=== PATIENT | male | born 1970 | race Hispanic/Latino ===

== ENCOUNTER 2019-11-09 06:10 | Inpatient (IN) | payer MEDICARE ==
[2019-11-09] MEDS: NORepinephrine/NS 4 MG-250 ML 4 MG/250 ML BAG IV SCH ×4 (06:15→17:45)
[2019-11-09] MEDS ORDERED: IPRATROPIUM 0.02% NEBU 2.5 ML IH ONE (06:25)
[2019-11-09] MEDS ORDERED: ALBUTEROL 2.5 MG/3 ML NEBU IH ONE (06:25)
[2019-11-09] MEDS ORDERED: methylPREDNISolone Sod Succinate 125 MG/2 ML INJ IV ONE (06:25)
[2019-11-09] MEDS ORDERED: SODIUM CHLORIDE 0.9% 1000 ML 1,000 ML IV ONE (06:25)
--- NOTE | 2019-11-09 06:30 | Emergency Department Report ---
HPI - General Time Seen by Provider: 11/09/19 06:19 - HPI HPI: Room 22 The patient is a 49-year-old male presenting with chief complaint of cardiac arrest. Per EMS the patient was at a psychiatric facility when he was found down in a shower. EMS arrived on scene upon the patient pulseless and apneic. ACLS protocols were initiated and the patient was intubated by EMS prior to arrival. Per EMS epinephrine 5 rounds was administered as the patient was persistently in asystole and only briefly and PEA. Upon arrival to the ED the patient was found to have a pulse and was hypotensive. Location: [See above] Duration: [See above] Quality: [See above] Severity: [See above] Timing: [See above] Context: [See above] Modifying factors: [See above] Associated signs and symptoms: [see above] ED Past Medical Hx - Past Medical History Hx Psychiatric Treatment: Yes (schizophrenia) Hx COPD: Yes Additional medical history: "bad back" - Family History Family history: no significant - Social History Smoking Status: Unknown if ever smoked Substance Use Type: None - Medications Home Medications: Home Medications Medication Instructions Recorded Confirmed Last Taken Type ALBUTEROL NEB's [Proventil 0.083% 1 neb IH Q6H 01/02/14 11/09/19 07/30/14 History NEBS] Albuterol Sulfate [Ventolin HFA] 2 puff IH QID PRN 01/02/14 11/09/19 01/02/14 08:[address] [Depakote] 500 mg PO BID 01/02/14 11/09/19 07/30/14 History Docusate Sodium [Colace] 100 mg PO BID 11/09/19 11/09/19 Unknown History Paliperidone Palmitate [Invega 156 mg IM QMONTH 11/09/19 11/09/19 11/04/19 History Sustenna] risperiDONE [RisperDAL] 3 mg PO BID 11/09/19 11/09/19 Unknown History ED Review of Systems ROS: Stated complaint: CARDIAC ARREST Other details as noted in HPI Comment: Unobtainable due to pts medical conditions Physical Exam - Physical Exam Physical Exam: GENERAL: The patient is well-developed well-nourished male lying on stretcher unresponsive. [] HEENT: Normocephalic. Atraumatic. Pupils 2 mm bilaterally NECK: Trachea midline CHEST/LUNGS: Diminished breath sounds bilaterally. Prolonged expiratory phase with bagging HEART/CARDIOVASCULAR: Regular. There is no tachycardia. There is no gallop rub or murmur. ABDOMEN: Abdomen is soft, nontender. Patient has normal bowel sounds. There is no abdominal distention. SKIN: There is no rash. There is no edema. There is no diaphoresis. NEURO: GCS 3T MUSCULOSKELETAL: There is no evidence of acute injury. ED Medical Decision Making - Lab Data Result diagrams: 11/09/19 06:24 11/09/19 06:24 Laboratory Tests 11/09/19 11/09/19 11/09/19 06:24 06:24 06:24 WBC 9.2 RBC 3.54 L Hgb 11.7 L Hct 36.4 MCV 103 H MCH 33 H MCHC 32 RDW 14.6 Plt Count 185 Add Manual Diff Complete Total Counted 100 Seg Neuts % (Manual) 65.0 Band Neutrophils % 12.0 Lymphocytes % (Manual) 16.0 Reactive Lymphs % (Man) 1.0 Monocytes % (Manual) 3.0 Eosinophils % (Manual) 0 Basophils % (Manual) 0 Metamyelocytes % 1.0 Myelocytes % 2.0 Promyelocytes % 0 Blast Cells % 0 Nucleated RBC % 1.0 H Seg Neutrophils # Man 6.0 Band Neutrophils # 1.1 Lymphocytes # (Manual) 1.5 Abs React Lymphs (Man) 0.1 Monocytes # (Manual) 0.3 Eosinophils # (Manual) 0.0 Basophils # (Manual) 0.0 Metamyelocytes # 0.1 Myelocytes # 0.2 Promyelocytes # 0.0 Blast Cells # 0.0 WBC Morphology Not Reportable Hypersegmented Neuts Not Reportable Hyposegmented Neuts Not Reportable Hypogranular Neuts Not Reportable Smudge Cells Not Reportable Toxic Granulation Not Reportable Toxic Vacuolation Not Reportable Dohle Bodies Not Reportable Pelger-Huet Anomaly Not Reportable Emily Rods Not Reportable Platelet Estimate Consistent w auto Clumped Platelets Not Reportable Plt Clumps, EDTA Not Reportable Large Platelets Not Reportable Giant Platelets Not Reportable Platelet Satelliting Not Reportable Plt Morphology Comment Not Reportable RBC Morphology Normal Dimorphic RBCs Not Reportable Polychromasia Not Reportable Hypochromasia Not Reportable Poikilocytosis Not Reportable Anisocytosis Not Reportable Microcytosis Not Reportable Macrocytosis Not Reportable Spherocytes Not Reportable Pappenheimer Bodies Not Reportable Sickle Cells Not Reportable Target Cells Not Reportable Tear Drop Cells Not Reportable Ovalocytes Not Reportable Helmet Cells Not Reportable [place] Bodies Not Reportable [place] Rings Not Reportable [place] Cells Not Reportable Bite Cells Not Reportable Crenated Cell Not Reportable Elliptocytes Not Reportable Acanthocytes (Spur) Not Reportable Rouleaux Not Reportable Hemoglobin C Crystals Not Reportable Schistocytes Not Reportable Malaria parasites Not Reportable Drake Bodies Not Reportable Hem Pathologist Commnt No PT 16.9 H INR 1.35 H APTT 50.7 H D-Dimer 4435.48 H POC ABG pH POC ABG pO2 POC ABG HCO3 POC ABG Total CO2 POC ABG O2 Sat POC ABG Base Excess FiO2 Sodium 141 Potassium 5.0 Chloride 98.4 Carbon Dioxide 23 Anion Gap 25 BUN 23 H Creatinine 1.3 Estimated GFR 59 BUN/Creatinine Ratio 18 Glucose 122 H Lactic Acid Calcium 8.3 L Magnesium Total Bilirubin 0.30 AST 355 H ALT 340 H Alkaline Phosphatase 91 Ammonia Total Creatine Kinase 75 CK-MB (CK-2) 3.0 CK-MB (CK-2) Rel Index 4.0 Troponin T 0.039 H NT-Pro-B Natriuret Pep 5052 H Total Protein 5.6 L Albumin 2.9 L Albumin/Globulin Ratio 1.1 TSH Free T4 Urine Color Urine Turbidity Urine pH Ur Specific Joaquin Urine Protein Urine Glucose (UA) Urine Ketones Urine Blood Urine Nitrite Urine Bilirubin Urine Urobilinogen Ur Leukocyte Esterase Urine WBC (Auto) Urine RBC (Auto) Urine Bacteria (Auto) Ur Transition Epith Cell Urine Mucus Urine Opiates Screen Urine Methadone Screen Ur Barbiturates Screen Valproic Acid Ur Phencyclidine Scrn Ur Amphetamines Screen U Benzodiazepines Scrn Urine Cocaine Screen U Marijuana (THC) Screen Drugs of Abuse Note Plasma/Serum Alcohol 11/09/1919 11/09/19 06:24 06:24 06:24 WBC RBC Hgb Hct MCV MCH MCHC RDW Plt Count Add Manual Diff Total Counted Seg Neuts % (Manual) Band Neutrophils % Lymphocytes % (Manual) Reactive Lymphs % (Man) Monocytes % (Manual) Eosinophils % (Manual) Basophils % (Manual) Metamyelocytes % Myelocytes % Promyelocytes % Blast Cells % Nucleated RBC % Seg Neutrophils # Man Band Neutrophils # Lymphocytes # (Manual) Abs React Lymphs (Man) Monocytes # (Manual) Eosinophils # (Manual) Basophils # (Manual) Metamyelocytes # Myelocytes # Promyelocytes # Blast Cells # WBC Morphology Hypersegmented Neuts Hyposegmented Neuts Hypogranular Neuts Smudge Cells Toxic Granulation Toxic Vacuolation Dohle Bodies Pelger-Huet Anomaly Emily Rods Platelet Estimate Clumped Platelets Plt Clumps, EDTA Large Platelets Giant Platelets Platelet Satelliting Plt Morphology Comment RBC Morphology Dimorphic RBCs Polychromasia Hypochromasia Poikilocytosis Anisocytosis Microcytosis Macrocytosis Spherocytes Pappenheimer Bodies Sickle Cells Target Cells Tear Drop Cells Ovalocytes Helmet Cells [place] Bodies [place] Rings Alberto Cells Bite Cells Crenated Cell Elliptocytes Acanthocytes (Spur) Rouleaux Hemoglobin C Crystals Schistocytes Malaria parasites Drake Bodies Hem Pathologist Commnt PT INR APTT D-Dimer POC ABG pH POC ABG pO2 POC ABG HCO3 POC ABG Total CO2 POC ABG O2 Sat POC ABG Base Excess FiO2 Sodium Potassium Chloride Carbon Dioxide Anion Gap BUN Creatinine Estimated GFR BUN/Creatinine Ratio Glucose Lactic Acid Calcium Magnesium 2.70 H Total Bilirubin AST ALT Alkaline Phosphatase Ammonia 101.0 H Total Creatine Kinase CK-MB (CK-2) CK-MB (CK-2) Rel Index Troponin T NT-Pro-B Natriuret Pep Total Protein Albumin Albumin/Globulin Ratio TSH 5.500 H Free T4 0.78 Urine Color Urine Turbidity Urine pH Ur Specific Joaquin Urine Protein Urine Glucose (UA) Urine Ketones Urine Blood Urine Nitrite Urine Bilirubin Urine Urobilinogen Ur Leukocyte Esterase Urine WBC (Auto) Urine RBC (Auto) Urine Bacteria (Auto) Ur Transition Epith Cell Urine Mucus Urine Opiates Screen Urine Methadone Screen Ur Barbiturates Screen Valproic Acid Ur Phencyclidine Scrn Ur Amphetamines Screen U Benzodiazepines Scrn Urine Cocaine Screen U Marijuana (THC) Screen Drugs of Abuse Note Plasma/Serum Alcohol 11/09/1919 11/09/19 06:24 06:39 06:39 WBC RBC Hgb Hct MCV MCH MCHC RDW Plt Count Add Manual Diff Total Counted Seg Neuts % (Manual) Band Neutrophils % Lymphocytes % (Manual) Reactive Lymphs % (Man) Monocytes % (Manual) Eosinophils % (Manual) Basophils % (Manual) Metamyelocytes % Myelocytes % Promyelocytes % Blast Cells % Nucleated RBC % Seg Neutrophils # Man Band Neutrophils # Lymphocytes # (Manual) Abs React Lymphs (Man) Monocytes # (Manual) Eosinophils # (Manual) Basophils # (Manual) Metamyelocytes # Myelocytes # Promyelocytes # Blast Cells # WBC Morphology Hypersegmented Neuts Hyposegmented Neuts Hypogranular Neuts Smudge Cells Toxic Granulation Toxic Vacuolation Dohle Bodies Pelger-Huet Anomaly Emily Rods Platelet Estimate Clumped Platelets Plt Clumps, EDTA Large Platelets Giant Platelets Platelet Satelliting Plt Morphology Comment RBC Morphology Dimorphic RBCs Polychromasia Hypochromasia Poikilocytosis Anisocytosis Microcytosis Macrocytosis Spherocytes Pappenheimer Bodies Sickle Cells Target Cells Tear Drop Cells Ovalocytes Helmet Cells [place] Bodies [place] Rings [place] Cells Bite Cells Crenated Cell Elliptocytes Acanthocytes (Spur) Rouleaux Hemoglobin C Crystals Schistocytes Malaria parasites Drake Bodies Hem Pathologist Commnt PT INR APTT D-Dimer POC ABG pH POC ABG pO2 POC ABG HCO3 POC ABG Total CO2 POC ABG O2 Sat POC ABG Base Excess FiO2 Sodium Potassium Chloride Carbon Dioxide Anion Gap BUN Creatinine Estimated GFR BUN/Creatinine Ratio Glucose Lactic Acid 8.80 H* Calcium Magnesium Total Bilirubin AST ALT Alkaline Phosphatase Ammonia Total Creatine Kinase CK-MB (CK-2) CK-MB (CK-2) Rel Index Troponin T NT-Pro-B Natriuret Pep Total Protein Albumin Albumin/Globulin Ratio TSH Free T4 Urine Color Urine Turbidity Urine pH Ur Specific Joaquin Urine Protein Urine Glucose (UA) Urine Ketones Urine Blood Urine Nitrite Urine Bilirubin Urine Urobilinogen Ur Leukocyte Esterase Urine WBC (Auto) Urine RBC (Auto) Urine Bacteria (Auto) Ur Transition Epith Cell Urine Mucus Urine Opiates Screen Urine Methadone Screen Ur Barbiturates Screen Valproic Acid 67.4 Ur Phencyclidine Scrn Ur Amphetamines Screen U Benzodiazepines Scrn Urine Cocaine Screen U Marijuana (THC) Screen Drugs of Abuse Note Plasma/Serum Alcohol < 0.01 11/09/19 11/09/19 11/09/19 06:51 07:24 07:24 WBC RBC Hgb Hct MCV MCH MCHC RDW Plt Count Add Manual Diff Total Counted Seg Neuts % (Manual) Band Neutrophils % Lymphocytes % (Manual) Reactive Lymphs % (Man) Monocytes % (Manual) Eosinophils % (Manual) Basophils % (Manual) Metamyelocytes % Myelocytes % Promyelocytes % Blast Cells % Nucleated RBC % Seg Neutrophils # Man Band Neutrophils # Lymphocytes # (Manual) Abs React Lymphs (Man) Monocytes # (Manual) Eosinophils # (Manual) Basophils # (Manual) Metamyelocytes # Myelocytes # Promyelocytes # Blast Cells # WBC Morphology Hypersegmented Neuts Hyposegmented Neuts Hypogranular Neuts Smudge Cells Toxic Granulation Toxic Vacuolation Dohle Bodies Pelger-Huet Anomaly Emily Rods Platelet Estimate Clumped Platelets Plt Clumps, EDTA Large Platelets Giant Platelets Platelet Satelliting Plt Morphology Comment RBC Morphology Dimorphic RBCs Polychromasia Hypochromasia Poikilocytosis Anisocytosis Microcytosis Macrocytosis Spherocytes Pappenheimer Bodies Sickle Cells Target Cells Tear Drop Cells Ovalocytes Helmet Cells [place] Bodies [place] Rings [place] Cells Bite Cells Crenated Cell Elliptocytes Acanthocytes (Spur) Rouleaux Hemoglobin C Crystals Schistocytes Malaria parasites Drake Bodies Hem Pathologist Commnt PT INR APTT D-Dimer POC ABG pH POC ABG pO2 POC ABG HCO3 POC ABG Total CO2 POC ABG O2 Sat POC ABG Base Excess FiO2 Sodium Potassium Chloride Carbon Dioxide Anion Gap BUN Creatinine Estimated GFR BUN/Creatinine Ratio Glucose Lactic Acid 9.80 H* Calcium Magnesium Total Bilirubin AST ALT Alkaline Phosphatase Ammonia Total Creatine Kinase CK-MB (CK-2) CK-MB (CK-2) Rel Index Troponin T NT-Pro-B Natriuret Pep Total Protein Albumin Albumin/Globulin Ratio TSH Free T4 Urine Color Yellow Urine Turbidity Cloudy Urine pH 6.0 Ur Specific Joaquin 1.014 Urine Protein >500 Urine Glucose (UA) 50 Urine Ketones Tr Urine Blood Sm Urine Nitrite Neg Urine Bilirubin Neg Urine Urobilinogen < 2.0 Ur Leukocyte Esterase Neg Urine WBC (Auto) 83.0 H Urine RBC (Auto) > 182.0 Urine Bacteria (Auto) 4+ Ur Transition Epith Cell 5 Urine Mucus 2+ Urine Opiates Screen Presumptive negative Urine Methadone Screen Presumptive negative Ur Barbiturates Screen Presumptive negative Valproic Acid Ur Phencyclidine Scrn Presumptive negative Ur Amphetamines Screen Presumptive negative U Benzodiazepines Scrn Presumptive negative Urine Cocaine Screen Presumptive negative U Marijuana (THC) Screen Presumptive negative Drugs of Abuse Note Disclamer Plasma/Serum Alcohol 11/09/19 11/09/19 11/09/19 07:27 08:10 08:32 WBC RBC Hgb Hct MCV MCH MCHC RDW Plt Count Add Manual Diff Total Counted Seg Neuts % (Manual) Band Neutrophils % Lymphocytes % (Manual) Reactive Lymphs % (Man) Monocytes % (Manual) Eosinophils % (Manual) Basophils % (Manual) Metamyelocytes % Myelocytes % Promyelocytes % Blast Cells % Nucleated RBC % Seg Neutrophils # Man Band Neutrophils # Lymphocytes # (Manual) Abs React Lymphs (Man) Monocytes # (Manual) Eosinophils # (Manual) Basophils # (Manual) Metamyelocytes # Myelocytes # Promyelocytes # Blast Cells # WBC Morphology Hypersegmented Neuts Hyposegmented Neuts Hypogranular Neuts Smudge Cells Toxic Granulation Toxic Vacuolation Dohle Bodies Pelger-Huet Anomaly Emily Rods Platelet Estimate Clumped Platelets Plt Clumps, EDTA Large Platelets Giant Platelets Platelet Satelliting Plt Morphology Comment RBC Morphology Dimorphic RBCs Polychromasia Hypochromasia Poikilocytosis Anisocytosis Microcytosis Macrocytosis Spherocytes Pappenheimer Bodies Sickle Cells Target Cells Tear Drop Cells Ovalocytes Helmet Cells [place] Bodies [place] Rings [place] Cells Bite Cells Crenated Cell Elliptocytes Acanthocytes (Spur) Rouleaux Hemoglobin C Crystals Schistocytes Malaria parasites Drake Bodies Hem Pathologist Commnt PT INR APTT D-Dimer POC ABG pH 7.145 L POC ABG pO2 380 H POC ABG HCO3 26.1 POC ABG Total CO2 28 POC ABG O2 Sat 100 POC ABG Base Excess -3 FiO2 100 Sodium Potassium Chloride Carbon Dioxide Anion Gap BUN Creatinine Estimated GFR BUN/Creatinine Ratio Glucose Lactic Acid 10.20 H* 6.50 H* Calcium Magnesium Total Bilirubin AST ALT Alkaline Phosphatase Ammonia Total Creatine Kinase CK-MB (CK-2) CK-MB (CK-2) Rel Index Troponin T NT-Pro-B Natriuret Pep Total Protein Albumin Albumin/Globulin Ratio TSH Free T4 Urine Color Urine Turbidity Urine pH Ur Specific Joaquin Urine Protein Urine Glucose (UA) Urine Ketones Urine Blood Urine Nitrite Urine Bilirubin Urine Urobilinogen Ur Leukocyte Esterase Urine WBC (Auto) Urine RBC (Auto) Urine Bacteria (Auto) Ur Transition Epith Cell Urine Mucus Urine Opiates Screen Urine Methadone Screen Ur Barbiturates Screen Valproic Acid Ur Phencyclidine Scrn Ur Amphetamines Screen U Benzodiazepines Scrn Urine Cocaine Screen U Marijuana (THC) Screen Drugs of Abuse Note Plasma/Serum Alcohol 11/09/19 09:27 WBC RBC Hgb Hct MCV MCH MCHC RDW Plt Count Add Manual Diff Total Counted Seg Neuts % (Manual) Band Neutrophils % Lymphocytes % (Manual) Reactive Lymphs % (Man) Monocytes % (Manual) Eosinophils % (Manual) Basophils % (Manual) Metamyelocytes % Myelocytes % Promyelocytes % Blast Cells % Nucleated RBC % Seg Neutrophils # Man Band Neutrophils # Lymphocytes # (Manual) Abs React Lymphs (Man) Monocytes # (Manual) Eosinophils # (Manual) Basophils # (Manual) Metamyelocytes # Myelocytes # Promyelocytes # Blast Cells # WBC Morphology Hypersegmented Neuts Hyposegmented Neuts Hypogranular Neuts Smudge Cells Toxic Granulation Toxic Vacuolation Dohle Bodies Pelger-Huet Anomaly Emily Rods Platelet Estimate Clumped Platelets Plt Clumps, EDTA Large Platelets Giant Platelets Platelet Satelliting Plt Morphology Comment RBC Morphology Dimorphic RBCs Polychromasia Hypochromasia Poikilocytosis Anisocytosis Microcytosis Macrocytosis Spherocytes Pappenheimer Bodies Sickle Cells Target Cells Tear Drop Cells Ovalocytes Helmet Cells [place] Bodies [place] Rings Alberto Cells Bite Cells Crenated Cell Elliptocytes Acanthocytes (Spur) Rouleaux Hemoglobin C Crystals Schistocytes Malaria parasites Drake Bodies Hem Pathologist Commnt PT INR APTT D-Dimer POC ABG pH POC ABG pO2 POC ABG HCO3 POC ABG Total CO2 POC ABG O2 Sat POC ABG Base Excess FiO2 Sodium Potassium Chloride Carbon Dioxide Anion Gap BUN Creatinine Estimated GFR BUN/Creatinine Ratio Glucose Lactic Acid 5.80 H* Calcium Magnesium Total Bilirubin AST ALT Alkaline Phosphatase Ammonia Total Creatine Kinase CK-MB (CK-2) CK-MB (CK-2) Rel Index Troponin T NT-Pro-B Natriuret Pep Total Protein Albumin Albumin/Globulin Ratio TSH Free T4 Urine Color Urine Turbidity Urine pH Ur Specific Joaquin Urine Protein Urine Glucose (UA) Urine Ketones Urine Blood Urine Nitrite Urine Bilirubin Urine Urobilinogen Ur Leukocyte Esterase Urine WBC (Auto) Urine RBC (Auto) Urine Bacteria (Auto) Ur Transition Epith Cell Urine Mucus Urine Opiates Screen Urine Methadone Screen Ur Barbiturates Screen Valproic Acid Ur Phencyclidine Scrn Ur Amphetamines Screen U Benzodiazepines Scrn Urine Cocaine Screen U Marijuana (THC) Screen Drugs of Abuse Note Plasma/Serum Alcohol - EKG Data -: EKG Interpreted by Me EKG shows normal: sinus rhythm Rate: normal - EKG Data When compared to previous EKG there are: previous EKG unavailable Interpretation: nonspecific ST-T wave veronica (flattened T-wave in lead aVL) - Radiology Data Radiology results: report reviewed (CT head, CT chest), image reviewed (chest x- ray, CT head, CT chest) interpreted by me: Chest x-ray-ET tube in place. No focal infiltrate, no pneumothorax [address] [address] Cat Scan Report Signed Patient: KRUPA COE MR# : [id number] : 1970 Acct:[id number] Age/Sex: 49 / M ADM Date: 11/09/19 Loc: ED Attending Dr: Ordering Physician: BRANDI PRICE MD Date of Service: 11/09/19 Procedure(s): CT head/brain wo con Accession Number(s): [id number] cc: BRANDI PRICE MD CT head/brain wo con INDICATION: Cardiac Arrest, Pt found down!. TECHNIQUE: All CT scans at this location are performed using the following dose modulation technique: Automated exposure control. CONTRAST: None. COMPARISON: None available. FINDINGS: The ventricular system is appropriate in size and configuration without midline shift. Negative for mass, stroke or hemorrhage. Evaluation of the paranasal mucosal retention cyst at the base of the left maxillary sinus. Indication of the right maxillary sinus. IMPRESSION: 1. Sinus disease. 2. No bleed or stroke. Signer Name: Tobi Hooper MD Signed: 11/09/2019 9:28 AM Workstation Name: [id number] Transcribed By: ES Dictated By: Tobi Hooper MD Electronically Authenticated By: Tobi Hooper MD Signed Date/Time: 11/09/19927 DD/ 2 TD/TT: [address] [address] Cat Scan Report Signed Patient: KRUPA COE MR# : [id number] : 1970 Acct:[id number] Age/Sex: 49 / M ADM Date: 11/09/19 Loc: ED Aurelio mcdowell Dr: Ordering Physician: BRANDI PRICE MD Date of Service: 11/09/19 Procedure(s): CT angio chest Accession Number(s): [id number] cc: BRANDI PRICE MD CT angio chest INDICATION / CLINICAL INFORMATION: s/p cardiac arrest. TECHNIQUE: Axial CT images were obtained after injection of Omnipaque 300 100 cc IV contrast using CTA protocol. 3 plane MIP / 3D reconstructions were produced. All CT scans at this location are performed using CT dose reduction for ALARA by means of automated exposure control. COMPARISON: None available. FINDINGS: Negative for lung mass, infiltrate or pleural fluid. No mediastinal mass or adenopathy. Negative for aneurysm, dissection or pulmonary embolus. Imaging of the upper abdomen is unremarkable. An NG tube is in satisfactory position. IMPRESSION: No pulmonary embolus or pneumonia. Signer Name: Tobi Hooper MD Signed: 11/09/2019 9:53 AM Workstation Name: [id number] Transcribed By: ES Dictated By: Tobi Hooper MD Electronically Authenticated By: Tobi Hooper MD Signed Date/Time: 11/09/1953 DD/ 7 TD/TT: - Differential Diagnosis respiratory arrest, cardiac arrest Critical care attestation.: If time is entered above; I have spent that time in minutes in the direct care of this critically ill patient, excluding procedure time. ED Disposition Clinical Impression: Respiratory arrest, Hepatic encephalopathy, UTI (urinary tract infection), Elevated troponin Disposition: OP ADMIT IP TO THIS HOSP Is pt being admited?: Yes Does the pt Need Aspirin: Yes Condition: Serious Referrals: PRIMARY CARE, [Primary Care Provider] - 3-5 Days Time of Disposition: 11:14 (hospitalist paged (Dr John))
[2019-11-09 06:36] LABS: Hematocrit 36.4 % (35.5-45.6); Hemoglobin 11.7 gm/dl (11.8-15.2); Mean Corpuscular HGB Conc 32 % (32-34); Mean Corpuscular Volume 103 fl (84-94); Platelet Count 185 K/mm3 (140-440); Red Blood Count 3.54 M/mm3 (3.65-5.03); Red Cell Distribution Width 14.6 % (13.2-15.2)
--- NOTE | 2019-11-09 06:38 | XRay Report ---
CHEST 1 VIEW INDICATION / CLINICAL INFORMATION: s/p cardiac arrest. COMPARISON: None available. FINDINGS: SUPPORT DEVICES: Endotracheal tube is seen in the upper trachea somewhat high in position. It could b e advanced another 5 cm. HEART / MEDIASTINUM: No significant abnormality. LUNGS / PLEURA: No significant pulmonary or pleural abnormality. No pneumothorax. ADDITIONAL FINDINGS: Endotracheal tube somewhat high in position. The lungs and pleural spaces are cl ear. IMPRESSION: 1. No significant change Signer Name: Jamari Ruiz MD Signed: 11/09/2019 6:34 AM Workstation Name: [id number]
[2019-11-09 06:46] LABS: INR 1.35 (0.87-1.13)
[2019-11-09 06:47] LABS: Partial Thromboplastin Time 50.7 Sec. (24.2-36.6)
[2019-11-09 06:56] LABS: Albumin 2.9 g/dL (3.9-5); Calcium 8.3 mg/dL (8.4-10.2)
[2019-11-09 07:01] LABS: Free T4 (Free Thyroxine) 0.78 ng/dL (0.76-1.46)
[2019-11-09] MEDS ORDERED: LACTULOSE 20 GM/30 ML ORAL LIQD FEEDTUBE ONE (07:08)
[2019-11-09] MEDS ORDERED: LIP THERAPY VASELINE TP PRN (07:29)
[2019-11-09] MEDS ORDERED: MINERAL OIL/PETROLATUM, WHITE OPHTH OINT 3.5 GM OU PRN (07:29)
[2019-11-09] MEDS ORDERED: MIDAZOLAM 5 MG/5 ML INJ MDV IV ONE (07:49)
[2019-11-09] MEDS: MIDAZOLAM 2 MG/2 ML INJ IV PRN ×2 (07:50→08:10)
[2019-11-09 07:54] LABS: Bacteria,Urine 4+ /HPF (Negative); Bilirubin,Urine NEG (Negative); Blood,Urine SM (Negative); Color,Urine Yellow (Yellow); Mucus,Urine 2+ /HPF; Urobilinogen,Urine < 2.0 mg/dL (<2.0)
[2019-11-09 07:55] LABS: Amphetamine Screen,Urine PRESUMPTIVE NEGATIVE; Benzodiazepines Screen,Urine PRESUMPTIVE NEGATIVE; Cannabinoid Screen,Urine PRESUMPTIVE NEGATIVE; Cocaine Screen,Urine PRESUMPTIVE NEGATIVE; Methadone Screen,Urine PRESUMPTIVE NEGATIVE; Opiate Screen,Urine PRESUMPTIVE NEGATIVE
[2019-11-09] MEDS ORDERED: MIDAZOLAM 100 MG in SODIUM CHLORIDE 0.9% 80 ML IV SCH (08:00)
[2019-11-09 08:04] LABS: Protein,Urine >500 mg/dL (Negative); RBC,Urine > 182.0 /HPF (0.0-6.0)
[2019-11-09] MEDS ORDERED: SODIUM BICARB 8.4% 50 MEQ/50 ML SYRINGE IV ONE ×2 (08:33→22:52)
[2019-11-09 08:57] LABS: Band Neutrophils # (Manual) 1.1 K/mm3; Basophils % (Manual) 0 % (0.0-1.8); Eosinophils % (Manual) 0 % (0.0-4.3); Myelocytes # (Manual) 0.2 K/mm3; RBC Morphology Normal; Total Cells Counted 100
[2019-11-09 08:58] LABS: Platelet Estimate Consistent w Auto
--- NOTE | 2019-11-09 09:32 | Cat Scan Report ---
CT head/brain wo con INDICATION: Cardiac Arrest, Pt found down!. TECHNIQUE: All CT scans at this location are performed using the following dose modulation technique: Automated exposure control. CONTRAST: None. COMPARISON: None available. FINDINGS: The ventricular system is appropriate in size and configuration without midline shift. Nega tive for mass, stroke or hemorrhage. Evaluation of the paranasal mucosal retention cyst at the base of the left maxillary sinus. Indicatio n of the right maxillary sinus. IMPRESSION: 1. Sinus disease. 2. No bleed or stroke. Signer Name: Tobi Hooper MD Signed: 11/09/2019 9:28 AM Workstation Name: [id number]
--- NOTE | 2019-11-09 09:57 | Cat Scan Report ---
CT angio chest INDICATION / CLINICAL INFORMATION: s/p cardiac arrest. TECHNIQUE: Axial CT images were obtained after injection of Omnipaque 300 100 cc IV contrast using CTA protocol. 3 plane MIP / 3D reconstructions were produced. All CT scans at this location are performed using CT dose reduction for ALARA by means of automated exposure control. COMPARISON: None available. FINDINGS: Negative for lung mass, infiltrate or pleural fluid. No mediastinal mass or adenopathy. Negative for aneurysm, dissection or pulmonary embolus. Imaging of the upper abdomen is unremarkable. An NG tube is in satisfactory position. IMPRESSION: No pulmonary embolus or pneumonia. Signer Name: Tobi Hooper MD Signed: 11/09/2019 9:53 AM Workstation Name: [id number]
[2019-11-09] MEDS ORDERED: ASPIRIN 325 MG TAB FEEDTUBE ONE (11:12)
--- NOTE | 2019-11-09 12:59 | Event Note ---
Date: 11/09/19 - Central Line Placement RIJ Consent Obtained: emergent situation Time Out Performed: Yes Patient Placed on Monitor/Pulse Ox: Yes MD Prep: mask, gown, gloves Central Line Prep: Chlorhexidine scrub Local Anesthesia Used: Lidocaine 1% Amount of Anesthesia Used (mls): 3 Ultrasound Used for Placement: Yes Central Line Lumen Inserted: triple Bloods Obtained for Lab: No Central Line Position: good blood return, all ports aspirated, flus, sutured in place with 2-0 Dressing Applied: Tegaderm Post Procedure X-Ray: tip of catheter in good p Patient Tolerated Procedure: well Complications: none Additional Comments: post procedure xray position noted no pneumo.
--- NOTE | 2019-11-09 13:07 | XRay Report ---
CHEST 1 VIEW INDICATION: post line placement. COMPARISON: Same day at 6:15 AM FINDINGS: Support devices: New device(s): A right IJ catheter has been inserted and the tip is in the distal S VC in good position. A nasogastric tube has also been inserted and the tip is below the diaphragm and not included on the image. The endotracheal tube is satisfactory and well above the alta. Heart: Within normal limits. Pulmonary vasculature: Normal. Lungs/Pleura: No acute air space or interstitial disease. No pneumothorax. Additional findings: None. IMPRESSION: 1. Satisfactory line placement. 2. No pneumothorax. 3. No CHF or pneumonia. Signer Name: Chau Arango MD Signed: 11/09/2019 1:02 PM Workstation Name: [id number]
--- NOTE | 2019-11-09 13:09 | XRay Report ---
ABDOMEN AP ONE VIEW HISTORY: OG TUBE PLACEMENT. COMPARISON: None. FINDINGS: An orogastric tube tip is in the expected location of the stomach. Nonobstructive bowel ga s pattern. IMPRESSION: Satisfactory tube placement. Signer Name: Chau Arango MD Signed: 11/09/2019 1:04 PM Workstation Name: [id number]
--- NOTE | 2019-11-09 19:38 | History and Physical Report ---
History of Present Illness Date of examination: 11/09/19 Date of admission: 11/09/19 11:19 Chief complaint: Status post cardiac arrest in [place] History of present illness: 49-year-old male brought in from [place] for cardiac arrest. Patient is being treated for schizophrenia at [place]. Patient was found face down in a shower room. EMS was called. Patient was found pulseless and apneic. ACLS protocol was initiated and patient was intubated by EMS prior to arrival. ACLS was continued in the emergency room. Patient was given epinephrine 5. Patient was persistently in asystole and briefly and PEA. In the emergency room patient regained pulse but was hypotensive. Patient was started on pressors in the emergency room. No wheezing. Past Medical History Psychiatric Treatment: Yes (schizophrenia) Low back pain COPD Surgical history Not available Family History Family history: no significant Social History Smoking Status: Unknown if ever smoked Substance Use Type: None Medications Home Medications: Home Medications Medication Instructions Recorded Confirmed Last Taken Type ALBUTEROL NEB's [Proventil 0.083% 1 neb IH Q6H 01/02/14 11/09/19 07/30/14 History NEBS] Albuterol Sulfate [Ventolin HFA] 2 puff IH QID PRN 01/02/14 11/09/19 01/02/14 08:[address] [Depakote] 500 mg PO BID 01/02/14 11/09/19 07/30/14 History Docusate Sodium [Colace] 100 mg PO BID 11/09/19 11/09/19 Unknown History Paliperidone Palmitate [Invega 156 mg IM QMONTH 11/09/19 11/09/19 11/04/19 History Sustenna] risperiDONE [RisperDAL] 3 mg PO BID 11/09/19 11/09/19 Unknown History Review of Systems ROS: Stated complaint: CARDIAC ARREST Other details as noted in HPI Comment: Unobtainable due to pts medical conditions Medications and Allergies Allergies Allergy/AdvReac Type Severity Reaction Status Date / Time No Known Allergies Allergy Unverified 11/09/19 07:15 Home Medications Medication Instructions Recorded Confirmed Last Taken Type ALBUTEROL NEB's [Proventil 0.083% 1 neb IH Q6H 01/02/14 11/09/19 07/30/14 History NEBS] Albuterol Sulfate [Ventolin HFA] 2 puff IH QID PRN 01/02/14 11/09/19 01/02/14 08:[address] [Depakote] 500 mg PO BID 01/02/14 11/09/19 07/30/14 History Docusate Sodium [Colace] 100 mg PO BID 11/09/19 11/09/19 Unknown History Paliperidone Palmitate [Invega 156 mg IM QMONTH 11/09/19 11/09/19 11/04/19 History Sustenna] risperiDONE [RisperDAL] 3 mg PO BID 11/09/19 11/09/19 Unknown History Active Meds: Active Medications Famotidine (Pepcid) 20 mg IV BID HAN Hydrophilic Ointment (Vaseline Lip Therapy) 1 applic TP Q2HR PRN PRN Reason: Dry Lips Norepinephrine (Levophed Drip 4 Mg/Ns 250 Ml) 4 mg in 250 mls @ 22.5 mls/hr IV TITR HAN; Protocol Last Titration: 11/09/19 18:19 Dose: 16 mcg/min, 60 mls/hr Documented by: Multi-Ingred Cream/Lotion/Oil/Oint (Artificial Tears Ophth Oint) 1 applic OU Q4HR PRN PRN Reason: Dry Eye(s) Exam - Physical Exam Narrative exam: Patient is intubated and on ventilator - Constitutional Vitals: Temp Pulse Resp BP Pulse Ox 97.8 F 100 H 23 125/85 98 11/09/19 09:58 11/09/19 18:00 11/09/19 15:29 11/09/19 15:01 11/09/19 18:00 General appearance: Present: severe distress, well-nourished - EENT Eyes: Present: PERRL ENT: hearing intact, clear oral mucosa - Neck Neck: Present: supple, normal ROM - Respiratory Respiratory effort: normal Respiratory: bilateral: CTA - Cardiovascular Heart rate: 108 Rhythm: regular Heart Sounds: Present: S1 & S2. Absent: rub, click - Extremities Extremities: no ischemia, pulses symmetrical, No edema Peripheral Pulses: within normal limits - Abdominal General gastrointestinal: Present: soft, non-tender, non-distended, normal bowel sounds Male genitourinary: Present: normal - Rectal Rectal Exam: deferred - Integumentary Integumentary: Present: clear, warm, dry - Musculoskeletal Musculoskeletal: generalized weakness - Psychiatric Psychiatric: other (unresponsive) - Neurologic Neurologic: moves all extremities, other (unresponsive) - Allied Health Allied health notes reviewed: nursing Results - Labs CBC & Chem 7: 11/09/19 06:24 11/09/19 06:24 Labs: Laboratory Last Values WBC 9.2 K/mm3 (4.5-11.0) 11/09/19 06:24 RBC 3.54 M/mm3 (3.65-5.03) L 11/09/19 06:24 Hgb 11.7 gm/dl (11.8-15.2) L 11/09/19 06:24 Hct 36.4 % (35.5-45.6) 11/09/19 06:24 MCV 103 fl (84-94) H 11/09/19 06:24 MCH 33 pg (28-32) H 11/09/19 06:24 MCHC 32 % (32-34) 11/09/19 06:24 RDW 14.6 % (13.2-15.2) 11/09/19 06:24 Plt Count 185 K/mm3 (140-440) 11/09/19 06:24 Add Manual Diff Complete 11/09/19 06:24 Total Counted 100 11/09/19 06:24 Seg Neuts % (Manual) 65.0 % (40.0-70.0) 11/09/19 06:24 Band Neutrophils % 12.0 % 11/09/19 06:24 Lymphocytes % (Manual) 16.0 % (13.4-35.0) 11/09/19 06:24 Reactive Lymphs % (Man) 1.0 % 11/09/19 06:24 Monocytes % (Manual) 3.0 % (0.0-7.3) 11/09/19 06:24 Eosinophils % (Manual) 0 % (0.0-4.3) 11/09/19 06:24 Basophils % (Manual) 0 % (0.0-1.8) 11/09/19 06:24 Metamyelocytes % 1.0 % 11/09/19 06:24 Myelocytes % 2.0 % 11/09/19 06:24 Promyelocytes % 0 % 11/09/19 06:24 Blast Cells % 0 % 11/09/19 06:24 Nucleated RBC % 1.0 % (0.0-0.9) H 11/09/19 06:24 Seg Neutrophils # Man 6.0 K/mm3 (1.8-7.7) 11/09/19 06:24 Band Neutrophils # 1.1 K/mm3 11/09/19 06:24 Lymphocytes # (Manual) 1.5 K/mm3 (1.2-5.4) 11/09/19 06:24 Abs React Lymphs (Man) 0.1 K/mm3 11/09/19 06:24 Monocytes # (Manual) 0.3 K/mm3 (0.0-0.8) 11/09/19 06:24 Eosinophils # (Manual) 0.0 K/mm3 (0.0-0.4) 11/09/19 06:24 Basophils # (Manual) 0.0 K/mm3 (0.0-0.1) 11/09/19 06:24 Metamyelocytes # 0.1 K/mm3 11/09/19 06:24 Myelocytes # 0.2 K/mm3 11/09/19 06:24 Promyelocytes # 0.0 K/mm3 11/09/19 06:24 Blast Cells # 0.0 K/mm3 11/09/19 06:24 WBC Morphology Not Reportable 11/09/19 06:24 Hypersegmented Neuts Not Reportable 11/09/19 06:24 Hyposegmented Neuts Not Reportable 11/09/19 06:24 Hypogranular Neuts Not Reportable 11/09/19 06:24 Smudge Cells Not Reportable 11/09/19 06:24 Toxic Granulation Not Reportable 11/09/19 06:24 Toxic Vacuolation Not Reportable 11/09/19 06:24 Dohle Bodies Not Reportable 11/09/19 06:24 Pelger-Huet Anomaly Not Reportable 11/09/19 06:24 Emily Rods Not Reportable 11/09/19 06:24 Platelet Estimate Consistent w auto 11/09/19 06:24 Clumped Platelets Not Reportable 11/09/19 06:24 Plt Clumps, EDTA Not Reportable 11/09/19 06:24 Large Platelets Not Reportable 11/09/19 06:24 Giant Platelets Not Reportable 11/09/19 06:24 Platelet Satelliting Not Reportable 11/09/19 06:24 Plt Morphology Comment Not Reportable 11/09/19 06:24 RBC Morphology Normal 11/09/19 06:24 Dimorphic RBCs Not Reportable 11/09/19 06:24 Polychromasia Not Reportable 11/09/19 06:24 Hypochromasia Not Reportable 11/09/19 06:24 Poikilocytosis Not Reportable 11/09/19 06:24 Anisocytosis Not Reportable 11/09/19 06:24 Microcytosis Not Reportable 11/09/19 06:24 Macrocytosis Not Reportable 11/09/19 06:24 Spherocytes Not Reportable 11/09/19 06:24 Pappenheimer Bodies Not Reportable 11/09/19 06:24 Sickle Cells Not Reportable 11/09/19 06:24 Target Cells Not Reportable 11/09/19 06:24 Tear Drop Cells Not Reportable 11/09/19 06:24 Ovalocytes Not Reportable 11/09/19 06:24 Helmet Cells Not Reportable 11/09/19 06:24 [place] Bodies Not Reportable 11/09/19 06:24 [place] Not Reportable 11/09/19 06:24 Alberto Cells Not Reportable 11/09/19 06:24 Bite Cells Not Reportable 11/09/19 06:24 Crenated Cell Not Reportable 11/09/19 06:24 Elliptocytes Not Reportable 11/09/19 06:24 Acanthocytes (Spur) Not Reportable 11/09/19 06:24 Rouleaux Not Reportable 11/09/19 06:24 Hemoglobin C Crystals Not Reportable 11/09/19 06:24 Schistocytes Not Reportable 11/09/19 06:24 Malaria parasites Not Reportable 11/09/19 06:24 Drake Bodies Not Reportable 11/09/19 06:24 Hem Pathologist Commnt No 11/09/19 06:24 PT 16.9 Sec. (12.2-14.9) H 11/09/19 06:24 INR 1.35 (0.87-1.13) H 11/09/19 06:24 APTT 50.7 Sec. (24.2-36.6) H 11/09/19 06:24 D-Dimer 4435.48 ng/mlDDU (0-234) H 11/09/19 06:24 POC ABG pH 7.288 (7.35-7.45) L 11/09/19 15:02 POC ABG pCO2 60.2 (35-45) H 11/09/19 15:02 POC ABG pO2 74 (80-105) L 11/09/19 15:02 POC ABG HCO3 28.8 (22-26 mml/L) 11/09/19 15:02 POC ABG Total CO2 31 (23-27mmol/L) 11/09/19 15:02 POC ABG O2 Sat 92 11/09/19 15:02 POC ABG Base Excess 2 ((-2) - (+3)mmol/L) 11/09/19 15:02 FiO2 40 % 11/09/19 15:02 Sodium 141 mmol/L (137-145) 11/09/19 06:24 Potassium 5.0 mmol/L (3.6-5.0) 11/09/19 06:24 Chloride 98.4 mmol/L (98-107) 11/09/19 06:24 Carbon Dioxide 23 mmol/L (22-30) 11/09/19 06:24 Anion Gap 25 mmol/L 11/09/19 06:24 BUN 23 mg/dL (9-20) H 11/09/19 06:24 Creatinine 1.3 mg/dL (0.8-1.5) 11/09/19 06:24 Estimated GFR 59 ml/min 11/09/19 06:24 BUN/Creatinine Ratio 18 % 11/09/19 06:24 Glucose 122 mg/dL (75-100) H 11/09/19 06:24 Lactic Acid 2.60 mmol/L (0.7-2.0) H* 11/09/19 17:34 Calcium 8.3 mg/dL (8.4-10.2) L 11/09/19 06:24 Magnesium 2.70 mg/dL (1.7-2.3) H 11/09/19 06:24 Total Bilirubin 0.30 mg/dL (0.1-1.2) 11/09/19 06:24 AST 355 units/L (5-40) H 11/09/19 06:24 ALT 340 units/L (7-56) H 11/09/19 06:24 Alkaline Phosphatase 91 units/L (35-129) 11/09/19 06:24 Ammonia 101.0 umol/L (25-60) H 11/09/19 06:24 Total Creatine Kinase 75 units/L (55-170) 11/09/19 06:24 CK-MB (CK-2) 3.0 ng/mL (0.0-4.0) 11/09/19 06:24 CK-MB (CK-2) Rel Index 4.0 (0-4) 11/09/19 06:24 Troponin T 0.039 ng/mL (0.00-0.029) H 11/09/19 06:24 NT-Pro-B Natriuret Pep 5052 pg/mL (0-450) H 11/09/19 06:24 Total Protein 5.6 g/dL (6.3-8.2) L 11/09/19 06:24 Albumin 2.9 g/dL (3.9-5) L 11/09/19 06:24 Albumin/Globulin Ratio 1.1 % 11/09/19 06:24 TSH 5.500 mlU/mL (0.270-4.200) H 11/09/19 06:24 Free T4 0.78 ng/dL (0.76-1.46) 11/09/19 06:24 Urine Color Yellow (Yellow) 11/09/19 07:24 Urine Turbidity Cloudy (Clear) 11/09/19 07:24 Urine pH 6.0 (5.0-7.0) 11/09/19 07:24 Ur Specific [place] 1.014 (1.003-1.030) 11/09/19 07:24 Urine Protein >500 mg/dL (Negative) 11/09/19 07:24 Urine Glucose (UA) 50 mg/dL (Negative) 11/09/19 07:24 Urine Ketones Tr mg/dL (Negative) 11/09/19 07:24 Urine Blood Sm (Negative) 11/09/19 07:24 Urine Nitrite Neg (Negative) 11/09/19 07:24 Urine Bilirubin Neg (Negative) 11/09/19 07:24 Urine Urobilinogen < 2.0 mg/dL (<2.0) 11/09/19 07:24 Ur Leukocyte Esterase Neg (Negative) 11/09/19 07:24 Urine WBC (Auto) 83.0 /HPF (0.0-6.0) H 11/09/19 07:24 Urine RBC (Auto) > 182.0 /HPF (0.0-6.0) 11/09/19 07:24 Urine Bacteria (Auto) 4+ /HPF (Negative) 11/09/19 07:24 Ur Transition Epith Cell 5 /HPF 11/09/19 07:24 Urine Mucus 2+ /HPF 11/09/19 07:24 Urine Opiates Screen Presumptive negative 11/09/19 07:24 Urine Methadone Screen Presumptive negative 11/09/19 07:24 Ur Barbiturates Screen Presumptive negative 11/09/19 07:24 Valproic Acid 67.4 ug/mL (50-100) 11/09/19 06:39 Ur Phencyclidine Scrn Presumptive negative 11/09/19 07:24 Ur Amphetamines Screen Presumptive negative 11/09/19 07:24 U Benzodiazepines Scrn Presumptive negative 11/09/19 07:24 Urine Cocaine Screen Presumptive negative 11/09/19 07:24 U Marijuana (THC) Screen Presumptive negative 11/09/19 07:24 Drugs of Abuse Note Disclamer 11/09/19 07:24 Plasma/Serum Alcohol < 0.01 % (0-0.07) 11/09/19 06:39 Short CBC 11/09/19 Range/Units 06:24 WBC 9.2 (4.5-11.0) K/mm3 Hgb 11.7 L (11.8-15.2) gm/dl Hct 36.4 (35.5-45.6) % Plt Count 185 (140-440) K/mm3 BMP 11/09/19 06:24 Sodium 141 Potassium 5.0 Chloride 98.4 Carbon Dioxide 23 BUN 23 H Creatinine 1.3 Glucose 122 H Calcium 8.3 L Cardiac Enzymes 11/09/19 Range/Units 06:24 Total Creatine Kinase 75 (55-170) units/L CK-MB (CK-2) 3.0 (0.0-4.0) ng/mL Troponin T 0.039 H (0.00-0.029) ng/mL Liver Function 11/09/19 Range/Units 06:24 Total Bilirubin 0.30 (0.1-1.2) mg/dL AST 355 H (5-40) units/L ALT 340 H (7-56) units/L Alkaline Phosphatase 91 (35-129) units/L Albumin 2.9 L (3.9-5) g/dL Urine //19 Range/Units 07:24 Urine Color Yellow (Yellow) Urine pH 6.0 (5.0-7.0) Ur Specific [place] 1.014 (1.003-1.030) Urine Protein >500 (Negative) mg/dL Urine Glucose (UA) 50 (Negative) mg/dL - Imaging and Cardiology EKG: report reviewed Chest x-ray: report reviewed (NAF) Abdominal x-ray: report reviewed (NAF) CT scan - chest: report reviewed (CTA -NAF) CT Scan - head: report reviewed (NAF) Assessment and Plan Assessment and plan: CCT 45 minutes Advance Directives: Yes (Full code) VTE prophylaxis?: Chemical Plan of care discussed with patient/family: Yes - Patient Problems (1) Septic shock Current Visit: Yes Status: Acute Plan to address problem: High possibility IV Cefepime and IV Vancomycin IV pressors (2) Cardiac arrest Current Visit: Yes Status: Acute Plan to address problem: Possible Vfib--Revived Pressors ,Vent support Prognosis poor R/o Anoxic encephalopathy (3) Hepatic encephalopathy Current Visit: Yes Status: Acute Plan to address problem: Transaminitis and eleveted Ammonia Shock Liver?? Lactulose for now Hepatitis profile (4) UTI (urinary tract infection) Current Visit: Yes Status: Acute Qualifiers: Urinary tract infection type: acute cystitis Plan to address problem: Patient on IV Cefepime for Sepsis which should cover UTI Check Urine cultures (5) CHF (congestive heart failure) Current Visit: Yes Status: Acute Qualifiers: Heart failure type: combined systolic and diastolic Plan to address problem: High BNP ECHO for EF and Valve function (6) Malnutrition Current Visit: Yes Status: Acute Qualifiers: Protein-calorie malnutrition severity: moderate Plan to address problem: Dietitian consult for recommendations after extubation (7) DVT prophylaxis Current Visit: Yes Status: Acute Plan to address problem: On Heparin and GI prophylaxis
[2019-11-09] MEDS ORDERED: IPRATROPIUM/ALBUTEROL SULFATE 3 ML AMPUL.NEB IH PRN (21:18)
[2019-11-09] MEDS: CEFEPIME/NS 2 GM/100 ML 2 GM/100 ML BAG IV SCH (22:02)
[2019-11-09] MEDS: methylPREDNISolone Sod Succinate 125 MG/2 ML INJ IV SCH (22:03)
[2019-11-09] MEDS: FAMOTIDINE 20 MG/2 ML INJ IV SCH (22:03)
[2019-11-10] MEDS ORDERED: LORazepam 2 MG/ML VIAL IV ONE (02:20)
[2019-11-10 05:27] LABS: ABG Base Excess 3.5 mmol/L (-2.0-3.0); ABG HCO3 28.7 mmol/L (20.0-26.0); ABG Methemoglobin 0.5 % (0.0-1.5); ABG Oxygen Saturation 95.5 % (95.0-99.0); ABG PCO2 46.3 mm Hg; ABG PH 7.41 pH Units (7.350-7.450); ABG PO2 71.6 mm Hg (80.0-90.0)
[2019-11-10] MEDS: CEFEPIME/NS 2 GM/100 ML 2 GM/100 ML BAG IV SCH ×3 (06:05→21:57)
[2019-11-10] MEDS: methylPREDNISolone Sod Succinate 125 MG/2 ML INJ IV SCH (06:06)
[2019-11-10 07:04] LABS: Hematocrit 37.5 % (35.5-45.6); Hemoglobin 12.4 gm/dl (11.8-15.2); Mean Corpuscular HGB Conc 33 % (32-34); Mean Corpuscular Volume 98 fl (84-94); Platelet Count 234 K/mm3 (140-440); Red Blood Count 3.84 M/mm3 (3.65-5.03); Red Cell Distribution Width 14.2 % (13.2-15.2)
[2019-11-10 07:27] LABS: Albumin 3.1 g/dL (3.9-5); BUN/Creatinine Ratio 32; Blood Urea Nitrogen 29 mg/dL (9-20); Calcium 8.5 mg/dL (8.4-10.2); Hemolysis Index 12
[2019-11-10 07:29] LABS: Hepatitis B Surface Antigen Non-Reactive (Negative); Hepatitis C Virus Antibody Non-Reactive (NonReactive)
[2019-11-10 07:43] LABS: Alanine Aminotransferase 1199 units/L (7-56)
[2019-11-10] MEDS: IPRATROPIUM/ALBUTEROL SULFATE 3 ML AMPUL.NEB IH SCH ×4 (08:29→20:48)
[2019-11-10 08:31] LABS: Band Neutrophils # (Manual) 1.2 K/mm3; Basophils % (Manual) 0 % (0.0-1.8); Eosinophils % (Manual) 0 % (0.0-4.3); RBC Morphology Normal; Total Cells Counted 100
[2019-11-10 08:32] LABS: Platelet Estimate Consistent w Auto
--- NOTE | 2019-11-10 09:02 | XRay Report ---
CHEST 1 VIEW INDICATION / CLINICAL INFORMATION: follow up respiratory failure. COMPARISON: 11/09/2019 FINDINGS: SUPPORT DEVICES: No significant change in position. HEART / MEDIASTINUM: The cardiomediastinal silhouette has not significantly changed in the interim. LUNGS / PLEURA: No significant pulmonary or pleural abnormality. No pneumothorax. Signer Name: Lobo Collazo MD Signed: 11/10/2019 8:57 AM Workstation Name: [id number]
--- NOTE | 2019-11-10 10:14 | Consultation ---
History of Present Illness Consult date: 11/10/19 Requesting physician: BRIDGET GORDON Consult reason: cardiac arrest History of present illness: The patient is a 49-year-old male who presented with cardiac arrest. He is intubated and unresponsive on evaluation and thus HPI is obtained per the chart. Per EMS the patient was at a psychiatric facility when he was found down in a shower. When EMS arrived the patient was pulseless and apneic. ACLS protocols were initiated and the patient was intubated by EMS prior to arrival. Per EMS epinephrine 5 rounds was administered as the patient was persistently in asystole and only briefly and PEA. ROSC was eventually obtained. Past History Past Medical History: other (JAVIER) Past Surgical History: Other (JAVIER) Social history: other (JAVIER) Medications and Allergies Allergies Allergy/AdvReac Type Severity Reaction Status Date / Time No Known Allergies Allergy Unverified 11/09/19 07:15 Home Medications Medication Instructions Recorded Confirmed Last Taken Type ALBUTEROL NEB's [Proventil 0.083% 1 neb IH Q6H 01/02/14 11/09/19 07/30/14 Histo ry NEBS] Albuterol Sulfate [Ventolin HFA] 2 puff IH QID PRN 01/02/14 11/09/19 01/02/14 08:[address] [Depakote] 500 mg PO BID 01/02/14 11/09/19 07/30/14 History Docusate Sodium [Colace] 100 mg PO BID 11/09/19 11/09/19 Unknown History Paliperidone Palmitate [Invega 156 mg IM QMONTH 11/09/19 11/09/19 11/04/19 History Sustenna] risperiDONE [RisperDAL] 3 mg PO BID 11/09/19 11/09/19 Unknown History Active Meds: Active Medications Albuterol/Ipratropium (Duoneb *Not For Prn Use*) 1 ampul IH Q3H PRN PRN Reason: Wheezing Albuterol/Ipratropium (Duoneb *Not For Prn Use*) 1 ampul IH QIDRT [facility] Last Admin: 11/10/19 08:29 Dose: 1 ampul Documented by: Famotidine (Pepcid) 20 mg IV BID [facility] Last Admin: 11/09/19 22:03 Dose: 20 mg Documented by: Heparin Sodium (Porcine) (Heparin) 5,000 unit SUB-Q Q12HR HAN Hydrophilic Ointment (Vaseline Lip Therapy) 1 applic TP Q2HR PRN PRN Reason: Dry Lips Norepinephrine (Levophed Drip 4 Mg/Ns 250 Ml) 4 mg in 250 mls @ 22.5 mls/hr IV TITR HAN; Protocol Last Titration: 11/09/19 21:30 Dose: 0 mcg/min, 0 mls/hr Documented by: Cefepime HCl (Cefepime/Ns 2 Gm/100 Ml) 2 gm in 100 mls @ 200 mls/hr IV Q8HR HAN; Protocol Last Admin: 11/10/19 06:05 Dose: 200 mls/hr Documented by: Methylprednisolone Sodium Succinate (Solu-Medrol) 125 mg IV Q8HR [facility] Last Admin: 11/10/19 06:06 Dose: 125 mg Documented by: Multi-Ingred Cream/Lotion/Oil/Oint (Artificial Tears Ophth Oint) 1 applic OU Q4HR PRN PRN Reason: Dry Eye(s) Review of Systems ROS unobtainable: due to endotracheal tube, due to mental status Physical Examination Vital Signs Pulse Resp BP Pulse Ox 94 H 10 L 73/37 96 11/09/19 06:12 11/09/19 06:12 11/09/19 06:12 11/09/19 06:12 General appearance: other (intubated, nonresponsive) Cardiac: Positive: Reg Rate and Rhythm Lungs: Positive: Normal Exam, Decreased Breath Sounds, Oxygen, Ventilated Respi rations Neuro: Positive: Other (intubated, unresponsive) Skin: Negative: Rash Extremities: Absent: edema Results 11/10/19 06:50 11/10/19 06:50 Cardiac Enzymes 11/10/19 Range/Units 06:50 AST 1150 H (5-40) units/L CBC 11/10/19 Range/Units 06:50 WBC 12.1 H (4.5-11.0) K/mm3 RBC 3.84 (3.65-5.03) M/mm3 Hgb 12.4 (11.8-15.2) gm/dl Hct 37.5 (35.5-45.6) % Plt Count 234 (140-440) K/mm3 Comprehensive Metabolic Panel 11/10/19 Range/Units 06:50 Sodium 143 (137-145) mmol/L Potassium 4.5 (3.6-5.0) mmol/L Chloride 103.5 (98-107) mmol/L Carbon Dioxide 23 (22-30) mmol/L BUN 29 H (9-20) mg/dL Creatinine 0.9 (0.8-1.5) mg/dL Glucose 147 H (75-100) mg/dL Calcium 8.5 (8.4-10.2) mg/dL AST 1150 H (5-40) units/L ALT 1199 H (7-56) units/L Alkaline Phosphatase 96 (35-129) units/L Total Protein 6.3 (6.3-8.2) g/dL Albumin 3.1 L (3.9-5) g/dL - Imaging and Cardiology Echo: pending EKG: report reviewed, image reviewed EKG interpretations - Telemetry EKG Rhythm: Sinus Rhythm - EKG Sinus rhythms and dysrhythmias: sinus rhythm Repolarization changes or abnormalities: Q-T interval prolongation Assessment and Plan Agree with present supportive management. Cont to trend Jonathan and f/u ECG in AM - monitor QT interval and avoid QT prolonging medications if possible. Obtain echo. Further recs to follow per hospital course. The patient has been seen in conjunction with Dr. High who agrees with the assessment and plan of care. - Patient Problems (1) Cardiopulmonary arrest Current Visit: Yes Status: Acute (2) Altered mental status Current Visit: Yes Status: Acute (3) Septic shock Current Visit: Yes Status: Suspected (4) Shock liver Current Visit: Yes Status: Acute (5) Elevated troponin Current Visit: Yes Status: Acute (6) Prolonged QT interval Current Visit: Yes Status: Acute (7) Psychiatric disorder Current Visit: Yes Status: Chronic
--- NOTE | 2019-11-10 10:51 | Progress Note ---
Assessment and Plan Assessment and plan: Cardiac arrest Possible Vfib--Revived Pressors ,Vent support Now off Levophed Prognosis poor R/o Anoxic encephalopathy Fever SIRS versus Sepsis Started on empiric Cefepime and IV Vancomycin ID consulted Acute metabolic encephalopathy Transaminitis and eleveted Ammonia Shock Liver?? Lactulose for now Hepatitis profile Elevated Ammonia level Repeat UTI (urinary tract infection) Patient on IV Cefepime empiric which should cover UTI Check Urine cultures Malnutrition Dietitian consult for recommendations after extubation DVT prophylaxis On Heparin and GI prophylaxis History [facility]: [facility] Physical exam Narrative exam: Gen: Not in acute distress, lying in bed, Intubated HEENT: Normocephalic, atraumatic Neck: supple, no JVD Heart: S1 and S2 reg, no murmurs, rubs or gallop Lungs: clear to auscultation bilaterally, no crackles Abd: soft, NT, non distended, normal BS Ext: No edema, no clubbing, no cyanosis Neuro: Intubated, unresponsive, does not follow commands - Constitutional Vitals: Temp Pulse Resp BP Pulse Ox 100.2 F H 72 26 H 153/55 96 11/10/19 04:00 11/10/19 08:34 11/10/19 08:34 11/10/19 08:00 11/10/19 08:00 General appearance: Present: other (intubated, nonresponsive) Results - Labs CBC & Chem 7: 11/10/19 06:50 11/10/19 06:50 Labs: Laboratory Last Values WBC 12.1 K/mm3 (4.5-11.0) H 11/10/19 06:50 RBC 3.84 M/mm3 (3.65-5.03) 11/10/19 06:50 Hgb 12.4 gm/dl (11.8-15.2) 11/10/19 06:50 Hct 37.5 % (35.5-45.6) 11/10/19 06:50 MCV 98 fl (84-94) H 11/10/19 06:50 MCH 32 pg (28-32) 11/10/19 06:50 MCHC 33 % (32-34) 11/10/19 06:50 RDW 14.2 % (13.2-15.2) 11/10/19 06:50 Plt Count 234 K/mm3 (140-440) 11/10/19 06:50 Add Manual Diff Complete 11/10/19 06:50 Total Counted 100 11/10/19 06:50 Seg Neutrophils % Assessment Analyst 11/10/19 06:50 Seg Neuts % (Manual) 88.0 % (40.0-70.0) H 11/10/19 06:50 Band Neutrophils % 10.0 % 11/10/19 06:50 Lymphocytes % (Manual) 1.0 % (13.4-35.0) L 11/10/19 06:50 Reactive Lymphs % (Man) 0 % 11/10/19 06:50 Monocytes % (Manual) 1.0 % (0.0-7.3) 11/10/19 06:50 Eosinophils % (Manual) 0 % (0.0-4.3) 11/10/19 06:50 Basophils % (Manual) 0 % (0.0-1.8) 11/10/19 06:50 Metamyelocytes % 0 % 11/10/19 06:50 Myelocytes % 0 % 11/10/19 06:50 Promyelocytes % 0 % 11/10/19 06:50 Blast Cells % 0 % 11/10/19 06:50 Nucleated RBC % Not Reportable 11/10/19 06:50 Seg Neutrophils # Man 10.6 K/mm3 (1.8-7.7) H 11/10/19 06:50 Band Neutrophils # 1.2 K/mm3 11/10/19 06:50 Lymphocytes # (Manual) 0.1 K/mm3 (1.2-5.4) L 11/10/19 06:50 Abs React Lymphs (Man) 0.0 K/mm3 11/10/19 06:50 Monocytes # (Manual) 0.1 K/mm3 (0.0-0.8) 11/10/19 06:50 Eosinophils # (Manual) 0.0 K/mm3 (0.0-0.4) 11/10/19 06:50 Basophils # (Manual) 0.0 K/mm3 (0.0-0.1) 11/10/19 06:50 Metamyelocytes # 0.0 K/mm3 11/10/19 06:50 Myelocytes # 0.0 K/mm3 11/10/19 06:50 Promyelocytes # 0.0 K/mm3 11/10/19 06:50 Blast Cells # 0.0 K/mm3 11/10/19 06:50 WBC Morphology Not Reportable 11/10/19 06:50 Hypersegmented Neuts Not Reportable 11/10/19 06:50 Hyposegmented Neuts Not Reportable 11/10/19 06:50 Hypogranular Neuts Not Reportable 11/10/19 06:50 Smudge Cells Not Reportable 11/10/19 06:50 Toxic Granulation Not Reportable 11/10/19 06:50 Toxic Vacuolation Not Reportable 11/10/19 06:50 Dohle Bodies Not Reportable 11/10/19 06:50 Pelger-Huet Anomaly Not Reportable 11/10/19 06:50 Emily Rods Not Reportable 11/10/19 06:50 Platelet Estimate Consistent w auto 11/10/19 06:50 Clumped Platelets Not Reportable 11/10/19 06:50 Plt Clumps, EDTA Not Reportable 11/10/19 06:50 Large Platelets Not Reportable 11/10/19 06:50 Giant Platelets Not Reportable 11/10/19 06:50 Platelet Satelliting Not Reportable 11/10/19 06:50 Plt Morphology Comment Not Reportable 11/10/19 06:50 RBC Morphology Normal 11/10/19 06:50 Dimorphic RBCs Not Reportable 11/10/19 06:50 Polychromasia Not Reportable 11/10/19 06:50 Hypochromasia Not Reportable 11/10/19 06:50 Poikilocytosis Not Reportable 11/10/19 06:50 Anisocytosis Not Reportable 11/10/19 06:50 Microcytosis Not Reportable 11/10/19 06:50 Macrocytosis Not Reportable 11/10/19 06:50 Spherocytes Not Reportable 11/10/19 06:50 Pappenheimer Bodies Not Reportable 11/10/19 06:50 Sickle Cells Not Reportable 11/10/19 06:50 Target Cells Not Reportable 11/10/19 06:50 Tear Drop Cells Not Reportable 11/10/19 06:50 Ovalocytes Not Reportable 11/10/19 06:50 Helmet Cells Not Reportable 11/10/19 06:50 [place] Bodies Not Reportable 11/10/19 06:50 [place] Rings Not Reportable 11/10/19 06:50 [place] Cells Not Reportable 11/10/19 06:50 Bite Cells Not Reportable 11/10/19 06:50 Crenated Cell Not Reportable 11/10/19 06:50 Elliptocytes Not Reportable 11/10/19 06:50 Acanthocytes (Spur) Not Reportable 11/10/19 06:50 Rouleaux Not Reportable 11/10/19 06:50 Hemoglobin C Crystals Not Reportable 11/10/19 06:50 Schistocytes Not Reportable 11/10/19 06:50 Malaria parasites Not Reportable 11/10/19 06:50 Drake Bodies Not Reportable 11/10/19 06:50 Hem Pathologist Commnt No 11/10/19 06:50 PT 16.9 Sec. (12.2-14.9) H 11/09/19 06:24 INR 1.35 (0.87-1.13) H 11/09/19 06:24 APTT 50.7 Sec. (24.2-36.6) H 11/09/19 06:24 D-Dimer 4435.48 ng/mlDDU (0-234) H 11/09/19 06:24 POC ABG pH 7.356 (7.35-7.45) 11/09/19 20:14 ABG pH 7.410 pH Units (7.350-7.450) 11/10/19 04:57 POC ABG pCO2 52.4 (35-45) H 11/09/19 20:14 ABG pCO2 46.3 mm Hg 11/10/19 04:57 POC ABG pO2 72 (80-105) L 11/09/19 20:14 ABG pO2 71.6 mm Hg (80.0-90.0) L 11/10/19 04:57 POC ABG HCO3 29.3 (22-26 mml/L) 11/09/19 20:14 ABG HCO3 28.7 mmol/L (20.0-26.0) H 11/10/19 04:57 POC ABG Total CO2 31 (23-27mmol/L) 11/09/19 20:14 POC ABG O2 Sat 93 11/09/19 20:14 ABG O2 Saturation 95.5 % (95.0-99.0) 11/10/19 04:57 ABG O2 Content 13.8 (0.0-44) 11/10/19 04:57 POC ABG Base Excess 4 ((-2) - (+3)mmol/L) 11/09/19 20:14 ABG Base Excess 3.5 mmol/L (-2.0-3.0) H 11/10/19 04:57 ABG Hemoglobin 10.4 gm/dl (14.0-18.0) L 11/10/19 04:57 ABG Carboxyhemoglobin 1.0 % (0.0-5.0) 11/10/19 04:57 ABG Methemoglobin 0.5 % (0.0-1.5) 11/10/19 04:57 Oxyhemoglobin 94.1 % (95.0-99.0) L 11/10/19 04:57 FiO2 40 % 11/10/19 04:57 Sodium 143 mmol/L (137-145) 11/10/19 06:50 Potassium 4.5 mmol/L (3.6-5.0) 11/10/19 06:50 Chloride 103.5 mmol/L (98-107) 11/10/19 06:50 Carbon Dioxide 23 mmol/L (22-30) 11/10/19 06:50 Anion Gap 21 mmol/L 11/10/19 06:50 BUN 29 mg/dL (9-20) H 11/10/19 06:50 Creatinine 0.9 mg/dL (0.8-1.5) 11/10/19 06:50 Estimated GFR > 60 ml/min 11/10/19 06:50 BUN/Creatinine Ratio 32 % 11/10/19 06:50 Glucose 147 mg/dL (75-100) H 11/10/19 06:50 Lactic Acid 1.70 mmol/L (0.7-2.0) 11/09/19 20:02 Calcium 8.5 mg/dL (8.4-10.2) 11/10/19 06:50 Magnesium 2.70 mg/dL (1.7-2.3) H 11/09/19 06:24 Total Bilirubin < 0.20 mg/dL (0.1-1.2) 11/10/19 06:50 AST 1150 units/L (5-40) H 11/10/19 06:50 ALT 1199 units/L (7-56) H 11/10/19 06:50 Alkaline Phosphatase 96 units/L (35-129) 11/10/19 06:50 Ammonia 101.0 umol/L (25-60) H 11/09/19 06:24 Total Creatine Kinase 75 units/L (55-170) 11/09/19 06:24 CK-MB (CK-2) 3.0 ng/mL (0.0-4.0) 11/09/19 06:24 CK-MB (CK-2) Rel Index 4.0 (0-4) 11/09/19 06:24 Troponin T 0.039 ng/mL (0.00-0.029) H 11/09/19 06:24 NT-Pro-B Natriuret Pep 5052 pg/mL (0-450) H 11/09/19 06:24 Total Protein 6.3 g/dL (6.3-8.2) 11/10/19 06:50 Albumin 3.1 g/dL (3.9-5) L 11/10/19 06:50 Albumin/Globulin Ratio 1.0 % 11/10/19 06:50 TSH 5.500 mlU/mL (0.270-4.200) H 11/09/19 06:24 Free T4 0.78 ng/dL (0.76-1.46) 11/09/19 06:24 Urine Color Yellow (Yellow) 11/09/19 07:24 Urine Turbidity Cloudy (Clear) 11/09/19 07:24 Urine pH 6.0 (5.0-7.0) 11/09/19 07:24 Ur Specific Jean 1.014 (1.003-1.030) 11/09/19 07:24 Urine Protein >500 mg/dL (Negative) 11/09/19 07:24 Urine Glucose (UA) 50 mg/dL (Negative) 11/09/19 07:24 Urine Ketones Tr mg/dL (Negative) 11/09/19 07:24 Urine Blood Sm (Negative) 11/09/19 07:24 Urine Nitrite Neg (Negative) 11/09/19 07:24 Urine Bilirubin Neg (Negative) 11/09/19 07:24 Urine Urobilinogen < 2.0 mg/dL (<2.0) 11/09/19 07:24 Ur Leukocyte Esterase Neg (Negative) 11/09/19 07:24 Urine WBC (Auto) 83.0 /HPF (0.0-6.0) H 11/09/19 07:24 Urine RBC (Auto) > 182.0 /HPF (0.0-6.0) 11/09/19 07:24 Urine Bacteria (Auto) 4+ /HPF (Negative) 11/09/19 07:24 Ur Transition Epith Cell 5 /HPF 11/09/19 07:24 Urine Mucus 2+ /HPF 11/09/19 07:24 Urine Opiates Screen Presumptive negative 11/09/19 07:24 Urine Methadone Screen Presumptive negative 11/09/19 07:24 Ur Barbiturates Screen Presumptive negative 11/09/19 07:24 Valproic Acid 67.4 ug/mL (50-100) 11/09/19 06:39 Ur Phencyclidine Scrn Presumptive negative 11/09/19 07:24 Ur Amphetamines Screen Presumptive negative 11/09/19 07:24 U Benzodiazepines Scrn Presumptive negative 11/09/19 07:24 Urine Cocaine Screen Presumptive negative 11/09/19 07:24 U Marijuana (THC) Screen Presumptive negative 11/09/19 07:24 Drugs of Abuse Note Disclamer 11/09/19 07:24 Plasma/Serum Alcohol < 0.01 % (0-0.07) 11/09/19 06:39 Hepatitis A IgM Ab Non-reactive (NonReactive) 11/10/19 06:50 Hep Bs Antigen Non-reactive (Negative) 11/10/19 06:50 Hep B Core IgM Ab Non-reactive (NonReactive) 11/10/19 06:50 Hepatitis C Antibody Non-reactive (NonReactive) 11/10/19 06:50 Active Medications - Current Medications Current Medications: Generic Name Dose Route Start Last Admin Trade Name Freq PRN Reason Stop Dose Admin Albuterol/Ipratropium 1 ampul 11/09/19 21:18 Duoneb *Not For Prn Use* IH Q3H PRN Wheezing Albuterol/Ipratropium 1 ampul 11/10/19 08:00 11/10/19 08:29 Duoneb *Not For Prn Use* IH 1 ampul QIDRT HAN Administration Famotidine 20 mg 12/18/19 22:00 11/09/19 22:03 Pepcid IV 20 mg BID HAN Administration Heparin Sodium (Porcine) 5,000 unit 11/10/19 10:00 Heparin SUB-Q Q12HR HAN Hydrophilic Ointment 1 applic 11/09/19 07:29 Vaseline Lip Therapy TP Q2HR PRN Dry Lips Norepinephrine 4 mg in 250 mls @ 22.5 mls/hr 11/09/19 07:00 11/09/19 21:30 Levophed Drip 4 Mg/Ns 250 Ml IV 0 mcg/min TITR HAN 0 mls/hr Titration Protocol 6 MCG/MIN Cefepime HCl 2 gm in 100 mls @ 200 mls/hr 11/09/19 22:00 11/10/19 06:05 Cefepime/Ns 2 Gm/100 Ml IV 200 mls/hr Q8HR HAN Administration Protocol Multi-Ingred Cream/Lotion/Oil/Oint 1 applic 11/09/19 07:29 Artificial Tears Ophth Oint OU Q4HR PRN Dry Eye(s)
--- NOTE | 2019-11-10 11:39 | Consultation ---
History of Present Illness - Reason for Consult Consult date: 11/10/19 - History of Present Illness 49 yo M PMHx schizophrenia admiotted to the hospital after having a cardiac arrest. He was found down in the shower room, and found to be pulseless and apneic by EMS. ACLS was started and he was given epi x 5. Pulse was regainedthrough the ACLS. He remained hypotensive and was transferred to the ICU. History obtained from the chart. Afebrile with a Tmax of 100.2. Whte count 12. Cultures negative thus far. Currently on cefepime. Imaging personally reviewed: CXR - no abnormality Past History Past Medical History: other (JAVIER) Past Surgical History: Other (JAVIER) Social history: other (JAVIER) Family history: other (Unable to obtain) Medications and Allergies Allergies Allergy/AdvReac Type Severity Reaction Status Date / Time No Known Allergies Allergy Unverified 11/09/19 07:15 Home Medications Medication Instructions Recorded Confirmed Last Taken Type ALBUTEROL NEB's [Proventil 0.083% 1 neb IH Q6H 01/02/14 11/09/19 07/30/14 History NEBS] Albuterol Sulfate [Ventolin HFA] 2 puff IH QID PRN 01/02/14 11/09/19 01/02/14 08:[address] [Depakote] 500 mg PO BID 01/02/14 11/09/19 07/30/14 History Docusate Sodium [Colace] 100 mg PO BID 11/09/19 11/09/19 Unknown History Paliperidone Palmitate [Invega 156 mg IM QMONTH 11/09/19 11/09/19 11/04/19 History Sustenna] risperiDONE [RisperDAL] 3 mg PO BID 11/09/19 11/09/19 Unknown History Active Meds: Active Medications Albuterol/Ipratropium (Duoneb *Not For Prn Use*) 1 ampul IH Q3H PRN PRN Reason: Wheezing Albuterol/Ipratropium (Duoneb *Not For Prn Use*) 1 ampul IH QIDRT [facility] Last Admin: 11/10/19 08:29 Dose: 1 ampul Documented by: Famotidine (Pepcid) 20 mg IV BID [facility] Last Admin: 11/09/19 22:03 Dose: 20 mg Documented by: Heparin Sodium (Porcine) (Heparin) 5,000 unit SUB-Q Q12HR HAN Hydrophilic Ointment (Vaseline Lip Therapy) 1 applic TP Q2HR PRN PRN Reason: Dry Lips Norepinephrine (Levophed Drip 4 Mg/Ns 250 Ml) 4 mg in 250 mls @ 22.5 mls/hr IV TITR HAN; Protocol Last Titration: 11/09/19 21:30 Dose: 0 mcg/min, 0 mls/hr Documented by: Cefepime HCl (Cefepime/Ns 2 Gm/100 Ml) 2 gm in 100 mls @ 200 mls/hr IV Q8HR HAN; Protocol Last Admin: 11/10/19 06:05 Dose: 200 mls/hr Documented by: Multi-Ingred Cream/Lotion/Oil/Oint (Artificial Tears Ophth Oint) 1 applic OU Q4HR PRN PRN Reason: Dry Eye(s) Review of Systems ROS unobtainable: due to endotracheal tube, due to mental status Physical Examination - Physical Exam Narrative exam: General intubated, sedated Eyes - PERRLA, EOM intact ENT - Moist mucous membranes, no lymphadenopathy Neck - No noticeable or palpable swelling, redness or rash around throat or on face Lymph Nodes - No lymphadenopathy Cardiovascular - RRR no m/r/g, no JVD, no carotid bruits Lungs - Clear to auscultation, no use of accessory muscles, no crackles or wheezes. Skin - No rashes, skin warm and dry, no erythematous areas Abdomen - Normal bowel sounds, abdomen soft and nontender Extremities - No edema, cyanosis or clubbing Musculoskeletal - 5/5 strength, normal range of motion, no swollen or erythe matous joints. Neurological Sedated - Constitutional Vitals: Vital Signs Temp Pulse Resp BP Pulse Ox 100.2 F H 72 26 H 153/55 96 11/10/19 04:00 11/10/19 08:34 11/10/19 08:34 11/10/19 08:00 11/10/19 08:00 Temperature -Last 24 Hours Temperature 100.2 F Temperature 100.2 F Temperature 100.2 F Temperature 98.1 F Temperature 98.1 F Results - Labs CBC & Chem 7: 11/10/19 06:50 12/19/19 06:50 Labs: Abnormal lab results 12/18/19 12/18/19 12/18/19 Range/Units 12:11 13:04 14:39 WBC (4.5-11.0) K/mm3 MCV (84-94) fl Seg Neuts % (Manual) (40.0-70.0) % Lymphocytes % (Manual) (13.4-35.0) % Seg Neutrophils # Man (1.8-7.7) K/mm3 Lymphocytes # (Manual) (1.2-5.4) K/mm3 POC ABG pH (7.35-7.45) POC ABG pCO2 (35-45) POC ABG pO2 (80-105) ABG pO2 (80.0-90.0) mm Hg ABG HCO3 (20.0-26.0) mmol/L ABG Base Excess (-2.0-3.0) mmol/L ABG Hemoglobin (14.0-18.0) gm/dl Oxyhemoglobin (95.0-99.0) % BUN (9-20) mg/dL Glucose (75-100) mg/dL Lactic Acid 3.40 H* 2.70 H* 3.20 H* (0.7-2.0) mmol/L AST (5-40) units/L ALT (7-56) units/L Albumin (3.9-5) g/dL 11/09/19 11/09/19 11/09/19 Range/Units 15:02 17:34 20:14 WBC (4.5-11.0) K/mm3 MCV (84-94) fl Seg Neuts % (Manual) (40.0-70.0) % Lymphocytes % (Manual) (13.4-35.0) % Seg Neutrophils # Man (1.8-7.7) K/mm3 Lymphocytes # (Manual) (1.2-5.4) K/mm3 POC ABG pH 7.288 L (7.35-7.45) POC ABG pCO2 60.2 H 52.4 H (35-45) POC ABG pO2 74 L 72 L (80-105) ABG pO2 (80.0-90.0) mm Hg ABG HCO3 (20.0-26.0) mmol/L ABG Base Excess (-2.0-3.0) mmol/L ABG Hemoglobin (14.0-18.0) gm/dl Oxyhemoglobin (95.0-99.0) % BUN (9-20) mg/dL Glucose (75-100) mg/dL Lactic Acid 2.60 H* (0.7-2.0) mmol/L AST (5-40) units/L ALT (7-56) units/L Albumin (3.9-5) g/dL 11/10/19 11/10/19 11/10/19 Range/Units 04:57 06:50 06:50 WBC 12.1 H (4.5-11.0) K/mm3 MCV 98 H (84-94) fl Seg Neuts % (Manual) 88.0 H (40.0-70.0) % Lymphocytes % (Manual) 1.0 L (13.4-35.0) % Seg Neutrophils # Man 10.6 H (1.8-7.7) K/mm3 Lymphocytes # (Manual) 0.1 L (1.2-5.4) K/mm3 POC ABG pH (7.35-7.45) POC ABG pCO2 (35-45) POC ABG pO2 (80-105) ABG pO2 71.6 L (80.0-90.0) mm Hg ABG HCO3 28.7 H (20.0-26.0) mmol/L ABG Base Excess 3.5 H (-2.0-3.0) mmol/L ABG Hemoglobin 10.4 L (14.0-18.0) gm/dl Oxyhemoglobin 94.1 L (95.0-99.0) % BUN 29 H (9-20) mg/dL Glucose 147 H (75-100) mg/dL Lactic Acid (0.7-2.0) mmol/L AST 1150 H (5-40) units/L ALT 1199 H (7-56) units/L Albumin 3.1 L (3.9-5) g/dL Assessment and Plan Cultures Urine culture 11/09/19 no growth to date Sputum culture 11/09/19 no growth to date Assessment: 49 yo M PMHx schizophrenia admitted after cardiac arrest. Now with low grade temperatures 1. Low grade temperatures - not quite febrile. Fevers likely reactive to cardiac arrest and potential central fevers from presumable anoxic brain injury. No evidence of infection on CXR, cultures negative thus far. Would monitor on cefepime for one further day, and stop tomorrow assuming no changes. 2. Cardiac arrest 3. Acute hypoxic respiratory failure - intubated 4. Schizophrenia Recs: - continue cefepime, likely stop tomorrow -follow up cultures - follow up MRI Thank you for the consult, we will continue to follow. [facility] ([facility]) M: [phone] O: [phone] F: [phone]
--- NOTE | 2019-11-10 12:01 | Consultation ---
History of Present Illness Consult date: 11/10/19 Requesting physician: BRIDGET GORDON Reason for consult: other (Post Cardiac Arrest) History of present illness: 49 y/o male, found down and unresponsive at a facility for psych, out of hospital cardiac arrest, intubated on vent. Per nursing was brought up yesterday on Versed 4mg continuous. No exact explanation as to why. Stopped on yesterday and patient still has not woken up. No family at bedside. Getting echo now. Past History Past Medical History: other (unable to obtain) Past Surgical History: Other (Unable to obtain) Social history: other (unable to obtain) Family history: other (Unable to obtain) Medications and Allergies Allergies Allergy/AdvReac Type Severity Reaction Status Date / Time No Known Allergies Allergy Unverified 11/09/19 07:15 Home Medications Medication Instructions Recorded Confirmed Last Taken Type ALBUTEROL NEB's [Proventil 0.083% 1 neb IH Q6H 01/02/14 11/09/19 07/30/14 History NEBS] Albuterol Sulfate [Ventolin HFA] 2 puff IH QID PRN 01/02/14 11/09/19 01/02/14 08:[address] [Depakote] 500 mg PO BID 01/02/14 11/09/19 07/30/14 History Docusate Sodium [Colace] 100 mg PO BID 11/09/19 11/09/19 Unknown History Paliperidone Palmitate [Invega 156 mg IM QMONTH 11/09/19 11/09/19 11/04/19 History Sustenna] risperiDONE [RisperDAL] 3 mg PO BID 11/09/19 11/09/19 Unknown History Active Meds: Active Medications Albuterol/Ipratropium (Duoneb *Not For Prn Use*) 1 ampul IH Q3H PRN PRN Reason: Wheezing Albuterol/Ipratropium (Duoneb *Not For Prn Use*) 1 ampul IH QIDRT [facility] Last Admin: 11/10/19 11:47 Dose: 1 ampul Documented by: Famotidine (Pepcid) 20 mg IV BID [facility] Last Admin: 11/09/19 22:03 Dose: 20 mg Documented by: Heparin Sodium (Porcine) (Heparin) 5,000 unit SUB-Q Q12HR HAN Hydrophilic Ointment (Vaseline Lip Therapy) 1 applic TP Q2HR PRN PRN Reason: Dry Lips Norepinephrine (Levophed Drip 4 Mg/Ns 250 Ml) 4 mg in 250 mls @ 22.5 mls/hr IV TITR HAN; Protocol Last Titration: 11/09/19 21:30 Dose: 0 mcg/min, 0 mls/hr Documented by: Cefepime HCl (Cefepime/Ns 2 Gm/100 Ml) 2 gm in 100 mls @ 200 mls/hr IV Q8HR HAN; Protocol Last Admin: 11/10/19 06:05 Dose: 200 mls/hr Documented by: Multi-Ingred Cream/Lotion/Oil/Oint (Artificial Tears Ophth Oint) 1 applic OU Q4HR PRN PRN Reason: Dry Eye(s) Review of Systems ROS unobtainable: due to endotracheal tube, due to mental status Physical Examination Vital signs: Vital Signs Pulse Resp BP Pulse Ox 94 H 10 L 73/37 96 11/09/19 06:12 11/09/19 06:12 11/09/19 06:12 11/09/19 06:12 General appearance: comatose, appears uncomfortable, other (not on sedation) Eyes: icteric ENT: other (orally intubated and critically ill on vent) Neck: supple Effort: mildly labored Ascultation: Bilateral: clear Percussion: Bilateral: not dull Cardiovascular: regular rate and rhythm Gastrointestinal: normoactive bowel sounds, soft Extremities: no edema unable to assess Results - Laboratory Findings CBC and BMP: 11/10/19 06:50 11/10/19 06:50 ABG POC ABG pH 7.356 (7.35-7.45) 11/09/19 20:14 ABG pH 7.410 pH Units (7.350-7.450) 11/10/19 04:57 POC ABG pCO2 52.4 (35-45) H 11/09/19 20:14 ABG pCO2 46.3 mm Hg 11/10/19 04:57 POC ABG pO2 72 (80-105) L 11/09/19 20:14 ABG pO2 71.6 mm Hg (80.0-90.0) L 11/10/19 04:57 POC ABG HCO3 29.3 (22-26 mml/L) 11/09/19 20:14 POC ABG Total CO2 31 (23-27mmol/L) 11/09/19 20:14 POC ABG O2 Sat 93 11/09/19 20:14 ABG O2 Saturation 95.5 % (95.0-99.0) 11/10/19 04:57 PT/INR, D-dimer PT 16.9 Sec. (12.2-14.9) H 11/09/19 06:24 INR 1.35 (0.87-1.13) H 11/09/19 06:24 D-Dimer 4435.48 ng/mlDDU (0-234) H 11/09/19 06:24 Abnormal lab findings: Abnormal Labs 11/09/19 11/09/19 11/09/19 06:24 06:24 06:24 WBC RBC 3.54 L Hgb 11.7 L MCV 103 H MCH 33 H Seg Neuts % (Manual) Lymphocytes % (Manual) Nucleated RBC % 1.0 H Seg Neutrophils # Man Lymphocytes # (Manual) PT 16.9 H INR 1.35 H APTT 50.7 H D-Dimer 4435.48 H POC ABG pH POC ABG pCO2 POC ABG pO2 ABG pO2 ABG HCO3 ABG Base Excess ABG Hemoglobin Oxyhemoglobin BUN 23 H Glucose 122 H Lactic Acid Calcium 8.3 L Magnesium AST 355 H ALT 340 H Ammonia Troponin T 0.039 H NT-Pro-B Natriuret Pep 5052 H Total Protein 5.6 L Albumin 2.9 L TSH Urine WBC (Auto) 11/09/19 11/09/19 11/09/19 06:24 06:24 06:24 WBC RBC Hgb MCV MCH Seg Neuts % (Manual) Lymphocytes % (Manual) Nucleated RBC % Seg Neutrophils # Man Lymphocytes # (Manual) PT INR APTT D-Dimer POC ABG pH POC ABG pCO2 POC ABG pO2 ABG pO2 ABG HCO3 ABG Base Excess ABG Hemoglobin Oxyhemoglobin BUN Glucose Lactic Acid Calcium Magnesium 2.70 H AST ALT Ammonia 101.0 H Troponin T NT-Pro-B Natriuret Pep Total Protein Albumin TSH 5.500 H Urine WBC (Auto) 11/09/19 11/09/19 11/09/19 06:24 06:51 07:24 WBC RBC Hgb MCV MCH Seg Neuts % (Manual) Lymphocytes % (Manual) Nucleated RBC % Seg Neutrophils # Man Lymphocytes # (Manual) PT INR APTT D-Dimer POC ABG pH POC ABG pCO2 POC ABG pO2 ABG pO2 ABG HCO3 ABG Base Excess ABG Hemoglobin Oxyhemoglobin BUN Glucose Lactic Acid 8.80 H* 9.80 H* Calcium Magnesium AST ALT Ammonia Troponin T NT-Pro-B Natriuret Pep Total Protein Albumin TSH Urine WBC (Auto) 83.0 H 11/09/19 11/09/19 11/09/19 07:27 08:10 08:32 WBC RBC Hgb MCV MCH Seg Neuts % (Manual) Lymphocytes % (Manual) Nucleated RBC % Seg Neutrophils # Man Lymphocytes # (Manual) PT INR APTT D-Dimer POC ABG pH 7.145 L POC ABG pCO2 POC ABG pO2 380 H ABG pO2 ABG HCO3 ABG Base Excess ABG Hemoglobin Oxyhemoglobin BUN Glucose Lactic Acid 10.20 H* 6.50 H* Calcium Magnesium AST ALT Ammonia Troponin T NT-Pro-B Natriuret Pep Total Protein Albumin TSH Urine WBC (Auto) 11/09/19 11/09/19 11/09/19 09:27 10:30 12:11 WBC RBC Hgb MCV MCH Seg Neuts % (Manual) Lymphocytes % (Manual) Nucleated RBC % Seg Neutrophils # Man Lymphocytes # (Manual) PT INR APTT D-Dimer POC ABG pH POC ABG pCO2 POC ABG pO2 ABG pO2 ABG HCO3 ABG Base Excess ABG Hemoglobin Oxyhemoglobin BUN Glucose Lactic Acid 5.80 H* 3.80 H* 3.40 H* Calcium Magnesium AST ALT Ammonia Troponin T NT-Pro-B Natriuret Pep Total Protein Albumin TSH Urine WBC (Auto) 11/09/19 11/09/19 11/09/19 13:04 14:39 15:02 WBC RBC Hgb MCV MCH Seg Neuts % (Manual) Lymphocytes % (Manual) Nucleated RBC % Seg Neutrophils # Man Lymphocytes # (Manual) PT INR APTT D-Dimer POC ABG pH 7.288 L POC ABG pCO2 60.2 H POC ABG pO2 74 L ABG pO2 ABG HCO3 ABG Base Excess ABG Hemoglobin Oxyhemoglobin BUN Glucose Lactic Acid 2.70 H* 3.20 H* Calcium Magnesium AST ALT Ammonia Troponin T NT-Pro-B Natriuret Pep Total Protein Albumin TSH Urine WBC (Auto) 12/18/19 12/18/19 12/19/19 17:34 20:14 04:57 WBC RBC Hgb MCV MCH Seg Neuts % (Manual) Lymphocytes % (Manual) Nucleated RBC % Seg Neutrophils # Man Lymphocytes # (Manual) PT INR APTT D-Dimer POC ABG pH POC ABG pCO2 52.4 H POC ABG pO2 72 L ABG pO2 71.6 L ABG HCO3 28.7 H ABG Base Excess 3.5 H ABG Hemoglobin 10.4 L Oxyhemoglobin 94.1 L BUN Glucose Lactic Acid 2.60 H* Calcium Magnesium AST ALT Ammonia Troponin T NT-Pro-B Natriuret Pep Total Protein Albumin TSH Urine WBC (Auto) 11/10/19 11/10/19 06:50 06:50 WBC 12.1 H RBC Hgb MCV 98 H MCH Seg Neuts % (Manual) 88.0 H Lymphocytes % (Manual) 1.0 L Nucleated RBC % Seg Neutrophils # Man 10.6 H Lymphocytes # (Manual) 0.1 L PT INR APTT D-Dimer POC ABG pH POC ABG pCO2 POC ABG pO2 ABG pO2 ABG HCO3 ABG Base Excess ABG Hemoglobin Oxyhemoglobin BUN 29 H Glucose 147 H Lactic Acid Calcium Magnesium AST 1150 H ALT 1199 H Ammonia Troponin T NT-Pro-B Natriuret Pep Total Protein Albumin 3.1 L TSH Urine WBC (Auto) - Diagnostic Findings Chest x-ray: image reviewed (clear CXR) Assessment and Plan 49 y/o male, post cardiac arrest, now unresponsive on vent. 1. No sedation, absolutely none 2. Obtain EEG 3. Follow up echo results. 4. Continued vent support 5. send UDS to see if benzo's still in system. CCT 31 minutes.
--- NOTE | 2019-11-10 13:43 | Consultation ---
History of Present Illness Consult date: 11/10/19 Reason for Consult: Anoxic brain injury Chief complaint: Cardiac arrest, anoxic brain injury History of present illness: Patient is a 49 y/o man w/ a h/o schizophrenia and COPD. He was at a psychiatric facility, where he was found down in the shower. EMS arrived and found the patient to be pulseless. CPR was started and patient was intubated and brought to [facility]. He ultimately had ROSC, however entire time of cardiac arrest is unknown. Patient was initially given versed in ER, and also was given ativan last night. Past History Past Medical History: other (Schizophrenia, COPD) Past Surgical History: Other (Unable to obtain) Social history: other (unable to obtain) Family history: other (Unable to obtain) Medications and Allergies Allergies Allergy/AdvReac Type Severity Reaction Status Date / Time No Known Allergies Allergy Unverified 11/09/19 07:15 Home Medications Medication Instructions Recorded Confirmed Last Taken Type ALBUTEROL NEB's [Proventil 0.083% 1 neb IH Q6H 01/02/14 11/09/19 07/30/14 Histor y NEBS] Albuterol Sulfate [Ventolin HFA] 2 puff IH QID PRN 01/02/14 11/09/19 01/02/14 08:[address] [Depakote] 500 mg PO BID 01/02/14 11/09/19 07/30/14 History Docusate Sodium [Colace] 100 mg PO BID 11/09/19 11/09/19 Unknown History Paliperidone Palmitate [Invega 156 mg IM QMONTH 11/09/19 11/09/19 11/04/19 History Sustenna] risperiDONE [RisperDAL] 3 mg PO BID 11/09/19 11/09/19 Unknown History Active Meds: Active Medications Albuterol/Ipratropium (Duoneb *Not For Prn Use*) 1 ampul IH Q3H PRN PRN Reason: Wheezing Albuterol/Ipratropium (Duoneb *Not For Prn Use*) 1 ampul IH QIDRT [facility] Last Admin: 11/10/19 11:47 Dose: 1 ampul Documented by: Famotidine (Pepcid) 20 mg IV BID [facility] Last Admin: 11/09/19 22:03 Dose: 20 mg Documented by: Heparin Sodium (Porcine) (Heparin) 5,000 unit SUB-Q Q12HR HAN Hydrophilic Ointment (Vaseline Lip Therapy) 1 applic TP Q2HR PRN PRN Reason: Dry Lips Norepinephrine (Levophed Drip 4 Mg/Ns 250 Ml) 4 mg in 250 mls @ 22.5 mls/hr IV TITR HAN; Protocol Last Titration: 11/09/19 21:30 Dose: 0 mcg/min, 0 mls/hr Documented by: Cefepime HCl (Cefepime/Ns 2 Gm/100 Ml) 2 gm in 100 mls @ 200 mls/hr IV Q8HR HAN; Protocol Last Admin: 11/10/19 06:05 Dose: 200 mls/hr Documented by: Multi-Ingred Cream/Lotion/Oil/Oint (Artificial Tears Ophth Oint) 1 applic OU Q4HR PRN PRN Reason: Dry Eye(s) Review of Systems ROS unobtainable: due to endotracheal tube, due to mental status Physical Examination - Vital Signs Vital Signs: Vital Signs Pulse Resp BP Pulse Ox 94 H 10 L 73/37 96 11/09/19 06:12 11/09/19 06:12 11/09/19 06:12 11/09/19 06:12 - Physical Exam Narrative exam: Patient is comatose, intubated. PERRL, corneal reflexes intact, cough intact, VOR absent. W/d to pain only in LUE. 2+ reflexes throughout. - Constitutional General appearance: acutely ill - EENT EENT: Present: ATNC, mucous membranes moist - Respiratory Respiratory: Present: decreased breath sounds - Cardiovascular Cardiovascular: Present: regular rate, normal S1, normal S2 Extremities: Present: no clubbing, cyanosis, no inflammation - Gastrointestinal Gastrointestinal: Present: normoactive bowel sounds, soft, non-tender - Integumentary Integumentary: Present: normal Results - Laboratory Findings CBC and BMP: 11/10/19 06:50 11/10/19 06:50 Abnormal Lab Findings: Abnormal Labs 11/09/19 11/09/19 11/09/19 06:24 06:24 06:24 WBC RBC 3.54 L Hgb 11.7 L MCV 103 H MCH 33 H Seg Neuts % (Manual) Lymphocytes % (Manual) Nucleated RBC % 1.0 H Seg Neutrophils # Man Lymphocytes # (Manual) PT 16.9 H INR 1.35 H APTT 50.7 H D-Dimer 4435.48 H POC ABG pH POC ABG pCO2 POC ABG pO2 ABG pO2 ABG HCO3 ABG Base Excess ABG Hemoglobin Oxyhemoglobin BUN 23 H Glucose 122 H Lactic Acid Calcium 8.3 L Magnesium AST 355 H ALT 340 H Ammonia Troponin T 0.039 H NT-Pro-B Natriuret Pep 5052 H Total Protein 5.6 L Albumin 2.9 L TSH Urine WBC (Auto) 11/09/19 11/09/19 11/09/19 06:24 06:24 06:24 WBC RBC Hgb MCV MCH Seg Neuts % (Manual) Lymphocytes % (Manual) Nucleated RBC % Seg Neutrophils # Man Lymphocytes # (Manual) PT INR APTT D-Dimer POC ABG pH POC ABG pCO2 POC ABG pO2 ABG pO2 ABG HCO3 ABG Base Excess ABG Hemoglobin Oxyhemoglobin BUN Glucose Lactic Acid Calcium Magnesium 2.70 H AST ALT Ammonia 101.0 H Troponin T NT-Pro-B Natriuret Pep Total Protein Albumin TSH 5.500 H Urine WBC (Auto) 11/09/19 11/09/19 11/09/19 06:24 06:51 07:24 WBC RBC Hgb MCV MCH Seg Neuts % (Manual) Lymphocytes % (Manual) Nucleated RBC % Seg Neutrophils # Man Lymphocytes # (Manual) PT INR APTT D-Dimer POC ABG pH POC ABG pCO2 POC ABG pO2 ABG pO2 ABG HCO3 ABG Base Excess ABG Hemoglobin Oxyhemoglobin BUN Glucose Lactic Acid 8.80 H* 9.80 H* Calcium Magnesium AST ALT Ammonia Troponin T NT-Pro-B Natriuret Pep Total Protein Albumin TSH Urine WBC (Auto) 83.0 H 11/09/19 11/09/19 11/09/19 07:27 08:10 08:32 WBC RBC Hgb MCV MCH Seg Neuts % (Manual) Lymphocytes % (Manual) Nucleated RBC % Seg Neutrophils # Man Lymphocytes # (Manual) PT INR APTT D-Dimer POC ABG pH 7.145 L POC ABG pCO2 POC ABG pO2 380 H ABG pO2 ABG HCO3 ABG Base Excess ABG Hemoglobin Oxyhemoglobin BUN Glucose Lactic Acid 10.20 H* 6.50 H* Calcium Magnesium AST ALT Ammonia Troponin T NT-Pro-B Natriuret Pep Total Protein Albumin TSH Urine WBC (Auto) 11/09/19 11/09/19 11/09/19 09:27 10:30 12:11 WBC RBC Hgb MCV MCH Seg Neuts % (Manual) Lymphocytes % (Manual) Nucleated RBC % Seg Neutrophils # Man Lymphocytes # (Manual) PT INR APTT D-Dimer POC ABG pH POC ABG pCO2 POC ABG pO2 ABG pO2 ABG HCO3 ABG Base Excess ABG Hemoglobin Oxyhemoglobin BUN Glucose Lactic Acid 5.80 H* 3.80 H* 3.40 H* Calcium Magnesium AST ALT Ammonia Troponin T NT-Pro-B Natriuret Pep Total Protein Albumin TSH Urine WBC (Auto) 11/09/19 11/09/19 11/09/19 13:04 14:39 15:02 WBC RBC Hgb MCV MCH Seg Neuts % (Manual) Lymphocytes % (Manual) Nucleated RBC % Seg Neutrophils # Man Lymphocytes # (Manual) PT INR APTT D-Dimer POC ABG pH 7.288 L POC ABG pCO2 60.2 H POC ABG pO2 74 L ABG pO2 ABG HCO3 ABG Base Excess ABG Hemoglobin Oxyhemoglobin BUN Glucose Lactic Acid 2.70 H* 3.20 H* Calcium Magnesium AST ALT Ammonia Troponin T NT-Pro-B Natriuret Pep Total Protein Albumin TSH Urine WBC (Auto) 11/09/19 11/09/19 11/10/19 17:34 20:14 04:57 WBC RBC Hgb MCV MCH Seg Neuts % (Manual) Lymphocytes % (Manual) Nucleated RBC % Seg Neutrophils # Man Lymphocytes # (Manual) PT INR APTT D-Dimer POC ABG pH POC ABG pCO2 52.4 H POC ABG pO2 72 L ABG pO2 71.6 L ABG HCO3 28.7 H ABG Base Excess 3.5 H ABG Hemoglobin 10.4 L Oxyhemoglobin 94.1 L BUN Glucose Lactic Acid 2.60 H* Calcium Magnesium AST ALT Ammonia Troponin T NT-Pro-B Natriuret Pep Total Protein Albumin TSH Urine WBC (Auto) 11/10/19 11/10/19 06:50 06:50 WBC 12.1 H RBC Hgb MCV 98 H MCH Seg Neuts % (Manual) 88.0 H Lymphocytes % (Manual) 1.0 L Nucleated RBC % Seg Neutrophils # Man 10.6 H Lymphocytes # (Manual) 0.1 L PT INR APTT D-Dimer POC ABG pH POC ABG pCO2 POC ABG pO2 ABG pO2 ABG HCO3 ABG Base Excess ABG Hemoglobin Oxyhemoglobin BUN 29 H Glucose 147 H Lactic Acid Calcium Magnesium AST 1150 H ALT 1199 H Ammonia Troponin T NT-Pro-B Natriuret Pep Total Protein Albumin 3.1 L TSH Urine WBC (Auto) Assessment and Plan Patient is a 49 y/o man w/ a h/o schizophrenia and COPD, who was found down at a psychiatric facility. Patient was found to be in cardiac arrest, was given CPR, and ultimately achieved ROSC. According to the patient's clinical findings, he likely has anoxic brain injury due to cardiac arrest. Plan: 1. Anoxic brain injury: - CT head: evidence of anoxic brain injury, decreased anguiano-white differentiation. - EEG: generalized slowing, with burst suppresion. - Given burst suppression, will start patient on keppra 1000mg BID. - Will repeat EEG tomorrow to evaluate for any change in pattern, or development of seizures. - As patient received versed and ativan, will need to wait for 4-5 half lives to allow for these medications to be excreted/metabolized, prior to reliably evaluating for brain and further prognostication. - Will continue to monitor neurologic status - Continue supportive care per primary/ICU teams. Thank you for allowing me to take part in care of this patient. Maximo Thomas MD Neurology
[2019-11-10] MEDS ORDERED: SODIUM BICARBONATE 325 MG TAB FEEDTUBE PRN (13:48)
[2019-11-10] MEDS ORDERED: SIMPLE SYRUP 15 ML FEEDTUBE PRN ×2 (13:48)
[2019-11-10] MEDS ORDERED: LIPASE 10,500/PROTEASE 25,000/AMYLASE 43,750 (UNITS) DR CAP FEEDTUBE PRN (13:48)
[2019-11-10] MEDS: HEPARIN 5,000 UNIT/1 ML VIAL SUB-Q SCH ×2 (15:53→21:55)
[2019-11-10] MEDS: FAMOTIDINE 20 MG/2 ML INJ IV SCH ×2 (15:53→21:56)
--- NOTE | 2019-11-10 16:03 | Electroencephalogram Report ---
Electroencephalogram EEG Date of exam: 11/10/19 History: Patient is a 49 y/o man w/ a h/o schizophrenia and COPD, who was found down at a psychiatric facility. Patient was found to be in cardiac arrest, was given CPR, and ultimately achieved ROSC. Description: Impression: 1. Generalized slowing 2. Burst suppression noted. Description: At the onset of this recording, the patient is lying supine. The background we note a 3 Hz delta activity that has an amplitude ranging 20-30 V. There are no asymmetries in amplitude or frequency between hemispheres. Noted to have burst suppression during recording, with bursts lasting 1-2 seconds, followed by suppression. Intermittent photic stimulation was not performed. Hyperventilation was not performed. Interpretation: This routine EEG performed during sleep is abnormal secondary to above findings and is consistent with bihemispheric dysfunction and encephalopathy. The above described findings of diffuse slowing is etiologically nonspecific, and similar findings have been reported in cases of toxic, metabolic, hypoxic ischemic, infectious, medication, sleep deprivation, dementia, postictal state, and other causes of diffuse and multifocal encephalopathy. Burst suppression pattern is found in patients with inactivated brain states, such as from general anesthesia, coma, or hypothermia.
[2019-11-10] MEDS: levETIRAcetam 1,000 MG in DEXTROSE 5% IN WATER 100 ML IV SCH (21:57)
[2019-11-11 00:23] LABS: Amphetamine Screen,Urine PRESUMPTIVE NEGATIVE; Cannabinoid Screen,Urine PRESUMPTIVE NEGATIVE; Cocaine Screen,Urine PRESUMPTIVE NEGATIVE; Methadone Screen,Urine PRESUMPTIVE NEGATIVE; Opiate Screen,Urine PRESUMPTIVE NEGATIVE
[2019-11-11 01:06] LABS: Benzodiazepines Screen,Urine PRESUMPTIVE POSITIVE
--- NOTE | 2019-11-11 02:21 | XRay Report ---
CHEST 1 VIEW INDICATION / CLINICAL INFORMATION: follow up respiratory failure. COMPARISON: 11/10/2019 FINDINGS: SUPPORT DEVICES: Lines and tubes are unchanged. HEART / MEDIASTINUM: No significant abnormality. LUNGS / PLEURA: Hyperinflated with COPD changes but no infiltrate, edema or effusion.. No pneumothora x. ADDITIONAL FINDINGS: No significant additional findings. IMPRESSION: 1. No significant change Signer Name: Jamari Ruiz MD Signed: 11/11/2019 2:17 AM Workstation Name: [employer]
[2019-11-11 04:12] LABS: Hematocrit 38.8 % (35.5-45.6); Hemoglobin 12.9 gm/dl (11.8-15.2); Mean Corpuscular HGB Conc 33 % (32-34); Mean Corpuscular Volume 99 fl (84-94); Platelet Count 246 K/mm3 (140-440); Red Blood Count 3.93 M/mm3 (3.65-5.03); Red Cell Distribution Width 14.5 % (13.2-15.2)
[2019-11-11 04:40] LABS: Albumin 3.1 g/dL (3.9-5); BUN/Creatinine Ratio 31; Blood Urea Nitrogen 28 mg/dL (9-20); Calcium 8.7 mg/dL (8.4-10.2); Hemolysis Index 2
[2019-11-11 05:00] LABS: Alanine Aminotransferase 998 units/L (7-56)
[2019-11-11] MEDS: CEFEPIME/NS 2 GM/100 ML 2 GM/100 ML BAG IV SCH (06:16)
--- NOTE | 2019-11-11 09:02 | Progress Note ---
Assessment and Plan Assessment and plan: Cardiac arrest Admitted to ICU off Pressors ,Vent support Now off Levophed Prognosis poor Fever SIRS versus Sepsis Started on empiric Cefepime and IV Vancomycin ID consulted Anoxic encephaklopathy I discussed with Dr. Thomas, neurology he says CT Head does have changes of anoxic encephalopathy MRI brain ordered, but not done yet Acute metabolic encephalopathy Transaminitis and elevated Ammonia Shock Liver Elevated Ammonia level Repeat UTI (urinary tract infection) Patient on IV Cefepime empiric which should cover UTI Malnutrition Dietitian consulted DVT prophylaxis On Heparin and GI prophylaxis The high probability of a clinically significant, sudden or life threatening deterioration of the [] system(s) required my full and direct attention, intervention and personal management. The aggregate critical care time was [34] minutes. This time is in addition to time spent performing reported procedures but includes the following: [x] Data Review and interpretation [x] Patient assessment and monitoring of vital signs [x] Documentation [x] Medication orders and management History Interval history: Patient had cardiac arrest at [facility] Hospitalist Physical - Physical exam Narrative exam: Gen: Not in acute distress, lying in bed, Intubated HEENT: Normocephalic, atraumatic Neck: supple, no JVD Heart: S1 and S2 reg, no murmurs, rubs or gallop Lungs: clear to auscultation bilaterally, no crackles Abd: soft, NT, non distended, normal BS Ext: No edema, no clubbing, no cyanosis Neuro: Intubated, unresponsive, does not follow commands - Constitutional Vitals: Temp Pulse Resp BP Pulse Ox 99.6 F 140 H 20 117/67 95 11/11/19 08:00 11/11/19 08:41 11/11/19 08:41 11/11/19 08:41 11/11/19 08:41 General appearance: Present: other (intubated, nonresponsive) Results - Labs CBC & Chem 7: 11/12/19 06:30 11/12/19 09:23 Labs: Laboratory Last Values WBC 10.2 K/mm3 (4.5-11.0) 11/11/19 03:55 RBC 3.93 M/mm3 (3.65-5.03) 11/11/19 03:55 Hgb 12.9 gm/dl (11.8-15.2) 11/11/19 03:55 Hct 38.8 % (35.5-45.6) 11/11/19 03:55 MCV 99 fl (84-94) H 11/11/19 03:55 MCH 33 pg (28-32) H 11/11/19 03:55 MCHC 33 % (32-34) 11/11/19 03:55 RDW 14.5 % (13.2-15.2) 11/11/19 03:55 Plt Count 246 K/mm3 (140-440) 11/11/19 03:55 Add Manual Diff Complete 11/10/19 06:50 Total Counted 100 11/10/19 06:50 Seg Neutrophils % Medical Receptionist Medical Assistant 11/10/19 06:50 Seg Neuts % (Manual) 88.0 % (40.0-70.0) H 11/10/19 06:50 Band Neutrophils % 10.0 % 11/10/19 06:50 Lymphocytes % (Manual) 1.0 % (13.4-35.0) L 11/10/19 06:50 Reactive Lymphs % (Man) 0 % 11/10/19 06:50 Monocytes % (Manual) 1.0 % (0.0-7.3) 11/10/19 06:50 Eosinophils % (Manual) 0 % (0.0-4.3) 11/10/19 06:50 Basophils % (Manual) 0 % (0.0-1.8) 11/10/19 06:50 Metamyelocytes % 0 % 11/10/19 06:50 Myelocytes % 0 % 11/10/19 06:50 Promyelocytes % 0 % 11/10/19 06:50 Blast Cells % 0 % 11/10/19 06:50 Nucleated RBC % Not Reportable 11/10/19 06:50 Seg Neutrophils # Man 10.6 K/mm3 (1.8-7.7) H 11/10/19 06:50 Band Neutrophils # 1.2 K/mm3 11/10/19 06:50 Lymphocytes # (Manual) 0.1 K/mm3 (1.2-5.4) L 11/10/19 06:50 Abs React Lymphs (Man) 0.0 K/mm3 11/10/19 06:50 Monocytes # (Manual) 0.1 K/mm3 (0.0-0.8) 11/10/19 06:50 Eosinophils # (Manual) 0.0 K/mm3 (0.0-0.4) 11/10/19 06:50 Basophils # (Manual) 0.0 K/mm3 (0.0-0.1) 11/10/19 06:50 Metamyelocytes # 0.0 K/mm3 11/10/19 06:50 Myelocytes # 0.0 K/mm3 11/10/19 06:50 Promyelocytes # 0.0 K/mm3 11/10/19 06:50 Blast Cells # 0.0 K/mm3 11/10/19 06:50 WBC Morphology Not Reportable 11/10/19 06:50 Hypersegmented Neuts Not Reportable 11/10/19 06:50 Hyposegmented Neuts Not Reportable 11/10/19 06:50 Hypogranular Neuts Not Reportable 11/10/19 06:50 Smudge Cells Not Reportable 11/10/19 06:50 Toxic Granulation Not Reportable 11/10/19 06:50 Toxic Vacuolation Not Reportable 11/10/19 06:50 Dohle Bodies Not Reportable 11/10/19 06:50 Pelger-Huet Anomaly Not Reportable 11/10/19 06:50 Emily Rods Not Reportable 11/10/19 06:50 Platelet Estimate Consistent w auto 11/10/19 06:50 Clumped Platelets Not Reportable 11/10/19 06:50 Plt Clumps, EDTA Not Reportable 11/10/19 06:50 Large Platelets Not Reportable 11/10/19 06:50 Giant Platelets Not Reportable 11/10/19 06:50 Platelet Satelliting Not Reportable 11/10/19 06:50 Plt Morphology Comment Not Reportable 11/10/19 06:50 RBC Morphology Normal 11/10/19 06:50 Dimorphic RBCs Not Reportable 11/10/19 06:50 Polychromasia Not Reportable 11/10/19 06:50 Hypochromasia Not Reportable 11/10/19 06:50 Poikilocytosis Not Reportable 11/10/19 06:50 Anisocytosis Not Reportable 11/10/19 06:50 Microcytosis Not Reportable 11/10/19 06:50 Macrocytosis Not Reportable 11/10/19 06:50 Spherocytes Not Reportable 11/10/19 06:50 Pappenheimer Bodies Not Reportable 11/10/19 06:50 Sickle Cells Not Reportable 11/10/19 06:50 Target Cells Not Reportable 11/10/19 06:50 Tear Drop Cells Not Reportable 11/10/19 06:50 Ovalocytes Not Reportable 11/10/19 06:50 Helmet Cells Not Reportable 11/10/19 06:50 Pascual-Steen Bodies Not Reportable 11/10/19 06:50 Austell Rings Not Reportable 11/10/19 06:50 Alberto Cells Not Reportable 11/10/19 06:50 Bite Cells Not Reportable 11/10/19 06:50 Crenated Cell Not Reportable 11/10/19 06:50 Elliptocytes Not Reportable 11/10/19 06:50 Acanthocytes (Spur) Not Reportable 11/10/19 06:50 Rouleaux Not Reportable 11/10/19 06:50 Hemoglobin C Crystals Not Reportable 11/10/19 06:50 Schistocytes Not Reportable 11/10/19 06:50 Malaria parasites Not Reportable 11/10/19 06:50 Drake Bodies Not Reportable 11/10/19 06:50 Hem Pathologist Commnt No 11/10/19 06:50 PT 16.9 Sec. (12.2-14.9) H 11/09/19 06:24 INR 1.35 (0.87-1.13) H 11/09/19 06:24 APTT 50.7 Sec. (24.2-36.6) H 11/09/19 06:24 D-Dimer 4435.48 ng/mlDDU (0-234) H 11/09/19 06:24 POC ABG pH 7.432 (7.35-7.45) 11/11/19 03:33 ABG pH 7.410 pH Units (7.350-7.450) 11/10/19 04:57 POC ABG pCO2 44.0 (35-45) 11/11/19 03:33 ABG pCO2 46.3 mm Hg 11/10/19 04:57 POC ABG pO2 94 (80-105) 11/11/19 03:33 ABG pO2 71.6 mm Hg (80.0-90.0) L 11/10/19 04:57 POC ABG HCO3 29.4 (22-26 mml/L) 11/11/19 03:33 ABG HCO3 28.7 mmol/L (20.0-26.0) H 11/10/19 04:57 POC ABG Total CO2 31 (23-27mmol/L) 11/11/19 03:33 POC ABG O2 Sat 97 11/11/19 03:33 ABG O2 Saturation 95.5 % (95.0-99.0) 11/10/19 04:57 ABG O2 Content 13.8 (0.0-44) 11/10/19 04:57 POC ABG Base Excess 5 ((-2) - (+3)mmol/L) 11/11/19 03:33 ABG Base Excess 3.5 mmol/L (-2.0-3.0) H 11/10/19 04:57 ABG Hemoglobin 10.4 gm/dl (14.0-18.0) L 11/10/19 04:57 ABG Carboxyhemoglobin 1.0 % (0.0-5.0) 11/10/19 04:57 ABG Methemoglobin 0.5 % (0.0-1.5) 11/10/19 04:57 Oxyhemoglobin 94.1 % (95.0-99.0) L 11/10/19 04:57 FiO2 40 % 11/11/19 03:33 Sodium 145 mmol/L (137-145) 11/11/19 03:55 Potassium 4.2 mmol/L (3.6-5.0) 11/11/19 03:55 Chloride 105.8 mmol/L (98-107) 11/11/19 03:55 Carbon Dioxide 27 mmol/L (22-30) 11/11/19 03:55 Anion Gap 16 mmol/L 11/11/19 03:55 BUN 28 mg/dL (9-20) H 11/11/19 03:55 Creatinine 0.9 mg/dL (0.8-1.5) 11/11/19 03:55 Estimated GFR > 60 ml/min 11/11/19 03:55 BUN/Creatinine Ratio 31 % 11/11/19 03:55 Glucose 162 mg/dL (75-100) H 11/11/19 03:55 Lactic Acid 1.70 mmol/L (0.7-2.0) 11/09/19 20:02 Calcium 8.7 mg/dL (8.4-10.2) 11/11/19 03:55 Magnesium 2.70 mg/dL (1.7-2.3) H 11/09/19 06:24 Total Bilirubin 0.20 mg/dL (0.1-1.2) 11/11/19 03:55 AST 559 units/L (5-40) H 11/11/19 03:55 ALT 998 units/L (7-56) H 11/11/19 03:55 Alkaline Phosphatase 80 units/L (35-129) 11/11/19 03:55 Ammonia 42.0 umol/L (25-60) 11/10/19 14:56 Total Creatine Kinase 75 units/L (55-170) 11/09/19 06:24 CK-MB (CK-2) 3.0 ng/mL (0.0-4.0) 11/09/19 06:24 CK-MB (CK-2) Rel Index 4.0 (0-4) 11/09/19 06:24 Troponin T < 0.010 ng/mL (0.00-0.029) 11/11/19 03:55 NT-Pro-B Natriuret Pep 5052 pg/mL (0-450) H 11/09/19 06:24 Total Protein 6.4 g/dL (6.3-8.2) 11/11/19 03:55 Albumin 3.1 g/dL (3.9-5) L 11/11/19 03:55 Albumin/Globulin Ratio 0.9 % 11/11/19 03:55 TSH 5.500 mlU/mL (0.270-4.200) H 11/09/19 06:24 Free T4 0.78 ng/dL (0.76-1.46) 11/09/19 06:24 Urine Color Yellow (Yellow) 11/09/19 07:24 Urine Turbidity Cloudy (Clear) 11/09/19 07:24 Urine pH 6.0 (5.0-7.0) 11/09/19 07:24 Ur Specific [place] 1.014 (1.003-1.030) 11/09/19 07:24 Urine Protein >500 mg/dL (Negative) 11/09/19 07:24 Urine Glucose (UA) 50 mg/dL (Negative) 11/09/19 07:24 Urine Ketones Tr mg/dL (Negative) 11/09/19 07:24 Urine Blood Sm (Negative) 11/09/19 07:24 Urine Nitrite Neg (Negative) 11/09/19 07:24 Urine Bilirubin Neg (Negative) 11/09/19 07:24 Urine Urobilinogen < 2.0 mg/dL (<2.0) 11/09/19 07:24 Ur Leukocyte Esterase Neg (Negative) 11/09/19 07:24 Urine WBC (Auto) 83.0 /HPF (0.0-6.0) H 11/09/19 07:24 Urine RBC (Auto) > 182.0 /HPF (0.0-6.0) 11/09/19 07:24 Urine Bacteria (Auto) 4+ /HPF (Negative) 11/09/19 07:24 Ur Transition Epith Cell 5 /HPF 11/09/19 07:24 Urine Mucus 2+ /HPF 11/09/19 07:24 Urine Opiates Screen Presumptive negative 11/11/19 00:00 Urine Methadone Screen Presumptive negative 11/11/19 00:00 Ur Barbiturates Screen Presumptive negative 11/11/19 00:00 Valproic Acid 67.4 ug/mL (50-100) 11/09/19 06:39 Ur Phencyclidine Scrn Presumptive negative 11/11/19 00:00 Ur Amphetamines Screen Presumptive negative 11/11/19 00:00 U Benzodiazepines Scrn Presumptive positive 11/11/19 00:00 Urine Cocaine Screen Presumptive negative 11/11/19 00:00 U Marijuana (THC) Screen Presumptive negative 11/11/19 00:00 Drugs of Abuse Note Disclamer 11/11/19 00:00 Plasma/Serum Alcohol < 0.01 % (0-0.07) 11/09/19 06:39 Hepatitis A IgM Ab Non-reactive (NonReactive) 11/10/19 06:50 Hep Bs Antigen Non-reactive (Negative) 11/10/19 06:50 Hep B Core IgM Ab Non-reactive (NonReactive) 11/10/19 06:50 Hepatitis C Antibody Non-reactive (NonReactive) 11/10/19 06:50 Active Medications - Current Medications Current Medications: Generic Name Dose Route Start Last Admin Trade Name Freq PRN Reason Stop Dose Admin Lipase/Protease/Amylase 1 each 11/10/19 13:48 Pancreaze 10,500 Unit FEEDTUBE PRN PRN For Clogged Feeding Tube Famotidine 20 mg 11/09/19 22:00 11/10/19 21:56 Pepcid IV 20 mg BID HAN Administration Heparin Sodium (Porcine) 5,000 unit 11/10/19 10:00 11/10/19 21:55 Heparin SUB-Q 5,000 unit Q12HR HAN Administration Hydrophilic Ointment 1 applic 11/09/19 07:29 Vaseline Lip Therapy TP Q2HR PRN Dry Lips Norepinephrine 4 mg in 250 mls @ 22.5 mls/hr 11/09/19 07:00 11/09/19 21:30 Levophed Drip 4 Mg/Ns 250 Ml IV 0 mcg/min TITR HAN 0 mls/hr Titration Protocol 6 MCG/MIN Cefepime HCl 2 gm in 100 mls @ 200 mls/hr 11/09/19 22:00 11/11/19 06:16 Cefepime/Ns 2 Gm/100 Ml IV 200 mls/hr Q8HR HAN Administration Protocol Levetiracetam 1,000 mg/ 110 mls @ 400 mls/hr 11/10/19 22:00 11/10/19 21:57 Dextrose IV 400 mls/hr Q12HR HAN Administration Multi-Ingred Cream/Lotion/Oil/Oint 1 applic 11/09/19 07:29 Artificial Tears Ophth Oint OU Q4HR PRN Dry Eye(s) Simple Syrup 15 ml 11/10/19 13:48 Simple Syrup FEEDTUBE PRN PRN Hypoglycemia Simple Syrup 30 ml 11/10/19 13:48 Simple Syrup FEEDTUBE PRN PRN Hypoglycemia Sodium Bicarbonate 325 mg 11/10/19 13:48 Sodium Bicarbonate FEEDTUBE PRN PRN For Clogged Feeding Tube Nutrition/Malnutrition Assess - Dietary Evaluation Nutrition/Malnutrition Findings: Nutrition Notes Start: 11/10/19 11:42 Freq: Status: Active Protocol: Document 11/10/19 11:44 KS (Rec: 11/10/19 12:19 KS [id number]) Co-Sign 11/10/19 11:44 LP Nutrition Notes Need for Assessment generated from: MD Order,financial aid administrator,MST Initial or Follow up Assessment Current Diagnosis Heart Failure,Respiratory Failure Other Pertinent Diagnosis Schizophrenia, UTI, Sepsis, Hepatic Encaphalopathy, Cardiac Arrest Current Diet No Diet Labs/Tests BUN 29 Glu 147 Pertinent Medications Reviewed Height 5 ft 8 in Weight 85 kg [place] Body Weight (kg) 70.00 BMI 28.5 Subjective/Other Information MD consult to initiate TF. Pt on vent with OG tube, unable to obtain PMHx. Burn Absent Trauma Absent Current % PO Negligible Minimum of two criteria No physical signs of malnutrition #1 Nutrition Diagnosis Inadequate oral intake Etiology Pt on vent As Evidenced by Signs and Symptoms NPO Is patient on ventilator? Yes Is Patient Ambulatory and/or Out of Bed No REE-([facility]-confined to bed) Calculation Used for Recommendations [facility] Additional Notes PRO: 102-170g/day (1.2-2g/kg/ day) Fluid: 1mL/kcal or per MD Nutrition Intervention Change Diet Order: Initiate TF Nutrition Support: Vital AF 1.2 at 70mL/hr Flush 100mL q4h Kcal 2,016 Protein (gm) 126 Fluid (mL) 1,362 Goal #1 Tolerate TF Anticipated Discharge Needs: Unable to determine at this time Follow-Up By: 11/11/19 Additional Comments F/U for TF start and tolerance
--- NOTE | 2019-11-11 09:07 | Progress Note ---
Assessment and Plan 49 y/o male, post cardiac arrest, now unresponsive on vent. 1. No sedation, absolutely none 2. Will consider ordering repeat Head CT today. Will discuss with neuro. 3. Echo shows EF of 40%. Tachycardic appears to be afib vs flutter. Will obtain 12 lead EKG. May need rate control meds. BP is stable. 4. Continued vent support 5. UDS was positive. Will repeat again today to ensure not playing a role in altered mental state. Overall prognosis is guarded to poor. Unable to contact any family. If patient has significant brain damage, may not be weanable from ventilator. CCT 31 minutes. Subjective Date of service: 11/11/19 Interval history: EEG done on yesterday showing diffuse slowing with burst suppression. Patient remains unresponsive. UDS was positive for Benzos on yesterday. he was given some 2 nights ago. i have since discontinued all sedative. No family at bedside. Called the [facility] listed in chart but no answer and mailbox was full. Objective Vital Signs - 12hr 11/10/19 11/10/19 11/10/19 21:11 21:21 21:30 Temperature Pulse Rate 148 H 152 H 145 H Respiratory 31 H 32 H 33 H Rate Blood Pressure 168/83 153/79 153/80 O2 Sat by Pulse 98 97 97 Oximetry 11/10/19 11/10/19 11/10/19 21:41 21:51 22:00 Temperature Pulse Rate 141 H 143 H 139 H Respiratory 33 H 34 H 35 H Rate Blood Pressure 153/80 152/84 152/95 O2 Sat by Pulse 97 97 97 Oximetry 11/10/19 11/10/19 11/10/19 22:11 22:21 22:31 Temperature Pulse Rate 141 H 150 H 143 H Respiratory 32 H 32 H 33 H Rate Blood Pressure 152/95 161/77 151/96 O2 Sat by Pulse 98 97 98 Oximetry 11/10/19 11/10/19 11/10/19 22:41 22:51 23:00 Temperature Pulse Rate 135 H 139 H 160 H Respiratory 31 H 24 32 H Rate Blood Pressure 151/96 142/92 135/72 O2 Sat by Pulse 97 97 98 Oximetry 11/10/19 11/10/19 11/10/19 23:11 23:13 23:21 Temperature Pulse Rate 138 H 148 H 137 H Respiratory 27 H 23 27 H Rate Blood Pressure 135/72 135/72 147/63 O2 Sat by Pulse 98 98 98 Oximetry 11/10/19 11/10/19 11/10/19 23:30 23:40 23:46 Temperature Pulse Rate 143 H 134 H 143 H Respiratory 28 H 29 H Rate Blood Pressure 147/63 144/69 147/63 O2 Sat by Pulse 97 98 97 Oximetry 11/10/19 11/11/19 11/11/19 23:51 00:00 00:01 Temperature 97.6 F Pulse Rate 140 H 140 H Respiratory 26 H 27 H 28 H Rate Blood Pressure 136/38 147/63 132/82 O2 Sat by Pulse 97 97 97 Oximetry 11/11/19 11/11/19 11/11/19 00:11 00:21 00:30 Temperature Pulse Rate 134 H 136 H 136 H Respiratory 26 H 30 H 29 H Rate Blood Pressure 132/82 123/76 135/84 O2 Sat by Pulse 97 98 98 Oximetry 11/11/19 11/11/19 11/11/19 00:41 00:51 01:00 Temperature Pulse Rate 138 H 141 H 140 H Respiratory 28 H 30 H 30 H Rate Blood Pressure 135/84 129/73 142/75 O2 Sat by Pulse 98 97 97 Oximetry 11/11/19 11/11/19 11/11/19 01:11 01:21 01:31 Temperature Pulse Rate 133 H 138 H 141 H Respiratory 26 H 24 28 H Rate Blood Pressure 142/75 148/83 148/83 O2 Sat by Pulse 97 97 98 Oximetry 11/11/19 11/11/19 11/11/19 01:41 01:51 02:01 Temperature Pulse Rate 140 H 138 H 138 H Respiratory 28 H 29 H 33 H Rate Blood Pressure 148/83 123/69 118/78 O2 Sat by Pulse 97 97 98 Oximetry 11/11/19 11/11/19 11/11/19 02:11 02:21 02:30 Temperature Pulse Rate 138 H 133 H 133 H Respiratory 32 H 19 36 H Rate Blood Pressure 118/78 106/76 121/79 O2 Sat by Pulse 97 97 98 Oximetry 11/11/19 11/11/19 11/11/19 02:41 02:51 03:00 Temperature Pulse Rate 133 H 132 H 132 H Respiratory 30 H 30 H 28 H Rate Blood Pressure 121/79 128/86 131/87 O2 Sat by Pulse 97 98 97 Oximetry 11/11/19 11/11/19 11/11/19 03:11 03:16 03:21 Temperature Pulse Rate 138 H 133 H 133 H Respiratory 27 H 30 H Rate Blood Pressure 131/87 138/89 138/89 O2 Sat by Pulse 97 97 97 Oximetry 11/11/19 11/11/19 11/11/19 03:30 03:41 03:51 Temperature Pulse Rate 135 H 136 H 141 H Respiratory 30 H 30 H 27 H Rate Blood Pressure 126/83 131/87 114/58 O2 Sat by Pulse 93 93 94 Oximetry 11/11/19 11/11/19 11/11/19 04:00 04:11 04:21 Temperature 100.6 F H Pulse Rate 132 H 134 H 135 H Respiratory 31 H 29 H 28 H Rate Blood Pressure 126/77 126/77 141/85 O2 Sat by Pulse 93 94 94 Oximetry 11/11/19 11/11/19 11/11/19 04:30 04:41 04:51 Temperature Pulse Rate 132 H 128 H 129 H Respiratory 28 H 30 H 25 H Rate Blood Pressure 116/77 116/77 127/74 O2 Sat by Pulse 94 94 95 Oximetry 11/11/19 11/11/19 11/11/19 05:00 05:11 05:21 Temperature Pulse Rate 120 H 119 H 127 H Respiratory 26 H 24 30 H Rate Blood Pressure 122/80 122/80 103/75 O2 Sat by Pulse 95 95 95 Oximetry 11/11/19 11/11/19 11/11/19 05:30 05:41 05:51 Temperature Pulse Rate 119 H 122 H 123 H Respiratory 23 25 H 25 H Rate Blood Pressure 108/81 108/81 115/82 O2 Sat by Pulse 95 96 96 Oximetry 11/11/19 11/11/19 11/11/19 06:00 06:11 06:21 Temperature Pulse Rate 117 H 122 H 120 H Respiratory 25 H 26 H 26 H Rate Blood Pressure 126/87 126/87 116/79 O2 Sat by Pulse 96 96 95 Oximetry 11/11/19 11/11/19 11/11/19 06:30 06:41 06:51 Temperature Pulse Rate 123 H 130 H 125 H Respiratory 26 H 29 H 30 H Rate Blood Pressure 117/87 117/87 128/72 O2 Sat by Pulse 95 96 95 Oximetry 11/11/19 11/11/19 11/11/19 07:00 07:10 07:21 Temperature Pulse Rate 125 H 129 H 130 H Respiratory 24 22 25 H Rate Blood Pressure 122/75 131/87 118/81 O2 Sat by Pulse 95 95 95 Oximetry 11/11/19 11/11/19 11/11/19 07:30 07:41 07:51 Temperature Pulse Rate 128 H 130 H 123 H Respiratory 18 18 13 Rate Blood Pressure 116/85 122/75 119/82 O2 Sat by Pulse 95 96 96 Oximetry 11/11/19 11/11/19 11/11/19 08:00 08:11 08:21 Temperature 99.6 F Pulse Rate 130 H 132 H 134 H Respiratory 19 27 H 17 Rate Blood Pressure 128/77 128/77 122/77 O2 Sat by Pulse 96 96 96 Oximetry 11/11/19 11/11/19 08:31 08:41 Temperature Pulse Rate 132 H 140 H Respiratory 29 H 20 Rate Blood Pressure 117/67 117/67 O2 Sat by Pulse 95 95 Oximetry Constitutional: comatose, appears uncomfortable, other (not on sedation) Eyes: icteric, other (Strabismus) ENT: other (orally intubated and critically ill on vent) Neck: supple Effort: mildly labored Ascultation: Bilateral: clear Percussion: Bilateral: not dull Cardiovascular: regular rate and rhythm Gastrointestinal: normoactive bowel sounds, soft, non-tender Integumentary: normal Extremities: no edema Neurologic: unable to assess CBC and BMP: 11/11/19 03:55 11/11/19 03:55 ABG, PT/INR, D-dimer: ABG POC ABG pH 7.432 (7.35-7.45) 11/11/19 03:33 ABG pH 7.410 pH Units (7.350-7.450) 11/10/19 04:57 POC ABG pCO2 44.0 (35-45) 11/11/19 03:33 ABG pCO2 46.3 mm Hg 11/10/19 04:57 POC ABG pO2 94 (80-105) 11/11/19 03:33 ABG pO2 71.6 mm Hg (80.0-90.0) L 11/10/19 04:57 POC ABG HCO3 29.4 (22-26 mml/L) 11/11/19 03:33 POC ABG Total CO2 31 (23-27mmol/L) 11/11/19 03:33 POC ABG O2 Sat 97 11/11/19 03:33 ABG O2 Saturation 95.5 % (95.0-99.0) 11/10/19 04:57 PT/INR, D-dimer PT 16.9 Sec. (12.2-14.9) H 11/09/19 06:24 INR 1.35 (0.87-1.13) H 11/09/19 06:24 D-Dimer 4435.48 ng/mlDDU (0-234) H 11/09/19 06:24 Abnormal lab findings: Abnormal Labs 11/09/19 11/09/19 11/09/19 06:24 06:24 06:24 WBC RBC 3.54 L Hgb 11.7 L MCV 103 H MCH 33 H Seg Neuts % (Manual) Lymphocytes % (Manual) Nucleated RBC % 1.0 H Seg Neutrophils # Man Lymphocytes # (Manual) PT 16.9 H INR 1.35 H APTT 50.7 H D-Dimer 4435.48 H POC ABG pH POC ABG pCO2 POC ABG pO2 ABG pO2 ABG HCO3 ABG Base Excess ABG Hemoglobin Oxyhemoglobin BUN 23 H Glucose 122 H Lactic Acid Calcium 8.3 L Magnesium AST 355 H ALT 340 H Ammonia Troponin T 0.039 H NT-Pro-B Natriuret Pep 5052 H Total Protein 5.6 L Albumin 2.9 L TSH Urine WBC (Auto) 11/09/19 11/09/19 11/09/19 06:24 06:24 06:24 WBC RBC Hgb MCV MCH Seg Neuts % (Manual) Lymphocytes % (Manual) Nucleated RBC % Seg Neutrophils # Man Lymphocytes # (Manual) PT INR APTT D-Dimer POC ABG pH POC ABG pCO2 POC ABG pO2 ABG pO2 ABG HCO3 ABG Base Excess ABG Hemoglobin Oxyhemoglobin BUN Glucose Lactic Acid Calcium Magnesium 2.70 H AST ALT Ammonia 101.0 H Troponin T NT-Pro-B Natriuret Pep Total Protein Albumin TSH 5.500 H Urine WBC (Auto) 11/09/19 11/09/19 11/09/19 06:24 06:51 07:24 WBC RBC Hgb MCV MCH Seg Neuts % (Manual) Lymphocytes % (Manual) Nucleated RBC % Seg Neutrophils # Man Lymphocytes # (Manual) PT INR APTT D-Dimer POC ABG pH POC ABG pCO2 POC ABG pO2 ABG pO2 ABG HCO3 ABG Base Excess ABG Hemoglobin Oxyhemoglobin BUN Glucose Lactic Acid 8.80 H* 9.80 H* Calcium Magnesium AST ALT Ammonia Troponin T NT-Pro-B Natriuret Pep Total Protein Albumin TSH Urine WBC (Auto) 83.0 H 11/09/19 11/09/19 11/09/19 07:27 08:10 08:32 WBC RBC Hgb MCV MCH Seg Neuts % (Manual) Lymphocytes % (Manual) Nucleated RBC % Seg Neutrophils # Man Lymphocytes # (Manual) PT INR APTT D-Dimer POC ABG pH 7.145 L POC ABG pCO2 POC ABG pO2 380 H ABG pO2 ABG HCO3 ABG Base Excess ABG Hemoglobin Oxyhemoglobin BUN Glucose Lactic Acid 10.20 H* 6.50 H* Calcium Magnesium AST ALT Ammonia Troponin T NT-Pro-B Natriuret Pep Total Protein Albumin TSH Urine WBC (Auto) 11/09/19 11/09/19 11/09/19 09:27 10:30 12:11 WBC RBC Hgb MCV MCH Seg Neuts % (Manual) Lymphocytes % (Manual) Nucleated RBC % Seg Neutrophils # Man Lymphocytes # (Manual) PT INR APTT D-Dimer POC ABG pH POC ABG pCO2 POC ABG pO2 ABG pO2 ABG HCO3 ABG Base Excess ABG Hemoglobin Oxyhemoglobin BUN Glucose Lactic Acid 5.80 H* 3.80 H* 3.40 H* Calcium Magnesium AST ALT Ammonia Troponin T NT-Pro-B Natriuret Pep Total Protein Albumin TSH Urine WBC (Auto) 11/09/19 11/09/19 11/09/19 13:04 14:39 15:02 WBC RBC Hgb MCV MCH Seg Neuts % (Manual) Lymphocytes % (Manual) Nucleated RBC % Seg Neutrophils # Man Lymphocytes # (Manual) PT INR APTT D-Dimer POC ABG pH 7.288 L POC ABG pCO2 60.2 H POC ABG pO2 74 L ABG pO2 ABG HCO3 ABG Base Excess ABG Hemoglobin Oxyhemoglobin BUN Glucose Lactic Acid 2.70 H* 3.20 H* Calcium Magnesium AST ALT Ammonia Troponin T NT-Pro-B Natriuret Pep Total Protein Albumin TSH Urine WBC (Auto) 11/09/19 11/09/19 11/10/19 17:34 20:14 04:57 WBC RBC Hgb MCV MCH Seg Neuts % (Manual) Lymphocytes % (Manual) Nucleated RBC % Seg Neutrophils # Man Lymphocytes # (Manual) PT INR APTT D-Dimer POC ABG pH POC ABG pCO2 52.4 H POC ABG pO2 72 L ABG pO2 71.6 L ABG HCO3 28.7 H ABG Base Excess 3.5 H ABG Hemoglobin 10.4 L Oxyhemoglobin 94.1 L BUN Glucose Lactic Acid 2.60 H* Calcium Magnesium AST ALT Ammonia Troponin T NT-Pro-B Natriuret Pep Total Protein Albumin TSH Urine WBC (Auto) 11/10/19 11/10/19 11/11/19 06:50 06:50 03:55 WBC 12.1 H RBC Hgb MCV 98 H MCH Seg Neuts % (Manual) 88.0 H Lymphocytes % (Manual) 1.0 L Nucleated RBC % Seg Neutrophils # Man 10.6 H Lymphocytes # (Manual) 0.1 L PT INR APTT D-Dimer POC ABG pH POC ABG pCO2 POC ABG pO2 ABG pO2 ABG HCO3 ABG Base Excess ABG Hemoglobin Oxyhemoglobin BUN 29 H 28 H Glucose 147 H 162 H Lactic Acid Calcium Magnesium AST 1150 H 559 H ALT 1199 H 998 H Ammonia Troponin T NT-Pro-B Natriuret Pep Total Protein Albumin 3.1 L 3.1 L TSH Urine WBC (Auto) 11/11/19 03:55 WBC RBC Hgb MCV 99 H MCH 33 H Seg Neuts % (Manual) Lymphocytes % (Manual) Nucleated RBC % Seg Neutrophils # Man Lymphocytes # (Manual) PT INR APTT D-Dimer POC ABG pH POC ABG pCO2 POC ABG pO2 ABG pO2 ABG HCO3 ABG Base Excess ABG Hemoglobin Oxyhemoglobin BUN Glucose Lactic Acid Calcium Magnesium AST ALT Ammonia Troponin T NT-Pro-B Natriuret Pep Total Protein Albumin TSH Urine WBC (Auto)
[2019-11-11] MEDS ORDERED: ACETAMINOPHEN 325 MG TAB PO PRN (09:13)
[2019-11-11] MEDS: IPRATROPIUM/ALBUTEROL SULFATE 3 ML AMPUL.NEB IH SCH (10:03)
[2019-11-11] MEDS ORDERED: METOPROLOL TARTRATE 5 MG/5 ML INJ IV ONE (11:00)
--- NOTE | 2019-11-11 11:46 | Electroencephalogram Report ---
Electroencephalogram EEG Date of exam: 11/11/19 History: Patient is a 49 y/o man w/ a h/o schizophrenia and COPD, who was found down at a psychiatric facility. Patient was found to be in cardiac arrest, was given CPR, and ultimately achieved ROSC. Description: Impression: 1. Generalized slowing 2. No seizures or epileptiform activity. Description: At the onset of this recording, the patient is lying supine. The background we note a 2 Hz delta activity that has an amplitude ranging 20-30 V. There are no asymmetries in amplitude or frequency between hemispheres. No burst suppression noted on EEG today. Intermittent photic stimulation was not performed. Hyperventilation was not performed. Interpretation: This routine EEG performed during sleep is abnormal secondary to above findings and is consistent with bihemispheric dysfunction and encephalopathy. The above described findings of diffuse slowing is etiologically nonspecific, and similar findings have been reported in cases of toxic, metabolic, hypoxic ischemic, infectious, medication, sleep deprivation, dementia, postictal state, and other causes of diffuse and multifocal encephalopathy.
--- NOTE | 2019-11-11 12:05 | Progress Note ---
Assessment and Plan Patient is a 49 y/o man w/ a h/o schizophrenia and COPD, who was found down at a psychiatric facility. Patient was found to be in cardiac arrest, was given CPR, and ultimately achieved ROSC. According to the patient's clinical findings, he likely has anoxic brain injury due to cardiac arrest. Plan: 1. Anoxic brain injury: - CT head: evidence of anoxic brain injury, decreased anguiano-white differentiation. - EEG on 11/10/20: generalized slowing, with burst suppresion. - EEG on 11/11/20: Generalized slowing noted. No seizures noted. - Cont. patient on keppra 1000mg BID. - Given burst suppression noted on EEG from 11/10/20, would recommend for patient to have further EEG monitoring for evolution of any seizures. Discussed with primary team, and recommend for patient to be transferred to facility with EEG monitoring available, as it is not available here over the weekend. - As patient received versed and ativan, will need to wait for 4-5 half lives to allow for these medications to be excreted/metabolized, prior to reliably eval uating for brain and further prognostication. - Continue supportive care per primary/ICU teams. - Discussed patient with male infertility specialist, who stated that he does not have any next of kin. [employer] stated that patient may have had an advance directive in the past, yet is uncertain. [employer] stated that he would come to hospital likely today to meet with team. Discussed prognosis given - Will sign off as I am not covering neurology service over the weekend. Please consult neurologist covering service over the weekend for further neurologic monitoring and management. Thank you for allowing me to take part in care of this patient. Maximo Thomas MD Neurology Subjective Date of service: 11/11/19 Principal diagnosis: Anoxic brain injury Interval history: Patient had a fever overnight. Objective - Exam Narrative Exam: Patient is comatose, intubated. Pupils fixed, 2mm, corneals abset. Cough intact, VOR absent. No withdrawal to pain in any extremity. 2+ reflexes throughout. - Vital Sign Vital Signs - 12hr 11/10/19 11/11/19 11/11/19 23:51 00:00 00:01 Temperature 97.6 F Pulse Rate 140 H 140 H Respiratory 26 H 27 H 28 H Rate Blood Pressure 136/38 147/63 132/82 O2 Sat by Pulse 97 97 97 Oximetry 11/11/19 11/11/19 11/11/19 00:11 00:21 00:30 Temperature Pulse Rate 134 H 136 H 136 H Respiratory 26 H 30 H 29 H Rate Blood Pressure 132/82 123/76 135/84 O2 Sat by Pulse 97 98 98 Oximetry 11/11/19 11/11/19 11/11/19 00:41 00:51 01:00 Temperature Pulse Rate 138 H 141 H 140 H Respiratory 28 H 30 H 30 H Rate Blood Pressure 135/84 129/73 142/75 O2 Sat by Pulse 98 97 97 Oximetry 11/11/19 11/11/19 11/11/19 01:11 01:21 01:31 Temperature Pulse Rate 133 H 138 H 141 H Respiratory 26 H 24 28 H Rate Blood Pressure 142/75 148/83 148/83 O2 Sat by Pulse 97 97 98 Oximetry 11/11/19 11/11/19 11/11/19 01:41 01:51 02:01 Temperature Pulse Rate 140 H 138 H 138 H Respiratory 28 H 29 H 33 H Rate Blood Pressure 148/83 123/69 118/78 O2 Sat by Pulse 97 97 98 Oximetry 11/11/19 11/11/19 11/11/19 02:11 02:21 02:30 Temperature Pulse Rate 138 H 133 H 133 H Respiratory 32 H 19 36 H Rate Blood Pressure 118/78 106/76 121/79 O2 Sat by Pulse 97 97 98 Oximetry 11/11/19 11/11/19 11/11/19 02:41 02:51 03:00 Temperature Pulse Rate 133 H 132 H 132 H Respiratory 30 H 30 H 28 H Rate Blood Pressure 121/79 128/86 131/87 O2 Sat by Pulse 97 98 97 Oximetry 11/11/19 11/11/19 11/11/19 03:11 03:16 03:21 Temperature Pulse Rate 138 H 133 H 133 H Respiratory 27 H 30 H Rate Blood Pressure 131/87 138/89 138/89 O2 Sat by Pulse 97 97 97 Oximetry 11/11/19 11/11/19 11/11/19 03:30 03:41 03:51 Temperature Pulse Rate 135 H 136 H 141 H Respiratory 30 H 30 H 27 H Rate Blood Pressure 126/83 131/87 114/58 O2 Sat by Pulse 93 93 94 Oximetry 11/11/19 11/11/19 11/11/19 04:00 04:11 04:21 Temperature 100.6 F H Pulse Rate 132 H 134 H 135 H Respiratory 31 H 29 H 28 H Rate Blood Pressure 126/77 126/77 141/85 O2 Sat by Pulse 93 94 94 Oximetry 11/11/19 11/11/19 11/11/19 04:30 04:41 04:51 Temperature Pulse Rate 132 H 128 H 129 H Respiratory 28 H 30 H 25 H Rate Blood Pressure 116/77 116/77 127/74 O2 Sat by Pulse 94 94 95 Oximetry 11/11/19 11/11/19 11/11/19 05:00 05:11 05:21 Temperature Pulse Rate 120 H 119 H 127 H Respiratory 26 H 24 30 H Rate Blood Pressure 122/80 122/80 103/75 O2 Sat by Pulse 95 95 95 Oximetry 11/11/19 11/11/19 11/11/19 05:30 05:41 05:51 Temperature Pulse Rate 119 H 122 H 123 H Respiratory 23 25 H 25 H Rate Blood Pressure 108/81 108/81 115/82 O2 Sat by Pulse 95 96 96 Oximetry 11/11/19 11/11/19 11/11/19 06:00 06:11 06:21 Temperature Pulse Rate 117 H 122 H 120 H Respiratory 25 H 26 H 26 H Rate Blood Pressure 126/87 126/87 116/79 O2 Sat by Pulse 96 96 95 Oximetry 11/11/19 11/11/19 11/11/19 06:30 06:41 06:51 Temperature Pulse Rate 123 H 130 H 125 H Respiratory 26 H 29 H 30 H Rate Blood Pressure 117/87 117/87 128/72 O2 Sat by Pulse 95 96 95 Oximetry 11/11/19 11/11/19 11/11/19 07:00 07:10 07:21 Temperature Pulse Rate 125 H 129 H 130 H Respiratory 24 22 25 H Rate Blood Pressure 122/75 131/87 118/81 O2 Sat by Pulse 95 95 95 Oximetry 11/11/19 11/11/19 11/11/19 07:30 07:41 07:51 Temperature Pulse Rate 128 H 130 H 123 H Respiratory 18 18 13 Rate Blood Pressure 116/85 122/75 119/82 O2 Sat by Pulse 95 96 96 Oximetry 11/11/19 11/11/19 11/11/19 08:00 08:11 08:21 Temperature 99.6 F Pulse Rate 148 H 132 H 134 H Respiratory 19 27 H 17 Rate Blood Pressure 138/78 128/77 122/77 O2 Sat by Pulse 95 96 96 Oximetry 11/11/19 11/11/19 08:31 08:41 Temperature Pulse Rate 132 H 140 H Respiratory 29 H 20 Rate Blood Pressure 117/67 117/67 O2 Sat by Pulse 95 95 Oximetry - General Apperance Constitutional: acutely ill - EENT EENT: ATNC, mucous membranes moist - Respiratory Respiratory: decreased breath sounds - Cardiovascular Cardiovascular: regular rate, normal S1, normal S2 Extremities: no clubbing, cyanosis, no inflammation - Gastrointestinal Gastrointestinal: normoactive bowel sounds, soft, non-tender - Laboratory Findings CBC and BMP: 11/11/19 03:55 11/11/19 03:55 Abnormal Lab Findings: Abnormal Labs 11/09/19 11/09/19 11/09/19 06:24 06:24 06:24 WBC RBC 3.54 L Hgb 11.7 L MCV 103 H MCH 33 H Seg Neuts % (Manual) Lymphocytes % (Manual) Nucleated RBC % 1.0 H Seg Neutrophils # Man Lymphocytes # (Manual) PT 16.9 H INR 1.35 H APTT 50.7 H D-Dimer 4435.48 H POC ABG pH POC ABG pCO2 POC ABG pO2 ABG pO2 ABG HCO3 ABG Base Excess ABG Hemoglobin Oxyhemoglobin BUN 23 H Glucose 122 H Lactic Acid Calcium 8.3 L Magnesium AST 355 H ALT 340 H Ammonia Troponin T 0.039 H NT-Pro-B Natriuret Pep 5052 H Total Protein 5.6 L Albumin 2.9 L TSH Urine WBC (Auto) 11/09/19 11/09/19 11/09/19 06:24 06:24 06:24 WBC RBC Hgb MCV MCH Seg Neuts % (Manual) Lymphocytes % (Manual) Nucleated RBC % Seg Neutrophils # Man Lymphocytes # (Manual) PT INR APTT D-Dimer POC ABG pH POC ABG pCO2 POC ABG pO2 ABG pO2 ABG HCO3 ABG Base Excess ABG Hemoglobin Oxyhemoglobin BUN Glucose Lactic Acid Calcium Magnesium 2.70 H AST ALT Ammonia 101.0 H Troponin T NT-Pro-B Natriuret Pep Total Protein Albumin TSH 5.500 H Urine WBC (Auto) 11/09/19 11/09/19 11/09/19 06:24 06:51 07:24 WBC RBC Hgb MCV MCH Seg Neuts % (Manual) Lymphocytes % (Manual) Nucleated RBC % Seg Neutrophils # Man Lymphocytes # (Manual) PT INR APTT D-Dimer POC ABG pH POC ABG pCO2 POC ABG pO2 ABG pO2 ABG HCO3 ABG Base Excess ABG Hemoglobin Oxyhemoglobin BUN Glucose Lactic Acid 8.80 H* 9.80 H* Calcium Magnesium AST ALT Ammonia Troponin T NT-Pro-B Natriuret Pep Total Protein Albumin TSH Urine WBC (Auto) 83.0 H 11/09/19 11/09/19 11/09/19 07:27 08:10 08:32 WBC RBC Hgb MCV MCH Seg Neuts % (Manual) Lymphocytes % (Manual) Nucleated RBC % Seg Neutrophils # Man Lymphocytes # (Manual) PT INR APTT D-Dimer POC ABG pH 7.145 L POC ABG pCO2 POC ABG pO2 380 H ABG pO2 ABG HCO3 ABG Base Excess ABG Hemoglobin Oxyhemoglobin BUN Glucose Lactic Acid 10.20 H* 6.50 H* Calcium Magnesium AST ALT Ammonia Troponin T NT-Pro-B Natriuret Pep Total Protein Albumin TSH Urine WBC (Auto) 11/09/19 11/09/19 11/09/19 09:27 10:30 12:11 WBC RBC Hgb MCV MCH Seg Neuts % (Manual) Lymphocytes % (Manual) Nucleated RBC % Seg Neutrophils # Man Lymphocytes # (Manual) PT INR APTT D-Dimer POC ABG pH POC ABG pCO2 POC ABG pO2 ABG pO2 ABG HCO3 ABG Base Excess ABG Hemoglobin Oxyhemoglobin BUN Glucose Lactic Acid 5.80 H* 3.80 H* 3.40 H* Calcium Magnesium AST ALT Ammonia Troponin T NT-Pro-B Natriuret Pep Total Protein Albumin TSH Urine WBC (Auto) 11/09/19 11/09/19 11/09/19 13:04 14:39 15:02 WBC RBC Hgb MCV MCH Seg Neuts % (Manual) Lymphocytes % (Manual) Nucleated RBC % Seg Neutrophils # Man Lymphocytes # (Manual) PT INR APTT D-Dimer POC ABG pH 7.288 L POC ABG pCO2 60.2 H POC ABG pO2 74 L ABG pO2 ABG HCO3 ABG Base Excess ABG Hemoglobin Oxyhemoglobin BUN Glucose Lactic Acid 2.70 H* 3.20 H* Calcium Magnesium AST ALT Ammonia Troponin T NT-Pro-B Natriuret Pep Total Protein Albumin TSH Urine WBC (Auto) 11/09/19 11/09/19 11/10/19 17:34 20:14 04:57 WBC RBC Hgb MCV MCH Seg Neuts % (Manual) Lymphocytes % (Manual) Nucleated RBC % Seg Neutrophils # Man Lymphocytes # (Manual) PT INR APTT D-Dimer POC ABG pH POC ABG pCO2 52.4 H POC ABG pO2 72 L ABG pO2 71.6 L ABG HCO3 28.7 H ABG Base Excess 3.5 H ABG Hemoglobin 10.4 L Oxyhemoglobin 94.1 L BUN Glucose Lactic Acid 2.60 H* Calcium Magnesium AST ALT Ammonia Troponin T NT-Pro-B Natriuret Pep Total Protein Albumin TSH Urine WBC (Auto) 11/10/19 11/10/19 11/11/19 06:50 06:50 03:55 WBC 12.1 H RBC Hgb MCV 98 H MCH Seg Neuts % (Manual) 88.0 H Lymphocytes % (Manual) 1.0 L Nucleated RBC % Seg Neutrophils # Man 10.6 H Lymphocytes # (Manual) 0.1 L PT INR APTT D-Dimer POC ABG pH POC ABG pCO2 POC ABG pO2 ABG pO2 ABG HCO3 ABG Base Excess ABG Hemoglobin Oxyhemoglobin BUN 29 H 28 H Glucose 147 H 162 H Lactic Acid Calcium Magnesium AST 1150 H 559 H ALT 1199 H 998 H Ammonia Troponin T NT-Pro-B Natriuret Pep Total Protein Albumin 3.1 L 3.1 L TSH Urine WBC (Auto) 11/11/19 03:55 WBC RBC Hgb MCV 99 H MCH 33 H Seg Neuts % (Manual) Lymphocytes % (Manual) Nucleated RBC % Seg Neutrophils # Man Lymphocytes # (Manual) PT INR APTT D-Dimer POC ABG pH POC ABG pCO2 POC ABG pO2 ABG pO2 ABG HCO3 ABG Base Excess ABG Hemoglobin Oxyhemoglobin BUN Glucose Lactic Acid Calcium Magnesium AST ALT Ammonia Troponin T NT-Pro-B Natriuret Pep Total Protein Albumin TSH Urine WBC (Auto)
[2019-11-11] MEDS: levETIRAcetam 1,000 MG in DEXTROSE 5% IN WATER 100 ML IV SCH ×2 (12:17→22:16)
[2019-11-11 13:06] LABS: Amphetamine Screen,Urine PRESUMPTIVE NEGATIVE; Cannabinoid Screen,Urine PRESUMPTIVE NEGATIVE; Cocaine Screen,Urine PRESUMPTIVE NEGATIVE; Methadone Screen,Urine PRESUMPTIVE NEGATIVE; Opiate Screen,Urine PRESUMPTIVE NEGATIVE
--- NOTE | 2019-11-11 13:07 | Progress Note ---
Assessment and Plan Cultures Urine culture 11/09/19 no growth to date Sputum culture 11/09/19 no growth to date Blood culture 11/10/19 NGTD Assessment: 49 yo M PMHx schizophrenia admitted after cardiac arrest. Now with low grade temperatures 1. Low grade temperatures - not quite febrile. Fevers likely reactive to cardiac arrest and potential central fevers from presumable anoxic brain injury. No evidence of infection on CXR, cultures negative thus far. Would monitor on cefepime for one further day, and stop tomorrow assuming no changes. 2. Cardiac arrest 3. Acute hypoxic respiratory failure - intubated 4. Schizophrenia Recs: - stopped cefepime, monitor off antibiotics - follow up cultures - follow up MRI to determine anoxic brain injury. Thank you for the consult, we will continue to follow. [facility] ([facility]) M: [phone] O: [phone] F: [phone] Subjective Date of service: 11/11/19 Principal diagnosis: Anoxic brain injury Interval history: One fever to 100.6, normalized white count. Objective - Exam Narrative Exam: General intubated, sedated Eyes - PERRLA, EOM intact ENT - Moist mucous membranes, no lymphadenopathy Neck - No noticeable or palpable swelling, redness or rash around throat or on face Lymph Nodes - No lymphadenopathy Cardiovascular - RRR no m/r/g, no JVD, no carotid bruits Lungs - Clear to auscultation, no use of accessory muscles, no crackles or wheezes. Skin - No rashes, skin warm and dry, no erythematous areas Abdomen - Normal bowel sounds, abdomen soft and nontender Extremities - No edema, cyanosis or clubbing Musculoskeletal - 5/5 strength, normal range of motion, no swollen or erythema tous joints. Neurological Sedated - Constitutional Vitals: Vital Signs Temp Pulse Resp BP Pulse Ox 99.6 F 144 H 16 116/71 93 11/11/19 08:00 11/11/19 12:11 11/11/19 12:11 11/11/19 12:11 11/11/19 12:11 Temperature -Last 24 Hours Temperature 99.6 F Temperature 100.6 F Temperature 97.6 F Temperature 99.9 F Temperature 99.9 F Temperature 99.3 F - Labs CBC & Chem 7: 11/11/19 03:55 11/11/19 03:55 Labs: Abnormal lab results 11/11/19 11/11/19 11/11/19 Range/Units 03:55 03:55 12:28 MCV 99 H (84-94) fl MCH 33 H (28-32) pg BUN 28 H (9-20) mg/dL Glucose 162 H (75-100) mg/dL POC Glucose 136 H (70-105) AST 559 H (5-40) units/L ALT 998 H (7-56) units/L Albumin 3.1 L (3.9-5) g/dL
[2019-11-11 13:19] LABS: Benzodiazepines Screen,Urine PRESUMPTIVE POSITIVE
--- NOTE | 2019-11-11 13:19 | Progress Note ---
Assessment and Plan Echo reviewed - technically suboptimal study, EF 40%, no significant valvular abnormalities visualized. Optimize HR - give IV lopressor now x 1 dose and initiate PO lopressor, titrate as tolerated. QT interval WNL on ECG this AM. Pt with suspected anoxic brain injury per neurology. Cont supportive management. The patient has been seen in conjunction with Dr. High who agrees with the assessment and plan of care. - Patient Problems (1) Cardiopulmonary arrest Current Visit: Yes Status: Acute (2) Altered mental status Current Visit: Yes Status: Acute (3) Septic shock Current Visit: Yes Status: Suspected (4) Shock liver Current Visit: Yes Status: Acute (5) Elevated troponin Current Visit: Yes Status: Acute (6) Prolonged QT interval Current Visit: Yes Status: Acute (7) Psychiatric disorder Current Visit: Yes Status: Chronic (8) Sinus tachycardia Current Visit: Yes Status: Acute Subjective Date of service: 11/11/19 Principal diagnosis: Anoxic brain injury Interval history: pt remains intubated, nonresponsive. in ST with freq PACs on telemetry. no family at bedside. Objective Last Vital Signs Temp 99.6 F 11/11/19 08:00 Pulse 144 H 11/11/19 12:11 Resp 16 11/11/19 12:11 BP 116/71 11/11/19 12:11 Pulse Ox 93 11/11/19 12:11 - Physical Examination General: Other (intubated, sedated) Cardiac: Positive: Regular Rhythm, S1/S2, Tachycardia Lungs: Positive: Decreased Breath Sounds, Oxygen, Ventilated Respirations Neuro: Positive: Other (intubated, unresponsive) Skin: Negative: Rash Extremities: Absent: edema - Labs and Meds Cardiac Enzymes 11/11/19 Range/Units 03:55 AST 559 H (5-40) units/L CBC 11/11/19 Range/Units 03:55 WBC 10.2 (4.5-11.0) K/mm3 RBC 3.93 (3.65-5.03) M/mm3 Hgb 12.9 (11.8-15.2) gm/dl Hct 38.8 (35.5-45.6) % Plt Count 246 (140-440) K/mm3 Comprehensive Metabolic Panel 11/11/19 Range/Units 03:55 Sodium 145 (137-145) mmol/L Potassium 4.2 (3.6-5.0) mmol/L Chloride 105.8 (98-107) mmol/L Carbon Dioxide 27 (22-30) mmol/L BUN 28 H (9-20) mg/dL Creatinine 0.9 (0.8-1.5) mg/dL Glucose 162 H (75-100) mg/dL Calcium 8.7 (8.4-10.2) mg/dL AST 559 H (5-40) units/L ALT 998 H (7-56) units/L Alkaline Phosphatase 80 (35-129) units/L Total Protein 6.4 (6.3-8.2) g/dL Albumin 3.1 L (3.9-5) g/dL - Imaging and Cardiology EKG: report reviewed, image reviewed Echo: pending - EKG Sinus rhythms and dysrhythmias: sinus rhythm Repolarization changes or abnormalities: Q-T interval prolongation
[2019-11-11] MEDS ORDERED: SODIUM CHLORIDE 0.9% 1000 ML 1,000 ML ONE (13:55)
[2019-11-11] MEDS: HEPARIN 5,000 UNIT/1 ML VIAL SUB-Q SCH ×2 (14:24→22:16)
[2019-11-11] MEDS: FAMOTIDINE 20 MG TAB PO SCH ×2 (14:24→22:03)
[2019-11-11] MEDS ORDERED: SODIUM CHLORIDE 0.9% 1000 ML 1,000 ML IV ONE (14:39)
[2019-11-11] MEDS ORDERED: SODIUM CHLORIDE 0.9% 1000 ML 2,000 ML IV ONE (16:53)
[2019-11-11] MEDS ORDERED: SODIUM CHLORIDE 0.9% 100 ML IVPB IV SCH (17:00)
[2019-11-11] MEDS ORDERED: DOPamine/D5W 800 MG/250 ML 800 MG/250 ML BAG IV ONE (17:49)
[2019-11-11] MEDS: DOPamine/D5W 800 MG/250 ML 800 MG/250 ML BAG IV SCH ×2 (17:55→18:22)
--- NOTE | 2019-11-11 18:40 | Event Note ---
Date: 11/11/19 I had a discussion with Dr. Thomas, Neurology and he recommended transfer to [place] for EEG monitoring. I called and spoke with Transfer Center Staff. She discussed with Neurointensivist and told me they have no beds, to call back in few days over the weekend.
[2019-11-11] MEDS: SODIUM CHLORIDE 0.9% 1000 ML IV SOLN IV PRN ×4 (20:00→23:02)
[2019-11-11] MEDS: NORepinephrine/NS 4 MG-250 ML 4 MG/250 ML BAG IV SCH (20:03)
[2019-11-11] MEDS ORDERED: SODIUM CHLORIDE 0.9% 100 ML IVPB IV PRN (20:19)
[2019-11-11] MEDS: METOPROLOL TARTRATE 25 MG TAB PO SCH (22:02)
[2019-11-12] MEDS: SODIUM CHLORIDE 0.9% 1000 ML IV SOLN IV PRN ×11 (01:00→10:55)
--- NOTE | 2019-11-12 02:38 | XRay Report ---
CHEST 1 VIEW INDICATION: follow up respiratory failure. COMPARISON: 11/11/2019 FINDINGS: SUPPORT DEVICES: Endotracheal tubes in good position. Nasogastric tube has tip below diaphragm. Centr al venous line has tip in superior vena cava HEART / MEDIASTINUM: No significant abnormality. LUNGS / PLEURA: No significant pulmonary or pleural abnormality. No pneumothorax. ADDITIONAL FINDINGS: IMPRESSION: 1. No acute findings. Signer Name: Mike Kelley MD Signed: 11/12/2019 2:33 AM Workstation Name: [employer]
[2019-11-12] MEDS: NORepinephrine/NS 4 MG-250 ML 4 MG/250 ML BAG IV SCH ×4 (03:40→20:17)
[2019-11-12 06:37] LABS: ABG Base Excess -3.5 mmol/L (-2.0-3.0); ABG HCO3 20.9 mmol/L (20.0-26.0); ABG Methemoglobin 0.4 % (0.0-1.5); ABG Oxygen Saturation 96.8 % (95.0-99.0); ABG PCO2 34.3 mm Hg; ABG PH 7.403 pH Units (7.350-7.450)
[2019-11-12 07:29] LABS: Hematocrit 36.9 % (35.5-45.6); Mean Corpuscular HGB Conc 33 % (32-34); Mean Corpuscular Volume 100 fl (84-94); Platelet Count 218 K/mm3 (140-440); Red Blood Count 3.69 M/mm3 (3.65-5.03); Red Cell Distribution Width 15.1 % (13.2-15.2)
[2019-11-12 07:48] LABS: Alanine Aminotransferase 526 units/L (7-56); Albumin 2.4 g/dL (3.9-5); BUN/Creatinine Ratio 29; Blood Urea Nitrogen 26 mg/dL (9-20); Calcium 7.9 mg/dL (8.4-10.2); Hemolysis Index 5
[2019-11-12] MEDS: FAMOTIDINE 20 MG TAB PO SCH ×2 (09:12→21:30)
[2019-11-12] MEDS: HEPARIN 5,000 UNIT/1 ML VIAL SUB-Q SCH ×2 (09:12→21:30)
[2019-11-12 09:49] LABS: Alanine Aminotransferase 523 units/L (7-56); Albumin 2.3 g/dL (3.9-5); BUN/Creatinine Ratio 33; Blood Urea Nitrogen 26 mg/dL (9-20); Calcium 8.1 mg/dL (8.4-10.2); Hemolysis Index 4
--- NOTE | 2019-11-12 10:24 | Progress Note ---
Assessment and Plan Patient to be transferred to [place] for EEG monitoring. Continue supportive care. We will follow on an as-needed basis. - Patient Problems (1) Altered mental status Current Visit: Yes Status: Acute (2) Cardiopulmonary arrest Current Visit: Yes Status: Acute (3) Elevated troponin Current Visit: Yes Status: Acute (4) Prolonged QT interval Current Visit: Yes Status: Acute (5) Shock liver Current Visit: Yes Status: Acute (6) Psychiatric disorder Current Visit: Yes Status: Chronic (7) Septic shock Current Visit: Yes Status: Suspected Subjective Date of service: 11/12/19 Principal diagnosis: Anoxic brain injury Interval history: The patient is lying in bed in [facility]. He remains intubated, unresponsive and on pressor support. Objective Vital Signs Temp Pulse Pulse Resp BP Pulse Ox 11/12/19 08:45 73 24 82/55 96 11/12/19 08:30 70 24 91/61 97 11/12/19 08:15 69 24 99/64 97 11/12/19 08:00 97.4 F L 70 24 99/64 97 11/12/19 07:45 68 24 99/64 96 11/12/19 07:40 97.4 F L 11/12/19 07:30 70 18 104/69 96 11/12/19 07:15 69 17 111/74 97 11/12/19 07:00 68 21 120/76 97 11/12/19 06:45 69 22 102/71 98 11/12/19 06:30 69 22 96/66 98 11/12/19 06:15 70 18 84/57 98 11/12/19 06:00 70 19 97/63 97 11/12/19 05:45 74 19 96/64 97 11/12/19 05:30 67 26 H 88/61 97 11/12/19 05:15 71 26 H 111/80 96 11/12/19 05:00 94 H 26 H 111/80 96 11/12/19 04:58 94 H 123/84 96 11/12/19 04:45 96 H 26 H 123/84 96 11/12/19 04:30 90 26 H 126/84 97 11/12/19 04:15 89 26 H 130/86 97 11/12/19 04:00 85 87 26 H 134/89 96 11/12/19 03:52 97.5 F L 11/12/19 03:45 62 26 H 76/49 98 11/12/19 03:30 71 26 H 91/62 97 11/12/19 03:15 71 26 H 90/60 97 11/12/19 03:14 97.4 F L 11/12/19 03:00 73 26 H 94/64 97 11/12/19 02:45 73 26 H 98/66 97 11/12/19 02:30 76 26 H 102/68 98 11/12/19 02:21 95.8 F L 11/12/19 02:15 64 26 H 84/54 98 11/12/19 02:00 73 26 H 94/68 97 11/12/19 01:45 73 26 H 94/68 97 11/12/19 01:30 71 26 H 96/66 97 11/12/19 01:16 69 102/67 98 11/12/19 01:15 70 26 H 102/67 98 11/12/19 01:00 66 26 H 83/59 97 11/12/19 00:45 70 26 H 86/60 97 11/12/19 00:31 94.2 F L 11/12/19 00:30 72 26 H 87/60 97 11/12/19 00:17 94.2 F L 11/12/19 00:15 73 26 H 88/60 97 11/12/19 00:00 73 73 26 H 91/63 96 11/11/19 23:45 75 26 H 92/65 97 11/11/19 23:30 59 L 9 L 97/70 93 11/11/19 23:15 58 L 26 H 97/66 95 11/11/19 23:00 61 26 H 100/66 95 11/11/19 22:59 58 L 26 H 95/64 95 11/11/19 22:45 59 L 26 H 95/64 95 11/11/19 22:30 62 26 H 95/63 96 11/11/19 22:15 62 26 H 91/61 95 11/11/19 22:02 63 95/65 11/11/19 22:00 64 26 H 95/65 95 11/11/19 21:45 63 26 H 92/64 95 11/11/19 21:30 64 26 H 83/56 95 11/11/19 21:15 73 26 H 90/58 95 11/11/19 21:03 88 126/84 97 11/11/19 21:00 101 H 26 H 126/84 97 11/11/19 20:50 97.8 F 11/11/19 20:45 101 H 26 H 108/72 97 11/11/19 20:30 105 H 26 H 100/63 96 11/11/19 20:15 113 H 26 H 79/51 95 11/11/19 20:00 121 H 119 H 26 H 94/58 96 11/11/19 19:45 111 H 26 H 110/67 95 11/11/19 19:30 112 H 26 H 86/53 94 11/11/19 19:15 113 H 26 H 86/49 93 11/11/19 19:00 113 H 26 H 91/58 93 11/11/19 18:45 112 H 26 H 93/53 94 11/11/19 18:30 115 H 26 H 92/56 95 11/11/19 18:15 99 H 25 H 89/56 95 11/11/19 18:00 77 26 H 67/41 97 11/11/19 17:45 82 26 H 68/45 96 11/11/19 17:30 81 26 H 70/47 96 11/11/19 17:15 89 26 H 74/44 95 11/11/19 17:00 88 26 H 74/49 94 11/11/19 16:45 90 26 H 77/48 94 11/11/19 16:30 107 H 26 H 75/48 89 11/11/19 16:15 101 H 26 H 82/53 90 11/11/19 16:09 107 H 82/53 91 11/11/19 16:00 99 F 92 H 26 H 74/44 95 11/11/19 15:45 102 H 26 H 86/52 91 11/11/19 15:30 108 H 26 H 94/57 91 11/11/19 15:15 111 H 26 H 84/50 92 11/11/19 15:00 104 H 26 H 84/54 92 11/11/19 14:45 117 H 26 H 82/47 92 11/11/19 14:30 125 H 26 H 90/42 92 11/11/19 14:15 131 H 26 H 95/45 11/11/19 14:00 121 H 26 H 76/54 92 11/11/19 13:45 122 H 26 H 78/46 93 11/11/19 13:30 123 H 27 H 86/55 93 11/11/19 13:15 133 H 26 H 98/67 93 11/11/19 13:00 128 H 26 H 76/34 93 11/11/19 12:45 143 H 26 H 100/69 93 11/11/19 12:30 141 H 26 H 101/68 93 11/11/19 12:11 144 H 16 116/71 93 11/11/19 12:00 102.2 F H 122 H 14 86/60 93 11/11/19 11:51 141 H 14 99/69 93 11/11/19 11:41 150 H 20 104/67 94 11/11/19 11:30 162 H 12 104/67 93 11/11/19 11:21 170 H 17 106/62 94 11/11/19 11:11 146 H 15 122/71 93 11/11/19 11:01 147 H 15 122/71 93 11/11/19 10:51 148 H 19 133/68 93 11/11/19 10:41 152 H 20 113/72 93 11/11/19 10:30 144 H 19 127/75 94 - Physical Examination General: Other (intubated, unresponsive ) HEENT: Positive: Other (fixed pupils) Neck: Positive: neck supple Cardiac: Positive: Reg Rate and Rhythm Lungs: Positive: Ventilated Respirations Neuro: Positive: Other (intubated, unresponsive) Abdomen: Positive: Unremarkable /Rectal: Other (deferred) Skin: Positive: Clear. Negative: Rash Musculoskeletal: Decreased Range of Motion Extremities: Present: normal. Absent: edema - Labs and Meds Cardiac Enzymes 11/12/19 11/12/19 Range/Units 06:30 09:23 AST 151 H 143 H (5-40) units/L CBC 11/12/19 Range/Units 06:30 WBC 11.5 H (4.5-11.0) K/mm3 RBC 3.69 (3.65-5.03) M/mm3 Hgb 12.0 (11.8-15.2) gm/dl Hct 36.9 (35.5-45.6) % Plt Count 218 (140-440) K/mm3 Comprehensive Metabolic Panel 11/12/19 11/12/19 Range/Units 06:30 09:23 Sodium TNR TNR Potassium TNR TNR Chloride TNR TNR Carbon Dioxide 20 L D 20 L (22-30) mmol/L BUN 26 H 26 H (9-20) mg/dL Creatinine 0.9 0.8 (0.8-1.5) mg/dL Glucose 125 H 123 H (75-100) mg/dL Calcium 7.9 L 8.1 L (8.4-10.2) mg/dL AST 151 H 143 H (5-40) units/L ALT 526 H 523 H (7-56) units/L Alkaline Phosphatase 56 58 (35-129) units/L Total Protein 5.2 L 5.2 L (6.3-8.2) g/dL Albumin 2.4 L 2.3 L (3.9-5) g/dL - Imaging and Cardiology EKG: report reviewed, image reviewed Echo: pending - Telemetry EKG Rhythm: Sinus Rhythm - EKG Sinus rhythms and dysrhythmias: sinus rhythm Repolarization changes or abnormalities: Q-T interval prolongation
[2019-11-12] MEDS: levETIRAcetam 1,000 MG in DEXTROSE 5% IN WATER 100 ML IV SCH ×2 (11:03→21:30)
[2019-11-12] MEDS: METOPROLOL TARTRATE 25 MG TAB PO SCH ×2 (11:03→21:36)
--- NOTE | 2019-11-12 11:03 | Progress Note ---
Assessment and Plan Assessment and plan: Cardiac arrest Admitted to ICU Put back on levophed for hypotension Fever due to SIRS Started on empiric Cefepime and IV Vancomycin ID consulted, following Anoxic encephaklopathy I discussed with Dr. Thomas, neurology he says CT Head does have changes of anoxic encephalopathy MRI brain ordered, but not done yet Dr. thomas recommends transfer to [facility] for EEG monitoring, I called [facility], they have no bed and they recommended to call back in few days. Acute metabolic encephalopathy Transaminitis and elevated Ammonia Shock Liver Elevated Ammonia level Repeat UTI (urinary tract infection) Patient on IV Cefepime empiric which should cover UTI Malnutrition Dietitian consulted DVT prophylaxis On Heparin and GI prophylaxis Prognosis very poor. No family available. The high probability of a clinically significant, sudden or life threatening deterioration of the [] system(s) required my full and direct attention, intervention and personal management. The aggregate critical care time was [34] minutes. This time is in addition to time spent performing reported procedures but includes the following: [x] Data Review and interpretation [x] Patient assessment and monitoring of vital signs [x] Documentation [x] Medication orders and management History Interval history: Patient had cardiac arrest at [facility] Hypothermia, put on warming blanket Hypotension, put back on levophed drip Hospitalist Physical - Physical exam Narrative exam: Gen: Not in acute distress, lying in bed, Intubated,warming blanket on HEENT: Normocephalic, atraumatic Neck: supple, no JVD Heart: S1 and S2 reg, no murmurs, rubs or gallop Lungs: clear to auscultation bilaterally, no crackles Abd: soft, NT, non distended, normal BS Ext: No edema, no clubbing, no cyanosis Neuro: Intubated, unresponsive, does not follow commands,comatose - Constitutional Vitals: Temp Pulse Resp BP Pulse Ox 97.4 F L 73 24 82/55 96 11/12/19 08:00 11/12/19 08:45 11/12/19 08:45 11/12/19 08:45 11/12/19 08:45 General appearance: Present: other (intubated, nonresponsive) Results - Labs CBC & Chem 7: 11/12/19 06:30 11/12/19 09:23 Labs: Laboratory Last Values WBC 11.5 K/mm3 (4.5-11.0) H 11/12/19 06:30 RBC 3.69 M/mm3 (3.65-5.03) 11/12/19 06:30 Hgb 12.0 gm/dl (11.8-15.2) 11/12/19 06:30 Hct 36.9 % (35.5-45.6) 11/12/19 06:30 MCV 100 fl (84-94) H 11/12/19 06:30 MCH 33 pg (28-32) H 11/12/19 06:30 MCHC 33 % (32-34) 11/12/19 06:30 RDW 15.1 % (13.2-15.2) 11/12/19 06:30 Plt Count 218 K/mm3 (140-440) 11/12/19 06:30 Add Manual Diff Complete 11/10/19 06:50 Total Counted 100 11/10/19 06:50 Seg Neutrophils % Bone Glue Maker 11/10/19 06:50 Seg Neuts % (Manual) 88.0 % (40.0-70.0) H 11/10/19 06:50 Band Neutrophils % 10.0 % 11/10/19 06:50 Lymphocytes % (Manual) 1.0 % (13.4-35.0) L 11/10/19 06:50 Reactive Lymphs % (Man) 0 % 11/10/19 06:50 Monocytes % (Manual) 1.0 % (0.0-7.3) 11/10/19 06:50 Eosinophils % (Manual) 0 % (0.0-4.3) 11/10/19 06:50 Basophils % (Manual) 0 % (0.0-1.8) 11/10/19 06:50 Metamyelocytes % 0 % 11/10/19 06:50 Myelocytes % 0 % 11/10/19 06:50 Promyelocytes % 0 % 11/10/19 06:50 Blast Cells % 0 % 11/10/19 06:50 Nucleated RBC % Not Reportable 11/10/19 06:50 Seg Neutrophils # Man 10.6 K/mm3 (1.8-7.7) H 11/10/19 06:50 Band Neutrophils # 1.2 K/mm3 11/10/19 06:50 Lymphocytes # (Manual) 0.1 K/mm3 (1.2-5.4) L 11/10/19 06:50 Abs React Lymphs (Man) 0.0 K/mm3 11/10/19 06:50 Monocytes # (Manual) 0.1 K/mm3 (0.0-0.8) 11/10/19 06:50 Eosinophils # (Manual) 0.0 K/mm3 (0.0-0.4) 11/10/19 06:50 Basophils # (Manual) 0.0 K/mm3 (0.0-0.1) 11/10/19 06:50 Metamyelocytes # 0.0 K/mm3 11/10/19 06:50 Myelocytes # 0.0 K/mm3 11/10/19 06:50 Promyelocytes # 0.0 K/mm3 11/10/19 06:50 Blast Cells # 0.0 K/mm3 11/10/19 06:50 WBC Morphology Not Reportable 11/10/19 06:50 Hypersegmented Neuts Not Reportable 11/10/19 06:50 Hyposegmented Neuts Not Reportable 11/10/19 06:50 Hypogranular Neuts Not Reportable 11/10/19 06:50 Smudge Cells Not Reportable 11/10/19 06:50 Toxic Granulation Not Reportable 11/10/19 06:50 Toxic Vacuolation Not Reportable 11/10/19 06:50 Dohle Bodies Not Reportable 11/10/19 06:50 Pelger-Huet Anomaly Not Reportable 11/10/19 06:50 Emily Rods Not Reportable 11/10/19 06:50 Platelet Estimate Consistent w auto 11/10/19 06:50 Clumped Platelets Not Reportable 11/10/19 06:50 Plt Clumps, EDTA Not Reportable 11/10/19 06:50 Large Platelets Not Reportable 11/10/19 06:50 Giant Platelets Not Reportable 11/10/19 06:50 Platelet Satelliting Not Reportable 11/10/19 06:50 Plt Morphology Comment Not Reportable 11/10/19 06:50 RBC Morphology Normal 11/10/19 06:50 Dimorphic RBCs Not Reportable 11/10/19 06:50 Polychromasia Not Reportable 11/10/19 06:50 Hypochromasia Not Reportable 11/10/19 06:50 Poikilocytosis Not Reportable 11/10/19 06:50 Anisocytosis Not Reportable 11/10/19 06:50 Microcytosis Not Reportable 11/10/19 06:50 Macrocytosis Not Reportable 11/10/19 06:50 Spherocytes Not Reportable 11/10/19 06:50 Pappenheimer Bodies Not Reportable 11/10/19 06:50 Sickle Cells Not Reportable 11/10/19 06:50 Target Cells Not Reportable 11/10/19 06:50 Tear Drop Cells Not Reportable 11/10/19 06:50 Ovalocytes Not Reportable 11/10/19 06:50 Helmet Cells Not Reportable 11/10/19 06:50 [place] Bodies Not Reportable 11/10/19 06:50 [place] Rings Not Reportable 11/10/19 06:50 [place] Cells Not Reportable 11/10/19 06:50 Bite Cells Not Reportable 11/10/19 06:50 Crenated Cell Not Reportable 11/10/19 06:50 Elliptocytes Not Reportable 11/10/19 06:50 Acanthocytes (Spur) Not Reportable 11/10/19 06:50 Rouleaux Not Reportable 11/10/19 06:50 Hemoglobin C Crystals Not Reportable 11/10/19 06:50 Schistocytes Not Reportable 11/10/19 06:50 Malaria parasites Not Reportable 11/10/19 06:50 Drake Bodies Not Reportable 11/10/19 06:50 Hem Pathologist Commnt No 11/10/19 06:50 PT 16.9 Sec. (12.2-14.9) H 11/09/19 06:24 INR 1.35 (0.87-1.13) H 11/09/19 06:24 APTT 50.7 Sec. (24.2-36.6) H 11/09/19 06:24 D-Dimer 4435.48 ng/mlDDU (0-234) H 11/09/19 06:24 POC ABG pH 7.432 (7.35-7.45) 11/11/19 03:33 ABG pH 7.403 pH Units (7.350-7.450) 11/12/19 05:10 POC ABG pCO2 44.0 (35-45) 11/11/19 03:33 ABG pCO2 34.3 mm Hg 11/12/19 05:10 POC ABG pO2 94 (80-105) 11/11/19 03:33 ABG pO2 81.0 mm Hg (80.0-90.0) 11/12/19 05:10 POC ABG HCO3 29.4 (22-26 mml/L) 11/11/19 03:33 ABG HCO3 20.9 mmol/L (20.0-26.0) 11/12/19 05:10 POC ABG Total CO2 31 (23-27mmol/L) 11/11/19 03:33 POC ABG O2 Sat 97 11/11/19 03:33 ABG O2 Saturation 96.8 % (95.0-99.0) 11/12/19 05:10 ABG O2 Content 9.1 (0.0-44) 11/12/19 05:10 POC ABG Base Excess 5 ((-2) - (+3)mmol/L) 11/11/19 03:33 ABG Base Excess -3.5 mmol/L (-2.0-3.0) L 11/12/19 05:10 ABG Hemoglobin 6.7 gm/dl (14.0-18.0) L 11/12/19 05:10 ABG Carboxyhemoglobin 1.3 % (0.0-5.0) 11/12/19 05:10 ABG Methemoglobin 0.4 % (0.0-1.5) 11/12/19 05:10 Oxyhemoglobin 95.2 % (95.0-99.0) 11/12/19 05:10 FiO2 30 % 11/12/19 05:10 Sodium TNR 11/12/19 09:23 Potassium TNR 11/12/19 09:23 Chloride TNR 11/12/19 09:23 Carbon Dioxide 20 mmol/L (22-30) L 11/12/19 09:23 Anion Gap TNR 11/12/19 09:23 BUN 26 mg/dL (9-20) H 11/12/19 09:23 Creatinine 0.8 mg/dL (0.8-1.5) 11/12/19 09:23 Estimated GFR > 60 ml/min 11/12/19 09:23 BUN/Creatinine Ratio 33 % 11/12/19 09:23 Glucose 123 mg/dL (75-100) H 11/12/19 09:23 POC Glucose 130 (70-105) H 11/12/19 08:03 Lactic Acid 1.70 mmol/L (0.7-2.0) 11/09/19 20:02 Calcium 8.1 mg/dL (8.4-10.2) L 11/12/19 09:23 Magnesium 2.70 mg/dL (1.7-2.3) H 11/09/19 06:24 Total Bilirubin 0.20 mg/dL (0.1-1.2) 11/12/19 09:23 AST 143 units/L (5-40) H 11/12/19 09:23 ALT 523 units/L (7-56) H 11/12/19 09:23 Alkaline Phosphatase 58 units/L (35-129) 11/12/19 09:23 Ammonia 42.0 umol/L (25-60) 11/10/19 14:56 Total Creatine Kinase 75 units/L (55-170) 11/09/19 06:24 CK-MB (CK-2) 3.0 ng/mL (0.0-4.0) 11/09/19 06:24 CK-MB (CK-2) Rel Index 4.0 (0-4) 11/09/19 06:24 Troponin T < 0.010 ng/mL (0.00-0.029) 11/11/19 03:55 NT-Pro-B Natriuret Pep 5052 pg/mL (0-450) H 11/09/19 06:24 Total Protein 5.2 g/dL (6.3-8.2) L 11/12/19 09:23 Albumin 2.3 g/dL (3.9-5) L 11/12/19 09:23 Albumin/Globulin Ratio 0.8 % 11/12/19 09:23 TSH 5.500 mlU/mL (0.270-4.200) H 11/09/19 06:24 Free T4 0.78 ng/dL (0.76-1.46) 11/09/19 06:24 Urine Color Yellow (Yellow) 11/09/19 07:24 Urine Turbidity Cloudy (Clear) 11/09/19 07:24 Urine pH 6.0 (5.0-7.0) 11/09/19 07:24 Ur Specific [place] 1.014 (1.003-1.030) 11/09/19 07:24 Urine Protein >500 mg/dL (Negative) 11/09/19 07:24 Urine Glucose (UA) 50 mg/dL (Negative) 11/09/19 07:24 Urine Ketones Tr mg/dL (Negative) 11/09/19 07:24 Urine Blood Sm (Negative) 11/09/19 07:24 Urine Nitrite Neg (Negative) 11/09/19 07:24 Urine Bilirubin Neg (Negative) 11/09/19 07:24 Urine Urobilinogen < 2.0 mg/dL (<2.0) 11/09/19 07:24 Ur Leukocyte Esterase Neg (Negative) 11/09/19 07:24 Urine WBC (Auto) 83.0 /HPF (0.0-6.0) H 11/09/19 07:24 Urine RBC (Auto) > 182.0 /HPF (0.0-6.0) 11/09/19 07:24 Urine Bacteria (Auto) 4+ /HPF (Negative) 11/09/19 07:24 Ur Transition Epith Cell 5 /HPF 11/09/19 07:24 Urine Mucus 2+ /HPF 11/09/19 07:24 Urine Opiates Screen Presumptive negative 11/11/19 09:02 Urine Methadone Screen Presumptive negative 11/11/19 09:02 Ur Barbiturates Screen Presumptive negative 11/11/19 09:02 Valproic Acid 67.4 ug/mL (50-100) 11/09/19 06:39 Ur Phencyclidine Scrn Presumptive negative 11/11/19 09:02 Ur Amphetamines Screen Presumptive negative 11/11/19 09:02 U Benzodiazepines Scrn Presumptive positive 11/11/19 09:02 Urine Cocaine Screen Presumptive negative 11/11/19 09:02 U Marijuana (THC) Screen Presumptive negative 11/11/19 09:02 Drugs of Abuse Note Disclamer 11/11/19 09:02 Plasma/Serum Alcohol < 0.01 % (0-0.07) 11/09/19 06:39 Hepatitis A IgM Ab Non-reactive (NonReactive) 11/10/19 06:50 Hep Bs Antigen Non-reactive (Negative) 11/10/19 06:50 Hep B Core IgM Ab Non-reactive (NonReactive) 11/10/19 06:50 Hepatitis C Antibody Non-reactive (NonReactive) 11/10/19 06:50 Active Medications - Current Medications Current Medications: Generic Name Dose Route Start Last Admin Trade Name Freq PRN Reason Stop Dose Admin Acetaminophen 650 mg 11/11/19 09:13 11/11/19 16:48 Tylenol PO 650 mg Q6H PRN Administration Pain, Mild (1-3)/TEMP > 100.4 Lipase/Protease/Amylase 1 each 11/10/19 13:[address] 10,500 Unit FEEDTUBE PRN PRN For Clogged Feeding Tube Famotidine 20 mg 11/11/19 10:00 11/12/19 09:12 Pepcid PO 20 mg BID HAN Administration Heparin Sodium (Porcine) 5,000 unit 11/10/19 10:00 11/12/19 09:12 Heparin SUB-Q 5,000 unit Q12HR HAN Administration Hydrophilic Ointment 1 applic 11/09/19 07:29 Vaseline Lip Therapy TP Q2HR PRN Dry Lips Norepinephrine 4 mg in 250 mls @ 22.5 mls/hr 11/09/19 07:00 11/12/19 10:47 Levophed Drip 4 Mg/Ns 250 Ml IV 8 mcg/min TITR HAN 30 mls/hr Administration Protocol 6 MCG/MIN Levetiracetam 1,000 mg/ 110 mls @ 400 mls/hr 11/10/19 22:00 11/11/19 22:16 Dextrose IV 400 mls/hr Q12HR HAN Administration Dopamine HCl/Dextrose 800 mg in 250 mls @ 3.188 mls/hr 11/11/19 18:00 11/11/19 20:56 Intropin Drip 800 Mg/D5w 250 Ml IV 0 mcg/kg/min TITR HAN 0 mls/hr Titration Protocol 2 MCG/KG/MIN Metoprolol Tartrate 25 mg 11/11/19 22:00 11/11/19 22:02 Metoprolol PO Not Given BID HAN Multi-Ingred Cream/Lotion/Oil/Oint 1 applic 11/09/19 07:29 Artificial Tears Ophth Oint OU Q4HR PRN Dry Eye(s) Simple Syrup 15 ml 11/10/19 13:48 Simple Syrup FEEDTUBE PRN PRN Hypoglycemia Simple Syrup 30 ml 11/10/19 13:48 Simple Syrup FEEDTUBE PRN PRN Hypoglycemia Sodium Bicarbonate 325 mg 11/10/19 13:48 Sodium Bicarbonate FEEDTUBE PRN PRN For Clogged Feeding Tube Sodium Chloride 0 ml 11/11/19 21:00 11/12/19 09:00 Nacl 0.9% 1000 Ml IV 350 ml DIRECT PRN Administration diabetes insipidus Nutrition/Malnutrition Assess - Dietary Evaluation Nutrition/Malnutrition Findings: Nutrition Notes Start: 11/10/19 11:42 Freq: Status: Active Protocol: Document 11/11/19 11:00 KS (Rec: 11/11/19 11:06 KS [id number]) Co-Sign 11/11/19 11:00 LP Nutrition Notes Initial or Follow up Reassessment Current Diagnosis Heart Failure,Respiratory Failure Other Pertinent Diagnosis Anoxic brain injury, Schizophrenia, UTI, Sepsis, Hepatic Encaphalopathy Current Diet Vital AF 1.2 at 70mL Labs/Tests BUN 28 Glu 162 Pertinent Medications Reviewed Height 5 ft 8 in Weight 85 kg [place] Body Weight (kg) 70.00 BMI 28.5 Subjective/Other Information Vital AF 1.2 observed running at 30mL/hr. Per RN, pt is tolerating TF. Percent of energy/protein needs met: 42%/53% Burn Absent Trauma Absent Current % PO Negligible Minimum of two criteria No physical signs of malnutrition #1 Nutrition Diagnosis Inadequate oral intake Diagnosis Progress(for reassessment Continues documentation) Is patient on ventilator? Yes Is Patient Ambulatory and/or Out of Bed No REE-([facility]-confined to bed) Calculation Used for Recommendations [facility] Additional Notes PRO: 102-170g/day (1.2-2g/kg/ day) Fluid: 1mL/kcal or per MD Nutrition Intervention Change Diet Order: Continue TF Nutrition Support: Vital AF 1.2 at 70mL/hr Flush 100mL q4h Kcal 2,016 Protein (gm) 126 Fluid (mL) 1,362 Goal #1 Tolerate TF Goal #2 Meet 75% of kcal and PRO needs via TF Anticipated Discharge Needs: Unable to determine at this time Follow-Up By: 11/15/19 Additional Comments F/U for TF tolerance
[2019-11-12 11:22] LABS: Alanine Aminotransferase 518 units/L (7-56); Albumin 2.4 g/dL (3.9-5); BUN/Creatinine Ratio 29; Blood Urea Nitrogen 26 mg/dL (9-20); Hemolysis Index 5
--- NOTE | 2019-11-12 11:37 | Progress Note ---
Subjective Date of service: 11/12/19 Principal diagnosis: Anoxic brain injury Interval history: went over Dr. Hinojosa's notes suspect transfer for EEG monitoring olivia Castillo to the [facility] Cecilio Bond personally check the CT and review MRI once done thanks check for encephalopathy Objective - Vital Sign Vital Signs - 12hr 11/11/19 11/12/19 11/12/19 23:45 00:00 00:15 Temperature Pulse Rate 75 73 73 Pulse Rate [ 73 From Monitor] Respiratory 26 H 26 H 26 H Rate Blood Pressure 92/65 91/63 88/60 O2 Sat by Pulse 97 96 97 Oximetry 11/12/19 11/12/19 11/12/19 00:17 00:30 00:31 Temperature 94.2 F L 94.2 F L Pulse Rate 72 Pulse Rate [ From Monitor] Respiratory 26 H Rate Blood Pressure 87/60 O2 Sat by Pulse 97 Oximetry 11/12/19 11/12/19 11/12/19 00:45 01:00 01:15 Temperature Pulse Rate 70 66 70 Pulse Rate [ From Monitor] Respiratory 26 H 26 H 26 H Rate Blood Pressure 86/60 83/59 102/67 O2 Sat by Pulse 97 97 98 Oximetry 11/12/19 11/12/19 11/12/19 01:16 01:30 01:45 Temperature Pulse Rate 69 71 73 Pulse Rate [ From Monitor] Respiratory 26 H 26 H Rate Blood Pressure 102/67 96/66 94/68 O2 Sat by Pulse 98 97 97 Oximetry 11/12/19 11/12/19 11/12/19 02:00 02:15 02:21 Temperature 95.8 F L Pulse Rate 73 64 Pulse Rate [ From Monitor] Respiratory 26 H 26 H Rate Blood Pressure 94/68 84/54 O2 Sat by Pulse 97 98 Oximetry 11/12/19 11/12/19 11/12/19 02:30 02:45 03:00 Temperature Pulse Rate 76 73 73 Pulse Rate [ From Monitor] Respiratory 26 H 26 H 26 H Rate Blood Pressure 102/68 98/66 94/64 O2 Sat by Pulse 98 97 97 Oximetry 11/12/19 11/12/19 11/12/19 03:14 03:15 03:30 Temperature 97.4 F L Pulse Rate 71 71 Pulse Rate [ From Monitor] Respiratory 26 H 26 H Rate Blood Pressure 90/60 91/62 O2 Sat by Pulse 97 97 Oximetry 11/12/19 11/12/19 11/12/19 03:45 03:52 04:00 Temperature 97.5 F L Pulse Rate 62 85 Pulse Rate [ 87 From Monitor] Respiratory 26 H 26 H Rate Blood Pressure 76/49 134/89 O2 Sat by Pulse 98 96 Oximetry 11/12/19 11/12/19 11/12/19 04:15 04:30 04:45 Temperature Pulse Rate 89 90 96 H Pulse Rate [ From Monitor] Respiratory 26 H 26 H 26 H Rate Blood Pressure 130/86 126/84 123/84 O2 Sat by Pulse 97 97 96 Oximetry 11/12/19 11/12/19 11/12/19 04:58 05:00 05:15 Temperature Pulse Rate 94 H 94 H 71 Pulse Rate [ From Monitor] Respiratory 26 H 26 H Rate Blood Pressure 123/84 111/80 111/80 O2 Sat by Pulse 96 96 96 Oximetry 11/12/19 11/12/19 11/12/19 05:30 05:45 06:00 Temperature Pulse Rate 67 74 70 Pulse Rate [ From Monitor] Respiratory 26 H 19 19 Rate Blood Pressure 88/61 96/64 97/63 O2 Sat by Pulse 97 97 97 Oximetry 11/12/19 11/12/19 11/12/19 06:15 06:30 06:45 Temperature Pulse Rate 70 69 69 Pulse Rate [ From Monitor] Respiratory 18 22 22 Rate Blood Pressure 84/57 96/66 102/71 O2 Sat by Pulse 98 98 98 Oximetry 11/12/19 11/12/19 11/12/19 07:00 07:15 07:30 Temperature Pulse Rate 68 69 70 Pulse Rate [ From Monitor] Respiratory 21 17 18 Rate Blood Pressure 120/76 111/74 104/69 O2 Sat by Pulse 97 97 96 Oximetry 11/12/19 11/12/19 11/12/19 07:40 07:45 08:00 Temperature 97.4 F L 97.4 F L Pulse Rate 68 70 Pulse Rate [ From Monitor] Respiratory 24 24 Rate Blood Pressure 99/64 99/64 O2 Sat by Pulse 96 97 Oximetry 11/12/19 11/12/19 11/12/19 08:15 08:30 08:45 Temperature Pulse Rate 69 70 73 Pulse Rate [ From Monitor] Respiratory 24 24 24 Rate Blood Pressure 99/64 91/61 82/55 O2 Sat by Pulse 97 97 96 Oximetry 11/12/19 11:03 Temperature Pulse Rate 76 Pulse Rate [ From Monitor] Respiratory Rate Blood Pressure 95/60 O2 Sat by Pulse 96 Oximetry - Laboratory Findings CBC and BMP: 11/12/19 06:30 11/12/19 10:33 Abnormal Lab Findings: Abnormal Labs 11/09/19 11/09/19 11/09/19 06:24 06:24 06:24 WBC RBC 3.54 L Hgb 11.7 L MCV 103 H MCH 33 H Seg Neuts % (Manual) Lymphocytes % (Manual) Nucleated RBC % 1.0 H Seg Neutrophils # Man Lymphocytes # (Manual) PT 16.9 H INR 1.35 H APTT 50.7 H D-Dimer 4435.48 H POC ABG pH POC ABG pCO2 POC ABG pO2 ABG pO2 ABG HCO3 ABG Base Excess ABG Hemoglobin Oxyhemoglobin Carbon Dioxide BUN 23 H Glucose 122 H POC Glucose Lactic Acid Calcium 8.3 L Magnesium AST 355 H ALT 340 H Ammonia Troponin T 0.039 H NT-Pro-B Natriuret Pep 5052 H Total Protein 5.6 L Albumin 2.9 L TSH Urine WBC (Auto) 11/09/19 11/09/19 11/09/19 06:24 06:24 06:24 WBC RBC Hgb MCV MCH Seg Neuts % (Manual) Lymphocytes % (Manual) Nucleated RBC % Seg Neutrophils # Man Lymphocytes # (Manual) PT INR APTT D-Dimer POC ABG pH POC ABG pCO2 POC ABG pO2 ABG pO2 ABG HCO3 ABG Base Excess ABG Hemoglobin Oxyhemoglobin Carbon Dioxide BUN Glucose POC Glucose Lactic Acid Calcium Magnesium 2.70 H AST ALT Ammonia 101.0 H Troponin T NT-Pro-B Natriuret Pep Total Protein Albumin TSH 5.500 H Urine WBC (Auto) 11/09/19 11/09/19 11/09/19 06:24 06:51 07:24 WBC RBC Hgb MCV MCH Seg Neuts % (Manual) Lymphocytes % (Manual) Nucleated RBC % Seg Neutrophils # Man Lymphocytes # (Manual) PT INR APTT D-Dimer POC ABG pH POC ABG pCO2 POC ABG pO2 ABG pO2 ABG HCO3 ABG Base Excess ABG Hemoglobin Oxyhemoglobin Carbon Dioxide BUN Glucose POC Glucose Lactic Acid 8.80 H* 9.80 H* Calcium Magnesium AST ALT Ammonia Troponin T NT-Pro-B Natriuret Pep Total Protein Albumin TSH Urine WBC (Auto) 83.0 H 11/09/19 11/09/19 11/09/19 07:27 08:10 08:32 WBC RBC Hgb MCV MCH Seg Neuts % (Manual) Lymphocytes % (Manual) Nucleated RBC % Seg Neutrophils # Man Lymphocytes # (Manual) PT INR APTT D-Dimer POC ABG pH 7.145 L POC ABG pCO2 POC ABG pO2 380 H ABG pO2 ABG HCO3 ABG Base Excess ABG Hemoglobin Oxyhemoglobin Carbon Dioxide BUN Glucose POC Glucose Lactic Acid 10.20 H* 6.50 H* Calcium Magnesium AST ALT Ammonia Troponin T NT-Pro-B Natriuret Pep Total Protein Albumin TSH Urine WBC (Auto) 11/09/19 11/09/19 11/09/19 09:27 10:30 12:11 WBC RBC Hgb MCV MCH Seg Neuts % (Manual) Lymphocytes % (Manual) Nucleated RBC % Seg Neutrophils # Man Lymphocytes # (Manual) PT INR APTT D-Dimer POC ABG pH POC ABG pCO2 POC ABG pO2 ABG pO2 ABG HCO3 ABG Base Excess ABG Hemoglobin Oxyhemoglobin Carbon Dioxide BUN Glucose POC Glucose Lactic Acid 5.80 H* 3.80 H* 3.40 H* Calcium Magnesium AST ALT Ammonia Troponin T NT-Pro-B Natriuret Pep Total Protein Albumin TSH Urine WBC (Auto) 11/09/19 11/09/19 11/09/19 13:04 14:39 15:02 WBC RBC Hgb MCV MCH Seg Neuts % (Manual) Lymphocytes % (Manual) Nucleated RBC % Seg Neutrophils # Man Lymphocytes # (Manual) PT INR APTT D-Dimer POC ABG pH 7.288 L POC ABG pCO2 60.2 H POC ABG pO2 74 L ABG pO2 ABG HCO3 ABG Base Excess ABG Hemoglobin Oxyhemoglobin Carbon Dioxide BUN Glucose POC Glucose Lactic Acid 2.70 H* 3.20 H* Calcium Magnesium AST ALT Ammonia Troponin T NT-Pro-B Natriuret Pep Total Protein Albumin TSH Urine WBC (Auto) 11/09/19 11/09/19 11/10/19 17:34 20:14 04:57 WBC RBC Hgb MCV MCH Seg Neuts % (Manual) Lymphocytes % (Manual) Nucleated RBC % Seg Neutrophils # Man Lymphocytes # (Manual) PT INR APTT D-Dimer POC ABG pH POC ABG pCO2 52.4 H POC ABG pO2 72 L ABG pO2 71.6 L ABG HCO3 28.7 H ABG Base Excess 3.5 H ABG Hemoglobin 10.4 L Oxyhemoglobin 94.1 L Carbon Dioxide BUN Glucose POC Glucose Lactic Acid 2.60 H* Calcium Magnesium AST ALT Ammonia Troponin T NT-Pro-B Natriuret Pep Total Protein Albumin TSH Urine WBC (Auto) 11/10/19 11/10/19 11/11/19 06:50 06:50 03:55 WBC 12.1 H RBC Hgb MCV 98 H MCH Seg Neuts % (Manual) 88.0 H Lymphocytes % (Manual) 1.0 L Nucleated RBC % Seg Neutrophils # Man 10.6 H Lymphocytes # (Manual) 0.1 L PT INR APTT D-Dimer POC ABG pH POC ABG pCO2 POC ABG pO2 ABG pO2 ABG HCO3 ABG Base Excess ABG Hemoglobin Oxyhemoglobin Carbon Dioxide BUN 29 H 28 H Glucose 147 H 162 H POC Glucose Lactic Acid Calcium Magnesium AST 1150 H 559 H ALT 1199 H 998 H Ammonia Troponin T NT-Pro-B Natriuret Pep Total Protein Albumin 3.1 L 3.1 L TSH Urine WBC (Auto) 11/11/19 11/11/19 11/11/19 03:55 12:28 23:37 WBC RBC Hgb MCV 99 H MCH 33 H Seg Neuts % (Manual) Lymphocytes % (Manual) Nucleated RBC % Seg Neutrophils # Man Lymphocytes # (Manual) PT INR APTT D-Dimer POC ABG pH POC ABG pCO2 POC ABG pO2 ABG pO2 ABG HCO3 ABG Base Excess ABG Hemoglobin Oxyhemoglobin Carbon Dioxide BUN Glucose POC Glucose 136 H 140 H Lactic Acid Calcium Magnesium AST ALT Ammonia Troponin T NT-Pro-B Natriuret Pep Total Protein Albumin TSH Urine WBC (Auto) 11/12/19 11/12/19 11/12/19 05:10 06:30 06:30 WBC 11.5 H RBC Hgb MCV 100 H MCH 33 H Seg Neuts % (Manual) Lymphocytes % (Manual) Nucleated RBC % Seg Neutrophils # Man Lymphocytes # (Manual) PT INR APTT D-Dimer POC ABG pH POC ABG pCO2 POC ABG pO2 ABG pO2 ABG HCO3 ABG Base Excess -3.5 L ABG Hemoglobin 6.7 L Oxyhemoglobin Carbon Dioxide 20 L D BUN 26 H Glucose 125 H POC Glucose Lactic Acid Calcium 7.9 L Magnesium AST 151 H ALT 526 H Ammonia Troponin T NT-Pro-B Natriuret Pep Total Protein 5.2 L Albumin 2.4 L TSH Urine WBC (Auto) 11/12/19 11/12/19 11/12/19 08:03 09:23 10:33 WBC RBC Hgb MCV MCH Seg Neuts % (Manual) Lymphocytes % (Manual) Nucleated RBC % Seg Neutrophils # Man Lymphocytes # (Manual) PT INR APTT D-Dimer POC ABG pH POC ABG pCO2 POC ABG pO2 ABG pO2 ABG HCO3 ABG Base Excess ABG Hemoglobin Oxyhemoglobin Carbon Dioxide 20 L 18 L BUN 26 H 26 H Glucose 123 H 116 H POC Glucose 130 H Lactic Acid Calcium 8.1 L 8.0 L Magnesium AST 143 H 137 H ALT 523 H 518 H Ammonia Troponin T NT-Pro-B Natriuret Pep Total Protein 5.2 L 4.7 L Albumin 2.3 L 2.4 L TSH Urine WBC (Auto)
--- NOTE | 2019-11-12 11:49 | Consultation ---
History of Present Illness - Reason for Consult Consult date: 11/12/19 hypernatremia - History of Present Illness The patient is a 49 YO male with history signficant for Schizophrenia and COPD who was brought into [facility] ED from [facility] with Cardiac arrest. Unable to get any history from patient and there was no family members at the bedside. Patient was found face down in the shower room. EMS found patient pulseless and apneic. ACLS protocol was initiated and patient was intubated by EMS prior to arrival. ACLS was continued in the emergency room. Patient was given epinephrine 5. Patient was persistently in asystole and PEA briefly. ROSC was achieved in the emergency room but was hypotensive. Patient was started on pressors and admitted in the ICU. His Sodium level increased to 181 today and he is polyuric. Nephrology was consulted for further evaluation. Past History Past Medical History: COPD, other (Schizophrenia) Past Surgical History: Other (Unable to obtain) Social history: other (unable to obtain) Family history: other (Unable to obtain) Medications and Allergies Allergies Allergy/AdvReac Type Severity Reaction Status Date / Time No Known Allergies Allergy Unverified 11/09/19 07:15 Home Medications Medication Instructions Recorded Confirmed Last Taken Type ALBUTEROL NEB's [Proventil 0.083% 1 neb IH Q6H 01/02/14 11/09/19 07/30/14 History NEBS] Albuterol Sulfate [Ventolin HFA] 2 puff IH QID PRN 01/02/14 11/09/19 01/02/14 08:[address] [Depakote] 500 mg PO BID 01/02/14 11/09/19 07/30/14 History Docusate Sodium [Colace] 100 mg PO BID 11/09/19 11/09/19 Unknown History Paliperidone Palmitate [Invega 156 mg IM QMONTH 11/09/19 11/09/19 11/04/19 History Sustenna] risperiDONE [RisperDAL] 3 mg PO BID 11/09/19 11/09/19 Unknown History Active Meds: Active Medications Acetaminophen (Tylenol) 650 mg PO Q6H PRN PRN Reason: Pain, Mild (1-3)/TEMP > 100.4 Last Admin: 11/11/19 16:48 Dose: 650 mg Documented by: Lipase/Protease/Amylase (Pancreaze Dr 10,500 Unit) 1 each FEEDTUBE PRN PRN PRN Reason: For Clogged Feeding Tube Famotidine (Pepcid) 20 mg PO BID [facility] Last Admin: 11/12/19 09:12 Dose: 20 mg Documented by: Heparin Sodium (Porcine) (Heparin) 5,000 unit SUB-Q Q12HR [facility] Last Admin: 11/12/19 09:12 Dose: 5,000 unit Documented by: Hydrophilic Ointment (Vaseline Lip Therapy) 1 applic TP Q2HR PRN PRN Reason: Dry Lips Norepinephrine (Levophed Drip 4 Mg/Ns 250 Ml) 4 mg in 250 mls @ 22.5 mls/hr IV TITR [facility]; Protocol Last Admin: 11/12/19 10:47 Dose: 8 mcg/min, 30 mls/hr Documented by: Levetiracetam 1,000 mg/ (Dextrose) 110 mls @ 400 mls/hr IV Q12HR [facility] Last Admin: 11/12/19 11:03 Dose: 400 mls/hr Documented by: Dopamine HCl/Dextrose (Intropin Drip 800 Mg/D5w 250 Ml) 800 mg in 250 mls @ 3.188 mls/hr IV TITR [facility]; Protocol Last Titration: 11/11/19 20:56 Dose: 0 mcg/kg/min, 0 mls/hr Documented by: Metoprolol Tartrate (Metoprolol) 25 mg PO BID [facility] Last Admin: 11/12/19 11:03 Dose: Not Given Documented by: Multi-Ingred Cream/Lotion/Oil/Oint (Artificial Tears Ophth Oint) 1 applic OU Q4HR PRN PRN Reason: Dry Eye(s) Simple Syrup (Simple Syrup) 15 ml FEEDTUBE PRN PRN PRN Reason: Hypoglycemia Simple Syrup (Simple Syrup) 30 ml FEEDTUBE PRN PRN PRN Reason: Hypoglycemia Sodium Bicarbonate (Sodium Bicarbonate) 325 mg FEEDTUBE PRN PRN PRN Reason: For Clogged Feeding Tube Sodium Chloride (Nacl 0.9% 1000 Ml) 0 ml IV DIRECT PRN PRN Reason: diabetes insipidus Last Admin: 11/12/19 10:55 Dose: 160 ml Documented by: Review of Systems ROS unobtainable: due to mental status Exam - Vital Signs Vital signs: Vital Signs Pulse Resp BP Pulse Ox 94 H 10 L 73/37 96 11/09/19 06:12 11/09/19 06:12 11/09/19 06:12 11/09/19 06:12 - General Appearance General appearance: well-developed, appears stated age, intubated, other (on vent) EENT: ATNC, other (pupils are not reacting to light) Neck: Present: neck supple, trachea midline Respiratory: Clear to Ascultation Heart: regular, S1S2, no murmurs Gastrointestinal: Present: other (soft, BS heard). Absent: tenderness Integumentary: no rash, warm and dry Neurologic: other (not responding) Musculoskeletal: Present: other (no edema) Results - Lab Results 11/12/19 06:30 11/12/19 10:33 Most recent lab results ABG pH 7.403 pH Units (7.350-7.450) 11/12/19 05:10 ABG pCO2 34.3 mm Hg 11/12/19 05:10 ABG pO2 81.0 mm Hg (80.0-90.0) 11/12/19 05:10 ABG HCO3 20.9 mmol/L (20.0-26.0) 11/12/19 05:10 ABG O2 Saturation 96.8 % (95.0-99.0) 11/12/19 05:10 Calcium 8.0 mg/dL (8.4-10.2) L 11/12/19 10:33 Magnesium 2.70 mg/dL (1.7-2.3) H 11/09/19 06:24 Assessment and Plan 1. Hypernatremia: Acute increase in the Sodium level and associated polyuria. 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 Blood sugar is normal. Urine studies and Sr. osmolality ordered. Started on IV D5W. Increase water flushes through NG tube. Monitor Sodium level. 2. FEN: Hypokalemia, replete K. On tube feeding. Monitor lytes. 3. S/p Cardiac arrest. 4. Shock: On Levophed. 5. Respiratory failure: On vent. 6. Anoxic encephalopathy. Prognosis is poor.
--- NOTE | 2019-11-12 12:22 | Cat Scan Report ---
CT head/brain wo con INDICATION / CLINICAL INFORMATION: 49 years Male; Anoxic brain injury. TECHNIQUE: Cut axial images obtained to the brain. Sagittal and coronal reconstructions performed. All CT scans at this location are performed using CT dose reduction for ALARA by means of automated exposure contr ol. COMPARISON: 11/09/2019 FINDINGS: Since prior exam, there is loss of mack/white differentiation throughout the cerebral and cerebellar hemispheres, worrisome for diffuse cerebral edema and anoxic injury. Suprasellar and quadrigeminal plate cisterns are poorly visualized, most likely related to the cerebr al edema. There is no visualization of sulci either supra or infratentorially. There is severe mass e ffect on the brainstem. Cerebellar tonsils/ventral ridge extending through foramen magnum approximate ly to the level of C1. No definitive signs of intracranial hemorrhage. Partial opacification of the left sphenoid sinus, with small air-fluid level. Mild mucosal thickening in the ethmoids. Orbits and surrounding soft tissues are unremarkable. IMPRESSION: 1. Findings concerning for diffuse cerebral edema and diffuse anoxic injury in the brain. These findings are considered a critical value. The exam was completed on 11/12/2019 10:56 AM (centra l standard time). The exam was reviewed at 11:05 AM and the patient's nurse Odette was notified at 11 :13 AM. Signer Name: Rohith Chowdary MD, III Signed: 11/12/2019 12:17 PM Workstation Name: [id number]
--- NOTE | 2019-11-12 12:50 | Progress Note ---
Assessment and Plan Cultures: Urine culture 11/09/19 no growth to date Sputum culture 11/09/19 no growth to date Blood culture 11/10/19 NGTD Assessment: 49 yo M PMHx schizophrenia admitted after cardiac arrest. Now with l ow grade temperatures 1. Low grade temperatures - not quite febrile. Fevers likely reactive to cardiac arrest and potential central fevers from presumable anoxic brain injury. No evidence of infection on CXR, cultures negative thus far. Remains off antibiotics. 2. Cardiac arrest 3. Acute hypoxic respiratory failure - intubated 4. Schizophrenia 5. Acute encephalopathy: multifactorial. Also, sodium extremely high. Recs: - monitor off antibiotics Katerina Batres MD, FACP [facility] C: [phone] O: [phone] F: [phone] Subjective Date of service: 11/12/19 Principal diagnosis: Anoxic brain injury Interval history: Remains unresponsive, intubated, on the vent. Temp had dropped requiring Ileana Hugger. Objective - Exam Narrative Exam: Constitutional: unresponsive, intubated. Head, Ears, Nose: Normocephalic, atraumatic. External ears, nose normal Eyes: Conjunctivae/corneas clear. No icterus. No ptosis. Neck: intubated Oral: intubated Cardiovascular: S1, S2 normal. Respiratory: Good air entry, clear to auscultation bilaterally GI: Soft, non-tender; bowel sounds normal. No peritoneal signs Musculoskeletal: No pedal edema, no cyanosis. Skin: No rash or abscess Hem/Lymphatic: No palpable cervical or supraclavicular nodes. No lymphangitis Psych: no agitation Neurological: unresponsive, intubated, on vent - Constitutional Vitals: Vital Signs Temp Pulse Resp BP Pulse Ox 98.3 F 80 24 88/59 85 11/12/19 12:00 11/12/19 12:30 11/12/19 12:30 11/12/19 12:30 11/12/19 12:30 Temperature -Last 24 Hours Temperature 98.3 F Temperature 97.4 F Temperature 97.4 F Temperature 97.5 F Temperature 97.4 F Temperature 95.8 F Temperature 94.2 F Temperature 94.2 F Temperature 97.8 F Temperature 99 F - Labs CBC & Chem 7: 11/12/19 06:30 11/12/19 10:33 Labs: Abnormal lab results 11/11/19 11/12/19 11/12/19 Range/Units 23:37 05:10 06:30 WBC 11.5 H (4.5-11.0) K/mm3 MCV 100 H (84-94) fl MCH 33 H (28-32) pg ABG Base Excess -3.5 L (-2.0-3.0) mmol/L ABG Hemoglobin 6.7 L (14.0-18.0) gm/dl Sodium (137-145) mmol/L Potassium (3.6-5.0) mmol/L Chloride (98-107) mmol/L Carbon Dioxide (22-30) mmol/L BUN (9-20) mg/dL Glucose (75-100) mg/dL POC Glucose 140 H (70-105) Calcium (8.4-10.2) mg/dL AST (5-40) units/L ALT (7-56) units/L Total Protein (6.3-8.2) g/dL Albumin (3.9-5) g/dL 11/12/19 11/12/19 11/12/19 Range/Units 06:30 08:03 09:23 WBC (4.5-11.0) K/mm3 MCV (84-94) fl MCH (28-32) pg ABG Base Excess (-2.0-3.0) mmol/L ABG Hemoglobin (14.0-18.0) gm/dl Sodium (137-145) mmol/L Potassium (3.6-5.0) mmol/L Chloride (98-107) mmol/L Carbon Dioxide 20 L D 20 L (22-30) mmol/L BUN 26 H 26 H (9-20) mg/dL Glucose 125 H 123 H (75-100) mg/dL POC Glucose 130 H (70-105) Calcium 7.9 L 8.1 L (8.4-10.2) mg/dL AST 151 H 143 H (5-40) units/L ALT 526 H 523 H (7-56) units/L Total Protein 5.2 L 5.2 L (6.3-8.2) g/dL Albumin 2.4 L 2.3 L (3.9-5) g/dL 11/12/19 11/12/19 Range/Units 10:33 12:15 WBC (4.5-11.0) K/mm3 MCV (84-94) fl MCH (28-32) pg ABG Base Excess (-2.0-3.0) mmol/L ABG Hemoglobin (14.0-18.0) gm/dl Sodium > 179 H* D (137-145) mmol/L Potassium 2.7 L* D (3.6-5.0) mmol/L Chloride > 139 H (98-107) mmol/L Carbon Dioxide 18 L (22-30) mmol/L BUN 26 H (9-20) mg/dL Glucose 116 H (75-100) mg/dL POC Glucose 122 H (70-105) Calcium 8.0 L (8.4-10.2) mg/dL AST 137 H (5-40) units/L ALT 518 H (7-56) units/L Total Protein 4.7 L (6.3-8.2) g/dL Albumin 2.4 L (3.9-5) g/dL - Imaging and cardiology Chest x-ray: report reviewed, image reviewed (no pneumonia seen)
[2019-11-12] MEDS ORDERED: POTASSIUM CHLORIDE 20 MEQ PACKET FEEDTUBE ONE ×2 (13:00→18:40)
[2019-11-12] MEDS: POTASSIUM CHLORIDE 40 MEQ in DEXTROSE 5% IN WATER 1,000 ML IV SCH ×2 (13:39→20:20)
--- NOTE | 2019-11-12 14:26 | Progress Note ---
Assessment and Plan 49 y/o male, post cardiac arrest, now unresponsive on vent. 1. No sedation, absolutely none 2. Will discuss with Nephrology but feel patient is hypovolemic hypernatremia and he needs more volume in the form of saline. Agree this is neurogenic but if we don't match his output, hypotension will get worse. Will also ask about DDAVP 3. Echo shows EF of 40%. Tachycardic appears to be afib vs flutter. Will ob tain 12 lead EKG. May need rate control meds. BP is stable. 4. Continued vent support 5. UDS was positive. Will repeat again today to ensure not playing a role in altered mental state. 6. needs ethics consult to review case to help us make patient DNR as he has no family. Only caregivers. Overall prognosis is guarded to poor. Unable to contact any family. If patient has significant brain damage, may not be weanable from ventilator. CCT 31 minutes. Subjective Date of service: 11/12/19 Principal diagnosis: Anoxic brain injury Interval history: Clinically patient has worsened in the last 24 hours. Tried to match his urine replacement but he is still negative 8 liters. IMS consulted nephrology who started patient on D5W. Objective Vital Signs - 12hr 11/12/19 11/12/19 11/12/19 02:30 02:45 03:00 Temperature Pulse Rate 76 73 73 Pulse Rate [ From Monitor] Respiratory 26 H 26 H 26 H Rate Blood Pressure 102/68 98/66 94/64 O2 Sat by Pulse 98 97 97 Oximetry 11/12/19 11/12/19 11/12/19 03:14 03:15 03:30 Temperature 97.4 F L Pulse Rate 71 71 Pulse Rate [ From Monitor] Respiratory 26 H 26 H Rate Blood Pressure 90/60 91/62 O2 Sat by Pulse 97 97 Oximetry 11/12/19 11/12/19 11/12/19 03:45 03:52 04:00 Temperature 97.5 F L Pulse Rate 62 85 Pulse Rate [ 87 From Monitor] Respiratory 26 H 26 H Rate Blood Pressure 76/49 134/89 O2 Sat by Pulse 98 96 Oximetry 11/12/19 11/12/19 11/12/19 04:15 04:30 04:45 Temperature Pulse Rate 89 90 96 H Pulse Rate [ From Monitor] Respiratory 26 H 26 H 26 H Rate Blood Pressure 130/86 126/84 123/84 O2 Sat by Pulse 97 97 96 Oximetry 11/12/19 11/12/19 11/12/19 04:58 05:00 05:15 Temperature Pulse Rate 94 H 94 H 71 Pulse Rate [ From Monitor] Respiratory 26 H 26 H Rate Blood Pressure 123/84 111/80 111/80 O2 Sat by Pulse 96 96 96 Oximetry 11/12/19 11/12/19 11/12/19 05:30 05:45 06:00 Temperature Pulse Rate 67 74 70 Pulse Rate [ From Monitor] Respiratory 26 H 19 19 Rate Blood Pressure 88/61 96/64 97/63 O2 Sat by Pulse 97 97 97 Oximetry 11/12/19 11/12/19 11/12/19 06:15 06:30 06:45 Temperature Pulse Rate 70 69 69 Pulse Rate [ From Monitor] Respiratory 18 22 22 Rate Blood Pressure 84/57 96/66 102/71 O2 Sat by Pulse 98 98 98 Oximetry 11/12/19 11/12/19 11/12/19 07:00 07:15 07:30 Temperature Pulse Rate 68 69 70 Pulse Rate [ From Monitor] Respiratory 21 17 18 Rate Blood Pressure 120/76 111/74 104/69 O2 Sat by Pulse 97 97 96 Oximetry 11/12/19 11/12/19 11/12/19 07:40 07:45 08:00 Temperature 97.4 F L 97.4 F L Pulse Rate 68 70 Pulse Rate [ From Monitor] Respiratory 24 24 Rate Blood Pressure 99/64 99/64 O2 Sat by Pulse 96 97 Oximetry 11/12/19 11/12/19 11/12/19 08:15 08:30 08:45 Temperature Pulse Rate 69 70 73 Pulse Rate [ From Monitor] Respiratory 24 24 24 Rate Blood Pressure 99/64 91/61 82/55 O2 Sat by Pulse 97 97 96 Oximetry 11/12/19 11/12/19 11/12/19 09:00 09:15 09:30 Temperature Pulse Rate 77 74 73 Pulse Rate [ From Monitor] Respiratory 16 16 24 Rate Blood Pressure 89/63 87/62 99/66 O2 Sat by Pulse 97 97 97 Oximetry 11/12/19 11/12/19 11/12/19 09:45 10:00 10:15 Temperature Pulse Rate 75 76 74 Pulse Rate [ From Monitor] Respiratory 24 24 24 Rate Blood Pressure 90/62 89/61 97/63 O2 Sat by Pulse 97 97 96 Oximetry 11/12/19 11/12/19 11/12/19 10:30 10:45 11:00 Temperature Pulse Rate 77 80 75 Pulse Rate [ From Monitor] Respiratory 24 24 21 Rate Blood Pressure 89/60 71/46 95/62 O2 Sat by Pulse 97 95 96 Oximetry 11/12/19 11/12/19 11/12/19 11:03 11:15 11:43 Temperature Pulse Rate 76 76 87 Pulse Rate [ From Monitor] Respiratory 16 Rate Blood Pressure 95/60 92/62 O2 Sat by Pulse 96 97 98 Oximetry 11/12/19 11/12/19 11/12/19 11:45 12:00 12:15 Temperature 98.3 F Pulse Rate 75 80 78 Pulse Rate [ From Monitor] Respiratory 22 24 24 Rate Blood Pressure 111/71 104/69 94/58 O2 Sat by Pulse 98 91 92 Oximetry 11/12/19 12:30 Temperature Pulse Rate 80 Pulse Rate [ From Monitor] Respiratory 24 Rate Blood Pressure 88/59 O2 Sat by Pulse 85 Oximetry Constitutional: comatose, appears uncomfortable, other (not on sedation) Eyes: icteric, other (Strabismus) ENT: other (orally intubated and critically ill on vent) Neck: supple Effort: mildly labored Ascultation: Bilateral: clear Percussion: Bilateral: not dull Cardiovascular: regular rate and rhythm Gastrointestinal: normoactive bowel sounds, soft, non-tender Integumentary: normal Extremities: no edema Neurologic: unable to assess CBC and BMP: 11/12/19 06:30 11/12/19 10:33 ABG, PT/INR, D-dimer: ABG POC ABG pH 7.432 (7.35-7.45) 11/11/19 03:33 ABG pH 7.403 pH Units (7.350-7.450) 11/12/19 05:10 POC ABG pCO2 44.0 (35-45) 11/11/19 03:33 ABG pCO2 34.3 mm Hg 11/12/19 05:10 POC ABG pO2 94 (80-105) 11/11/19 03:33 ABG pO2 81.0 mm Hg (80.0-90.0) 11/12/19 05:10 POC ABG HCO3 29.4 (22-26 mml/L) 11/11/19 03:33 POC ABG Total CO2 31 (23-27mmol/L) 11/11/19 03:33 POC ABG O2 Sat 97 11/11/19 03:33 ABG O2 Saturation 96.8 % (95.0-99.0) 11/12/19 05:10 PT/INR, D-dimer PT 16.9 Sec. (12.2-14.9) H 11/09/19 06:24 INR 1.35 (0.87-1.13) H 11/09/19 06:24 D-Dimer 4435.48 ng/mlDDU (0-234) H 11/09/19 06:24 Abnormal lab findings: Abnormal Labs 11/09/19 11/09/19 11/09/19 06:24 06:24 06:24 WBC RBC 3.54 L Hgb 11.7 L MCV 103 H MCH 33 H Seg Neuts % (Manual) Lymphocytes % (Manual) Nucleated RBC % 1.0 H Seg Neutrophils # Man Lymphocytes # (Manual) PT 16.9 H INR 1.35 H APTT 50.7 H D-Dimer 4435.48 H POC ABG pH POC ABG pCO2 POC ABG pO2 ABG pO2 ABG HCO3 ABG Base Excess ABG Hemoglobin Oxyhemoglobin Sodium Potassium Chloride Carbon Dioxide BUN 23 H Glucose 122 H POC Glucose Lactic Acid Calcium 8.3 L Magnesium AST 355 H ALT 340 H Ammonia Troponin T 0.039 H NT-Pro-B Natriuret Pep 5052 H Total Protein 5.6 L Albumin 2.9 L TSH Urine WBC (Auto) 11/09/19 11/09/19 11/09/19 06:24 06:24 06:24 WBC RBC Hgb MCV MCH Seg Neuts % (Manual) Lymphocytes % (Manual) Nucleated RBC % Seg Neutrophils # Man Lymphocytes # (Manual) PT INR APTT D-Dimer POC ABG pH POC ABG pCO2 POC ABG pO2 ABG pO2 ABG HCO3 ABG Base Excess ABG Hemoglobin Oxyhemoglobin Sodium Potassium Chloride Carbon Dioxide BUN Glucose POC Glucose Lactic Acid Calcium Magnesium 2.70 H AST ALT Ammonia 101.0 H Troponin T NT-Pro-B Natriuret Pep Total Protein Albumin TSH 5.500 H Urine WBC (Auto) 11/09/19 11/09/19 11/09/19 06:24 06:51 07:24 WBC RBC Hgb MCV MCH Seg Neuts % (Manual) Lymphocytes % (Manual) Nucleated RBC % Seg Neutrophils # Man Lymphocytes # (Manual) PT INR APTT D-Dimer POC ABG pH POC ABG pCO2 POC ABG pO2 ABG pO2 ABG HCO3 ABG Base Excess ABG Hemoglobin Oxyhemoglobin Sodium Potassium Chloride Carbon Dioxide BUN Glucose POC Glucose Lactic Acid 8.80 H* 9.80 H* Calcium Magnesium AST ALT Ammonia Troponin T NT-Pro-B Natriuret Pep Total Protein Albumin TSH Urine WBC (Auto) 83.0 H 11/09/19 11/09/19 11/09/19 07:27 08:10 08:32 WBC RBC Hgb MCV MCH Seg Neuts % (Manual) Lymphocytes % (Manual) Nucleated RBC % Seg Neutrophils # Man Lymphocytes # (Manual) PT INR APTT D-Dimer POC ABG pH 7.145 L POC ABG pCO2 POC ABG pO2 380 H ABG pO2 ABG HCO3 ABG Base Excess ABG Hemoglobin Oxyhemoglobin Sodium Potassium Chloride Carbon Dioxide BUN Glucose POC Glucose Lactic Acid 10.20 H* 6.50 H* Calcium Magnesium AST ALT Ammonia Troponin T NT-Pro-B Natriuret Pep Total Protein Albumin TSH Urine WBC (Auto) 11/09/19 11/09/19 11/09/19 09:27 10:30 12:11 WBC RBC Hgb MCV MCH Seg Neuts % (Manual) Lymphocytes % (Manual) Nucleated RBC % Seg Neutrophils # Man Lymphocytes # (Manual) PT INR APTT D-Dimer POC ABG pH POC ABG pCO2 POC ABG pO2 ABG pO2 ABG HCO3 ABG Base Excess ABG Hemoglobin Oxyhemoglobin Sodium Potassium Chloride Carbon Dioxide BUN Glucose POC Glucose Lactic Acid 5.80 H* 3.80 H* 3.40 H* Calcium Magnesium AST ALT Ammonia Troponin T NT-Pro-B Natriuret Pep Total Protein Albumin TSH Urine WBC (Auto) 11/09/19 11/09/19 11/09/19 13:04 14:39 15:02 WBC RBC Hgb MCV MCH Seg Neuts % (Manual) Lymphocytes % (Manual) Nucleated RBC % Seg Neutrophils # Man Lymphocytes # (Manual) PT INR APTT D-Dimer POC ABG pH 7.288 L POC ABG pCO2 60.2 H POC ABG pO2 74 L ABG pO2 ABG HCO3 ABG Base Excess ABG Hemoglobin Oxyhemoglobin Sodium Potassium Chloride Carbon Dioxide BUN Glucose POC Glucose Lactic Acid 2.70 H* 3.20 H* Calcium Magnesium AST ALT Ammonia Troponin T NT-Pro-B Natriuret Pep Total Protein Albumin TSH Urine WBC (Auto) 11/09/19 11/09/19 11/10/19 17:34 20:14 04:57 WBC RBC Hgb MCV MCH Seg Neuts % (Manual) Lymphocytes % (Manual) Nucleated RBC % Seg Neutrophils # Man Lymphocytes # (Manual) PT INR APTT D-Dimer POC ABG pH POC ABG pCO2 52.4 H POC ABG pO2 72 L ABG pO2 71.6 L ABG HCO3 28.7 H ABG Base Excess 3.5 H ABG Hemoglobin 10.4 L Oxyhemoglobin 94.1 L Sodium Potassium Chloride Carbon Dioxide BUN Glucose POC Glucose Lactic Acid 2.60 H* Calcium Magnesium AST ALT Ammonia Troponin T NT-Pro-B Natriuret Pep Total Protein Albumin TSH Urine WBC (Auto) 11/10/19 11/10/19 11/11/19 06:50 06:50 03:55 WBC 12.1 H RBC Hgb MCV 98 H MCH Seg Neuts % (Manual) 88.0 H Lymphocytes % (Manual) 1.0 L Nucleated RBC % Seg Neutrophils # Man 10.6 H Lymphocytes # (Manual) 0.1 L PT INR APTT D-Dimer POC ABG pH POC ABG pCO2 POC ABG pO2 ABG pO2 ABG HCO3 ABG Base Excess ABG Hemoglobin Oxyhemoglobin Sodium Potassium Chloride Carbon Dioxide BUN 29 H 28 H Glucose 147 H 162 H POC Glucose Lactic Acid Calcium Magnesium AST 1150 H 559 H ALT 1199 H 998 H Ammonia Troponin T NT-Pro-B Natriuret Pep Total Protein Albumin 3.1 L 3.1 L TSH Urine WBC (Auto) 11/11/19 11/11/19 11/11/19 03:55 12:28 23:37 WBC RBC Hgb MCV 99 H MCH 33 H Seg Neuts % (Manual) Lymphocytes % (Manual) Nucleated RBC % Seg Neutrophils # Man Lymphocytes # (Manual) PT INR APTT D-Dimer POC ABG pH POC ABG pCO2 POC ABG pO2 ABG pO2 ABG HCO3 ABG Base Excess ABG Hemoglobin Oxyhemoglobin Sodium Potassium Chloride Carbon Dioxide BUN Glucose POC Glucose 136 H 140 H Lactic Acid Calcium Magnesium AST ALT Ammonia Troponin T NT-Pro-B Natriuret Pep Total Protein Albumin TSH Urine WBC (Auto) 11/12/19 11/12/19 11/12/19 05:10 06:30 06:30 WBC 11.5 H RBC Hgb MCV 100 H MCH 33 H Seg Neuts % (Manual) Lymphocytes % (Manual) Nucleated RBC % Seg Neutrophils # Man Lymphocytes # (Manual) PT INR APTT D-Dimer POC ABG pH POC ABG pCO2 POC ABG pO2 ABG pO2 ABG HCO3 ABG Base Excess -3.5 L ABG Hemoglobin 6.7 L Oxyhemoglobin Sodium Potassium Chloride Carbon Dioxide 20 L D BUN 26 H Glucose 125 H POC Glucose Lactic Acid Calcium 7.9 L Magnesium AST 151 H ALT 526 H Ammonia Troponin T NT-Pro-B Natriuret Pep Total Protein 5.2 L Albumin 2.4 L TSH Urine WBC (Auto) 11/12/19 11/12/19 11/12/19 08:03 09:23 10:33 WBC RBC Hgb MCV MCH Seg Neuts % (Manual) Lymphocytes % (Manual) Nucleated RBC % Seg Neutrophils # Man Lymphocytes # (Manual) PT INR APTT D-Dimer POC ABG pH POC ABG pCO2 POC ABG pO2 ABG pO2 ABG HCO3 ABG Base Excess ABG Hemoglobin Oxyhemoglobin Sodium > 179 H* D Potassium 2.7 L* D Chloride > 139 H Carbon Dioxide 20 L 18 L BUN 26 H 26 H Glucose 123 H 116 H POC Glucose 130 H Lactic Acid Calcium 8.1 L 8.0 L Magnesium AST 143 H 137 H ALT 523 H 518 H Ammonia Troponin T NT-Pro-B Natriuret Pep Total Protein 5.2 L 4.7 L Albumin 2.3 L 2.4 L TSH Urine WBC (Auto) 11/12/19 12:15 WBC RBC Hgb MCV MCH Seg Neuts % (Manual) Lymphocytes % (Manual) Nucleated RBC % Seg Neutrophils # Man Lymphocytes # (Manual) PT INR APTT D-Dimer POC ABG pH POC ABG pCO2 POC ABG pO2 ABG pO2 ABG HCO3 ABG Base Excess ABG Hemoglobin Oxyhemoglobin Sodium Potassium Chloride Carbon Dioxide BUN Glucose POC Glucose 122 H Lactic Acid Calcium Magnesium AST ALT Ammonia Troponin T NT-Pro-B Natriuret Pep Total Protein Albumin TSH Urine WBC (Auto)
--- NOTE | 2019-11-12 15:15 | Progress Note ---
Subjective Date of service: 11/13/19 Principal diagnosis: Anoxic brain injury Interval history: spoke with the nurse at bedside I examined the patient and went over the CT from today 4 PLUS severe anoxic ischemic changes very advanced in hemipsheres and brain stem... the patient DOES NOT need transfer to [place] or [place] as he will not recover... and this is anoxcia based yhe first CT of brain shows mild changes of early anoxia and that is nver good sign clinical exam minimal brain stem function ocular movement disorder there is however no evidence by clinical exam of absolute brain - deep coma present Thanks I personally reviewed the CT scan offf the computer monitor of the CT machine for detailed analysis and accessed the direct copies of the old films Objective - Vital Sign Vital Signs - 12hr 11/12/19 11/12/19 11/12/19 03:14 03:15 03:30 Temperature 97.4 F L Pulse Rate 71 71 Pulse Rate [ From Monitor] Respiratory 26 H 26 H Rate Blood Pressure 90/60 91/62 O2 Sat by Pulse 97 97 Oximetry 11/12/19 11/12/19 11/12/19 03:45 03:52 04:00 Temperature 97.5 F L Pulse Rate 62 85 Pulse Rate [ 87 From Monitor] Respiratory 26 H 26 H Rate Blood Pressure 76/49 134/89 O2 Sat by Pulse 98 96 Oximetry 11/12/19 11/12/19 11/12/19 04:15 04:30 04:45 Temperature Pulse Rate 89 90 96 H Pulse Rate [ From Monitor] Respiratory 26 H 26 H 26 H Rate Blood Pressure 130/86 126/84 123/84 O2 Sat by Pulse 97 97 96 Oximetry 11/12/19 11/12/19 11/12/19 04:58 05:00 05:15 Temperature Pulse Rate 94 H 94 H 71 Pulse Rate [ From Monitor] Respiratory 26 H 26 H Rate Blood Pressure 123/84 111/80 111/80 O2 Sat by Pulse 96 96 96 Oximetry 11/12/19 11/12/19 11/12/19 05:30 05:45 06:00 Temperature Pulse Rate 67 74 70 Pulse Rate [ From Monitor] Respiratory 26 H 19 19 Rate Blood Pressure 88/61 96/64 97/63 O2 Sat by Pulse 97 97 97 Oximetry 11/12/19 11/12/19 11/12/19 06:15 06:30 06:45 Temperature Pulse Rate 70 69 69 Pulse Rate [ From Monitor] Respiratory 18 22 22 Rate Blood Pressure 84/57 96/66 102/71 O2 Sat by Pulse 98 98 98 Oximetry 11/12/19 11/12/19 11/12/19 07:00 07:15 07:30 Temperature Pulse Rate 68 69 70 Pulse Rate [ From Monitor] Respiratory 21 17 18 Rate Blood Pressure 120/76 111/74 104/69 O2 Sat by Pulse 97 97 96 Oximetry 11/12/19 11/12/19 11/12/19 07:40 07:45 08:00 Temperature 97.4 F L 97.4 F L Pulse Rate 68 70 Pulse Rate [ From Monitor] Respiratory 24 24 Rate Blood Pressure 99/64 99/64 O2 Sat by Pulse 96 97 Oximetry 11/12/19 11/12/19 11/12/19 08:15 08:30 08:45 Temperature Pulse Rate 69 70 73 Pulse Rate [ From Monitor] Respiratory 24 24 24 Rate Blood Pressure 99/64 91/61 82/55 O2 Sat by Pulse 97 97 96 Oximetry 11/12/19 11/12/19 11/12/19 09:00 09:15 09:30 Temperature Pulse Rate 77 74 73 Pulse Rate [ From Monitor] Respiratory 16 16 24 Rate Blood Pressure 89/63 87/62 99/66 O2 Sat by Pulse 97 97 97 Oximetry 11/12/19 11/12/19 11/12/19 09:45 10:00 10:15 Temperature Pulse Rate 75 76 74 Pulse Rate [ From Monitor] Respiratory 24 24 24 Rate Blood Pressure 90/62 89/61 97/63 O2 Sat by Pulse 97 97 96 Oximetry 11/12/19 11/12/19 11/12/19 10:30 10:45 11:00 Temperature Pulse Rate 77 80 75 Pulse Rate [ From Monitor] Respiratory 24 24 21 Rate Blood Pressure 89/60 71/46 95/62 O2 Sat by Pulse 97 95 96 Oximetry 11/12/19 11/12/19 11/12/19 11:03 11:15 11:43 Temperature Pulse Rate 76 76 87 Pulse Rate [ From Monitor] Respiratory 16 Rate Blood Pressure 95/60 92/62 O2 Sat by Pulse 96 97 98 Oximetry 11/12/19 11/12/19 11/12/19 11:45 12:00 12:15 Temperature 98.3 F Pulse Rate 75 80 78 Pulse Rate [ From Monitor] Respiratory 22 24 24 Rate Blood Pressure 111/71 104/69 94/58 O2 Sat by Pulse 98 91 92 Oximetry 11/12/19 12:30 Temperature Pulse Rate 80 Pulse Rate [ From Monitor] Respiratory 24 Rate Blood Pressure 88/59 O2 Sat by Pulse 85 Oximetry - Laboratory Findings CBC and BMP: 11/12/19 06:30 11/12/19 10:33 Abnormal Lab Findings: Abnormal Labs 11/09/19 11/09/19 11/09/19 06:24 06:24 06:24 WBC RBC 3.54 L Hgb 11.7 L MCV 103 H MCH 33 H Seg Neuts % (Manual) Lymphocytes % (Manual) Nucleated RBC % 1.0 H Seg Neutrophils # Man Lymphocytes # (Manual) PT 16.9 H INR 1.35 H APTT 50.7 H D-Dimer 4435.48 H POC ABG pH POC ABG pCO2 POC ABG pO2 ABG pO2 ABG HCO3 ABG Base Excess ABG Hemoglobin Oxyhemoglobin Sodium Potassium Chloride Carbon Dioxide BUN 23 H Glucose 122 H POC Glucose Lactic Acid Calcium 8.3 L Magnesium AST 355 H ALT 340 H Ammonia Troponin T 0.039 H NT-Pro-B Natriuret Pep 5052 H Total Protein 5.6 L Albumin 2.9 L TSH Urine WBC (Auto) 11/09/19 11/09/19 11/09/19 06:24 06:24 06:24 WBC RBC Hgb MCV MCH Seg Neuts % (Manual) Lymphocytes % (Manual) Nucleated RBC % Seg Neutrophils # Man Lymphocytes # (Manual) PT INR APTT D-Dimer POC ABG pH POC ABG pCO2 POC ABG pO2 ABG pO2 ABG HCO3 ABG Base Excess ABG Hemoglobin Oxyhemoglobin Sodium Potassium Chloride Carbon Dioxide BUN Glucose POC Glucose Lactic Acid Calcium Magnesium 2.70 H AST ALT Ammonia 101.0 H Troponin T NT-Pro-B Natriuret Pep Total Protein Albumin TSH 5.500 H Urine WBC (Auto) 11/09/19 11/09/19 11/09/19 06:24 06:51 07:24 WBC RBC Hgb MCV MCH Seg Neuts % (Manual) Lymphocytes % (Manual) Nucleated RBC % Seg Neutrophils # Man Lymphocytes # (Manual) PT INR APTT D-Dimer POC ABG pH POC ABG pCO2 POC ABG pO2 ABG pO2 ABG HCO3 ABG Base Excess ABG Hemoglobin Oxyhemoglobin Sodium Potassium Chloride Carbon Dioxide BUN Glucose POC Glucose Lactic Acid 8.80 H* 9.80 H* Calcium Magnesium AST ALT Ammonia Troponin T NT-Pro-B Natriuret Pep Total Protein Albumin TSH Urine WBC (Auto) 83.0 H 11/09/19 11/09/19 11/09/19 07:27 08:10 08:32 WBC RBC Hgb MCV MCH Seg Neuts % (Manual) Lymphocytes % (Manual) Nucleated RBC % Seg Neutrophils # Man Lymphocytes # (Manual) PT INR APTT D-Dimer POC ABG pH 7.145 L POC ABG pCO2 POC ABG pO2 380 H ABG pO2 ABG HCO3 ABG Base Excess ABG Hemoglobin Oxyhemoglobin Sodium Potassium Chloride Carbon Dioxide BUN Glucose POC Glucose Lactic Acid 10.20 H* 6.50 H* Calcium Magnesium AST ALT Ammonia Troponin T NT-Pro-B Natriuret Pep Total Protein Albumin TSH Urine WBC (Auto) 11/09/19 11/09/19 11/09/19 09:27 10:30 12:11 WBC RBC Hgb MCV MCH Seg Neuts % (Manual) Lymphocytes % (Manual) Nucleated RBC % Seg Neutrophils # Man Lymphocytes # (Manual) PT INR APTT D-Dimer POC ABG pH POC ABG pCO2 POC ABG pO2 ABG pO2 ABG HCO3 ABG Base Excess ABG Hemoglobin Oxyhemoglobin Sodium Potassium Chloride Carbon Dioxide BUN Glucose POC Glucose Lactic Acid 5.80 H* 3.80 H* 3.40 H* Calcium Magnesium AST ALT Ammonia Troponin T NT-Pro-B Natriuret Pep Total Protein Albumin TSH Urine WBC (Auto) 11/09/19 11/09/19 11/09/19 13:04 14:39 15:02 WBC RBC Hgb MCV MCH Seg Neuts % (Manual) Lymphocytes % (Manual) Nucleated RBC % Seg Neutrophils # Man Lymphocytes # (Manual) PT INR APTT D-Dimer POC ABG pH 7.288 L POC ABG pCO2 60.2 H POC ABG pO2 74 L ABG pO2 ABG HCO3 ABG Base Excess ABG Hemoglobin Oxyhemoglobin Sodium Potassium Chloride Carbon Dioxide BUN Glucose POC Glucose Lactic Acid 2.70 H* 3.20 H* Calcium Magnesium AST ALT Ammonia Troponin T NT-Pro-B Natriuret Pep Total Protein Albumin TSH Urine WBC (Auto) 11/09/19 11/09/19 11/10/19 17:34 20:14 04:57 WBC RBC Hgb MCV MCH Seg Neuts % (Manual) Lymphocytes % (Manual) Nucleated RBC % Seg Neutrophils # Man Lymphocytes # (Manual) PT INR APTT D-Dimer POC ABG pH POC ABG pCO2 52.4 H POC ABG pO2 72 L ABG pO2 71.6 L ABG HCO3 28.7 H ABG Base Excess 3.5 H ABG Hemoglobin 10.4 L Oxyhemoglobin 94.1 L Sodium Potassium Chloride Carbon Dioxide BUN Glucose POC Glucose Lactic Acid 2.60 H* Calcium Magnesium AST ALT Ammonia Troponin T NT-Pro-B Natriuret Pep Total Protein Albumin TSH Urine WBC (Auto) 11/10/19 11/10/19 11/11/19 06:50 06:50 03:55 WBC 12.1 H RBC Hgb MCV 98 H MCH Seg Neuts % (Manual) 88.0 H Lymphocytes % (Manual) 1.0 L Nucleated RBC % Seg Neutrophils # Man 10.6 H Lymphocytes # (Manual) 0.1 L PT INR APTT D-Dimer POC ABG pH POC ABG pCO2 POC ABG pO2 ABG pO2 ABG HCO3 ABG Base Excess ABG Hemoglobin Oxyhemoglobin Sodium Potassium Chloride Carbon Dioxide BUN 29 H 28 H Glucose 147 H 162 H POC Glucose Lactic Acid Calcium Magnesium AST 1150 H 559 H ALT 1199 H 998 H Ammonia Troponin T NT-Pro-B Natriuret Pep Total Protein Albumin 3.1 L 3.1 L TSH Urine WBC (Auto) 11/11/19 11/11/19 11/11/19 03:55 12:28 23:37 WBC RBC Hgb MCV 99 H MCH 33 H Seg Neuts % (Manual) Lymphocytes % (Manual) Nucleated RBC % Seg Neutrophils # Man Lymphocytes # (Manual) PT INR APTT D-Dimer POC ABG pH POC ABG pCO2 POC ABG pO2 ABG pO2 ABG HCO3 ABG Base Excess ABG Hemoglobin Oxyhemoglobin Sodium Potassium Chloride Carbon Dioxide BUN Glucose POC Glucose 136 H 140 H Lactic Acid Calcium Magnesium AST ALT Ammonia Troponin T NT-Pro-B Natriuret Pep Total Protein Albumin TSH Urine WBC (Auto) 11/12/19 11/12/19 11/12/19 05:10 06:30 06:30 WBC 11.5 H RBC Hgb MCV 100 H MCH 33 H Seg Neuts % (Manual) Lymphocytes % (Manual) Nucleated RBC % Seg Neutrophils # Man Lymphocytes # (Manual) PT INR APTT D-Dimer POC ABG pH POC ABG pCO2 POC ABG pO2 ABG pO2 ABG HCO3 ABG Base Excess -3.5 L ABG Hemoglobin 6.7 L Oxyhemoglobin Sodium Potassium Chloride Carbon Dioxide 20 L D BUN 26 H Glucose 125 H POC Glucose Lactic Acid Calcium 7.9 L Magnesium AST 151 H ALT 526 H Ammonia Troponin T NT-Pro-B Natriuret Pep Total Protein 5.2 L Albumin 2.4 L TSH Urine WBC (Auto) 11/12/19 11/12/19 11/12/19 08:03 09:23 10:33 WBC RBC Hgb MCV MCH Seg Neuts % (Manual) Lymphocytes % (Manual) Nucleated RBC % Seg Neutrophils # Man Lymphocytes # (Manual) PT INR APTT D-Dimer POC ABG pH POC ABG pCO2 POC ABG pO2 ABG pO2 ABG HCO3 ABG Base Excess ABG Hemoglobin Oxyhemoglobin Sodium > 179 H* D Potassium 2.7 L* D Chloride > 139 H Carbon Dioxide 20 L 18 L BUN 26 H 26 H Glucose 123 H 116 H POC Glucose 130 H Lactic Acid Calcium 8.1 L 8.0 L Magnesium AST 143 H 137 H ALT 523 H 518 H Ammonia Troponin T NT-Pro-B Natriuret Pep Total Protein 5.2 L 4.7 L Albumin 2.3 L 2.4 L TSH Urine WBC (Auto) 11/12/19 12:15 WBC RBC Hgb MCV MCH Seg Neuts % (Manual) Lymphocytes % (Manual) Nucleated RBC % Seg Neutrophils # Man Lymphocytes # (Manual) PT INR APTT D-Dimer POC ABG pH POC ABG pCO2 POC ABG pO2 ABG pO2 ABG HCO3 ABG Base Excess ABG Hemoglobin Oxyhemoglobin Sodium Potassium Chloride Carbon Dioxide BUN Glucose POC Glucose 122 H Lactic Acid Calcium Magnesium AST ALT Ammonia Troponin T NT-Pro-B Natriuret Pep Total Protein Albumin TSH Urine WBC (Auto)
[2019-11-12 17:57] LABS: Bilirubin,Urine NEG (Negative); Blood,Urine SM (Negative); Color,Urine Straw (Yellow); Mucus,Urine FEW /HPF; Protein,Urine <15 mg/dL mg/dL (Negative); RBC,Urine < 1.0 /HPF (0.0-6.0); Urobilinogen,Urine < 2.0 mg/dL (<2.0)
[2019-11-12 18:00] LABS: Amphetamine Screen,Urine PRESUMPTIVE NEGATIVE; Benzodiazepines Screen,Urine PRESUMPTIVE NEGATIVE; Cannabinoid Screen,Urine PRESUMPTIVE NEGATIVE; Cocaine Screen,Urine PRESUMPTIVE NEGATIVE; Methadone Screen,Urine PRESUMPTIVE NEGATIVE; Opiate Screen,Urine PRESUMPTIVE NEGATIVE
[2019-11-12 18:06] LABS: BUN/Creatinine Ratio 24; Blood Urea Nitrogen 24 mg/dL (9-20); Calcium 8.5 mg/dL (8.4-10.2); Hemolysis Index 10
[2019-11-12] MEDS ORDERED: POTASSIUM PHOSPHATE IV ONE (19:30)
[2019-11-12] MEDS ORDERED: D5W IV ONE (19:30)
[2019-11-12] MEDS ORDERED: POTASSIUM PHOSPHATE 45 MMOL in SODIUM CHLORIDE 0.9% 500 ML 500 ML IV ONE (19:30)
[2019-11-12] MEDS ORDERED: POTASSIUM PHOSPHATE 45 MMOL in DEXTROSE 5% IN WATER 500 ML IV SCH (20:00)
[2019-11-12] MEDS: POTASSIUM CHLORIDE 20 MEQ 20 MEQ/100 ML BAG IV SCH ×2 (20:18→21:21)
[2019-11-12] MEDS ORDERED: DESMOPRESSIN 4 MCG/ML VIAL IV SCH (22:00)
--- NOTE | 2019-11-13 02:53 | XRay Report ---
CHEST 1 VIEW INDICATION: follow up respiratory failure. COMPARISON: 11/12/2019 FINDINGS: SUPPORT DEVICES: Endotracheal tubes in good position. Central venous line has tip in superior vena ca va. Nasogastric tube has tip below diaphragm HEART / MEDIASTINUM: No significant abnormality. LUNGS / PLEURA: No significant pulmonary or pleural abnormality. No pneumothorax. ADDITIONAL FINDINGS: IMPRESSION: 1. No acute findings. Signer Name: Mike Kelley MD Signed: 11/13/2019 2:49 AM Workstation Name: [id number]
[2019-11-13] MEDS: NORepinephrine/NS 4 MG-250 ML 4 MG/250 ML BAG IV SCH ×6 (03:48→23:27)
[2019-11-13] MEDS: POTASSIUM CHLORIDE 40 MEQ in DEXTROSE 5% IN WATER 1,000 ML IV SCH (03:50)
[2019-11-13 06:05] LABS: ABG Base Excess -8.7 mmol/L (-2.0-3.0); ABG HCO3 19.3 mmol/L (20.0-26.0); ABG Methemoglobin 0.6 % (0.0-1.5); ABG Oxygen Saturation 94.2 % (95.0-99.0); ABG PCO2 49.8 mm Hg; ABG PH 7.206 pH Units (7.350-7.450)
[2019-11-13 06:54] LABS: Hematocrit 39.7 % (35.5-45.6); Hemoglobin 12.4 gm/dl (11.8-15.2); Mean Corpuscular HGB Conc 31 % (32-34); Mean Corpuscular Volume 105 fl (84-94); Platelet Count 161 K/mm3 (140-440); Red Blood Count 3.78 M/mm3 (3.65-5.03); Red Cell Distribution Width 17.2 % (13.2-15.2)
[2019-11-13 07:07] LABS: Alanine Aminotransferase 390 units/L (7-56); Albumin 2.2 g/dL (3.9-5); BUN/Creatinine Ratio 23; Blood Urea Nitrogen 23 mg/dL (9-20); Calcium 8.2 mg/dL (8.4-10.2); Hemolysis Index 16
[2019-11-13] MEDS ORDERED: DESMOPRESSIN 4 MCG/ML VIAL IV SCH (08:18)
[2019-11-13] MEDS: FAMOTIDINE 20 MG TAB PO SCH ×2 (10:19→21:46)
[2019-11-13] MEDS: HEPARIN 5,000 UNIT/1 ML VIAL SUB-Q SCH ×2 (10:20→21:45)
[2019-11-13] MEDS: SODIUM CHLORIDE 0.45% 1000 ML 1,000 ML IV SCH ×3 (10:23→20:17)
[2019-11-13] MEDS: levETIRAcetam 1,000 MG in DEXTROSE 5% IN WATER 100 ML IV SCH (11:13)
--- NOTE | 2019-11-13 11:27 | Progress Note ---
Assessment and Plan 1. Hypernatremia: Acute increase in the Sodium level and associated polyuria. 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 Low Urine sp. gr and osmolality. Continue water flushes through NG tube and IV 0.45% saline. Monitor Sodium level. 2. FEN: Hyperkalemia, monitor. IV D5W with KCL stopped. On tube feeding. Monitor lytes. 3. S/p Cardiac arrest. 4. Shock: On Levophed. 5. Respiratory failure: On vent. 6. Anoxic encephalopathy. Prognosis is poor. Examination: General appearance: well-developed, appears stated age, intubated, on vent HEENT: ATNC, pupils are not reacting to light Neck: neck supple, trachea midline Respiratory: Clear to Ascultation Heart: regular, S1S2, no murmurs Gastrointestinal: soft, BS heard, not tender Integumentary: no rash, warm and dry Neurologic: not responding Ext: no edema Subjective Date of service: 11/13/19 Principal diagnosis: Anoxic brain injury Interval history: Patient was seen and examined at the bedside. Objective - Vital Signs Vital signs: Vital Signs - 12hr 11/12/19 11/12/19 11/13/19 23:30 23:45 00:00 Temperature 94.2 F L Pulse Rate 74 73 74 Pulse Rate [ 87 From Monitor] Respiratory 24 21 24 Rate Blood Pressure 87/53 82/49 84/50 O2 Sat by Pulse 92 92 Oximetry 11/13/19 11/13/19 11/13/19 00:15 00:30 00:31 Temperature 94.2 F L Pulse Rate 76 76 Pulse Rate [ From Monitor] Respiratory 24 24 Rate Blood Pressure 80/48 81/52 O2 Sat by Pulse 92 Oximetry 11/13/19 11/13/19 11/13/19 00:45 01:00 01:15 Temperature Pulse Rate 77 78 80 Pulse Rate [ From Monitor] Respiratory 24 24 24 Rate Blood Pressure 83/52 85/50 81/49 O2 Sat by Pulse 92 Oximetry 11/13/19 11/13/19 11/13/19 01:30 01:45 02:00 Temperature Pulse Rate 81 82 84 Pulse Rate [ From Monitor] Respiratory 24 24 24 Rate Blood Pressure 83/52 80/49 80/49 O2 Sat by Pulse Oximetry 11/13/19 11/13/19 11/13/19 02:15 02:30 02:45 Temperature Pulse Rate 88 87 90 Pulse Rate [ From Monitor] Respiratory 24 24 24 Rate Blood Pressure 86/52 85/52 84/51 O2 Sat by Pulse 93 91 Oximetry 11/13/19 11/13/19 11/13/19 03:00 03:15 03:30 Temperature Pulse Rate 91 H 93 H 96 H Pulse Rate [ From Monitor] Respiratory 24 24 24 Rate Blood Pressure 82/51 88/57 85/57 O2 Sat by Pulse 92 Oximetry 11/13/19 11/13/19 11/13/19 03:45 04:00 04:15 Temperature 97.6 F Pulse Rate 96 H 93 H 91 H Pulse Rate [ 91 H From Monitor] Respiratory 24 24 24 Rate Blood Pressure 102/58 90/53 90/51 O2 Sat by Pulse 93 95 95 Oximetry 11/13/19 11/13/19 11/13/19 04:30 04:45 05:00 Temperature Pulse Rate 90 89 88 Pulse Rate [ From Monitor] Respiratory 24 24 24 Rate Blood Pressure 91/53 89/49 87/53 O2 Sat by Pulse 95 95 95 Oximetry 11/13/19 11/13/19 11/13/19 05:15 05:30 05:42 Temperature Pulse Rate 87 85 85 Pulse Rate [ From Monitor] Respiratory 24 24 Rate Blood Pressure 88/52 88/53 88/53 O2 Sat by Pulse 95 93 94 Oximetry 11/13/19 11/13/19 11/13/19 05:45 06:00 06:15 Temperature Pulse Rate 84 83 82 Pulse Rate [ From Monitor] Respiratory 24 24 24 Rate Blood Pressure 95/57 86/52 90/52 O2 Sat by Pulse 93 93 94 Oximetry 11/13/19 11/13/19 11/13/19 06:30 06:45 07:00 Temperature Pulse Rate 83 82 82 Pulse Rate [ From Monitor] Respiratory 24 24 24 Rate Blood Pressure 72/43 67/42 71/42 O2 Sat by Pulse 92 93 94 Oximetry 11/13/19 11/13/19 11/13/19 07:15 07:30 07:46 Temperature Pulse Rate 81 80 80 Pulse Rate [ From Monitor] Respiratory 24 24 24 Rate Blood Pressure 95/62 101/61 69/41 O2 Sat by Pulse 96 96 94 Oximetry 11/13/19 11/13/19 11/13/19 08:00 08:15 08:30 Temperature Pulse Rate 80 81 82 Pulse Rate [ 91 H From Monitor] Respiratory 24 24 24 Rate Blood Pressure 83/51 120/74 107/68 O2 Sat by Pulse 96 96 96 Oximetry 11/13/19 11/13/19 11/13/19 08:45 09:00 09:15 Temperature Pulse Rate 78 78 77 Pulse Rate [ From Monitor] Respiratory 24 24 24 Rate Blood Pressure 97/60 99/58 94/57 O2 Sat by Pulse 96 94 94 Oximetry - Lab 11/13/19 06:35 11/13/19 06:35 Most recent lab results ABG pH 7.206 pH Units (7.350-7.450) L 11/13/19 05:32 ABG pCO2 49.8 mm Hg 11/13/19 05:32 ABG pO2 75.0 mm Hg (80.0-90.0) L 11/13/19 05:32 ABG HCO3 19.3 mmol/L (20.0-26.0) L 11/13/19 05:32 ABG O2 Saturation 94.2 % (95.0-99.0) L 11/13/19 05:32 Calcium 8.2 mg/dL (8.4-10.2) L 11/13/19 06:35 Phosphorus 4.00 mg/dL (2.5-4.5) D 11/13/19 06:35 Magnesium 2.60 mg/dL (1.7-2.3) H 11/12/19 16:18 Urine Creatinine 20.0 mg/dL (0.1-20.0) 11/12/19 11:56 Urine Sodium 10 mmol/L 11/12/19 11:56 Medications & Allergies - Medications Allergies/Adverse Reactions: Allergies No Known Allergies Allergy (Unverified 11/09/19 07:15) unknown Home Medications: Home Medications Medication Instructions Recorded Confirmed Last Taken Type ALBUTEROL NEB's [Proventil 0.083% 1 neb IH Q6H 01/02/14 11/09/19 07/30/14 Hist ory NEBS] Albuterol Sulfate [Ventolin HFA] 2 puff IH QID PRN 01/02/14 11/09/19 01/02/14 08:[address] [Depakote] 500 mg PO BID 01/02/14 11/09/19 07/30/14 History Docusate Sodium [Colace] 100 mg PO BID 11/09/19 11/09/19 Unknown History Paliperidone Palmitate [Invega 156 mg IM QMONTH 11/09/19 11/09/19 11/04/19 History Sustenna] risperiDONE [RisperDAL] 3 mg PO BID 11/09/19 11/09/19 Unknown History Active Medications: Generic Name Dose Route Start Last Admin Trade Name Freq PRN Reason Stop Dose Admin Acetaminophen 650 mg 11/11/19 09:13 11/11/19 16:48 Tylenol PO 650 mg Q6H PRN Administration Pain, Mild (1-3)/TEMP > 100.4 Lipase/Protease/Amylase 1 each 11/10/19 13:48 Pancreaze 10,500 Unit FEEDTUBE PRN PRN For Clogged Feeding Tube Desmopressin Acetate 4 mcg 11/13/19 08:18 11/13/19 10:21 Ddavp IV 4 mcg Q12HR HAN Administration Famotidine 20 mg 11/11/19 10:00 11/13/19 10:19 Pepcid PO 20 mg BID HAN Administration Heparin Sodium (Porcine) 5,000 unit 11/10/19 10:00 11/13/19 10:20 Heparin SUB-Q 5,000 unit Q12HR HAN Administration Hydrophilic Ointment 1 applic 11/09/19 07:29 Vaseline Lip Therapy TP Q2HR PRN Dry Lips Norepinephrine 4 mg in 250 mls @ 22.5 mls/hr 11/09/19 07:00 11/13/19 08:39 Levophed Drip 4 Mg/Ns 250 Ml IV 18 mcg/min TITR HAN 67.5 mls/hr Titration Protocol 6 MCG/MIN Levetiracetam 1,000 mg/ 110 mls @ 400 mls/hr 11/10/19 22:00 11/13/19 11:13 Dextrose IV 400 mls/hr Q12HR HAN Administration Dopamine HCl/Dextrose 800 mg in 250 mls @ 3.188 mls/hr 11/11/19 18:00 11/11/19 20:56 Intropin Drip 800 Mg/D5w 250 Ml IV 0 mcg/kg/min TITR HAN 0 mls/hr Titration Protocol 2 MCG/KG/MIN Potassium Phosphate 45 mmol/ 515 mls @ 85 mls/hr 11/12/19 20:00 11/12/19 20:19 Dextrose IV 85 mls/hr ONCE HAN Administration Sodium Chloride 1,000 mls @ 200 mls/hr 11/13/19 09:00 11/13/19 10:23 Nacl 0.45% 1000 Ml IV 200 mls/hr DIRECT HAN Administration Metoprolol Tartrate 25 mg 11/11/19 22:00 11/12/19 21:36 Metoprolol PO Not Given BID HAN Multi-Ingred Cream/Lotion/Oil/Oint 1 applic 11/09/19 07:29 Artificial Tears Ophth Oint OU Q4HR PRN Dry Eye(s) Simple Syrup 15 ml 11/10/19 13:48 Simple Syrup FEEDTUBE PRN PRN Hypoglycemia Simple Syrup 30 ml 11/10/19 13:48 Simple Syrup FEEDTUBE PRN PRN Hypoglycemia Sodium Bicarbonate 325 mg 11/10/19 13:48 Sodium Bicarbonate FEEDTUBE PRN PRN For Clogged Feeding Tube
[2019-11-13] MEDS ORDERED: SODIUM CHLORIDE 0.9% 1000 ML 2,000 ML IV ONE ×2 (12:28→17:57)
--- NOTE | 2019-11-13 12:31 | Progress Note ---
Assessment and Plan Assessment and plan: Cardiac arrest Admitted to ICU Put back on levophed for hypotension Fever due to SIRS Started on empiric Cefepime and IV Vancomycin ID consulted, following Anoxic encephaklopathy I discussed with Dr. Thomas, neurology he says CT Head does have changes of anoxic encephalopathy MRI brain ordered, but not done yet Dr. Thomas recommended transfer to [place] for EEG monitoring, I called [facility], they had no bed and they recommended to call back in few days. Discussed with Dr. Miller yesterday 11/12, and he states at this point transfer not recommended Acute metabolic encephalopathy Transaminitis and elevated Ammonia Shock Liver Hypernatremia Likely diabetic insipidus Na>179 yesterday Nephrology following Elevated Ammonia level Resolved UTI (urinary tract infection) resolved Malnutrition Dietitian consulted DVT prophylaxis On Heparin and GI prophylaxis Prognosis very poor. No family available. The high probability of a clinically significant, sudden or life threatening deterioration of the [] system(s) required my full and direct attention, intervention and personal management. The aggregate critical care time was [35] minutes. This time is in addition to time spent performing reported procedures but includes the following: [x] Data Review and interpretation [x] Patient assessment and monitoring of vital signs [x] Documentation [x] Medication orders and management History Interval history: Patient had cardiac arrest at [facility] Unresponsive Hypothermia, put on warming blanket Hypotension, put back on levophed drip Hospitalist Physical - Physical exam Narrative exam: Gen: Not in acute distress, lying in bed, Intubated,warming blanket on HEENT: Normocephalic, atraumatic Neck: supple, no JVD Heart: S1 and S2 reg, no murmurs, rubs or gallop Lungs: clear to auscultation bilaterally, no crackles Abd: soft, NT, non distended, normal BS Ext: No edema, no clubbing, no cyanosis Neuro: Intubated, unresponsive, does not follow commands,comatose - Constitutional Vitals: Temp Pulse Resp BP Pulse Ox 97.6 F 76 24 100/59 97 11/13/19 04:00 11/13/19 11:28 11/13/19 09:15 11/13/19 11:28 11/13/19 11:28 General appearance: Present: other (intubated, nonresponsive) Results - Labs CBC & Chem 7: 11/13/19 06:35 11/13/19 06:35 Labs: Laboratory Last Values WBC 12.1 K/mm3 (4.5-11.0) H 11/13/19 06:35 RBC 3.78 M/mm3 (3.65-5.03) 11/13/19 06:35 Hgb 12.4 gm/dl (11.8-15.2) 11/13/19 06:35 Hct 39.7 % (35.5-45.6) 11/13/19 06:35 MCV 105 fl (84-94) H 11/13/19 06:35 MCH 33 pg (28-32) H 11/13/19 06:35 MCHC 31 % (32-34) L 11/13/19 06:35 RDW 17.2 % (13.2-15.2) H 11/13/19 06:35 Plt Count 161 K/mm3 (140-440) 11/13/19 06:35 Add Manual Diff Complete 11/10/19 06:50 Total Counted 100 11/10/19 06:50 Seg Neutrophils % [employer] Clerk 11/10/19 06:50 Seg Neuts % (Manual) 88.0 % (40.0-70.0) H 11/10/19 06:50 Band Neutrophils % 10.0 % 11/10/19 06:50 Lymphocytes % (Manual) 1.0 % (13.4-35.0) L 11/10/19 06:50 Reactive Lymphs % (Man) 0 % 11/10/19 06:50 Monocytes % (Manual) 1.0 % (0.0-7.3) 11/10/19 06:50 Eosinophils % (Manual) 0 % (0.0-4.3) 11/10/19 06:50 Basophils % (Manual) 0 % (0.0-1.8) 11/10/19 06:50 Metamyelocytes % 0 % 11/10/19 06:50 Myelocytes % 0 % 11/10/19 06:50 Promyelocytes % 0 % 11/10/19 06:50 Blast Cells % 0 % 11/10/19 06:50 Nucleated RBC % Not Reportable 11/10/19 06:50 Seg Neutrophils # Man 10.6 K/mm3 (1.8-7.7) H 11/10/19 06:50 Band Neutrophils # 1.2 K/mm3 11/10/19 06:50 Lymphocytes # (Manual) 0.1 K/mm3 (1.2-5.4) L 11/10/19 06:50 Abs React Lymphs (Man) 0.0 K/mm3 11/10/19 06:50 Monocytes # (Manual) 0.1 K/mm3 (0.0-0.8) 11/10/19 06:50 Eosinophils # (Manual) 0.0 K/mm3 (0.0-0.4) 11/10/19 06:50 Basophils # (Manual) 0.0 K/mm3 (0.0-0.1) 11/10/19 06:50 Metamyelocytes # 0.0 K/mm3 11/10/19 06:50 Myelocytes # 0.0 K/mm3 11/10/19 06:50 Promyelocytes # 0.0 K/mm3 11/10/19 06:50 Blast Cells # 0.0 K/mm3 11/10/19 06:50 WBC Morphology Not Reportable 11/10/19 06:50 Hypersegmented Neuts Not Reportable 11/10/19 06:50 Hyposegmented Neuts Not Reportable 11/10/19 06:50 Hypogranular Neuts Not Reportable 11/10/19 06:50 Smudge Cells Not Reportable 11/10/19 06:50 Toxic Granulation Not Reportable 11/10/19 06:50 Toxic Vacuolation Not Reportable 11/10/19 06:50 Dohle Bodies Not Reportable 11/10/19 06:50 Pelger-Huet Anomaly Not Reportable 11/10/19 06:50 Emily Rods Not Reportable 11/10/19 06:50 Platelet Estimate Consistent w auto 11/10/19 06:50 Clumped Platelets Not Reportable 11/10/19 06:50 Plt Clumps, EDTA Not Reportable 11/10/19 06:50 Large Platelets Not Reportable 11/10/19 06:50 Giant Platelets Not Reportable 11/10/19 06:50 Platelet Satelliting Not Reportable 11/10/19 06:50 Plt Morphology Comment Not Reportable 11/10/19 06:50 RBC Morphology Normal 11/10/19 06:50 Dimorphic RBCs Not Reportable 11/10/19 06:50 Polychromasia Not Reportable 11/10/19 06:50 Hypochromasia Not Reportable 11/10/19 06:50 Poikilocytosis Not Reportable 11/10/19 06:50 Anisocytosis Not Reportable 11/10/19 06:50 Microcytosis Not Reportable 11/10/19 06:50 Macrocytosis Not Reportable 11/10/19 06:50 Spherocytes Not Reportable 11/10/19 06:50 Pappenheimer Bodies Not Reportable 11/10/19 06:50 Sickle Cells Not Reportable 11/10/19 06:50 Target Cells Not Reportable 11/10/19 06:50 Tear Drop Cells Not Reportable 11/10/19 06:50 Ovalocytes Not Reportable 11/10/19 06:50 Helmet Cells Not Reportable 11/10/19 06:50 [place] Bodies Not Reportable 11/10/19 06:50 [place] Rings Not Reportable 11/10/19 06:50 Alberto Cells Not Reportable 11/10/19 06:50 Bite Cells Not Reportable 11/10/19 06:50 Crenated Cell Not Reportable 11/10/19 06:50 Elliptocytes Not Reportable 11/10/19 06:50 Acanthocytes (Spur) Not Reportable 11/10/19 06:50 Rouleaux Not Reportable 11/10/19 06:50 Hemoglobin C Crystals Not Reportable 11/10/19 06:50 Schistocytes Not Reportable 11/10/19 06:50 Malaria parasites Not Reportable 11/10/19 06:50 [place] Bodies Not Reportable 11/10/19 06:50 Hem Pathologist Commnt No 11/10/19 06:50 PT 16.9 Sec. (12.2-14.9) H 11/09/19 06:24 INR 1.35 (0.87-1.13) H 11/09/19 06:24 APTT 50.7 Sec. (24.2-36.6) H 11/09/19 06:24 D-Dimer 4435.48 ng/mlDDU (0-234) H 11/09/19 06:24 POC ABG pH 7.432 (7.35-7.45) 11/11/19 03:33 ABG pH 7.206 pH Units (7.350-7.450) L 11/13/19 05:32 POC ABG pCO2 44.0 (35-45) 11/11/19 03:33 ABG pCO2 49.8 mm Hg 11/13/19 05:32 POC ABG pO2 94 (80-105) 11/11/19 03:33 ABG pO2 75.0 mm Hg (80.0-90.0) L 11/13/19 05:32 POC ABG HCO3 29.4 (22-26 mml/L) 11/11/19 03:33 ABG HCO3 19.3 mmol/L (20.0-26.0) L 11/13/19 05:32 POC ABG Total CO2 31 (23-27mmol/L) 11/11/19 03:33 POC ABG O2 Sat 97 11/11/19 03:33 ABG O2 Saturation 94.2 % (95.0-99.0) L 11/13/19 05:32 ABG O2 Content 16.9 (0.0-44) 11/13/19 05:32 POC ABG Base Excess 5 ((-2) - (+3)mmol/L) 11/11/19 03:33 ABG Base Excess -8.7 mmol/L (-2.0-3.0) L 11/13/19 05:32 ABG Hemoglobin 12.9 gm/dl (14.0-18.0) L 11/13/19 05:32 ABG Carboxyhemoglobin 1.2 % (0.0-5.0) 11/13/19 05:32 ABG Methemoglobin 0.6 % (0.0-1.5) 11/13/19 05:32 Oxyhemoglobin 92.6 % (95.0-99.0) L 11/13/19 05:32 FiO2 35 % 11/13/19 05:32 Sodium 172 mmol/L (137-145) H* 11/13/19 06:35 Potassium 5.5 mmol/L (3.6-5.0) H D 11/13/19 06:35 Chloride > 139 mmol/L (98-107) H 11/13/19 06:35 Carbon Dioxide 18 mmol/L (22-30) L 11/13/19 06:35 Anion Gap 20 mmol/L 11/13/19 06:35 BUN 23 mg/dL (9-20) H 11/13/19 06:35 Creatinine 1.0 mg/dL (0.8-1.5) 11/13/19 06:35 Estimated GFR > 60 ml/min 11/13/19 06:35 BUN/Creatinine Ratio 23 % 11/13/19 06:35 Glucose 133 mg/dL (75-100) H 11/13/19 06:35 POC Glucose 183 (70-105) H 11/13/19 11:53 Osmolality 381 Mosm/kg 11/12/19 16:18 Lactic Acid 1.70 mmol/L (0.7-2.0) 11/09/19 20:02 Calcium 8.2 mg/dL (8.4-10.2) L 11/13/19 06:35 Phosphorus 4.00 mg/dL (2.5-4.5) D 11/13/19 06:35 Magnesium 2.60 mg/dL (1.7-2.3) H 11/12/19 16:18 Total Bilirubin < 0.20 mg/dL (0.1-1.2) 11/13/19 06:35 AST 61 units/L (5-40) H 11/13/19 06:35 ALT 390 units/L (7-56) H 11/13/19 06:35 Alkaline Phosphatase 78 units/L (35-129) 11/13/19 06:35 Ammonia 42.0 umol/L (25-60) 11/10/19 14:56 Total Creatine Kinase 75 units/L (55-170) 11/09/19 06:24 CK-MB (CK-2) 3.0 ng/mL (0.0-4.0) 11/09/19 06:24 CK-MB (CK-2) Rel Index 4.0 (0-4) 11/09/19 06:24 Troponin T < 0.010 ng/mL (0.00-0.029) 11/11/19 03:55 NT-Pro-B Natriuret Pep 5052 pg/mL (0-450) H 11/09/19 06:24 Total Protein 5.7 g/dL (6.3-8.2) L D 11/13/19 06:35 Albumin 2.2 g/dL (3.9-5) L 11/13/19 06:35 Albumin/Globulin Ratio 0.6 % 11/13/19 06:35 TSH 5.500 mlU/mL (0.270-4.200) H 11/09/19 06:24 Free T4 0.78 ng/dL (0.76-1.46) 11/09/19 06:24 Urine Color Straw (Yellow) 11/12/19 11:56 Urine Turbidity Clear (Clear) 11/12/19 11:56 Urine pH 6.0 (5.0-7.0) 11/12/19 11:56 Ur Specific [place] 1.003 (1.003-1.030) 11/12/19 11:56 Urine Protein <15 mg/dl mg/dL (Negative) 11/12/19 11:56 Urine Glucose (UA) Neg mg/dL (Negative) 11/12/19 11:56 Urine Ketones Neg mg/dL (Negative) 11/12/19 11:56 Urine Blood Sm (Negative) 11/12/19 11:56 Urine Nitrite Neg (Negative) 11/12/19 11:56 Urine Bilirubin Neg (Negative) 11/12/19 11:56 Urine Urobilinogen < 2.0 mg/dL (<2.0) 11/12/19 11:56 Ur Leukocyte Esterase Neg (Negative) 11/12/19 11:56 Urine WBC (Auto) 1.0 /HPF (0.0-6.0) 11/12/19 11:56 Urine RBC (Auto) < 1.0 /HPF (0.0-6.0) 11/12/19 11:56 U Epithel Cells (Auto) < 1.0 /HPF (0-13.0) 11/12/19 11:56 Urine Bacteria (Auto) 4+ /HPF (Negative) 11/09/19 07:24 Ur Transition Epith Cell 5 /HPF 11/09/19 07:24 Urine Mucus Few /HPF 11/12/19 11:56 Urine Osmolality 135 Mosm/kg 11/12/19 11:56 Urine Creatinine 20.0 mg/dL (0.1-20.0) 11/12/19 11:56 Urine Sodium 10 mmol/L 11/12/19 11:56 Urine Opiates Screen Presumptive negative 11/12/19 14:23 Urine Methadone Screen Presumptive negative 11/12/19 14:23 Ur Barbiturates Screen Presumptive negative 11/12/19 14:23 Valproic Acid 67.4 ug/mL (50-100) 11/09/19 06:39 Ur Phencyclidine Scrn Presumptive negative 11/12/19 14:23 Ur Amphetamines Screen Presumptive negative 11/12/19 14:23 U Benzodiazepines Scrn Presumptive negative 11/12/19 14:23 Urine Cocaine Screen Presumptive negative 11/12/19 14:23 U Marijuana (THC) Screen Presumptive negative 11/12/19 14:23 Drugs of Abuse Note Disclamer 11/12/19 14:23 Plasma/Serum Alcohol < 0.01 % (0-0.07) 11/09/19 06:39 Hepatitis A IgM Ab Non-reactive (NonReactive) 11/10/19 06:50 Hep Bs Antigen Non-reactive (Negative) 11/10/19 06:50 Hep B Core IgM Ab Non-reactive (NonReactive) 11/10/19 06:50 Hepatitis C Antibody Non-reactive (NonReactive) 11/10/19 06:50 Active Medications - Current Medications Current Medications: Generic Name Dose Route Start Last Admin Trade Name Freq PRN Reason Stop Dose Admin Acetaminophen 650 mg 11/11/19 09:13 11/11/19 16:48 Tylenol PO 650 mg Q6H PRN Administration Pain, Mild (1-3)/TEMP > 100.4 Lipase/Protease/Amylase 1 each 11/10/19 13:[address] 10,500 Unit FEEDTUBE PRN PRN For Clogged Feeding Tube Desmopressin Acetate 4 mcg 11/13/19 08:18 11/13/19 10:21 Ddavp IV 4 mcg Q12HR HAN Administration Famotidine 20 mg 11/11/19 10:00 11/13/19 10:19 Pepcid PO 20 mg BID HAN Administration Heparin Sodium (Porcine) 5,000 unit 11/10/19 10:00 11/13/19 10:20 Heparin SUB-Q 5,000 unit Q12HR HAN Administration Hydrophilic Ointment 1 applic 11/09/19 07:29 Vaseline Lip Therapy TP Q2HR PRN Dry Lips Norepinephrine 4 mg in 250 mls @ 22.5 mls/hr 11/09/19 07:00 11/13/19 12:21 Levophed Drip 4 Mg/Ns 250 Ml IV 20 mcg/min TITR HAN 75 mls/hr Administration Protocol 6 MCG/MIN Levetiracetam 1,000 mg/ 110 mls @ 400 mls/hr 11/10/19 22:00 11/13/19 11:13 Dextrose IV 400 mls/hr Q12HR HAN Administration Dopamine HCl/Dextrose 800 mg in 250 mls @ 3.188 mls/hr 11/11/19 18:00 11/11/19 20:56 Intropin Drip 800 Mg/D5w 250 Ml IV 0 mcg/kg/min TITR HAN 0 mls/hr Titration Protocol 2 MCG/KG/MIN Potassium Phosphate 45 mmol/ 515 mls @ 85 mls/hr 11/12/19 20:00 11/12/19 20:19 Dextrose IV 85 mls/hr ONCE HAN Administration Sodium Chloride 1,000 mls @ 200 mls/hr 11/13/19 09:00 11/13/19 10:23 Nacl 0.45% 1000 Ml IV 200 mls/hr DIRECT HAN Administration Metoprolol Tartrate 25 mg 11/11/19 22:00 11/12/19 21:36 Metoprolol PO Not Given BID HAN Multi-Ingred Cream/Lotion/Oil/Oint 1 applic 11/09/19 07:29 Artificial Tears Ophth Oint OU Q4HR PRN Dry Eye(s) Simple Syrup 15 ml 11/10/19 13:48 Simple Syrup FEEDTUBE PRN PRN Hypoglycemia Simple Syrup 30 ml 11/10/19 13:48 Simple Syrup FEEDTUBE PRN PRN Hypoglycemia Sodium Bicarbonate 325 mg 11/10/19 13:48 Sodium Bicarbonate FEEDTUBE PRN PRN For Clogged Feeding Tube Nutrition/Malnutrition Assess - Dietary Evaluation Nutrition/Malnutrition Findings: Nutrition Notes Start: 11/10/19 11:42 Freq: Status: Active Protocol: Document 11/11/19 11:00 KS (Rec: 11/11/19 11:06 [facility]-[id number]) Co-Sign 11/11/19 11:00 LP Nutrition Notes Initial or Follow up Reassessment Current Diagnosis Heart Failure,Respiratory Failure Other Pertinent Diagnosis Anoxic brain injury, Schizophrenia, UTI, Sepsis, Hepatic Encaphalopathy Current Diet Vital AF 1.2 at 70mL Labs/Tests BUN 28 Glu 162 Pertinent Medications Reviewed Height 5 ft 8 in Weight 85 kg [place] Body Weight (kg) 70.00 BMI 28.5 Subjective/Other Information Vital AF 1.2 observed running at 30mL/hr. Per RN, pt is tolerating TF. Percent of energy/protein needs met: 42%/53% Burn Absent Trauma Absent Current % PO Negligible Minimum of two criteria No physical signs of malnutrition #1 Nutrition Diagnosis Inadequate oral intake Diagnosis Progress(for reassessment Continues documentation) Is patient on ventilator? Yes Is Patient Ambulatory and/or Out of Bed No REE-([place]-[facility] Jeor-confined to bed) [facility] Additional Notes PRO: 102-170g/day (1.2-2g/kg/ day) Fluid: 1mL/kcal or per MD Nutrition Intervention Change Diet Order: Continue TF Nutrition Support: Vital AF 1.2 at 70mL/hr Flush 100mL q4h Kcal 2,016 Protein (gm) 126 Fluid (mL) 1,362 Goal #1 Tolerate TF Goal #2 Meet 75% of kcal and PRO needs via TF Anticipated Discharge Needs: Unable to determine at this time Follow-Up By: 11/15/19 Additional Comments F/U for TF tolerance
--- NOTE | 2019-11-13 12:34 | Progress Note ---
Assessment and Plan 49 y/o male, post cardiac arrest, now unresponsive on vent. 1. No sedation, absolutely none 2. Will bolus 2 liters now and 2 liters again. Will continue to bolus throuhout the day. 3. Echo shows EF of 40%. On the vent so not worried about volume overload. Will give as much fluid as needed. 4. Continued vent support 5. UDS now is negative (11/12). Medications are having no effect on his mental state. This is all from anoxia. Reviewed covering Neurology note. 6. needs ethics consult to review case to help us make patient DNR as he has no family. Only caregivers. Please obtain this tomorrow so they can review the case. Overall prognosis is poor. Given the degree of edema, could herniate, likely not recovering from this insult. CCT 31 minutes. Subjective Date of service: 11/13/19 Principal diagnosis: Anoxic brain injury Interval history: Worsening hypotension. Still dumping large amounts of urine. Renal gave DDAVP. Objective Vital Signs - 12hr 11/13/19 11/13/19 11/13/19 00:30 00:31 00:45 Temperature 94.2 F L Pulse Rate 76 77 Pulse Rate [ From Monitor] Respiratory 24 24 Rate Blood Pressure 81/52 83/52 O2 Sat by Pulse Oximetry 11/13/19 11/13/19 11/13/19 01:00 01:15 01:30 Temperature Pulse Rate 78 80 81 Pulse Rate [ From Monitor] Respiratory 24 24 24 Rate Blood Pressure 85/50 81/49 83/52 O2 Sat by Pulse 92 Oximetry 11/13/19 11/13/19 11/13/19 01:45 02:00 02:15 Temperature Pulse Rate 82 84 88 Pulse Rate [ From Monitor] Respiratory 24 24 24 Rate Blood Pressure 80/49 80/49 86/52 O2 Sat by Pulse 93 Oximetry 11/13/19 11/13/19 11/13/19 02:30 02:45 03:00 Temperature Pulse Rate 87 90 91 H Pulse Rate [ From Monitor] Respiratory 24 24 24 Rate Blood Pressure 85/52 84/51 82/51 O2 Sat by Pulse 91 Oximetry 11/13/19 11/13/19 11/13/19 03:15 03:30 03:45 Temperature Pulse Rate 93 H 96 H 96 H Pulse Rate [ From Monitor] Respiratory 24 24 24 Rate Blood Pressure 88/57 85/57 102/58 O2 Sat by Pulse 92 93 Oximetry 11/13/19 11/13/19 11/13/19 04:00 04:15 04:30 Temperature 97.6 F Pulse Rate 93 H 91 H 90 Pulse Rate [ 91 H From Monitor] Respiratory 24 24 24 Rate Blood Pressure 90/53 90/51 91/53 O2 Sat by Pulse 95 95 95 Oximetry 11/13/19 11/13/19 11/13/19 04:45 05:00 05:15 Temperature Pulse Rate 89 88 87 Pulse Rate [ From Monitor] Respiratory 24 24 24 Rate Blood Pressure 89/49 87/53 88/52 O2 Sat by Pulse 95 95 95 Oximetry 11/13/19 11/13/19 11/13/19 05:30 05:42 05:45 Temperature Pulse Rate 85 85 84 Pulse Rate [ From Monitor] Respiratory 24 24 Rate Blood Pressure 88/53 88/53 95/57 O2 Sat by Pulse 93 94 93 Oximetry 11/13/19 11/13/19 11/13/19 06:00 06:15 06:30 Temperature Pulse Rate 83 82 83 Pulse Rate [ From Monitor] Respiratory 24 24 Rate Blood Pressure 86/52 90/52 72/43 O2 Sat by Pulse 93 94 92 Oximetry 11/13/19 11/13/19 11/13/19 06:45 07:00 07:15 Temperature Pulse Rate 82 82 81 Pulse Rate [ From Monitor] Respiratory 24 24 Rate Blood Pressure 67/42 71/42 95/62 O2 Sat by Pulse 93 94 96 Oximetry 11/13/19 11/13/19 11/13/19 07:30 07:46 08:00 Temperature Pulse Rate 80 80 80 Pulse Rate [ 91 H From Monitor] Respiratory 24 24 24 Rate Blood Pressure 101/61 69/41 83/51 O2 Sat by Pulse 96 94 96 Oximetry 11/13/19 11/13/19 11/13/19 08:15 08:30 08:45 Temperature Pulse Rate 81 82 78 Pulse Rate [ From Monitor] Respiratory 24 24 24 Rate Blood Pressure 120/74 107/68 97/60 O2 Sat by Pulse 96 96 96 Oximetry 11/13/19 11/13/19 11/13/19 09:00 09:15 11:28 Temperature Pulse Rate 78 77 76 Pulse Rate [ From Monitor] Respiratory 24 24 Rate Blood Pressure 99/58 94/57 100/59 O2 Sat by Pulse 94 94 97 Oximetry Constitutional: comatose, appears uncomfortable, other (not on sedation) Eyes: icteric, other (Strabismus) ENT: other (orally intubated and critically ill on vent) Neck: supple Effort: mildly labored Ascultation: Bilateral: clear Percussion: Bilateral: not dull Cardiovascular: regular rate and rhythm Gastrointestinal: normoactive bowel sounds, soft, non-tender Integumentary: normal Extremities: no edema Neurologic: unable to assess CBC and BMP: 11/13/19 06:35 11/13/19 06:35 ABG, PT/INR, D-dimer: ABG POC ABG pH 7.432 (7.35-7.45) 11/11/19 03:33 ABG pH 7.206 pH Units (7.350-7.450) L 11/13/19 05:32 POC ABG pCO2 44.0 (35-45) 11/11/19 03:33 ABG pCO2 49.8 mm Hg 11/13/19 05:32 POC ABG pO2 94 (80-105) 11/11/19 03:33 ABG pO2 75.0 mm Hg (80.0-90.0) L 11/13/19 05:32 POC ABG HCO3 29.4 (22-26 mml/L) 11/11/19 03:33 POC ABG Total CO2 31 (23-27mmol/L) 11/11/19 03:33 POC ABG O2 Sat 97 11/11/19 03:33 ABG O2 Saturation 94.2 % (95.0-99.0) L 11/13/19 05:32 PT/INR, D-dimer PT 16.9 Sec. (12.2-14.9) H 11/09/19 06:24 INR 1.35 (0.87-1.13) H 11/09/19 06:24 D-Dimer 4435.48 ng/mlDDU (0-234) H 11/09/19 06:24 Abnormal lab findings: Abnormal Labs 11/09/19 11/09/19 11/09/19 06:24 06:24 06:24 WBC RBC 3.54 L Hgb 11.7 L MCV 103 H MCH 33 H MCHC RDW Seg Neuts % (Manual) Lymphocytes % (Manual) Nucleated RBC % 1.0 H Seg Neutrophils # Man Lymphocytes # (Manual) PT 16.9 H INR 1.35 H APTT 50.7 H D-Dimer 4435.48 H POC ABG pH ABG pH POC ABG pCO2 POC ABG pO2 ABG pO2 ABG HCO3 ABG O2 Saturation ABG Base Excess ABG Hemoglobin Oxyhemoglobin Sodium Potassium Chloride Carbon Dioxide BUN 23 H Glucose 122 H POC Glucose Lactic Acid Calcium 8.3 L Phosphorus Magnesium AST 355 H ALT 340 H Ammonia Troponin T 0.039 H NT-Pro-B Natriuret Pep 5052 H Total Protein 5.6 L Albumin 2.9 L TSH Urine WBC (Auto) 11/09/19 11/09/19 11/09/19 06:24 06:24 06:24 WBC RBC Hgb MCV MCH MCHC RDW Seg Neuts % (Manual) Lymphocytes % (Manual) Nucleated RBC % Seg Neutrophils # Man Lymphocytes # (Manual) PT INR APTT D-Dimer POC ABG pH ABG pH POC ABG pCO2 POC ABG pO2 ABG pO2 ABG HCO3 ABG O2 Saturation ABG Base Excess ABG Hemoglobin Oxyhemoglobin Sodium Potassium Chloride Carbon Dioxide BUN Glucose POC Glucose Lactic Acid Calcium Phosphorus Magnesium 2.70 H AST ALT Ammonia 101.0 H Troponin T NT-Pro-B Natriuret Pep Total Protein Albumin TSH 5.500 H Urine WBC (Auto) 11/09/19 11/09/19 11/09/19 06:24 06:51 07:24 WBC RBC Hgb MCV MCH MCHC RDW Seg Neuts % (Manual) Lymphocytes % (Manual) Nucleated RBC % Seg Neutrophils # Man Lymphocytes # (Manual) PT INR APTT D-Dimer POC ABG pH ABG pH POC ABG pCO2 POC ABG pO2 ABG pO2 ABG HCO3 ABG O2 Saturation ABG Base Excess ABG Hemoglobin Oxyhemoglobin Sodium Potassium Chloride Carbon Dioxide BUN Glucose POC Glucose Lactic Acid 8.80 H* 9.80 H* Calcium Phosphorus Magnesium AST ALT Ammonia Troponin T NT-Pro-B Natriuret Pep Total Protein Albumin TSH Urine WBC (Auto) 83.0 H 11/09/19 11/09/19 11/09/19 07:27 08:10 08:32 WBC RBC Hgb MCV MCH MCHC RDW Seg Neuts % (Manual) Lymphocytes % (Manual) Nucleated RBC % Seg Neutrophils # Man Lymphocytes # (Manual) PT INR APTT D-Dimer POC ABG pH 7.145 L ABG pH POC ABG pCO2 POC ABG pO2 380 H ABG pO2 ABG HCO3 ABG O2 Saturation ABG Base Excess ABG Hemoglobin Oxyhemoglobin Sodium Potassium Chloride Carbon Dioxide BUN Glucose POC Glucose Lactic Acid 10.20 H* 6.50 H* Calcium Phosphorus Magnesium AST ALT Ammonia Troponin T NT-Pro-B Natriuret Pep Total Protein Albumin TSH Urine WBC (Auto) 11/09/19 11/09/19 11/09/19 09:27 10:30 12:11 WBC RBC Hgb MCV MCH MCHC RDW Seg Neuts % (Manual) Lymphocytes % (Manual) Nucleated RBC % Seg Neutrophils # Man Lymphocytes # (Manual) PT INR APTT D-Dimer POC ABG pH ABG pH POC ABG pCO2 POC ABG pO2 ABG pO2 ABG HCO3 ABG O2 Saturation ABG Base Excess ABG Hemoglobin Oxyhemoglobin Sodium Potassium Chloride Carbon Dioxide BUN Glucose POC Glucose Lactic Acid 5.80 H* 3.80 H* 3.40 H* Calcium Phosphorus Magnesium AST ALT Ammonia Troponin T NT-Pro-B Natriuret Pep Total Protein Albumin TSH Urine WBC (Auto) 11/09/19 11/09/19 11/09/19 13:04 14:39 15:02 WBC RBC Hgb MCV MCH MCHC RDW Seg Neuts % (Manual) Lymphocytes % (Manual) Nucleated RBC % Seg Neutrophils # Man Lymphocytes # (Manual) PT INR APTT D-Dimer POC ABG pH 7.288 L ABG pH POC ABG pCO2 60.2 H POC ABG pO2 74 L ABG pO2 ABG HCO3 ABG O2 Saturation ABG Base Excess ABG Hemoglobin Oxyhemoglobin Sodium Potassium Chloride Carbon Dioxide BUN Glucose POC Glucose Lactic Acid 2.70 H* 3.20 H* Calcium Phosphorus Magnesium AST ALT Ammonia Troponin T NT-Pro-B Natriuret Pep Total Protein Albumin TSH Urine WBC (Auto) 11/09/19 11/09/19 11/10/19 17:34 20:14 04:57 WBC RBC Hgb MCV MCH MCHC RDW Seg Neuts % (Manual) Lymphocytes % (Manual) Nucleated RBC % Seg Neutrophils # Man Lymphocytes # (Manual) PT INR APTT D-Dimer POC ABG pH ABG pH POC ABG pCO2 52.4 H POC ABG pO2 72 L ABG pO2 71.6 L ABG HCO3 28.7 H ABG O2 Saturation ABG Base Excess 3.5 H ABG Hemoglobin 10.4 L Oxyhemoglobin 94.1 L Sodium Potassium Chloride Carbon Dioxide BUN Glucose POC Glucose Lactic Acid 2.60 H* Calcium Phosphorus Magnesium AST ALT Ammonia Troponin T NT-Pro-B Natriuret Pep Total Protein Albumin TSH Urine WBC (Auto) 11/10/19 11/10/19 11/11/19 06:50 06:50 03:55 WBC 12.1 H RBC Hgb MCV 98 H MCH MCHC RDW Seg Neuts % (Manual) 88.0 H Lymphocytes % (Manual) 1.0 L Nucleated RBC % Seg Neutrophils # Man 10.6 H Lymphocytes # (Manual) 0.1 L PT INR APTT D-Dimer POC ABG pH ABG pH POC ABG pCO2 POC ABG pO2 ABG pO2 ABG HCO3 ABG O2 Saturation ABG Base Excess ABG Hemoglobin Oxyhemoglobin Sodium Potassium Chloride Carbon Dioxide BUN 29 H 28 H Glucose 147 H 162 H POC Glucose Lactic Acid Calcium Phosphorus Magnesium AST 1150 H 559 H ALT 1199 H 998 H Ammonia Troponin T NT-Pro-B Natriuret Pep Total Protein Albumin 3.1 L 3.1 L TSH Urine WBC (Auto) 11/11/19 11/11/19 11/11/19 03:55 12:28 23:37 WBC RBC Hgb MCV 99 H MCH 33 H MCHC RDW Seg Neuts % (Manual) Lymphocytes % (Manual) Nucleated RBC % Seg Neutrophils # Man Lymphocytes # (Manual) PT INR APTT D-Dimer POC ABG pH ABG pH POC ABG pCO2 POC ABG pO2 ABG pO2 ABG HCO3 ABG O2 Saturation ABG Base Excess ABG Hemoglobin Oxyhemoglobin Sodium Potassium Chloride Carbon Dioxide BUN Glucose POC Glucose 136 H 140 H Lactic Acid Calcium Phosphorus Magnesium AST ALT Ammonia Troponin T NT-Pro-B Natriuret Pep Total Protein Albumin TSH Urine WBC (Auto) 11/12/19 11/12/19 11/12/19 05:10 06:30 06:30 WBC 11.5 H RBC Hgb MCV 100 H MCH 33 H MCHC RDW Seg Neuts % (Manual) Lymphocytes % (Manual) Nucleated RBC % Seg Neutrophils # Man Lymphocytes # (Manual) PT INR APTT D-Dimer POC ABG pH ABG pH POC ABG pCO2 POC ABG pO2 ABG pO2 ABG HCO3 ABG O2 Saturation ABG Base Excess -3.5 L ABG Hemoglobin 6.7 L Oxyhemoglobin Sodium Potassium Chloride Carbon Dioxide 20 L D BUN 26 H Glucose 125 H POC Glucose Lactic Acid Calcium 7.9 L Phosphorus Magnesium AST 151 H ALT 526 H Ammonia Troponin T NT-Pro-B Natriuret Pep Total Protein 5.2 L Albumin 2.4 L TSH Urine WBC (Auto) 11/12/19 11/12/19 11/12/19 08:03 09:23 10:33 WBC RBC Hgb MCV MCH MCHC RDW Seg Neuts % (Manual) Lymphocytes % (Manual) Nucleated RBC % Seg Neutrophils # Man Lymphocytes # (Manual) PT INR APTT D-Dimer POC ABG pH ABG pH POC ABG pCO2 POC ABG pO2 ABG pO2 ABG HCO3 ABG O2 Saturation ABG Base Excess ABG Hemoglobin Oxyhemoglobin Sodium > 179 H* D Potassium 2.7 L* D Chloride > 139 H Carbon Dioxide 20 L 18 L BUN 26 H 26 H Glucose 123 H 116 H POC Glucose 130 H Lactic Acid Calcium 8.1 L 8.0 L Phosphorus Magnesium AST 143 H 137 H ALT 523 H 518 H Ammonia Troponin T NT-Pro-B Natriuret Pep Total Protein 5.2 L 4.7 L Albumin 2.3 L 2.4 L TSH Urine WBC (Auto) 11/12/19 11/12/19 11/12/19 12:15 16:18 18:12 WBC RBC Hgb MCV MCH MCHC RDW Seg Neuts % (Manual) Lymphocytes % (Manual) Nucleated RBC % Seg Neutrophils # Man Lymphocytes # (Manual) PT INR APTT D-Dimer POC ABG pH ABG pH POC ABG pCO2 POC ABG pO2 ABG pO2 ABG HCO3 ABG O2 Saturation ABG Base Excess ABG Hemoglobin Oxyhemoglobin Sodium > 179 H* Potassium 2.9 L* Chloride > 139 H Carbon Dioxide 18 L BUN 24 H Glucose 198 H POC Glucose 122 H 209 H Lactic Acid Calcium Phosphorus 1.30 L Magnesium 2.60 H AST ALT Ammonia Troponin T NT-Pro-B Natriuret Pep Total Protein Albumin TSH Urine WBC (Auto) 11/13/19 11/13/19 11/13/19 04:04 05:30 05:32 WBC RBC Hgb MCV MCH MCHC RDW Seg Neuts % (Manual) Lymphocytes % (Manual) Nucleated RBC % Seg Neutrophils # Man Lymphocytes # (Manual) PT INR APTT D-Dimer POC ABG pH ABG pH 7.206 L POC ABG pCO2 POC ABG pO2 ABG pO2 75.0 L ABG HCO3 19.3 L ABG O2 Saturation 94.2 L ABG Base Excess -8.7 L ABG Hemoglobin 12.9 L Oxyhemoglobin 92.6 L Sodium Potassium Chloride Carbon Dioxide BUN Glucose POC Glucose 135 H 168 H Lactic Acid Calcium Phosphorus Magnesium AST ALT Ammonia Troponin T NT-Pro-B Natriuret Pep Total Protein Albumin TSH Urine WBC (Auto) 11/13/19 11/13/19 11/13/19 06:35 06:35 11:53 WBC 12.1 H RBC Hgb MCV 105 H MCH 33 H MCHC 31 L RDW 17.2 H Seg Neuts % (Manual) Lymphocytes % (Manual) Nucleated RBC % Seg Neutrophils # Man Lymphocytes # (Manual) PT INR APTT D-Dimer POC ABG pH ABG pH POC ABG pCO2 POC ABG pO2 ABG pO2 ABG HCO3 ABG O2 Saturation ABG Base Excess ABG Hemoglobin Oxyhemoglobin Sodium 172 H* Potassium 5.5 H D Chloride > 139 H Carbon Dioxide 18 L BUN 23 H Glucose 133 H POC Glucose 183 H Lactic Acid Calcium 8.2 L Phosphorus Magnesium AST 61 H ALT 390 H Ammonia Troponin T NT-Pro-B Natriuret Pep Total Protein 5.7 L D Albumin 2.2 L TSH Urine WBC (Auto)
[2019-11-13] MEDS: METOPROLOL TARTRATE 25 MG TAB PO SCH (13:07)
[2019-11-13 15:54] LABS: BUN/Creatinine Ratio 24; Blood Urea Nitrogen 22 mg/dL (9-20); Calcium 7.6 mg/dL (8.4-10.2); Hemolysis Index 7
[2019-11-13] MEDS: DESMOPRESSIN 4 MCG/ML VIAL IV SCH (21:45)
[2019-11-14] MEDS: NORepinephrine/NS 4 MG-250 ML 4 MG/250 ML BAG IV SCH ×8 (02:42→20:47)
[2019-11-14] MEDS: SODIUM CHLORIDE 0.45% 1000 ML 1,000 ML IV SCH (02:42)
[2019-11-14] MEDS: levETIRAcetam 1,000 MG in DEXTROSE 5% IN WATER 100 ML IV SCH ×3 (02:45→21:00)
--- NOTE | 2019-11-14 03:30 | XRay Report ---
CHEST 1 VIEW INDICATION: follow up respiratory failure. COMPARISON: 11/13/2019 FINDINGS: SUPPORT DEVICES: Endotracheal tubes in good position. Central venous line has tip in superior vena ca va. Nasogastric tube has tip below the diaphragm. HEART / MEDIASTINUM: No significant abnormality. LUNGS / PLEURA: Lung volumes are increased. Bronchovascular markings are prominent. No pneumothorax. ADDITIONAL FINDINGS: IMPRESSION: 1. No interval change as compared to previous exam Signer Name: Mike Kelley MD Signed: 11/14/2019 3:25 AM Workstation Name: [id number]
[2019-11-14 05:06] LABS: Hematocrit 38.3 % (35.5-45.6); Mean Corpuscular HGB Conc 31 % (32-34); Mean Corpuscular Volume 105 fl (84-94); Platelet Count 132 K/mm3 (140-440); Red Blood Count 3.66 M/mm3 (3.65-5.03); Red Cell Distribution Width 17.2 % (13.2-15.2)
[2019-11-14 05:16] LABS: ABG Base Excess -11.6 mmol/L (-2.0-3.0); ABG HCO3 12.7 mmol/L (20.0-26.0); ABG Methemoglobin 0.6 % (0.0-1.5); ABG Oxygen Saturation 99.2 % (95.0-99.0); ABG PCO2 25.2 mm Hg; ABG PH 7.321 pH Units (7.350-7.450); ABG PO2 194.5 mm Hg (80.0-90.0)
[2019-11-14 05:30] LABS: Alanine Aminotransferase 242 units/L (7-56); Albumin 1.7 g/dL (3.9-5); BUN/Creatinine Ratio 22; Blood Urea Nitrogen 22 mg/dL (9-20); Calcium 7.6 mg/dL (8.4-10.2); Hemolysis Index 12
[2019-11-14] MEDS: METOPROLOL TARTRATE 25 MG TAB PO SCH ×3 (07:37→21:01)
[2019-11-14] MEDS ORDERED: SODIUM BICARBONATE IV SCH (08:00)
[2019-11-14] MEDS ORDERED: D5W IV SCH (08:00)
[2019-11-14] MEDS: DOPamine/D5W 800 MG/250 ML 800 MG/250 ML BAG IV SCH (09:43)
[2019-11-14] MEDS: FAMOTIDINE 20 MG TAB PO SCH ×2 (10:04→21:02)
[2019-11-14] MEDS: DESMOPRESSIN 4 MCG/ML VIAL IV SCH ×2 (10:04→21:00)
[2019-11-14] MEDS: HEPARIN 5,000 UNIT/1 ML VIAL SUB-Q SCH ×2 (10:06→20:59)
--- NOTE | 2019-11-14 10:13 | Progress Note ---
Assessment and Plan 1. Hypernatremia: Acute increase in the Sodium level and associated polyuria. 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 Low Urine sp. gr and osmolality. Sodium level is improving with Desmopressin. Continue water flushes through NG tube. Monitor Sodium level. 2. FEN: Metabolic acidosis, IV bicarbonate drip. Hyperkalemia, monitor. On tube feeding. Monitor lytes. 3. S/p Cardiac arrest. 4. Shock: On Levophed and Dopamine. 5. Respiratory failure: On vent. 6. Anoxic encephalopathy. Prognosis is poor. Examination: General appearance: well-developed, appears stated age, intubated, on vent HEENT: ATNC, pupils are not reacting to light Neck: neck supple, trachea midline Respiratory: Clear to Ascultation Heart: regular, S1S2, no murmurs Gastrointestinal: soft, BS heard, not tender Integumentary: no rash, warm and dry Neurologic: not responding Ext: 1+ LE edema Subjective Date of service: 11/14/19 Principal diagnosis: Anoxic brain injury Interval history: Patient was seen and examined at the bedside. Objective - Vital Signs Vital signs: Vital Signs - 12hr 11/13/19 11/13/19 11/13/19 22:15 22:30 22:45 Temperature Pulse Rate 87 86 89 Pulse Rate [ From Monitor] Respiratory 24 23 24 Rate Blood Pressure 92/49 91/50 93/46 O2 Sat by Pulse 97 98 98 Oximetry 11/13/19 11/13/19 11/13/19 23:00 23:15 23:30 Temperature Pulse Rate 88 95 H 94 H Pulse Rate [ From Monitor] Respiratory 24 24 25 H Rate Blood Pressure 89/44 73/40 O2 Sat by Pulse 98 96 98 Oximetry 11/13/19 11/14/19 11/14/19 23:45 00:00 00:10 Temperature 94.2 F L Pulse Rate 90 99 H 93 H Pulse Rate [ 87 From Monitor] Respiratory 28 H 24 Rate Blood Pressure 88/47 87/51 94/52 O2 Sat by Pulse 98 97 98 Oximetry 11/14/19 11/14/19 11/14/19 00:15 00:30 00:45 Temperature Pulse Rate 93 H 94 H 93 H Pulse Rate [ From Monitor] Respiratory 24 23 24 Rate Blood Pressure 94/52 89/51 89/48 O2 Sat by Pulse 98 98 98 Oximetry 11/14/19 11/14/19 11/14/19 01:00 01:15 01:30 Temperature Pulse Rate 94 H 96 H 96 H Pulse Rate [ From Monitor] Respiratory 24 24 24 Rate Blood Pressure 88/47 89/47 87/51 O2 Sat by Pulse 97 97 97 Oximetry 11/14/19 11/14/19 11/14/19 01:45 02:00 02:15 Temperature Pulse Rate 96 H 97 H 99 H Pulse Rate [ From Monitor] Respiratory 24 24 24 Rate Blood Pressure 84/50 85/49 79/51 O2 Sat by Pulse 97 97 97 Oximetry 11/14/19 11/14/19 11/14/19 02:30 02:45 03:00 Temperature Pulse Rate 101 H 101 H 98 H Pulse Rate [ From Monitor] Respiratory 25 H 25 H 24 Rate Blood Pressure 80/53 81/52 93/54 O2 Sat by Pulse 97 97 96 Oximetry 11/14/19 11/14/19 11/14/19 03:15 03:30 03:45 Temperature Pulse Rate 127 H 114 H 111 H Pulse Rate [ From Monitor] Respiratory 24 24 24 Rate Blood Pressure 77/45 80/50 79/48 O2 Sat by Pulse 95 96 96 Oximetry 11/14/19 11/14/19 11/14/19 04:00 04:15 04:30 Temperature 100.1 F H Pulse Rate 109 H 107 H 109 H Pulse Rate [ 90 From Monitor] Respiratory 24 25 H 25 H Rate Blood Pressure 82/52 77/49 77/49 O2 Sat by Pulse 97 97 97 Oximetry 11/14/19 11/14/19 11/14/19 04:45 05:00 05:15 Temperature Pulse Rate 108 H 108 H 109 H Pulse Rate [ From Monitor] Respiratory 24 24 23 Rate Blood Pressure 80/54 85/53 81/54 O2 Sat by Pulse 97 97 97 Oximetry 11/14/19 11/14/19 11/14/19 05:30 05:45 06:00 Temperature Pulse Rate 108 H 108 H 108 H Pulse Rate [ From Monitor] Respiratory 24 24 25 H Rate Blood Pressure 82/54 81/54 82/47 O2 Sat by Pulse 97 97 97 Oximetry 11/14/19 11/14/19 11/14/19 06:15 06:30 06:45 Temperature Pulse Rate 108 H 108 H 108 H Pulse Rate [ From Monitor] Respiratory 25 H 24 23 Rate Blood Pressure 81/52 83/54 79/49 O2 Sat by Pulse 97 97 97 Oximetry 11/14/19 11/14/19 11/14/19 07:00 07:15 07:30 Temperature Pulse Rate 108 H 107 H 106 H Pulse Rate [ From Monitor] Respiratory 24 24 24 Rate Blood Pressure 82/53 81/51 85/54 O2 Sat by Pulse 97 97 97 Oximetry 11/14/19 11/14/19 11/14/19 07:45 08:00 08:15 Temperature 101.2 F H Pulse Rate 106 H 105 H 106 H Pulse Rate [ 105 H From Monitor] Respiratory 24 18 24 Rate Blood Pressure 78/52 76/49 78/52 O2 Sat by Pulse 97 97 97 Oximetry 11/14/19 11/14/19 11/14/19 08:30 08:45 08:55 Temperature Pulse Rate 105 H 104 H 102 H Pulse Rate [ From Monitor] Respiratory 23 24 Rate Blood Pressure 79/50 76/53 83/55 O2 Sat by Pulse 97 97 98 Oximetry 11/14/19 11/14/19 09:34 10:05 Temperature 99.8 F H Pulse Rate 102 H Pulse Rate [ From Monitor] Respiratory Rate Blood Pressure 103/48 O2 Sat by Pulse Oximetry - Lab 11/14/19 04:40 11/14/19 04:40 Most recent lab results ABG pH 7.321 pH Units (7.350-7.450) L 11/14/19 04:47 ABG pCO2 25.2 mm Hg 11/14/19 04:47 ABG pO2 194.5 mm Hg (80.0-90.0) H 11/14/19 04:47 ABG HCO3 12.7 mmol/L (20.0-26.0) L 11/14/19 04:47 ABG O2 Saturation 99.2 % (95.0-99.0) H 11/14/19 04:47 Calcium 7.6 mg/dL (8.4-10.2) L 11/14/19 04:40 Phosphorus 4.00 mg/dL (2.5-4.5) D 11/13/19 06:35 Magnesium 2.60 mg/dL (1.7-2.3) H 11/12/19 16:18 Urine Creatinine 20.0 mg/dL (0.1-20.0) 11/12/19 11:56 Urine Sodium 10 mmol/L 11/12/19 11:56 Medications & Allergies - Medications Allergies/Adverse Reactions: Allergies No Known Allergies Allergy (Unverified 11/09/19 07:15) unknown Home Medications: Home Medications Medication Instructions Recorded Confirmed Last Taken Type ALBUTEROL NEB's [Proventil 0.083% 1 neb IH Q6H 01/02/14 11/09/19 07/30/14 History NEBS] Albuterol Sulfate [Ventolin HFA] 2 puff IH QID PRN 01/02/14 11/09/19 01/02/14 08:[address] [Depakote] 500 mg PO BID 01/02/14 11/09/19 07/30/14 History Docusate Sodium [Colace] 100 mg PO BID 11/09/19 11/09/19 Unknown History Paliperidone Palmitate [Invega 156 mg IM QMONTH 11/09/19 11/09/19 11/04/19 History Sustenna] risperiDONE [RisperDAL] 3 mg PO BID 11/09/19 11/09/19 Unknown History Active Medications: Generic Name Dose Route Start Last Admin Trade Name Freq PRN Reason Stop Dose Admin Acetaminophen 650 mg 11/11/19 09:13 11/11/19 16:48 Tylenol PO 650 mg Q6H PRN Administration Pain, Mild (1-3)/TEMP > 100.4 Lipase/Protease/Amylase 1 each 11/10/19 13:48 Pancreera Newell 10,500 Unit FEEDTUBE PRN PRN For Clogged Feeding Tube Desmopressin Acetate 2 mcg 11/13/19 22:00 11/14/19 10:04 Ddavp IV 2 mcg Q12HR HAN Administration Famotidine 20 mg 11/11/19 10:00 11/14/19 10:04 Pepcid PO 20 mg BID HAN Administration Heparin Sodium (Porcine) 5,000 unit 11/10/19 10:00 11/13/19 21:45 Heparin SUB-Q 5,000 unit Q12HR HAN Administration Hydrophilic Ointment 1 applic 11/09/19 07:29 Vaseline Lip Therapy TP Q2HR PRN Dry Lips Norepinephrine 4 mg in 250 mls @ 22.5 mls/hr 11/09/19 07:00 11/14/19 09:01 Levophed Drip 4 Mg/Ns 250 Ml IV 30 mcg/min TITR HAN 112.5 mls/hr Titration Protocol 6 MCG/MIN Levetiracetam 1,000 mg/ 110 mls @ 400 mls/hr 11/10/19 22:00 11/14/19 10:04 Dextrose IV 400 mls/hr Q12HR HAN Administration Dopamine HCl/Dextrose 800 mg in 250 mls @ 3.188 mls/hr 11/11/19 18:00 11/14/19 09:43 Intropin Drip 800 Mg/D5w 250 Ml IV 1.25 mcg/kg/min TITR HAN 2 mls/hr Administration Protocol 2 MCG/KG/MIN Sodium Bicarbonate 100 meq/ 100 mls @ 125 mls/hr 11/14/19 08:00 11/14/19 08:36 Dextrose IV 125 mls/hr DIRECT HAN Administration Metoprolol Tartrate 25 mg 11/11/19 22:00 11/14/19 10:05 Metoprolol PO Not Given BID HAN Multi-Ingred Cream/Lotion/Oil/Oint 1 applic 11/09/19 07:29 11/13/19 18:26 Artificial Tears Ophth Oint OU 1 applic Q4HR PRN Administration Dry Eye(s) Simple Syrup 15 ml 11/10/19 13:48 Simple Syrup FEEDTUBE PRN PRN Hypoglycemia Simple Syrup 30 ml 11/10/19 13:48 Simple Syrup FEEDTUBE PRN PRN Hypoglycemia Sodium Bicarbonate 325 mg 11/10/19 13:48 Sodium Bicarbonate FEEDTUBE PRN PRN For Clogged Feeding Tube
--- NOTE | 2019-11-14 11:16 | Progress Note ---
Assessment and Plan Cultures Urine culture 11/09/19 no growth to date Sputum culture 11/09/19 no growth to date Blood culture 11/10/19 NGTD Assessment: 49 yo M PMHx schizophrenia admitted after cardiac arrest. Now with low grade temperatures 1. Low grade temperatures - Fevers likely reactive to cardiac arrest and potential central fevers from presumable anoxic brain injury. No evidence of infection on CXR, cultures negative thus far. 2. Cardiac arrest 3. Acute hypoxic respiratory failure - intubated 4. Schizophrenia Recs: - monitor off antibiotics Thank you for the consult, we will continue to follow. [facility] M: [phone] O: [phone] F: [phone] Subjective Date of service: 11/14/19 Principal diagnosis: Anoxic brain injury Interval history: Febrile, normal white count. Objective - Exam Narrative Exam: General intubated, sedated Eyes - PERRLA, EOM intact ENT - Moist mucous membranes, no lymphadenopathy Neck - No noticeable or palpable swelling, redness or rash around throat or on face Lymph Nodes - No lymphadenopathy Cardiovascular - RRR no m/r/g, no JVD, no carotid bruits Lungs - Clear to auscultation, no use of accessory muscles, no crackles or wheezes. Skin - No rashes, skin warm and dry, no erythematous areas Abdomen - Normal bowel sounds, abdomen soft and nontender Extremities - No edema, cyanosis or clubbing Musculoskeletal - 5/5 strength, normal range of motion, no swollen or erythematous joints. Neurological Sedated - Constitutional Vitals: Vital Signs Temp Pulse Resp BP Pulse Ox 99.8 F H 101 H 24 103/50 96 11/14/19 09:34 11/14/19 10:15 11/14/19 10:15 11/14/19 10:15 11/14/19 10:15 Temperature -Last 24 Hours Temperature 99.8 F Temperature 101.2 F Temperature 100.1 F Temperature 100.1 F Temperature 94.2 F Temperature 98.6 F Temperature 98.0 F Temperature 97.3 F Temperature 99.0 F - Labs CBC & Chem 7: 11/14/19 04:40 11/14/19 04:40 Labs: Abnormal lab results 11/13/19 11/13/19 11/13/19 Range/Units 11:53 15:17 17:58 MCV (84-94) fl MCH (28-32) pg MCHC (32-34) % RDW (13.2-15.2) % Plt Count (140-440) K/mm3 ABG pH (7.350-7.450) pH Units ABG pO2 (80.0-90.0) mm Hg ABG HCO3 (20.0-26.0) mmol/L ABG O2 Saturation (95.0-99.0) % ABG Base Excess (-2.0-3.0) mmol/L ABG Hemoglobin (14.0-18.0) gm/dl Sodium 164 H* (137-145) mmol/L Potassium (3.6-5.0) mmol/L Chloride 140.0 H (98-107) mmol/L Carbon Dioxide 14 L (22-30) mmol/L BUN 22 H (9-20) mg/dL Glucose 157 H (75-100) mg/dL POC Glucose 183 H 156 H (70-105) Calcium 7.6 L (8.4-10.2) mg/dL ALT (7-56) units/L Total Protein (6.3-8.2) g/dL Albumin (3.9-5) g/dL 11/14/19 11/14/19 11/14/19 Range/Units 00:36 04:40 04:40 MCV 105 H (84-94) fl MCH 33 H (28-32) pg MCHC 31 L (32-34) % RDW 17.2 H (13.2-15.2) % Plt Count 132 L (140-440) K/mm3 ABG pH (7.350-7.450) pH Units ABG pO2 (80.0-90.0) mm Hg ABG HCO3 (20.0-26.0) mmol/L ABG O2 Saturation (95.0-99.0) % ABG Base Excess (-2.0-3.0) mmol/L ABG Hemoglobin (14.0-18.0) gm/dl Sodium 158 H (137-145) mmol/L Potassium 5.5 H D (3.6-5.0) mmol/L Chloride 133.6 H (98-107) mmol/L Carbon Dioxide 14 L (22-30) mmol/L BUN 22 H (9-20) mg/dL Glucose 106 H (75-100) mg/dL POC Glucose 129 H (70-105) Calcium 7.6 L (8.4-10.2) mg/dL ALT 242 H (7-56) units/L Total Protein 5.0 L (6.3-8.2) g/dL Albumin 1.7 L (3.9-5) g/dL 11/14/19 Range/Units 04:47 MCV (84-94) fl MCH (28-32) pg MCHC (32-34) % RDW (13.2-15.2) % Plt Count (140-440) K/mm3 ABG pH 7.321 L (7.350-7.450) pH Units ABG pO2 194.5 H (80.0-90.0) mm Hg ABG HCO3 12.7 L (20.0-26.0) mmol/L ABG O2 Saturation 99.2 H (95.0-99.0) % ABG Base Excess -11.6 L (-2.0-3.0) mmol/L ABG Hemoglobin 12.6 L (14.0-18.0) gm/dl Sodium (137-145) mmol/L Potassium (3.6-5.0) mmol/L Chloride (98-107) mmol/L Carbon Dioxide (22-30) mmol/L BUN (9-20) mg/dL Glucose (75-100) mg/dL POC Glucose (70-105) Calcium (8.4-10.2) mg/dL ALT (7-56) units/L Total Protein (6.3-8.2) g/dL Albumin (3.9-5) g/dL
--- NOTE | 2019-11-14 12:33 | Progress Note ---
Assessment and Plan Assessment and plan: 49-year-old male brought in from [place] for cardiac arrest. Patient is being treated for schizophrenia at [place]. Patient was found face down in a shower room. EMS was called. Patient was found pulseless and apneic. ACLS protocol was initiated and patient was intubated by EMS prior to arrival. ACLS was continued in the emergency room. Patient was given epinephrine 5. Patient was persistently in asystole and briefly and PEA. In the emergency room patient regained pulse but was hypotensive. Patient was started on pressors in the emergency room, admitted. Cardiac arrest Admitted to ICU On Levophed but BP still low. Add Dopamine drip Fever due to SIRS Started on empiric Cefepime and IV Vancomycin ID consulted, following Anoxic encephalopathy I discussed with Dr. Thomas, neurology he says CT Head does have changes of anoxic encephalopathy MRI brain ordered, but not done yet Dr. Thomas recommended transfer to [facility] for EEG monitoring, I called [facility], they had no bed and they recommended to call back in few days. Discussed with Dr. Miller 01/13, and he states at this point transfer not recommended Acute metabolic encephalopathy Transaminitis and elevated Ammonia Shock Liver Hypernatremia Likely diabetic insipidus Na>179 on 11/12, now improved Nephrology following Elevated Ammonia level Resolved UTI (urinary tract infection) resolved Malnutrition Dietitian consulted DVT prophylaxis On Heparin and GI prophylaxis Prognosis very poor. No family available. The high probability of a clinically significant, sudden or life threatening deterioration of the [] system(s) required my full and direct attention, intervention and personal management. The aggregate critical care time was [32] minutes. This time is in addition to time spent performing reported procedures but includes the following: [x] Data Review and interpretation [x] Patient assessment and monitoring of vital signs [x] Documentation [x] Medication orders and management History Interval history: Patient had cardiac arrest at [facility] Unresponsive Hypothermia, put on warming blanket Hypotension, on levophed drip Hospitalist Physical - Physical exam Narrative exam: Gen: Not in acute distress, lying in bed, Intubated, HEENT: Normocephalic, atraumatic Neck: supple, no JVD Heart: S1 and S2 reg, no murmurs, rubs or gallop Lungs: clear to auscultation bilaterally, no crackles Abd: soft, NT, non distended, normal BS Ext: No edema, no clubbing, no cyanosis Neuro: Intubated, unresponsive, does not follow commands,comatose - Constitutional Vitals: Temp Pulse Resp BP Pulse Ox 99.8 F H 98 H 24 102/52 95 11/14/19 09:34 11/14/19 11:58 11/14/19 11:30 11/14/19 11:58 11/14/19 11:58 General appearance: Present: other (intubated, nonresponsive) Results - Labs CBC & Chem 7: 11/14/19 04:40 11/14/19 04:40 Labs: Laboratory Last Values WBC 10.9 K/mm3 (4.5-11.0) 11/14/19 04:40 RBC 3.66 M/mm3 (3.65-5.03) 11/14/19 04:40 Hgb 12.0 gm/dl (11.8-15.2) 11/14/19 04:40 Hct 38.3 % (35.5-45.6) 11/14/19 04:40 MCV 105 fl (84-94) H 11/14/19 04:40 MCH 33 pg (28-32) H 11/14/19 04:40 MCHC 31 % (32-34) L 11/14/19 04:40 RDW 17.2 % (13.2-15.2) H 11/14/19 04:40 Plt Count 132 K/mm3 (140-440) L 11/14/19 04:40 Add Manual Diff Complete 11/10/19 06:50 Total Counted 100 11/10/19 06:50 Seg Neutrophils % Primary Products Inspectors 11/10/19 06:50 Seg Neuts % (Manual) 88.0 % (40.0-70.0) H 11/10/19 06:50 Band Neutrophils % 10.0 % 11/10/19 06:50 Lymphocytes % (Manual) 1.0 % (13.4-35.0) L 11/10/19 06:50 Reactive Lymphs % (Man) 0 % 11/10/19 06:50 Monocytes % (Manual) 1.0 % (0.0-7.3) 11/10/19 06:50 Eosinophils % (Manual) 0 % (0.0-4.3) 11/10/19 06:50 Basophils % (Manual) 0 % (0.0-1.8) 11/10/19 06:50 Metamyelocytes % 0 % 11/10/19 06:50 Myelocytes % 0 % 11/10/19 06:50 Promyelocytes % 0 % 11/10/19 06:50 Blast Cells % 0 % 11/10/19 06:50 Nucleated RBC % Not Reportable 11/10/19 06:50 Seg Neutrophils # Man 10.6 K/mm3 (1.8-7.7) H 11/10/19 06:50 Band Neutrophils # 1.2 K/mm3 11/10/19 06:50 Lymphocytes # (Manual) 0.1 K/mm3 (1.2-5.4) L 11/10/19 06:50 Abs React Lymphs (Man) 0.0 K/mm3 11/10/19 06:50 Monocytes # (Manual) 0.1 K/mm3 (0.0-0.8) 11/10/19 06:50 Eosinophils # (Manual) 0.0 K/mm3 (0.0-0.4) 11/10/19 06:50 Basophils # (Manual) 0.0 K/mm3 (0.0-0.1) 11/10/19 06:50 Metamyelocytes # 0.0 K/mm3 11/10/19 06:50 Myelocytes # 0.0 K/mm3 11/10/19 06:50 Promyelocytes # 0.0 K/mm3 11/10/19 06:50 Blast Cells # 0.0 K/mm3 11/10/19 06:50 WBC Morphology Not Reportable 11/10/19 06:50 Hypersegmented Neuts Not Reportable 11/10/19 06:50 Hyposegmented Neuts Not Reportable 11/10/19 06:50 Hypogranular Neuts Not Reportable 11/10/19 06:50 Smudge Cells Not Reportable 11/10/19 06:50 Toxic Granulation Not Reportable 11/10/19 06:50 Toxic Vacuolation Not Reportable 11/10/19 06:50 Dohle Bodies Not Reportable 11/10/19 06:50 Pelger-Huet Anomaly Not Reportable 11/10/19 06:50 Emily Rods Not Reportable 11/10/19 06:50 Platelet Estimate Consistent w auto 11/10/19 06:50 Clumped Platelets Not Reportable 11/10/19 06:50 Plt Clumps, EDTA Not Reportable 11/10/19 06:50 Large Platelets Not Reportable 11/10/19 06:50 Giant Platelets Not Reportable 11/10/19 06:50 Platelet Satelliting Not Reportable 11/10/19 06:50 Plt Morphology Comment Not Reportable 11/10/19 06:50 RBC Morphology Normal 11/10/19 06:50 Dimorphic RBCs Not Reportable 11/10/19 06:50 Polychromasia Not Reportable 11/10/19 06:50 Hypochromasia Not Reportable 11/10/19 06:50 Poikilocytosis Not Reportable 11/10/19 06:50 Anisocytosis Not Reportable 11/10/19 06:50 Microcytosis Not Reportable 11/10/19 06:50 Macrocytosis Not Reportable 11/10/19 06:50 Spherocytes Not Reportable 11/10/19 06:50 Pappenheimer Bodies Not Reportable 11/10/19 06:50 Sickle Cells Not Reportable 11/10/19 06:50 Target Cells Not Reportable 11/10/19 06:50 Tear Drop Cells Not Reportable 11/10/19 06:50 Ovalocytes Not Reportable 11/10/19 06:50 Helmet Cells Not Reportable 11/10/19 06:50 Pacsual[place] Bodies Not Reportable 11/10/19 06:50 [place] Rings Not Reportable 11/10/19 06:50 [place] Cells Not Reportable 11/10/19 06:50 Bite Cells Not Reportable 11/10/19 06:50 Crenated Cell Not Reportable 11/10/19 06:50 Elliptocytes Not Reportable 11/10/19 06:50 Acanthocytes (Spur) Not Reportable 11/10/19 06:50 Rouleaux Not Reportable 11/10/19 06:50 Hemoglobin C Crystals Not Reportable 11/10/19 06:50 Schistocytes Not Reportable 11/10/19 06:50 Malaria parasites Not Reportable 11/10/19 06:50 Drake Bodies Not Reportable 11/10/19 06:50 Hem Pathologist Commnt No 11/10/19 06:50 PT 16.9 Sec. (12.2-14.9) H 11/09/19 06:24 INR 1.35 (0.87-1.13) H 11/09/19 06:24 APTT 50.7 Sec. (24.2-36.6) H 11/09/19 06:24 D-Dimer 4435.48 ng/mlDDU (0-234) H 11/09/19 06:24 POC ABG pH 7.432 (7.35-7.45) 11/11/19 03:33 ABG pH 7.321 pH Units (7.350-7.450) L 11/14/19 04:47 POC ABG pCO2 44.0 (35-45) 11/11/19 03:33 ABG pCO2 25.2 mm Hg 11/14/19 04:47 POC ABG pO2 94 (80-105) 11/11/19 03:33 ABG pO2 194.5 mm Hg (80.0-90.0) H 11/14/19 04:47 POC ABG HCO3 29.4 (22-26 mml/L) 11/11/19 03:33 ABG HCO3 12.7 mmol/L (20.0-26.0) L 11/14/19 04:47 POC ABG Total CO2 31 (23-27mmol/L) 11/11/19 03:33 POC ABG O2 Sat 97 11/11/19 03:33 ABG O2 Saturation 99.2 % (95.0-99.0) H 11/14/19 04:47 ABG O2 Content 17.6 (0.0-44) 11/14/19 04:47 POC ABG Base Excess 5 ((-2) - (+3)mmol/L) 11/11/19 03:33 ABG Base Excess -11.6 mmol/L (-2.0-3.0) L 11/14/19 04:47 ABG Hemoglobin 12.6 gm/dl (14.0-18.0) L 11/14/19 04:47 ABG Carboxyhemoglobin 1.0 % (0.0-5.0) 11/14/19 04:47 ABG Methemoglobin 0.6 % (0.0-1.5) 11/14/19 04:47 Oxyhemoglobin 97.6 % (95.0-99.0) 11/14/19 04:47 FiO2 35 % 11/14/19 04:47 Sodium 158 mmol/L (137-145) H 11/14/19 04:40 Potassium 5.5 mmol/L (3.6-5.0) H D 11/14/19 04:40 Chloride 133.6 mmol/L (98-107) H 11/14/19 04:40 Carbon Dioxide 14 mmol/L (22-30) L 11/14/19 04:40 Anion Gap 16 mmol/L 11/14/19 04:40 BUN 22 mg/dL (9-20) H 11/14/19 04:40 Creatinine 1.0 mg/dL (0.8-1.5) 11/14/19 04:40 Estimated GFR > 60 ml/min 11/14/19 04:40 BUN/Creatinine Ratio 22 % 11/14/19 04:40 Glucose 106 mg/dL (75-100) H 11/14/19 04:40 POC Glucose 183 (70-105) H 11/14/19 11:37 Osmolality 381 Mosm/kg 11/12/19 16:18 Lactic Acid 1.70 mmol/L (0.7-2.0) 11/09/19 20:02 Calcium 7.6 mg/dL (8.4-10.2) L 11/14/19 04:40 Phosphorus 4.00 mg/dL (2.5-4.5) D 11/13/19 06:35 Magnesium 2.60 mg/dL (1.7-2.3) H 11/12/19 16:18 Total Bilirubin < 0.20 mg/dL (0.1-1.2) 11/14/19 04:40 AST 34 units/L (5-40) 11/14/19 04:40 ALT 242 units/L (7-56) H 11/14/19 04:40 Alkaline Phosphatase 93 units/L (35-129) 11/14/19 04:40 Ammonia 42.0 umol/L (25-60) 11/10/19 14:56 Total Creatine Kinase 75 units/L (55-170) 11/09/19 06:24 CK-MB (CK-2) 3.0 ng/mL (0.0-4.0) 11/09/19 06:24 CK-MB (CK-2) Rel Index 4.0 (0-4) 11/09/19 06:24 Troponin T < 0.010 ng/mL (0.00-0.029) 11/11/19 03:55 NT-Pro-B Natriuret Pep 5052 pg/mL (0-450) H 11/09/19 06:24 Total Protein 5.0 g/dL (6.3-8.2) L 11/14/19 04:40 Albumin 1.7 g/dL (3.9-5) L 11/14/19 04:40 Albumin/Globulin Ratio 0.5 % 11/14/19 04:40 TSH 5.500 mlU/mL (0.270-4.200) H 11/09/19 06:24 Free T4 0.78 ng/dL (0.76-1.46) 11/09/19 06:24 Urine Color Straw (Yellow) 11/12/19 11:56 Urine Turbidity Clear (Clear) 11/12/19 11:56 Urine pH 6.0 (5.0-7.0) 11/12/19 11:56 Ur Specific [place] 1.003 (1.003-1.030) 11/12/19 11:56 Urine Protein <15 mg/dl mg/dL (Negative) 11/12/19 11:56 Urine Glucose (UA) Neg mg/dL (Negative) 11/12/19 11:56 Urine Ketones Neg mg/dL (Negative) 11/12/19 11:56 Urine Blood Sm (Negative) 11/12/19 11:56 Urine Nitrite Neg (Negative) 11/12/19 11:56 Urine Bilirubin Neg (Negative) 11/12/19 11:56 Urine Urobilinogen < 2.0 mg/dL (<2.0) 11/12/19 11:56 Ur Leukocyte Esterase Neg (Negative) 11/12/19 11:56 Urine WBC (Auto) 1.0 /HPF (0.0-6.0) 11/12/19 11:56 Urine RBC (Auto) < 1.0 /HPF (0.0-6.0) 11/12/19 11:56 U Epithel Cells (Auto) < 1.0 /HPF (0-13.0) 11/12/19 11:56 Urine Bacteria (Auto) 4+ /HPF (Negative) 11/09/19 07:24 Ur Transition Epith Cell 5 /HPF 11/09/19 07:24 Urine Mucus Few /HPF 11/12/19 11:56 Urine Osmolality 135 Mosm/kg 11/12/19 11:56 Urine Creatinine 20.0 mg/dL (0.1-20.0) 11/12/19 11:56 Urine Sodium 10 mmol/L 11/12/19 11:56 Urine Opiates Screen Presumptive negative 11/12/19 14:23 Urine Methadone Screen Presumptive negative 11/12/19 14:23 Ur Barbiturates Screen Presumptive negative 11/12/19 14:23 Valproic Acid 67.4 ug/mL (50-100) 11/09/19 06:39 Ur Phencyclidine Scrn Presumptive negative 11/12/19 14:23 Ur Amphetamines Screen Presumptive negative 11/12/19 14:23 U Benzodiazepines Scrn Presumptive negative 11/12/19 14:23 Urine Cocaine Screen Presumptive negative 11/12/19 14:23 U Marijuana (THC) Screen Presumptive negative 11/12/19 14:23 Drugs of Abuse Note Disclamer 11/12/19 14:23 Plasma/Serum Alcohol < 0.01 % (0-0.07) 11/09/19 06:39 Hepatitis A IgM Ab Non-reactive (NonReactive) 11/10/19 06:50 Hep Bs Antigen Non-reactive (Negative) 11/10/19 06:50 Hep B Core IgM Ab Non-reactive (NonReactive) 11/10/19 06:50 Hepatitis C Antibody Non-reactive (NonReactive) 11/10/19 06:50 Active Medications - Current Medications Current Medications: Generic Name Dose Route Start Last Admin Trade Name Freq PRN Reason Stop Dose Admin Acetaminophen 650 mg 11/11/19 09:13 11/11/19 16:48 Tylenol PO 650 mg Q6H PRN Administration Pain, Mild (1-3)/TEMP > 100.4 Lipase/Protease/Amylase 1 each 11/10/19 13:[address] 10,500 Unit FEEDTUBE PRN PRN For Clogged Feeding Tube Desmopressin Acetate 2 mcg 11/13/19 22:00 11/14/19 10:04 Ddavp IV 2 mcg Q12HR HAN Administration Famotidine 20 mg 11/11/19 10:00 11/14/19 10:04 Pepcid PO 20 mg BID HAN Administration Heparin Sodium (Porcine) 5,000 unit 11/10/19 10:00 11/14/19 10:06 Heparin SUB-Q 5,000 unit Q12HR HAN Administration Hydrophilic Ointment 1 applic 11/09/19 07:29 Vaseline Lip Therapy TP Q2HR PRN Dry Lips Norepinephrine 4 mg in 250 mls @ 22.5 mls/hr 11/09/19 07:00 11/14/19 11:15 Levophed Drip 4 Mg/Ns 250 Ml IV 24 mcg/min TITR HAN 90 mls/hr Administration Protocol 6 MCG/MIN Levetiracetam 1,000 mg/ 110 mls @ 400 mls/hr 11/10/19 22:00 11/14/19 10:04 Dextrose IV 400 mls/hr Q12HR HAN Administration Dopamine HCl/Dextrose 800 mg in 250 mls @ 3.188 mls/hr 11/11/19 18:00 12:01 Intropin Drip 800 Mg/D5w 250 Ml IV 2.51 mcg/kg/min TITR HAN 4 mls/hr Titration Protocol 2 MCG/KG/MIN Sodium Bicarbonate 100 meq/ 100 mls @ 125 mls/hr 11/14/19 08:00 11/14/19 08:36 Dextrose IV 125 mls/hr DIRECT HAN Administration Metoprolol Tartrate 25 mg 11/11/19 22:00 11/14/19 10:05 Metoprolol PO Not Given BID HAN Multi-Ingred Cream/Lotion/Oil/Oint 1 applic 11/09/19 07:29 11/13/19 18:26 Artificial Tears Ophth Oint OU 1 applic Q4HR PRN Administration Dry Eye(s) Simple Syrup 15 ml 11/10/19 13:48 Simple Syrup FEEDTUBE PRN PRN Hypoglycemia Simple Syrup 30 ml 11/10/19 13:48 Simple Syrup FEEDTUBE PRN PRN Hypoglycemia Sodium Bicarbonate 325 mg 11/10/19 13:48 Sodium Bicarbonate FEEDTUBE PRN PRN For Clogged Feeding Tube Nutrition/Malnutrition Assess - Dietary Evaluation Nutrition/Malnutrition Findings: Nutrition Notes Start: 11/10/19 11:42 Freq: Status: Active Protocol: Document 11/11/19 11:00 KS (Rec: 11/11/19 11:06 KS [id number]) Co-Sign 11/11/19 11:00 LP Nutrition Notes Initial or Follow up Reassessment Current Diagnosis Heart Failure,Respiratory Failure Other Pertinent Diagnosis Anoxic brain injury, Schizophrenia, UTI, Sepsis, Hepatic Encaphalopathy Current Diet Vital AF 1.2 at 70mL Labs/Tests BUN 28 Glu 162 Pertinent Medications Reviewed Height 5 ft 8 in Weight 85 kg [place] Body Weight (kg) 70.00 BMI 28.5 Subjective/Other Information Vital AF 1.2 observed running at 30mL/hr. Per RN, pt is tolerating TF. Percent of energy/protein needs met: 42%/53% Burn Absent Trauma Absent Current % PO Negligible Minimum of two criteria No physical signs of malnutrition #1 Nutrition Diagnosis Inadequate oral intake Diagnosis Progress(for reassessment Continues documentation) Is patient on ventilator? Yes Is Patient Ambulatory and/or Out of Bed No REE-([facility]-confined to bed) Calculation Used for Recommendations [facility] Additional Notes PRO: 102-170g/day (1.2-2g/kg/ day) Fluid: 1mL/kcal or per MD Nutrition Intervention Change Diet Order: Continue TF Nutrition Support: Vital AF 1.2 at 70mL/hr Flush 100mL q4h Kcal 2,016 Protein (gm) 126 Fluid (mL) 1,362 Goal #1 Tolerate TF Goal #2 Meet 75% of kcal and PRO needs via TF Anticipated Discharge Needs: Unable to determine at this time Follow-Up By: 11/15/19 Additional Comments F/U for TF tolerance
[2019-11-14 16:42] LABS: BUN/Creatinine Ratio 21; Blood Urea Nitrogen 25 mg/dL (9-20); Calcium 7.6 mg/dL (8.4-10.2); Hemolysis Index 22
[2019-11-14] MEDS: SODIUM BICARBONATE 100 MEQ in DEXTROSE 5% IN WATER 1,000 ML IV SCH (19:36)
[2019-11-15] MEDS: NORepinephrine/NS 4 MG-250 ML 4 MG/250 ML BAG IV SCH ×7 (00:11→22:52)
--- NOTE | 2019-11-15 00:15 | Progress Note ---
Assessment and Plan Imp: 1. s/p CP arrest 2. Anoxic enceph. with cerebral edema 3. ? Brain 4. Acute respiratory failure, hypoxia 5. Dilated cardiomyopathy 6. Neurogenic DI 7. Hypernatremia 8. NAGMA, hyperchloremic 9. Thrombocytopenia Rec: 1. Patient apneic on PSV with no cough/gag on suctioning; I am not convinced that he is not brain ; recommend neurology re-eval and consider brain flow study; agree with ethics consult given no family members and dismal prognosis (needs to be AND) 2. On DDAVP per renal; changed to bicarb drip 3. Wean pressors to keep MAP > 65 4. TFs, GI/DVT PPx; supportic care 5. Dismal prognosis per above No family present; CCt 31 minutes Subjective Date of service: 11/14/19 Principal diagnosis: Anoxic brain injury Interval history: No events. On pressors. Placed on PSV by me -> apneic. Unresponsive. No cough/gag with suction. Active Medications Acetaminophen (Tylenol) 650 mg PO Q6H PRN PRN Reason: Pain, Mild (1-3)/TEMP > 100.4 Last Admin: 11/11/19 16:48 Dose: 650 mg Documented by: Lipase/Protease/Amylase (Pancreaze Dr 10,500 Unit) 1 each FEEDTUBE PRN PRN PRN Reason: For Clogged Feeding Tube Desmopressin Acetate (Ddavp) 2 mcg IV Q12HR [facility] Last Admin: 11/14/19 21:00 Dose: 2 mcg Documented by: Famotidine (Pepcid) 20 mg PO BID [facility] Last Admin: 11/14/19 21:02 Dose: 20 mg Documented by: Heparin Sodium (Porcine) (Heparin) 5,000 unit SUB-Q Q12HR [facility] Last Admin: 11/14/19 20:59 Dose: 5,000 unit Documented by: Hydrophilic Ointment (Vaseline Lip Therapy) 1 applic TP Q2HR PRN PRN Reason: Dry Lips Norepinephrine (Levophed Drip 4 Mg/Ns 250 Ml) 4 mg in 250 mls @ 22.5 mls/hr IV TITR [facility]; Protocol Last Admin: 11/15/19 06:41 Dose: 18 mcg/min, 67.5 mls/hr Documented by: Levetiracetam 1,000 mg/ (Dextrose) 110 mls @ 400 mls/hr IV Q12HR [facility] Last Admin: 11/14/19 21:00 Dose: 400 mls/hr Documented by: Dopamine HCl/Dextrose (Intropin Drip 800 Mg/D5w 250 Ml) 800 mg in 250 mls @ 3.188 mls/hr IV TITR [facility]; Protocol Last Titration: 11/14/19 12:01 Dose: 2.51 mcg/kg/min, 4 mls/hr Documented by: Sodium Bicarbonate 100 meq/ (Dextrose) 1,100 mls @ 125 mls/hr IV DIRECT [facility] Last Admin: 11/15/19 05:16 Dose: 125 mls/hr Documented by: Metoprolol Tartrate (Metoprolol) 25 mg PO BID [facility] Last Admin: 11/14/19 21:01 Dose: Not Given Documented by: Multi-Ingred Cream/Lotion/Oil/Oint (Artificial Tears Ophth Oint) 1 applic OU Q4HR PRN PRN Reason: Dry Eye(s) Last Admin: 11/13/19 18:26 Dose: 1 applic Documented by: Simple Syrup (Simple Syrup) 15 ml FEEDTUBE PRN PRN PRN Reason: Hypoglycemia Simple Syrup (Simple Syrup) 30 ml FEEDTUBE PRN PRN PRN Reason: Hypoglycemia Sodium Bicarbonate (Sodium Bicarbonate) 325 mg FEEDTUBE PRN PRN PRN Reason: For Clogged Feeding Tube Objective Vital Signs - 12hr 11/14/19 11/14/19 11/14/19 12:15 12:30 12:45 Temperature Pulse Rate 101 H 103 H 103 H Pulse Rate [ From Monitor] Respiratory 24 24 24 Rate Blood Pressure 90/51 88/52 85/52 O2 Sat by Pulse 90 90 91 Oximetry 11/14/19 11/14/19 11/14/19 13:00 13:15 13:30 Temperature Pulse Rate 103 H 103 H 101 H Pulse Rate [ From Monitor] Respiratory 24 24 24 Rate Blood Pressure 92/56 98/59 100/58 O2 Sat by Pulse 91 92 94 Oximetry 11/14/19 11/14/19 11/14/19 13:45 14:00 14:15 Temperature Pulse Rate 101 H 100 H 101 H Pulse Rate [ From Monitor] Respiratory 24 24 24 Rate Blood Pressure 108/57 101/59 103/61 O2 Sat by Pulse 91 90 89 Oximetry 11/14/19 11/14/19 11/14/19 14:30 14:45 15:00 Temperature Pulse Rate 99 H 99 H 98 H Pulse Rate [ From Monitor] Respiratory 24 24 24 Rate Blood Pressure 98/59 121/62 128/64 O2 Sat by Pulse 91 92 Oximetry 11/14/19 11/14/19 11/14/19 15:15 15:30 15:45 Temperature Pulse Rate 97 H 96 H 96 H Pulse Rate [ From Monitor] Respiratory 24 24 24 Rate Blood Pressure 122/60 121/59 121/57 O2 Sat by Pulse 91 93 Oximetry 11/14/19 11/14/19 11/14/19 16:00 16:15 16:30 Temperature 98.2 F Pulse Rate 96 H 96 H 119 H Pulse Rate [ 96 H From Monitor] Respiratory 24 24 24 Rate Blood Pressure 125/65 127/64 114/57 O2 Sat by Pulse 93 Oximetry 11/14/19 11/14/19 11/14/19 16:45 17:00 17:16 Temperature Pulse Rate 102 H 95 H 106 H Pulse Rate [ From Monitor] Respiratory 24 24 20 Rate Blood Pressure 123/59 120/61 71/39 O2 Sat by Pulse 91 91 93 Oximetry 11/14/19 11/14/19 11/14/19 17:20 17:30 17:45 Temperature Pulse Rate 96 H 92 H 111 H Pulse Rate [ From Monitor] Respiratory 24 17 Rate Blood Pressure 125/70 109/62 99/66 O2 Sat by Pulse 98 91 97 Oximetry 11/14/19 11/14/19 11/14/19 18:00 18:15 18:30 Temperature Pulse Rate 93 H 90 93 H Pulse Rate [ From Monitor] Respiratory 24 24 25 H Rate Blood Pressure 122/63 131/68 116/57 O2 Sat by Pulse 92 92 94 Oximetry 11/14/19 11/14/19 11/14/19 18:45 19:00 19:15 Temperature Pulse Rate 91 H 92 H 91 H Pulse Rate [ 96 H From Monitor] Respiratory 23 23 24 Rate Blood Pressure 121/62 105/57 120/63 O2 Sat by Pulse 91 93 Oximetry 11/14/19 11/14/19 11/14/19 19:30 19:45 19:57 Temperature 98.6 F Pulse Rate 90 89 Pulse Rate [ From Monitor] Respiratory 26 H 24 Rate Blood Pressure 118/63 133/70 O2 Sat by Pulse Oximetry 11/14/19 11/14/19 11/14/19 20:00 20:15 20:30 Temperature Pulse Rate 89 88 94 H Pulse Rate [ From Monitor] Respiratory 23 24 14 Rate Blood Pressure 134/72 131/71 133/70 O2 Sat by Pulse 93 93 Oximetry 11/14/19 11/14/19 11/14/19 20:45 21:00 21:01 Temperature Pulse Rate 91 H 90 90 Pulse Rate [ 90 From Monitor] Respiratory 24 24 Rate Blood Pressure 135/70 107/57 107/57 O2 Sat by Pulse 93 Oximetry 11/14/19 11/14/19 11/14/19 21:15 21:30 21:45 Temperature Pulse Rate 94 H 80 80 Pulse Rate [ From Monitor] Respiratory 24 24 24 Rate Blood Pressure 109/61 100/59 99/57 O2 Sat by Pulse 94 94 96 Oximetry 11/14/19 11/14/19 11/14/19 22:00 22:15 22:30 Temperature Pulse Rate 83 84 98 H Pulse Rate [ From Monitor] Respiratory 24 24 24 Rate Blood Pressure 109/64 114/67 88/44 O2 Sat by Pulse 96 Oximetry 11/14/19 11/14/19 11/14/19 22:46 23:00 23:15 Temperature Pulse Rate 93 H 89 84 Pulse Rate [ From Monitor] Respiratory 24 24 24 Rate Blood Pressure 151/84 127/77 122/71 O2 Sat by Pulse 93 96 95 Oximetry 11/14/19 11/14/19 11/14/19 23:25 23:27 23:30 Temperature Pulse Rate 83 84 83 Pulse Rate [ 90 From Monitor] Respiratory 22 24 Rate Blood Pressure 127/77 108/63 O2 Sat by Pulse 93 98 Oximetry 11/14/19 11/14/19 23:45 23:53 Temperature 98.3 F Pulse Rate 83 Pulse Rate [ From Monitor] Respiratory 24 Rate Blood Pressure 119/64 O2 Sat by Pulse 94 Oximetry Constitutional: comatose, other (not on sedation) Eyes: non-icteric ENT: oropharynx moist, other (orally intubated and critically ill on vent) Neck: supple Effort: normal Ascultation: Bilateral: other (coarse BS bilaterally) Cardiovascular: regular rate and rhythm (no mrg) Gastrointestinal: normoactive bowel sounds, soft, non-tender, other (distended, + BS, NT) Integumentary: normal Extremities: no cyanosis, no edema, pink and warm Neurologic: other (unresponsive, eyes closed, no cough/gag, apneic on PSV) Psychiatric: other (unable to assess) CBC and BMP: 11/15/19 04:16 11/15/19 Unknown ABG, PT/INR, D-dimer: ABG POC ABG pH 7.432 (7.35-7.45) 11/11/19 03:33 ABG pH 7.321 pH Units (7.350-7.450) L 11/14/19 04:47 POC ABG pCO2 44.0 (35-45) 11/11/19 03:33 ABG pCO2 25.2 mm Hg 11/14/19 04:47 POC ABG pO2 94 (80-105) 11/11/19 03:33 ABG pO2 194.5 mm Hg (80.0-90.0) H 11/14/19 04:47 POC ABG HCO3 29.4 (22-26 mml/L) 11/11/19 03:33 POC ABG Total CO2 31 (23-27mmol/L) 11/11/19 03:33 POC ABG O2 Sat 97 11/11/19 03:33 ABG O2 Saturation 99.2 % (95.0-99.0) H 11/14/19 04:47 PT/INR, D-dimer PT 16.9 Sec. (12.2-14.9) H 11/09/19 06:24 INR 1.35 (0.87-1.13) H 11/09/19 06:24 D-Dimer 4435.48 ng/mlDDU (0-234) H 11/09/19 06:24 Abnormal lab findings: Abnormal Labs 11/09/19 11/09/19 11/09/19 06:24 06:24 06:24 WBC RBC 3.54 L Hgb 11.7 L MCV 103 H MCH 33 H MCHC RDW Plt Count Seg Neuts % (Manual) Lymphocytes % (Manual) Nucleated RBC % 1.0 H Seg Neutrophils # Man Lymphocytes # (Manual) PT 16.9 H INR 1.35 H APTT 50.7 H D-Dimer 4435.48 H POC ABG pH ABG pH POC ABG pCO2 POC ABG pO2 ABG pO2 ABG HCO3 ABG O2 Saturation ABG Base Excess ABG Hemoglobin Oxyhemoglobin Sodium Potassium Chloride Carbon Dioxide BUN 23 H Glucose 122 H POC Glucose Lactic Acid Calcium 8.3 L Phosphorus Magnesium AST 355 H ALT 340 H Ammonia Troponin T 0.039 H NT-Pro-B Natriuret Pep 5052 H Total Protein 5.6 L Albumin 2.9 L TSH Urine WBC (Auto) 11/09/19 11/09/19 11/09/19 06:24 06:24 06:24 WBC RBC Hgb MCV MCH MCHC RDW Plt Count Seg Neuts % (Manual) Lymphocytes % (Manual) Nucleated RBC % Seg Neutrophils # Man Lymphocytes # (Manual) PT INR APTT D-Dimer POC ABG pH ABG pH POC ABG pCO2 POC ABG pO2 ABG pO2 ABG HCO3 ABG O2 Saturation ABG Base Excess ABG Hemoglobin Oxyhemoglobin Sodium Potassium Chloride Carbon Dioxide BUN Glucose POC Glucose Lactic Acid Calcium Phosphorus Magnesium 2.70 H AST ALT Ammonia 101.0 H Troponin T NT-Pro-B Natriuret Pep Total Protein Albumin TSH 5.500 H Urine WBC (Auto) 11/09/19 11/09/19 11/09/19 06:24 06:51 07:24 WBC RBC Hgb MCV MCH MCHC RDW Plt Count Seg Neuts % (Manual) Lymphocytes % (Manual) Nucleated RBC % Seg Neutrophils # Man Lymphocytes # (Manual) PT INR APTT D-Dimer POC ABG pH ABG pH POC ABG pCO2 POC ABG pO2 ABG pO2 ABG HCO3 ABG O2 Saturation ABG Base Excess ABG Hemoglobin Oxyhemoglobin Sodium Potassium Chloride Carbon Dioxide BUN Glucose POC Glucose Lactic Acid 8.80 H* 9.80 H* Calcium Phosphorus Magnesium AST ALT Ammonia Troponin T NT-Pro-B Natriuret Pep Total Protein Albumin TSH Urine WBC (Auto) 83.0 H 11/09/19 11/09/19 11/09/19 07:27 08:10 08:32 WBC RBC Hgb MCV MCH MCHC RDW Plt Count Seg Neuts % (Manual) Lymphocytes % (Manual) Nucleated RBC % Seg Neutrophils # Man Lymphocytes # (Manual) PT INR APTT D-Dimer POC ABG pH 7.145 L ABG pH POC ABG pCO2 POC ABG pO2 380 H ABG pO2 ABG HCO3 ABG O2 Saturation ABG Base Excess ABG Hemoglobin Oxyhemoglobin Sodium Potassium Chloride Carbon Dioxide BUN Glucose POC Glucose Lactic Acid 10.20 H* 6.50 H* Calcium Phosphorus Magnesium AST ALT Ammonia Troponin T NT-Pro-B Natriuret Pep Total Protein Albumin TSH Urine WBC (Auto) 11/09/19 11/09/19 11/09/19 09:27 10:30 12:11 WBC RBC Hgb MCV MCH MCHC RDW Plt Count Seg Neuts % (Manual) Lymphocytes % (Manual) Nucleated RBC % Seg Neutrophils # Man Lymphocytes # (Manual) PT INR APTT D-Dimer POC ABG pH ABG pH POC ABG pCO2 POC ABG pO2 ABG pO2 ABG HCO3 ABG O2 Saturation ABG Base Excess ABG Hemoglobin Oxyhemoglobin Sodium Potassium Chloride Carbon Dioxide BUN Glucose POC Glucose Lactic Acid 5.80 H* 3.80 H* 3.40 H* Calcium Phosphorus Magnesium AST ALT Ammonia Troponin T NT-Pro-B Natriuret Pep Total Protein Albumin TSH Urine WBC (Auto) 11/09/19 11/09/19 11/09/19 13:04 14:39 15:02 WBC RBC Hgb MCV MCH MCHC RDW Plt Count Seg Neuts % (Manual) Lymphocytes % (Manual) Nucleated RBC % Seg Neutrophils # Man Lymphocytes # (Manual) PT INR APTT D-Dimer POC ABG pH 7.288 L ABG pH POC ABG pCO2 60.2 H POC ABG pO2 74 L ABG pO2 ABG HCO3 ABG O2 Saturation ABG Base Excess ABG Hemoglobin Oxyhemoglobin Sodium Potassium Chloride Carbon Dioxide BUN Glucose POC Glucose Lactic Acid 2.70 H* 3.20 H* Calcium Phosphorus Magnesium AST ALT Ammonia Troponin T NT-Pro-B Natriuret Pep Total Protein Albumin TSH Urine WBC (Auto) 11/09/19 11/09/19 11/10/19 17:34 20:14 04:57 WBC RBC Hgb MCV MCH MCHC RDW Plt Count Seg Neuts % (Manual) Lymphocytes % (Manual) Nucleated RBC % Seg Neutrophils # Man Lymphocytes # (Manual) PT INR APTT D-Dimer POC ABG pH ABG pH POC ABG pCO2 52.4 H POC ABG pO2 72 L ABG pO2 71.6 L ABG HCO3 28.7 H ABG O2 Saturation ABG Base Excess 3.5 H ABG Hemoglobin 10.4 L Oxyhemoglobin 94.1 L Sodium Potassium Chloride Carbon Dioxide BUN Glucose POC Glucose Lactic Acid 2.60 H* Calcium Phosphorus Magnesium AST ALT Ammonia Troponin T NT-Pro-B Natriuret Pep Total Protein Albumin TSH Urine WBC (Auto) 11/10/19 11/10/19 11/11/19 06:50 06:50 03:55 WBC 12.1 H RBC Hgb MCV 98 H MCH MCHC RDW Plt Count Seg Neuts % (Manual) 88.0 H Lymphocytes % (Manual) 1.0 L Nucleated RBC % Seg Neutrophils # Man 10.6 H Lymphocytes # (Manual) 0.1 L PT INR APTT D-Dimer POC ABG pH ABG pH POC ABG pCO2 POC ABG pO2 ABG pO2 ABG HCO3 ABG O2 Saturation ABG Base Excess ABG Hemoglobin Oxyhemoglobin Sodium Potassium Chloride Carbon Dioxide BUN 29 H 28 H Glucose 147 H 162 H POC Glucose Lactic Acid Calcium Phosphorus Magnesium AST 1150 H 559 H ALT 1199 H 998 H Ammonia Troponin T NT-Pro-B Natriuret Pep Total Protein Albumin 3.1 L 3.1 L TSH Urine WBC (Auto) 11/11/19 11/11/19 11/11/19 03:55 12:28 23:37 WBC RBC Hgb MCV 99 H MCH 33 H MCHC RDW Plt Count Seg Neuts % (Manual) Lymphocytes % (Manual) Nucleated RBC % Seg Neutrophils # Man Lymphocytes # (Manual) PT INR APTT D-Dimer POC ABG pH ABG pH POC ABG pCO2 POC ABG pO2 ABG pO2 ABG HCO3 ABG O2 Saturation ABG Base Excess ABG Hemoglobin Oxyhemoglobin Sodium Potassium Chloride Carbon Dioxide BUN Glucose POC Glucose 136 H 140 H Lactic Acid Calcium Phosphorus Magnesium AST ALT Ammonia Troponin T NT-Pro-B Natriuret Pep Total Protein Albumin TSH Urine WBC (Auto) 11/12/19 11/12/19 11/12/19 05:10 06:30 06:30 WBC 11.5 H RBC Hgb MCV 100 H MCH 33 H MCHC RDW Plt Count Seg Neuts % (Manual) Lymphocytes % (Manual) Nucleated RBC % Seg Neutrophils # Man Lymphocytes # (Manual) PT INR APTT D-Dimer POC ABG pH ABG pH POC ABG pCO2 POC ABG pO2 ABG pO2 ABG HCO3 ABG O2 Saturation ABG Base Excess -3.5 L ABG Hemoglobin 6.7 L Oxyhemoglobin Sodium Potassium Chloride Carbon Dioxide 20 L D BUN 26 H Glucose 125 H POC Glucose Lactic Acid Calcium 7.9 L Phosphorus Magnesium AST 151 H ALT 526 H Ammonia Troponin T NT-Pro-B Natriuret Pep Total Protein 5.2 L Albumin 2.4 L TSH Urine WBC (Auto) 11/12/19 11/12/19 11/12/19 08:03 09:23 10:33 WBC RBC Hgb MCV MCH MCHC RDW Plt Count Seg Neuts % (Manual) Lymphocytes % (Manual) Nucleated RBC % Seg Neutrophils # Man Lymphocytes # (Manual) PT INR APTT D-Dimer POC ABG pH ABG pH POC ABG pCO2 POC ABG pO2 ABG pO2 ABG HCO3 ABG O2 Saturation ABG Base Excess ABG Hemoglobin Oxyhemoglobin Sodium > 179 H* D Potassium 2.7 L* D Chloride > 139 H Carbon Dioxide 20 L 18 L BUN 26 H 26 H Glucose 123 H 116 H POC Glucose 130 H Lactic Acid Calcium 8.1 L 8.0 L Phosphorus Magnesium AST 143 H 137 H ALT 523 H 518 H Ammonia Troponin T NT-Pro-B Natriuret Pep Total Protein 5.2 L 4.7 L Albumin 2.3 L 2.4 L TSH Urine WBC (Auto) 11/12/19 11/12/19 11/12/19 12:15 16:18 18:12 WBC RBC Hgb MCV MCH MCHC RDW Plt Count Seg Neuts % (Manual) Lymphocytes % (Manual) Nucleated RBC % Seg Neutrophils # Man Lymphocytes # (Manual) PT INR APTT D-Dimer POC ABG pH ABG pH POC ABG pCO2 POC ABG pO2 ABG pO2 ABG HCO3 ABG O2 Saturation ABG Base Excess ABG Hemoglobin Oxyhemoglobin Sodium > 179 H* Potassium 2.9 L* Chloride > 139 H Carbon Dioxide 18 L BUN 24 H Glucose 198 H POC Glucose 122 H 209 H Lactic Acid Calcium Phosphorus 1.30 L Magnesium 2.60 H AST ALT Ammonia Troponin T NT-Pro-B Natriuret Pep Total Protein Albumin TSH Urine WBC (Auto) 11/13/19 11/13/19 11/13/19 04:04 05:30 05:32 WBC RBC Hgb MCV MCH MCHC RDW Plt Count Seg Neuts % (Manual) Lymphocytes % (Manual) Nucleated RBC % Seg Neutrophils # Man Lymphocytes # (Manual) PT INR APTT D-Dimer POC ABG pH ABG pH 7.206 L POC ABG pCO2 POC ABG pO2 ABG pO2 75.0 L ABG HCO3 19.3 L ABG O2 Saturation 94.2 L ABG Base Excess -8.7 L ABG Hemoglobin 12.9 L Oxyhemoglobin 92.6 L Sodium Potassium Chloride Carbon Dioxide BUN Glucose POC Glucose 135 H 168 H Lactic Acid Calcium Phosphorus Magnesium AST ALT Ammonia Troponin T NT-Pro-B Natriuret Pep Total Protein Albumin TSH Urine WBC (Auto) 11/13/19 11/13/19 11/13/19 06:35 06:35 11:53 WBC 12.1 H RBC Hgb MCV 105 H MCH 33 H MCHC 31 L RDW 17.2 H Plt Count Seg Neuts % (Manual) Lymphocytes % (Manual) Nucleated RBC % Seg Neutrophils # Man Lymphocytes # (Manual) PT INR APTT D-Dimer POC ABG pH ABG pH POC ABG pCO2 POC ABG pO2 ABG pO2 ABG HCO3 ABG O2 Saturation ABG Base Excess ABG Hemoglobin Oxyhemoglobin Sodium 172 H* Potassium 5.5 H D Chloride > 139 H Carbon Dioxide 18 L BUN 23 H Glucose 133 H POC Glucose 183 H Lactic Acid Calcium 8.2 L Phosphorus Magnesium AST 61 H ALT 390 H Ammonia Troponin T NT-Pro-B Natriuret Pep Total Protein 5.7 L D Albumin 2.2 L TSH Urine WBC (Auto) 11/13/19 11/13/19 11/14/19 15:17 17:58 00:36 WBC RBC Hgb MCV MCH MCHC RDW Plt Count Seg Neuts % (Manual) Lymphocytes % (Manual) Nucleated RBC % Seg Neutrophils # Man Lymphocytes # (Manual) PT INR APTT D-Dimer POC ABG pH ABG pH POC ABG pCO2 POC ABG pO2 ABG pO2 ABG HCO3 ABG O2 Saturation ABG Base Excess ABG Hemoglobin Oxyhemoglobin Sodium 164 H* Potassium Chloride 140.0 H Carbon Dioxide 14 L BUN 22 H Glucose 157 H POC Glucose 156 H 129 H Lactic Acid Calcium 7.6 L Phosphorus Magnesium AST ALT Ammonia Troponin T NT-Pro-B Natriuret Pep Total Protein Albumin TSH Urine WBC (Auto) 11/14/19 11/14/19 11/14/19 04:40 04:40 04:47 WBC RBC Hgb MCV 105 H MCH 33 H MCHC 31 L RDW 17.2 H Plt Count 132 L Seg Neuts % (Manual) Lymphocytes % (Manual) Nucleated RBC % Seg Neutrophils # Man Lymphocytes # (Manual) PT INR APTT D-Dimer POC ABG pH ABG pH 7.321 L POC ABG pCO2 POC ABG pO2 ABG pO2 194.5 H ABG HCO3 12.7 L ABG O2 Saturation 99.2 H ABG Base Excess -11.6 L ABG Hemoglobin 12.6 L Oxyhemoglobin Sodium 158 H Potassium 5.5 H D Chloride 133.6 H Carbon Dioxide 14 L BUN 22 H Glucose 106 H POC Glucose Lactic Acid Calcium 7.6 L Phosphorus Magnesium AST ALT 242 H Ammonia Troponin T NT-Pro-B Natriuret Pep Total Protein 5.0 L Albumin 1.7 L TSH Urine WBC (Auto) 11/14/19 11/14/19 11:37 16:12 WBC RBC Hgb MCV MCH MCHC RDW Plt Count Seg Neuts % (Manual) Lymphocytes % (Manual) Nucleated RBC % Seg Neutrophils # Man Lymphocytes # (Manual) PT INR APTT D-Dimer POC ABG pH ABG pH POC ABG pCO2 POC ABG pO2 ABG pO2 ABG HCO3 ABG O2 Saturation ABG Base Excess ABG Hemoglobin Oxyhemoglobin Sodium 153 H Potassium Chloride 130.5 H Carbon Dioxide 15 L BUN 25 H Glucose 166 H POC Glucose 183 H Lactic Acid Calcium 7.6 L Phosphorus Magnesium AST ALT Ammonia Troponin T NT-Pro-B Natriuret Pep Total Protein Albumin TSH Urine WBC (Auto) Chest x-ray: report reviewed, image reviewed CT scan - chest: report reviewed, image reviewed
--- NOTE | 2019-11-15 02:41 | XRay Report ---
CHEST 1 VIEW INDICATION: follow up respiratory failure. COMPARISON: 11/14/2019 FINDINGS: SUPPORT DEVICES: Endotracheal tubes in good position. Central venous line is tip in superior vena cav a. Nasogastric tube has tip below diaphragm. HEART / MEDIASTINUM: No significant abnormality. LUNGS / PLEURA: Bronchovascular markings remain prominent but unchanged as compared to previous exam No significant pulmonary or pleural abnormality. No pneumothorax. ADDITIONAL FINDINGS: IMPRESSION: 1. No acute findings. Signer Name: Mike Kelley MD Signed: 11/15/2019 2:36 AM Workstation Name: [email or web address]
--- NOTE | 2019-11-15 02:41 | XRay Report ---
ABDOMEN 1 VIEW(S) INDICATION: abdominal distension COMPARISON: None available. FINDINGS: Nasogastric tube has tip in the stomach. Bowel gas pattern: Moderate amount of gas is scattered throughout the colon. Free air: None. Calcified gallstones: None seen. Calcified urinary tract calculi: None seen. Additional Findings: None. Skeletal structures: No acute abnormality. IMPRESSION: 1. No acute findings. Signer Name: Mike Kelley MD Signed: 11/15/2019 2:37 AM Workstation Name: [id number]
[2019-11-15] MEDS ORDERED: SODIUM BICARB 8.4% 50 MEQ/50 ML SYRINGE IV STA (05:13)
[2019-11-15] MEDS: SODIUM BICARBONATE 100 MEQ in DEXTROSE 5% IN WATER 1,000 ML IV SCH ×3 (05:16→22:55)
[2019-11-15 05:44] LABS: Alanine Aminotransferase 148 units/L (7-56); Albumin 1.6 g/dL (3.9-5); BUN/Creatinine Ratio 21; Blood Urea Nitrogen 25 mg/dL (9-20); Hemolysis Index 33
[2019-11-15 07:23] LABS: Hematocrit 36.3 % (35.5-45.6); Hemoglobin 11.3 gm/dl (11.8-15.2); Mean Corpuscular HGB Conc 31 % (32-34); Mean Corpuscular Volume 105 fl (84-94); Platelet Count 135 K/mm3 (140-440); Red Blood Count 3.45 M/mm3 (3.65-5.03)
--- NOTE | 2019-11-15 08:59 | Progress Note ---
Assessment and Plan 1. Hypernatremia: Acute increase in the Sodium level and associated polyuria. 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 Low Urine sp. gr and osmolality. Sodium level is improving with Desmopressin. Continue water flushes through NG tube. Monitor Sodium level. 2. FEN: Metabolic acidosis, IV bicarbonate drip. Hyperkalemia, improved. On tube feeding. Monitor lytes. 3. S/p Cardiac arrest. 4. Shock: On Levophed and Dopamine. 5. Respiratory failure: On vent. 6. Anoxic encephalopathy. Prognosis is poor. Examination: General appearance: well-developed, appears stated age, intubated, on vent HEENT: ATNC, pupils are not reacting to light Neck: neck supple, trachea midline Respiratory: Clear to Ascultation Heart: regular, S1S2, no murmurs Gastrointestinal: soft, BS heard, not tender Integumentary: no rash, warm and dry Neurologic: not responding Ext: 1+ LE edema Subjective Date of service: 11/15/19 Principal diagnosis: Anoxic brain injury Interval history: Patient was seen and examined at the bedside. Objective - Vital Signs Vital signs: Vital Signs - 12hr 11/14/19 11/14/19 11/14/19 21:00 21:01 21:15 Temperature Pulse Rate 90 90 94 H Pulse Rate [ 90 From Monitor] Respiratory 24 24 Rate Blood Pressure 107/57 107/57 109/61 O2 Sat by Pulse 93 94 Oximetry 11/14/19 11/14/19 11/14/19 21:30 21:45 22:00 Temperature Pulse Rate 80 80 83 Pulse Rate [ From Monitor] Respiratory 24 24 24 Rate Blood Pressure 100/59 99/57 109/64 O2 Sat by Pulse 94 96 Oximetry 11/14/19 11/14/19 11/14/19 22:15 22:30 22:46 Temperature Pulse Rate 84 98 H 93 H Pulse Rate [ From Monitor] Respiratory 24 24 24 Rate Blood Pressure 114/67 88/44 151/84 O2 Sat by Pulse 96 93 Oximetry 11/14/19 11/14/19 11/14/19 23:00 23:15 23:20 Temperature Pulse Rate 89 84 87 Pulse Rate [ From Monitor] Respiratory 24 24 24 Rate Blood Pressure 127/77 122/71 122/71 O2 Sat by Pulse 96 95 98 Oximetry 11/14/19 11/14/19 11/14/19 23:25 23:27 23:30 Temperature Pulse Rate 83 84 83 Pulse Rate [ 90 From Monitor] Respiratory 22 24 Rate Blood Pressure 127/77 108/63 O2 Sat by Pulse 93 98 Oximetry 11/14/19 11/14/19 11/14/19 23:45 23:53 23:56 Temperature 98.3 F Pulse Rate 83 83 Pulse Rate [ From Monitor] Respiratory 24 24 Rate Blood Pressure 119/64 119/64 O2 Sat by Pulse 94 97 Oximetry 11/15/19 11/15/19 11/15/19 00:00 00:15 00:30 Temperature Pulse Rate 83 86 86 Pulse Rate [ From Monitor] Respiratory 24 Rate Blood Pressure 115/64 121/69 111/63 O2 Sat by Pulse 95 Oximetry 11/15/19 11/15/19 11/15/19 00:45 01:00 01:15 Temperature Pulse Rate 85 86 86 Pulse Rate [ From Monitor] Respiratory 24 Rate Blood Pressure 108/60 120/64 117/68 O2 Sat by Pulse Oximetry 11/15/19 11/15/19 11/15/19 01:30 01:45 02:00 Temperature Pulse Rate 89 84 85 Pulse Rate [ From Monitor] Respiratory 23 Rate Blood Pressure 111/64 121/64 122/70 O2 Sat by Pulse 95 Oximetry 11/15/19 11/15/19 11/15/19 02:15 02:30 02:35 Temperature Pulse Rate 98 H 98 H Pulse Rate [ 90 From Monitor] Respiratory 15 Rate Blood Pressure 133/113 133/113 O2 Sat by Pulse 94 95 Oximetry 11/15/19 11/15/19 11/15/19 02:45 03:00 03:15 Temperature Pulse Rate 88 85 98 H Pulse Rate [ From Monitor] Respiratory 24 Rate Blood Pressure 143/73 142/70 137/73 O2 Sat by Pulse 91 92 90 Oximetry 11/15/19 11/15/19 11/15/19 03:30 03:45 03:53 Temperature Pulse Rate 87 82 81 Pulse Rate [ From Monitor] Respiratory 24 24 Rate Blood Pressure 131/68 125/67 125/67 O2 Sat by Pulse 93 96 Oximetry 11/15/19 11/15/19 11/15/19 04:00 04:15 04:25 Temperature 97.6 F Pulse Rate 79 80 80 Pulse Rate [ 90 From Monitor] Respiratory 24 24 24 Rate Blood Pressure 128/69 114/60 O2 Sat by Pulse 93 95 Oximetry 11/15/19 11/15/19 11/15/19 04:30 04:45 05:00 Temperature Pulse Rate 80 80 80 Pulse Rate [ From Monitor] Respiratory 24 Rate Blood Pressure 133/82 132/74 131/70 O2 Sat by Pulse 94 95 92 Oximetry 11/15/19 11/15/19 11/15/19 05:15 05:30 05:45 Temperature Pulse Rate 79 83 81 Pulse Rate [ 90 From Monitor] Respiratory Rate Blood Pressure 136/71 136/71 132/70 O2 Sat by Pulse 94 91 94 Oximetry 11/15/19 11/15/19 11/15/19 06:00 06:15 06:30 Temperature Pulse Rate 82 80 81 Pulse Rate [ From Monitor] Respiratory Rate Blood Pressure 140/78 143/73 123/70 O2 Sat by Pulse 97 94 93 Oximetry 11/15/19 11/15/19 11/15/19 06:45 07:00 07:15 Temperature Pulse Rate 81 81 79 Pulse Rate [ From Monitor] Respiratory Rate Blood Pressure 138/75 121/64 128/74 O2 Sat by Pulse 93 95 Oximetry 11/15/19 11/15/19 11/15/19 07:30 07:45 08:00 Temperature Pulse Rate 80 81 80 Pulse Rate [ 84 From Monitor] Respiratory Rate Blood Pressure 126/67 141/73 138/72 O2 Sat by Pulse 94 93 98 Oximetry 11/15/19 11/15/19 08:22 08:30 Temperature 97.5 F L Pulse Rate 79 Pulse Rate [ From Monitor] Respiratory Rate Blood Pressure 130/69 132/67 O2 Sat by Pulse 35 L 99 Oximetry - Lab 11/15/19 04:16 11/15/19 Unknown Most recent lab results ABG pH 7.321 pH Units (7.350-7.450) L 11/14/19 04:47 ABG pCO2 25.2 mm Hg 11/14/19 04:47 ABG pO2 194.5 mm Hg (80.0-90.0) H 11/14/19 04:47 ABG HCO3 12.7 mmol/L (20.0-26.0) L 11/14/19 04:47 ABG O2 Saturation 99.2 % (95.0-99.0) H 11/14/19 04:47 Calcium 8.0 mg/dL (8.4-10.2) L 11/15/19 Unknown Phosphorus 4.00 mg/dL (2.5-4.5) D 11/13/19 06:35 Magnesium 2.60 mg/dL (1.7-2.3) H 11/12/19 16:18 Urine Creatinine 20.0 mg/dL (0.1-20.0) 11/12/19 11:56 Urine Sodium 10 mmol/L 11/12/19 11:56 Medications & Allergies - Medications Allergies/Adverse Reactions: Allergies No Known Allergies Allergy (Unverified 11/09/19 07:15) unknown Home Medications: Home Medications Medication Instructions Recorded Confirmed Last Taken Type ALBUTEROL NEB's [Proventil 0.083% 1 neb IH Q6H 01/02/14 11/09/19 07/30/14 History NEBS] Albuterol Sulfate [Ventolin HFA] 2 puff IH QID PRN 01/02/14 11/09/19 01/02/14 08:[address] [Depakote] 500 mg PO BID 01/02/14 11/09/19 07/30/14 History Docusate Sodium [Colace] 100 mg PO BID 11/09/19 11/09/19 Unknown History Paliperidone Palmitate [Invega 156 mg IM QMONTH 11/09/19 11/09/19 11/04/19 History Sustenna] risperiDONE [RisperDAL] 3 mg PO BID 11/09/19 11/09/19 Unknown History Active Medications: Generic Name Dose Route Start Last Admin Trade Name Freq PRN Reason Stop Dose Admin Acetaminophen 650 mg 11/11/19 09:13 11/11/19 16:48 Tylenol PO 650 mg Q6H PRN Administration Pain, Mild (1-3)/TEMP > 100.4 Lipase/Protease/Amylase 1 each 11/10/19 13:48 Pancreera Newell 10,500 Unit FEEDTUBE PRN PRN For Clogged Feeding Tube Desmopressin Acetate 2 mcg 11/13/19 22:00 11/14/19 21:00 Ddavp IV 2 mcg Q12HR HAN Administration Famotidine 20 mg 11/11/19 10:00 11/14/19 21:02 Pepcid PO 20 mg BID HAN Administration Heparin Sodium (Porcine) 5,000 unit 11/10/19 10:00 11/14/19 20:59 Heparin SUB-Q 5,000 unit Q12HR HAN Administration Hydrophilic Ointment 1 applic 11/09/19 07:29 Vaseline Lip Therapy TP Q2HR PRN Dry Lips Norepinephrine 4 mg in 250 mls @ 22.5 mls/hr 11/09/19 07:00 11/15/19 06:41 Levophed Drip 4 Mg/Ns 250 Ml IV 18 mcg/min TITR HAN 67.5 mls/hr Administration Protocol 6 MCG/MIN Levetiracetam 1,000 mg/ 110 mls @ 400 mls/hr 11/10/19 22:00 11/14/19 21:00 Dextrose IV 400 mls/hr Q12HR HAN Administration Dopamine HCl/Dextrose 800 mg in 250 mls @ 3.188 mls/hr 11/11/19 18:00 11/14/19 12:01 Intropin Drip 800 Mg/D5w 250 Ml IV 2.51 mcg/kg/min TITR HAN 4 mls/hr Titration Protocol 2 MCG/KG/MIN Sodium Bicarbonate 100 meq/ 1,100 mls @ 125 mls/hr 11/14/19 20:00 11/15/19 05:16 Dextrose IV 125 mls/hr DIRECT HAN Administration Metoprolol Tartrate 25 mg 11/11/19 22:00 11/14/19 21:01 Metoprolol PO Not Given BID HAN Multi-Ingred Cream/Lotion/Oil/Oint 1 applic 11/09/19 07:29 11/13/19 18:26 Artificial Tears Ophth Oint OU 1 applic Q4HR PRN Administration Dry Eye(s) Simple Syrup 15 ml 11/10/19 13:48 Simple Syrup FEEDTUBE PRN PRN Hypoglycemia Simple Syrup 30 ml 11/10/19 13:48 Simple Syrup FEEDTUBE PRN PRN Hypoglycemia Sodium Bicarbonate 325 mg 11/10/19 13:48 Sodium Bicarbonate FEEDTUBE PRN PRN For Clogged Feeding Tube
--- NOTE | 2019-11-15 11:09 | Progress Note ---
Assessment and Plan Cultures Urine culture 11/09/19 no growth to date Sputum culture 11/09/19 no growth to date Blood culture 11/10/19 NGTD Assessment: 49 yo M PMHx schizophrenia admitted after cardiac arrest. Now with low grade temperatures 1. Low grade temperatures - Fevers likely reactive to cardiac arrest and potential central fevers from presumable anoxic brain injury. No evidence of infection on CXR, cultures negative thus far. 2. Cardiac arrest 3. Acute hypoxic respiratory failure - intubated 4. Schizophrenia Recs: - monitor off antibiotics Thank you for the consult, we will continue to follow. Dr. Batres taking over tomorrow. [facility] ([facility]) M: [phone] O: [phone] F: [phone] Subjective Date of service: 11/15/19 Principal diagnosis: Anoxic brain injury Interval history: Afebrile overnight, normal white count. Not responsive. Objective - Exam Narrative Exam: General intubated, sedated Eyes - PERRLA, EOM intact ENT - Moist mucous membranes, no lymphadenopathy Neck - No noticeable or palpable swelling, redness or rash around throat or on face Lymph Nodes - No lymphadenopathy Cardiovascular - RRR no m/r/g, no JVD, no carotid bruits Lungs - Clear to auscultation, no use of accessory muscles, no crackles or wheezes. Skin - No rashes, skin warm and dry, no erythematous areas Abdomen - Normal bowel sounds, abdomen soft and nontender Extremities - No edema, cyanosis or clubbing Musculoskeletal - no swollen or erythematous joints. Neurological Sedated - Constitutional Vitals: Vital Signs Temp Pulse Resp BP Pulse Ox 97.7 F 83 24 102/59 96 11/15/19 11:00 11/15/19 11:00 11/15/19 11:00 11/15/19 11:00 11/15/19 11:00 Temperature -Last 24 Hours Temperature 97.7 F Temperature 97.5 F Temperature 97.6 F Temperature 98.3 F Temperature 98.6 F Temperature 98.2 F Temperature 98.7 F - Labs CBC & Chem 7: 11/15/19 04:16 11/15/19 Unknown Labs: Abnormal lab results 11/14/19 11/14/19 11/15/19 Range/Units 11:37 16:12 04:10 RBC (3.65-5.03) M/mm3 Hgb (11.8-15.2) gm/dl MCV (84-94) fl MCH (28-32) pg MCHC (32-34) % RDW (13.2-15.2) % Plt Count (140-440) K/mm3 POC ABG pH 7.236 L (7.35-7.45) Sodium 153 H (137-145) mmol/L Chloride 130.5 H (98-107) mmol/L Carbon Dioxide 15 L (22-30) mmol/L BUN 25 H (9-20) mg/dL Glucose 166 H (75-100) mg/dL POC Glucose 183 H (70-105) Calcium 7.6 L (8.4-10.2) mg/dL ALT (7-56) units/L Total Protein (6.3-8.2) g/dL Albumin (3.9-5) g/dL 11/15/19 11/15/19 Range/Units 04:16 Unknown RBC 3.45 L (3.65-5.03) M/mm3 Hgb 11.3 L (11.8-15.2) gm/dl MCV 105 H (84-94) fl MCH 33 H (28-32) pg MCHC 31 L (32-34) % RDW 17.0 H (13.2-15.2) % Plt Count 135 L (140-440) K/mm3 POC ABG pH (7.35-7.45) Sodium 150 H (137-145) mmol/L Chloride 124.8 H (98-107) mmol/L Carbon Dioxide 18 L (22-30) mmol/L BUN 25 H (9-20) mg/dL Glucose 172 H (75-100) mg/dL POC Glucose (70-105) Calcium 8.0 L (8.4-10.2) mg/dL ALT 148 H (7-56) units/L Total Protein 5.1 L (6.3-8.2) g/dL Albumin 1.6 L (3.9-5) g/dL
--- NOTE | 2019-11-15 11:28 | Progress Note ---
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 is effective spoke to Frederick the nurse at bedside poor prognosis [facility] PI issues mentioned Thanks I would comment this is permanent non - recoverable state Objective - Vital Sign Vital Signs - 12hr 11/14/19 11/14/19 11/14/19 23:27 23:30 23:45 Temperature Pulse Rate 84 83 83 Pulse Rate [ From Monitor] Respiratory 24 24 Rate Blood Pressure 127/77 108/63 119/64 O2 Sat by Pulse 98 94 Oximetry 11/14/19 11/14/19 11/15/19 23:53 23:56 00:00 Temperature 98.3 F Pulse Rate 83 83 Pulse Rate [ From Monitor] Respiratory 24 24 Rate Blood Pressure 119/64 115/64 O2 Sat by Pulse 97 95 Oximetry 11/15/19 11/15/19 11/15/19 00:15 00:30 00:45 Temperature Pulse Rate 86 86 85 Pulse Rate [ From Monitor] Respiratory 24 24 24 Rate Blood Pressure 121/69 111/63 108/60 O2 Sat by Pulse Oximetry 11/15/19 11/15/19 11/15/19 01:00 01:15 01:30 Temperature Pulse Rate 86 86 89 Pulse Rate [ From Monitor] Respiratory 24 24 24 Rate Blood Pressure 120/64 117/68 111/64 O2 Sat by Pulse 95 Oximetry 11/15/19 11/15/19 11/15/19 01:45 02:00 02:15 Temperature Pulse Rate 84 85 Pulse Rate [ From Monitor] Respiratory 24 23 Rate Blood Pressure 121/64 122/70 133/113 O2 Sat by Pulse 94 Oximetry 11/15/19 11/15/19 11/15/19 02:30 02:35 02:45 Temperature Pulse Rate 98 H 98 H 88 Pulse Rate [ 90 From Monitor] Respiratory 15 22 24 Rate Blood Pressure 133/113 143/73 O2 Sat by Pulse 95 91 Oximetry 11/15/19 11/15/19 11/15/19 03:00 03:15 03:30 Temperature Pulse Rate 85 98 H 87 Pulse Rate [ From Monitor] Respiratory 24 24 24 Rate Blood Pressure 142/70 137/73 131/68 O2 Sat by Pulse 92 90 Oximetry 11/15/19 11/15/19 11/15/19 03:45 03:53 04:00 Temperature Pulse Rate 82 81 79 Pulse Rate [ From Monitor] Respiratory Rate Blood Pressure 125/67 125/67 128/69 O2 Sat by Pulse 93 96 93 Oximetry 11/15/19 11/15/19 11/15/19 04:15 04:25 04:30 Temperature 97.6 F Pulse Rate 80 80 80 Pulse Rate [ 90 From Monitor] Respiratory 24 Rate Blood Pressure 114/60 133/82 O2 Sat by Pulse 95 94 Oximetry 11/15/19 11/15/19 11/15/19 04:45 05:00 05:15 Temperature Pulse Rate 80 80 79 Pulse Rate [ From Monitor] Respiratory Rate Blood Pressure 132/74 131/70 136/71 O2 Sat by Pulse 95 92 94 Oximetry 11/15/19 11/15/19 11/15/19 05:30 05:45 06:00 Temperature Pulse Rate 83 81 82 Pulse Rate [ 90 From Monitor] Respiratory Rate Blood Pressure 136/71 132/70 140/78 O2 Sat by Pulse 91 94 97 Oximetry 11/15/19 11/15/19 11/15/19 06:15 06:30 06:45 Temperature Pulse Rate 80 81 81 Pulse Rate [ From Monitor] Respiratory Rate Blood Pressure 143/73 123/70 138/75 O2 Sat by Pulse 94 93 93 Oximetry 11/15/19 11/15/19 11/15/19 07:00 07:15 07:30 Temperature Pulse Rate 81 79 80 Pulse Rate [ From Monitor] Respiratory 21 Rate Blood Pressure 121/64 128/74 126/67 O2 Sat by Pulse 95 94 Oximetry 11/15/19 11/15/19 11/15/19 07:45 08:00 08:15 Temperature Pulse Rate 81 80 79 Pulse Rate [ 84 From Monitor] Respiratory 24 Rate Blood Pressure 141/73 138/72 130/69 O2 Sat by Pulse 93 98 94 Oximetry 11/15/19 11/15/19 11/15/19 08:22 08:30 08:45 Temperature 97.5 F L Pulse Rate 79 78 Pulse Rate [ From Monitor] Respiratory 24 Rate Blood Pressure 130/69 132/67 124/66 O2 Sat by Pulse 35 L 93 95 Oximetry 11/15/19 11/15/1911/15/19 09:00 09:15 09:30 Temperature Pulse Rate 83 80 83 Pulse Rate [ From Monitor] Respiratory 24 Rate Blood Pressure 128/73 127/69 124/72 O2 Sat by Pulse 94 93 Oximetry 11/15/19 11/15/19 11/15/19 09:45 10:00 10:15 Temperature Pulse Rate 81 83 84 Pulse Rate [ From Monitor] Respiratory 24 Rate Blood Pressure 134/78 132/79 138/77 O2 Sat by Pulse 93 94 95 Oximetry 11/15/19 11/15/19 11/15/19 10:30 10:45 11:00 Temperature 97.7 F Pulse Rate 103 H 84 83 Pulse Rate [ From Monitor] Respiratory Rate Blood Pressure 81/45 97/55 102/59 O2 Sat by Pulse 99 95 96 Oximetry - Laboratory Findings CBC and BMP: 11/15/19 04:16 11/15/19 Unknown Abnormal Lab Findings: Abnormal Labs 11/09/19 11/09/19 11/09/19 06:24 06:24 06:24 WBC RBC 3.54 L Hgb 11.7 L MCV 103 H MCH 33 H MCHC RDW Plt Count Seg Neuts % (Manual) Lymphocytes % (Manual) Nucleated RBC % 1.0 H Seg Neutrophils # Man Lymphocytes # (Manual) PT 16.9 H INR 1.35 H APTT 50.7 H D-Dimer 4435.48 H POC ABG pH ABG pH POC ABG pCO2 POC ABG pO2 ABG pO2 ABG HCO3 ABG O2 Saturation ABG Base Excess ABG Hemoglobin Oxyhemoglobin Sodium Potassium Chloride Carbon Dioxide BUN 23 H Glucose 122 H POC Glucose Lactic Acid Calcium 8.3 L Phosphorus Magnesium AST 355 H ALT 340 H Ammonia Troponin T 0.039 H NT-Pro-B Natriuret Pep 5052 H Total Protein 5.6 L Albumin 2.9 L TSH Urine WBC (Auto) 11/09/19 11/09/19 11/09/19 06:24 06:24 06:24 WBC RBC Hgb MCV MCH MCHC RDW Plt Count Seg Neuts % (Manual) Lymphocytes % (Manual) Nucleated RBC % Seg Neutrophils # Man Lymphocytes # (Manual) PT INR APTT D-Dimer POC ABG pH ABG pH POC ABG pCO2 POC ABG pO2 ABG pO2 ABG HCO3 ABG O2 Saturation ABG Base Excess ABG Hemoglobin Oxyhemoglobin Sodium Potassium Chloride Carbon Dioxide BUN Glucose POC Glucose Lactic Acid Calcium Phosphorus Magnesium 2.70 H AST ALT Ammonia 101.0 H Troponin T NT-Pro-B Natriuret Pep Total Protein Albumin TSH 5.500 H Urine WBC (Auto) 11/09/19 11/09/19 11/09/19 06:24 06:51 07:24 WBC RBC Hgb MCV MCH MCHC RDW Plt Count Seg Neuts % (Manual) Lymphocytes % (Manual) Nucleated RBC % Seg Neutrophils # Man Lymphocytes # (Manual) PT INR APTT D-Dimer POC ABG pH ABG pH POC ABG pCO2 POC ABG pO2 ABG pO2 ABG HCO3 ABG O2 Saturation ABG Base Excess ABG Hemoglobin Oxyhemoglobin Sodium Potassium Chloride Carbon Dioxide BUN Glucose POC Glucose Lactic Acid 8.80 H* 9.80 H* Calcium Phosphorus Magnesium AST ALT Ammonia Troponin T NT-Pro-B Natriuret Pep Total Protein Albumin TSH Urine WBC (Auto) 83.0 H 11/09/19 11/09/19 11/09/19 07:27 08:10 08:32 WBC RBC Hgb MCV MCH MCHC RDW Plt Count Seg Neuts % (Manual) Lymphocytes % (Manual) Nucleated RBC % Seg Neutrophils # Man Lymphocytes # (Manual) PT INR APTT D-Dimer POC ABG pH 7.145 L ABG pH POC ABG pCO2 POC ABG pO2 380 H ABG pO2 ABG HCO3 ABG O2 Saturation ABG Base Excess ABG Hemoglobin Oxyhemoglobin Sodium Potassium Chloride Carbon Dioxide BUN Glucose POC Glucose Lactic Acid 10.20 H* 6.50 H* Calcium Phosphorus Magnesium AST ALT Ammonia Troponin T NT-Pro-B Natriuret Pep Total Protein Albumin TSH Urine WBC (Auto) 11/09/19 11/09/19 11/09/19 09:27 10:30 12:11 WBC RBC Hgb MCV MCH MCHC RDW Plt Count Seg Neuts % (Manual) Lymphocytes % (Manual) Nucleated RBC % Seg Neutrophils # Man Lymphocytes # (Manual) PT INR APTT D-Dimer POC ABG pH ABG pH POC ABG pCO2 POC ABG pO2 ABG pO2 ABG HCO3 ABG O2 Saturation ABG Base Excess ABG Hemoglobin Oxyhemoglobin Sodium Potassium Chloride Carbon Dioxide BUN Glucose POC Glucose Lactic Acid 5.80 H* 3.80 H* 3.40 H* Calcium Phosphorus Magnesium AST ALT Ammonia Troponin T NT-Pro-B Natriuret Pep Total Protein Albumin TSH Urine WBC (Auto) 11/09/19 11/09/19 11/09/19 13:04 14:39 15:02 WBC RBC Hgb MCV MCH MCHC RDW Plt Count Seg Neuts % (Manual) Lymphocytes % (Manual) Nucleated RBC % Seg Neutrophils # Man Lymphocytes # (Manual) PT INR APTT D-Dimer POC ABG pH 7.288 L ABG pH POC ABG pCO2 60.2 H POC ABG pO2 74 L ABG pO2 ABG HCO3 ABG O2 Saturation ABG Base Excess ABG Hemoglobin Oxyhemoglobin Sodium Potassium Chloride Carbon Dioxide BUN Glucose POC Glucose Lactic Acid 2.70 H* 3.20 H* Calcium Phosphorus Magnesium AST ALT Ammonia Troponin T NT-Pro-B Natriuret Pep Total Protein Albumin TSH Urine WBC (Auto) 11/09/19 11/09/19 11/10/19 17:34 20:14 04:57 WBC RBC Hgb MCV MCH MCHC RDW Plt Count Seg Neuts % (Manual) Lymphocytes % (Manual) Nucleated RBC % Seg Neutrophils # Man Lymphocytes # (Manual) PT INR APTT D-Dimer POC ABG pH ABG pH POC ABG pCO2 52.4 H POC ABG pO2 72 L ABG pO2 71.6 L ABG HCO3 28.7 H ABG O2 Saturation ABG Base Excess 3.5 H ABG Hemoglobin 10.4 L Oxyhemoglobin 94.1 L Sodium Potassium Chloride Carbon Dioxide BUN Glucose POC Glucose Lactic Acid 2.60 H* Calcium Phosphorus Magnesium AST ALT Ammonia Troponin T NT-Pro-B Natriuret Pep Total Protein Albumin TSH Urine WBC (Auto) 11/10/19 11/10/19 11/11/19 06:50 06:50 03:55 WBC 12.1 H RBC Hgb MCV 98 H MCH MCHC RDW Plt Count Seg Neuts % (Manual) 88.0 H Lymphocytes % (Manual) 1.0 L Nucleated RBC % Seg Neutrophils # Man 10.6 H Lymphocytes # (Manual) 0.1 L PT INR APTT D-Dimer POC ABG pH ABG pH POC ABG pCO2 POC ABG pO2 ABG pO2 ABG HCO3 ABG O2 Saturation ABG Base Excess ABG Hemoglobin Oxyhemoglobin Sodium Potassium Chloride Carbon Dioxide BUN 29 H 28 H Glucose 147 H 162 H POC Glucose Lactic Acid Calcium Phosphorus Magnesium AST 1150 H 559 H ALT 1199 H 998 H Ammonia Troponin T NT-Pro-B Natriuret Pep Total Protein Albumin 3.1 L 3.1 L TSH Urine WBC (Auto) 11/11/19 11/11/19 11/11/19 03:55 12:28 23:37 WBC RBC Hgb MCV 99 H MCH 33 H MCHC RDW Plt Count Seg Neuts % (Manual) Lymphocytes % (Manual) Nucleated RBC % Seg Neutrophils # Man Lymphocytes # (Manual) PT INR APTT D-Dimer POC ABG pH ABG pH POC ABG pCO2 POC ABG pO2 ABG pO2 ABG HCO3 ABG O2 Saturation ABG Base Excess ABG Hemoglobin Oxyhemoglobin Sodium Potassium Chloride Carbon Dioxide BUN Glucose POC Glucose 136 H 140 H Lactic Acid Calcium Phosphorus Magnesium AST ALT Ammonia Troponin T NT-Pro-B Natriuret Pep Total Protein Albumin TSH Urine WBC (Auto) 11/12/19 11/12/19 11/12/19 05:10 06:30 06:30 WBC 11.5 H RBC Hgb MCV 100 H MCH 33 H MCHC RDW Plt Count Seg Neuts % (Manual) Lymphocytes % (Manual) Nucleated RBC % Seg Neutrophils # Man Lymphocytes # (Manual) PT INR APTT D-Dimer POC ABG pH ABG pH POC ABG pCO2 POC ABG pO2 ABG pO2 ABG HCO3 ABG O2 Saturation ABG Base Excess -3.5 L ABG Hemoglobin 6.7 L Oxyhemoglobin Sodium Potassium Chloride Carbon Dioxide 20 L D BUN 26 H Glucose 125 H POC Glucose Lactic Acid Calcium 7.9 L Phosphorus Magnesium AST 151 H ALT 526 H Ammonia Troponin T NT-Pro-B Natriuret Pep Total Protein 5.2 L Albumin 2.4 L TSH Urine WBC (Auto) 11/12/19 11/12/19 11/12/19 08:03 09:23 10:33 WBC RBC Hgb MCV MCH MCHC RDW Plt Count Seg Neuts % (Manual) Lymphocytes % (Manual) Nucleated RBC % Seg Neutrophils # Man Lymphocytes # (Manual) PT INR APTT D-Dimer POC ABG pH ABG pH POC ABG pCO2 POC ABG pO2 ABG pO2 ABG HCO3 ABG O2 Saturation ABG Base Excess ABG Hemoglobin Oxyhemoglobin Sodium > 179 H* D Potassium 2.7 L* D Chloride > 139 H Carbon Dioxide 20 L 18 L BUN 26 H 26 H Glucose 123 H 116 H POC Glucose 130 H Lactic Acid Calcium 8.1 L 8.0 L Phosphorus Magnesium AST 143 H 137 H ALT 523 H 518 H Ammonia Troponin T NT-Pro-B Natriuret Pep Total Protein 5.2 L 4.7 L Albumin 2.3 L 2.4 L TSH Urine WBC (Auto) 11/12/19 11/12/19 11/12/19 12:15 16:18 18:12 WBC RBC Hgb MCV MCH MCHC RDW Plt Count Seg Neuts % (Manual) Lymphocytes % (Manual) Nucleated RBC % Seg Neutrophils # Man Lymphocytes # (Manual) PT INR APTT D-Dimer POC ABG pH ABG pH POC ABG pCO2 POC ABG pO2 ABG pO2 ABG HCO3 ABG O2 Saturation ABG Base Excess ABG Hemoglobin Oxyhemoglobin Sodium > 179 H* Potassium 2.9 L* Chloride > 139 H Carbon Dioxide 18 L BUN 24 H Glucose 198 H POC Glucose 122 H 209 H Lactic Acid Calcium Phosphorus 1.30 L Magnesium 2.60 H AST ALT Ammonia Troponin T NT-Pro-B Natriuret Pep Total Protein Albumin TSH Urine WBC (Auto) 11/13/19 11/13/19 11/13/19 04:04 05:30 05:32 WBC RBC Hgb MCV MCH MCHC RDW Plt Count Seg Neuts % (Manual) Lymphocytes % (Manual) Nucleated RBC % Seg Neutrophils # Man Lymphocytes # (Manual) PT INR APTT D-Dimer POC ABG pH ABG pH 7.206 L POC ABG pCO2 POC ABG pO2 ABG pO2 75.0 L ABG HCO3 19.3 L ABG O2 Saturation 94.2 L ABG Base Excess -8.7 L ABG Hemoglobin 12.9 L Oxyhemoglobin 92.6 L Sodium Potassium Chloride Carbon Dioxide BUN Glucose POC Glucose 135 H 168 H Lactic Acid Calcium Phosphorus Magnesium AST ALT Ammonia Troponin T NT-Pro-B Natriuret Pep Total Protein Albumin TSH Urine WBC (Auto) 11/13/19 11/13/19 11/13/19 06:35 06:35 11:53 WBC 12.1 H RBC Hgb MCV 105 H MCH 33 H MCHC 31 L RDW 17.2 H Plt Count Seg Neuts % (Manual) Lymphocytes % (Manual) Nucleated RBC % Seg Neutrophils # Man Lymphocytes # (Manual) PT INR APTT D-Dimer POC ABG pH ABG pH POC ABG pCO2 POC ABG pO2 ABG pO2 ABG HCO3 ABG O2 Saturation ABG Base Excess ABG Hemoglobin Oxyhemoglobin Sodium 172 H* Potassium 5.5 H D Chloride > 139 H Carbon Dioxide 18 L BUN 23 H Glucose 133 H POC Glucose 183 H Lactic Acid Calcium 8.2 L Phosphorus Magnesium AST 61 H ALT 390 H Ammonia Troponin T NT-Pro-B Natriuret Pep Total Protein 5.7 L D Albumin 2.2 L TSH Urine WBC (Auto) 11/13/19 11/13/19 11/14/19 15:17 17:58 00:36 WBC RBC Hgb MCV MCH MCHC RDW Plt Count Seg Neuts % (Manual) Lymphocytes % (Manual) Nucleated RBC % Seg Neutrophils # Man Lymphocytes # (Manual) PT INR APTT D-Dimer POC ABG pH ABG pH POC ABG pCO2 POC ABG pO2 ABG pO2 ABG HCO3 ABG O2 Saturation ABG Base Excess ABG Hemoglobin Oxyhemoglobin Sodium 164 H* Potassium Chloride 140.0 H Carbon Dioxide 14 L BUN 22 H Glucose 157 H POC Glucose 156 H 129 H Lactic Acid Calcium 7.6 L Phosphorus Magnesium AST ALT Ammonia Troponin T NT-Pro-B Natriuret Pep Total Protein Albumin TSH Urine WBC (Auto) 11/14/19 11/14/19 11/14/19 04:40 04:40 04:47 WBC RBC Hgb MCV 105 H MCH 33 H MCHC 31 L RDW 17.2 H Plt Count 132 L Seg Neuts % (Manual) Lymphocytes % (Manual) Nucleated RBC % Seg Neutrophils # Man Lymphocytes # (Manual) PT INR APTT D-Dimer POC ABG pH ABG pH 7.321 L POC ABG pCO2 POC ABG pO2 ABG pO2 194.5 H ABG HCO3 12.7 L ABG O2 Saturation 99.2 H ABG Base Excess -11.6 L ABG Hemoglobin 12.6 L Oxyhemoglobin Sodium 158 H Potassium 5.5 H D Chloride 133.6 H Carbon Dioxide 14 L BUN 22 H Glucose 106 H POC Glucose Lactic Acid Calcium 7.6 L Phosphorus Magnesium AST ALT 242 H Ammonia Troponin T NT-Pro-B Natriuret Pep Total Protein 5.0 L Albumin 1.7 L TSH Urine WBC (Auto) 11/14/19 11/14/19 11/15/19 11:37 16:12 04:10 WBC RBC Hgb MCV MCH MCHC RDW Plt Count Seg Neuts % (Manual) Lymphocytes % (Manual) Nucleated RBC % Seg Neutrophils # Man Lymphocytes # (Manual) PT INR APTT D-Dimer POC ABG pH 7.236 L ABG pH POC ABG pCO2 POC ABG pO2 ABG pO2 ABG HCO3 ABG O2 Saturation ABG Base Excess ABG Hemoglobin Oxyhemoglobin Sodium 153 H Potassium Chloride 130.5 H Carbon Dioxide 15 L BUN 25 H Glucose 166 H POC Glucose 183 H Lactic Acid Calcium 7.6 L Phosphorus Magnesium AST ALT Ammonia Troponin T NT-Pro-B Natriuret Pep Total Protein Albumin TSH Urine WBC (Auto) 11/15/19 11/15/19 04:16 Unknown WBC RBC 3.45 L Hgb 11.3 L MCV 105 H MCH 33 H MCHC 31 L RDW 17.0 H Plt Count 135 L Seg Neuts % (Manual) Lymphocytes % (Manual) Nucleated RBC % Seg Neutrophils # Man Lymphocytes # (Manual) PT INR APTT D-Dimer POC ABG pH ABG pH POC ABG pCO2 POC ABG pO2 ABG pO2 ABG HCO3 ABG O2 Saturation ABG Base Excess ABG Hemoglobin Oxyhemoglobin Sodium 150 H Potassium Chloride 124.8 H Carbon Dioxide 18 L BUN 25 H Glucose 172 H POC Glucose Lactic Acid Calcium 8.0 L Phosphorus Magnesium AST ALT 148 H Ammonia Troponin T NT-Pro-B Natriuret Pep Total Protein 5.1 L Albumin 1.6 L TSH Urine WBC (Auto)
[2019-11-15] MEDS: DESMOPRESSIN 4 MCG/ML VIAL IV SCH ×2 (12:26→22:09)
[2019-11-15] MEDS: HEPARIN 5,000 UNIT/1 ML VIAL SUB-Q SCH ×2 (12:27→22:08)
[2019-11-15] MEDS: levETIRAcetam 1,000 MG in DEXTROSE 5% IN WATER 100 ML IV SCH ×2 (12:27→22:09)
--- NOTE | 2019-11-15 12:36 | Progress Note ---
Assessment and Plan 49 y/o male, post cardiac arrest, now unresponsive on vent. 1. No sedation, absolutely none 2. Follow up renal recs for today. 3. Echo shows EF of 40%. On the vent so not worried about volume overload. Will give as much fluid as needed. 4. Continued vent support 5. UDS now is negative (11/12). Medications are having no effect on his mental state. This is all from anoxia. Reviewed covering Neurology note. 6. Asked for ethics consult but not done. Now family has been found and we have a father, whose name is Darci John and his phone number is [phone]. I spoke with him over the phone and he has requested that the patient be DNR and this was confirmed with his nurse over the phone and has been signed by myself and Dr. Gutierrez. Overall prognosis is poor. Given the degree of edema, could herniate, likely not recovering from this insult. CCT 31 minutes. Subjective Date of service: 11/15/19 Principal diagnosis: Anoxic brain injury Interval history: No acute events. Patient remains on pressors and adri hugger. Completely unresponsive. Neuro has left several dismal notes. Apparently now, per [facility], there is a niece and possibly a father. Objective Vital Signs - 12hr 11/15/19 11/15/19 11/15/19 00:30 00:45 01:00 Temperature Pulse Rate 86 85 86 Pulse Rate [ From Monitor] Respiratory 24 24 24 Rate Blood Pressure 111/63 108/60 120/64 O2 Sat by Pulse Oximetry 11/15/19 11/15/19 11/15/19 01:15 01:30 01:45 Temperature Pulse Rate 86 89 84 Pulse Rate [ From Monitor] Respiratory 24 24 24 Rate Blood Pressure 117/68 111/64 121/64 O2 Sat by Pulse 95 Oximetry 11/15/19 11/15/19 11/15/19 02:00 02:15 02:30 Temperature Pulse Rate 85 98 H Pulse Rate [ From Monitor] Respiratory 23 15 Rate Blood Pressure 122/70 133/113 133/113 O2 Sat by Pulse 94 Oximetry 11/15/19 11/15/19 11/15/19 02:35 02:45 03:00 Temperature Pulse Rate 98 H 88 85 Pulse Rate [ 90 From Monitor] Respiratory 22 24 24 Rate Blood Pressure 143/73 142/70 O2 Sat by Pulse 95 91 92 Oximetry 11/15/19 11/15/19 11/15/19 03:15 03:30 03:45 Temperature Pulse Rate 98 H 87 82 Pulse Rate [ From Monitor] Respiratory Rate Blood Pressure 137/73 131/68 125/67 O2 Sat by Pulse 90 93 Oximetry 11/15/19 11/15/19 11/15/19 03:53 04:00 04:15 Temperature Pulse Rate 81 79 80 Pulse Rate [ From Monitor] Respiratory Rate Blood Pressure 125/67 128/69 114/60 O2 Sat by Pulse 96 93 Oximetry 11/15/19 11/15/19 11/15/19 04:25 04:30 04:45 Temperature 97.6 F Pulse Rate 80 80 80 Pulse Rate [ 90 From Monitor] Respiratory Rate Blood Pressure 133/82 132/74 O2 Sat by Pulse 95 94 95 Oximetry 11/15/19 11/15/19 11/15/19 05:00 05:15 05:30 Temperature Pulse Rate 80 79 83 Pulse Rate [ From Monitor] Respiratory Rate Blood Pressure 131/70 136/71 136/71 O2 Sat by Pulse 92 94 91 Oximetry 11/15/19 11/15/19 11/15/19 05:45 06:00 06:15 Temperature Pulse Rate 81 82 80 Pulse Rate [ 90 From Monitor] Respiratory Rate Blood Pressure 132/70 140/78 143/73 O2 Sat by Pulse 94 97 94 Oximetry 11/15/19 11/15/19 11/15/19 06:30 06:45 07:00 Temperature Pulse Rate 81 81 81 Pulse Rate [ From Monitor] Respiratory 24 Rate Blood Pressure 123/70 138/75 121/64 O2 Sat by Pulse 93 93 95 Oximetry 11/15/19 11/15/19 11/15/19 07:15 07:30 07:45 Temperature Pulse Rate 79 80 81 Pulse Rate [ From Monitor] Respiratory 24 Rate Blood Pressure 128/74 126/67 141/73 O2 Sat by Pulse 94 93 Oximetry 11/15/19 11/15/19 11/15/19 08:00 08:15 08:22 Temperature 97.5 F L Pulse Rate 80 79 Pulse Rate [ 84 From Monitor] Respiratory 24 Rate Blood Pressure 138/72 130/69 130/69 O2 Sat by Pulse 98 94 35 L Oximetry 11/15/19 11/15/19 11/15/19 08:30 08:45 09:00 Temperature Pulse Rate 79 78 83 Pulse Rate [ From Monitor] Respiratory 24 Rate Blood Pressure 132/67 124/66 128/73 O2 Sat by Pulse 93 95 94 Oximetry 11/15/19 11/15/19 11/15/19 09:15 09:30 09:45 Temperature Pulse Rate 80 83 81 Pulse Rate [ From Monitor] Respiratory 24 Rate Blood Pressure 127/69 124/72 134/78 O2 Sat by Pulse 93 93 Oximetry 11/15/19 11/15/19 11/15/19 10:00 10:15 10:30 Temperature Pulse Rate 83 84 103 H Pulse Rate [ From Monitor] Respiratory Rate Blood Pressure 132/79 138/77 81/45 O2 Sat by Pulse 94 95 99 Oximetry 11/15/19 11/15/19 10:45 11:00 Temperature 97.7 F Pulse Rate 84 83 Pulse Rate [ From Monitor] Respiratory Rate Blood Pressure 97/55 102/59 O2 Sat by Pulse 95 96 Oximetry Constitutional: comatose, other (not on sedation) Eyes: non-icteric ENT: oropharynx moist, other (orally intubated and critically ill on vent) Neck: supple Effort: normal Ascultation: Bilateral: clear, other (coarse BS bilaterally) Percussion: Bilateral: not dull Cardiovascular: regular rate and rhythm (no mrg) Gastrointestinal: normoactive bowel sounds, soft, non-tender, other (distended, + BS, NT) Integumentary: normal Extremities: no cyanosis, no edema, pink and warm Neurologic: other (unresponsive, eyes closed, no cough/gag, apneic on PSV) Psychiatric: other (unable to assess) CBC and BMP: 11/15/19 04:16 11/15/19 Unknown ABG, PT/INR, D-dimer: ABG POC ABG pH 7.236 (7.35-7.45) L 11/15/19 04:10 ABG pH 7.321 pH Units (7.350-7.450) L 11/14/19 04:47 POC ABG pCO2 43.2 (35-45) 11/15/19 04:10 ABG pCO2 25.2 mm Hg 11/14/19 04:47 POC ABG pO2 85 (80-105) 11/15/19 04:10 ABG pO2 194.5 mm Hg (80.0-90.0) H 11/14/19 04:47 POC ABG HCO3 18.4 (22-26 mml/L) 11/15/19 04:10 POC ABG Total CO2 20 (23-27mmol/L) 11/15/19 04:10 POC ABG O2 Sat 94 11/15/19 04:10 ABG O2 Saturation 99.2 % (95.0-99.0) H 11/14/19 04:47 PT/INR, D-dimer PT 16.9 Sec. (12.2-14.9) H 11/09/19 06:24 INR 1.35 (0.87-1.13) H 11/09/19 06:24 D-Dimer 4435.48 ng/mlDDU (0-234) H 11/09/19 06:24 Abnormal lab findings: Abnormal Labs 11/09/19 11/09/19 11/09/19 06:24 06:24 06:24 WBC RBC 3.54 L Hgb 11.7 L MCV 103 H MCH 33 H MCHC RDW Plt Count Seg Neuts % (Manual) Lymphocytes % (Manual) Nucleated RBC % 1.0 H Seg Neutrophils # Man Lymphocytes # (Manual) PT 16.9 H INR 1.35 H APTT 50.7 H D-Dimer 4435.48 H POC ABG pH ABG pH POC ABG pCO2 POC ABG pO2 ABG pO2 ABG HCO3 ABG O2 Saturation ABG Base Excess ABG Hemoglobin Oxyhemoglobin Sodium Potassium Chloride Carbon Dioxide BUN 23 H Glucose 122 H POC Glucose Lactic Acid Calcium 8.3 L Phosphorus Magnesium AST 355 H ALT 340 H Ammonia Troponin T 0.039 H NT-Pro-B Natriuret Pep 5052 H Total Protein 5.6 L Albumin 2.9 L TSH Urine WBC (Auto) 11/09/19 11/09/19 11/09/19 06:24 06:24 06:24 WBC RBC Hgb MCV MCH MCHC RDW Plt Count Seg Neuts % (Manual) Lymphocytes % (Manual) Nucleated RBC % Seg Neutrophils # Man Lymphocytes # (Manual) PT INR APTT D-Dimer POC ABG pH ABG pH POC ABG pCO2 POC ABG pO2 ABG pO2 ABG HCO3 ABG O2 Saturation ABG Base Excess ABG Hemoglobin Oxyhemoglobin Sodium Potassium Chloride Carbon Dioxide BUN Glucose POC Glucose Lactic Acid Calcium Phosphorus Magnesium 2.70 H AST ALT Ammonia 101.0 H Troponin T NT-Pro-B Natriuret Pep Total Protein Albumin TSH 5.500 H Urine WBC (Auto) 11/09/19 11/09/19 11/09/19 06:24 06:51 07:24 WBC RBC Hgb MCV MCH MCHC RDW Plt Count Seg Neuts % (Manual) Lymphocytes % (Manual) Nucleated RBC % Seg Neutrophils # Man Lymphocytes # (Manual) PT INR APTT D-Dimer POC ABG pH ABG pH POC ABG pCO2 POC ABG pO2 ABG pO2 ABG HCO3 ABG O2 Saturation ABG Base Excess ABG Hemoglobin Oxyhemoglobin Sodium Potassium Chloride Carbon Dioxide BUN Glucose POC Glucose Lactic Acid 8.80 H* 9.80 H* Calcium Phosphorus Magnesium AST ALT Ammonia Troponin T NT-Pro-B Natriuret Pep Total Protein Albumin TSH Urine WBC (Auto) 83.0 H 11/09/19 11/09/19 11/09/19 07:27 08:10 08:32 WBC RBC Hgb MCV MCH MCHC RDW Plt Count Seg Neuts % (Manual) Lymphocytes % (Manual) Nucleated RBC % Seg Neutrophils # Man Lymphocytes # (Manual) PT INR APTT D-Dimer POC ABG pH 7.145 L ABG pH POC ABG pCO2 POC ABG pO2 380 H ABG pO2 ABG HCO3 ABG O2 Saturation ABG Base Excess ABG Hemoglobin Oxyhemoglobin Sodium Potassium Chloride Carbon Dioxide BUN Glucose POC Glucose Lactic Acid 10.20 H* 6.50 H* Calcium Phosphorus Magnesium AST ALT Ammonia Troponin T NT-Pro-B Natriuret Pep Total Protein Albumin TSH Urine WBC (Auto) 11/09/19 11/09/19 11/09/19 09:27 10:30 12:11 WBC RBC Hgb MCV MCH MCHC RDW Plt Count Seg Neuts % (Manual) Lymphocytes % (Manual) Nucleated RBC % Seg Neutrophils # Man Lymphocytes # (Manual) PT INR APTT D-Dimer POC ABG pH ABG pH POC ABG pCO2 POC ABG pO2 ABG pO2 ABG HCO3 ABG O2 Saturation ABG Base Excess ABG Hemoglobin Oxyhemoglobin Sodium Potassium Chloride Carbon Dioxide BUN Glucose POC Glucose Lactic Acid 5.80 H* 3.80 H* 3.40 H* Calcium Phosphorus Magnesium AST ALT Ammonia Troponin T NT-Pro-B Natriuret Pep Total Protein Albumin TSH Urine WBC (Auto) 11/09/19 11/09/19 11/09/19 13:04 14:39 15:02 WBC RBC Hgb MCV MCH MCHC RDW Plt Count Seg Neuts % (Manual) Lymphocytes % (Manual) Nucleated RBC % Seg Neutrophils # Man Lymphocytes # (Manual) PT INR APTT D-Dimer POC ABG pH 7.288 L ABG pH POC ABG pCO2 60.2 H POC ABG pO2 74 L ABG pO2 ABG HCO3 ABG O2 Saturation ABG Base Excess ABG Hemoglobin Oxyhemoglobin Sodium Potassium Chloride Carbon Dioxide BUN Glucose POC Glucose Lactic Acid 2.70 H* 3.20 H* Calcium Phosphorus Magnesium AST ALT Ammonia Troponin T NT-Pro-B Natriuret Pep Total Protein Albumin TSH Urine WBC (Auto) 11/09/19 11/09/19 11/10/19 17:34 20:14 04:57 WBC RBC Hgb MCV MCH MCHC RDW Plt Count Seg Neuts % (Manual) Lymphocytes % (Manual) Nucleated RBC % Seg Neutrophils # Man Lymphocytes # (Manual) PT INR APTT D-Dimer POC ABG pH ABG pH POC ABG pCO2 52.4 H POC ABG pO2 72 L ABG pO2 71.6 L ABG HCO3 28.7 H ABG O2 Saturation ABG Base Excess 3.5 H ABG Hemoglobin 10.4 L Oxyhemoglobin 94.1 L Sodium Potassium Chloride Carbon Dioxide BUN Glucose POC Glucose Lactic Acid 2.60 H* Calcium Phosphorus Magnesium AST ALT Ammonia Troponin T NT-Pro-B Natriuret Pep Total Protein Albumin TSH Urine WBC (Auto) 11/10/19 11/10/19 11/11/19 06:50 06:50 03:55 WBC 12.1 H RBC Hgb MCV 98 H MCH MCHC RDW Plt Count Seg Neuts % (Manual) 88.0 H Lymphocytes % (Manual) 1.0 L Nucleated RBC % Seg Neutrophils # Man 10.6 H Lymphocytes # (Manual) 0.1 L PT INR APTT D-Dimer POC ABG pH ABG pH POC ABG pCO2 POC ABG pO2 ABG pO2 ABG HCO3 ABG O2 Saturation ABG Base Excess ABG Hemoglobin Oxyhemoglobin Sodium Potassium Chloride Carbon Dioxide BUN 29 H 28 H Glucose 147 H 162 H POC Glucose Lactic Acid Calcium Phosphorus Magnesium AST 1150 H 559 H ALT 1199 H 998 H Ammonia Troponin T NT-Pro-B Natriuret Pep Total Protein Albumin 3.1 L 3.1 L TSH Urine WBC (Auto) 11/11/19 11/11/19 11/11/19 03:55 12:28 23:37 WBC RBC Hgb MCV 99 H MCH 33 H MCHC RDW Plt Count Seg Neuts % (Manual) Lymphocytes % (Manual) Nucleated RBC % Seg Neutrophils # Man Lymphocytes # (Manual) PT INR APTT D-Dimer POC ABG pH ABG pH POC ABG pCO2 POC ABG pO2 ABG pO2 ABG HCO3 ABG O2 Saturation ABG Base Excess ABG Hemoglobin Oxyhemoglobin Sodium Potassium Chloride Carbon Dioxide BUN Glucose POC Glucose 136 H 140 H Lactic Acid Calcium Phosphorus Magnesium AST ALT Ammonia Troponin T NT-Pro-B Natriuret Pep Total Protein Albumin TSH Urine WBC (Auto) 11/12/19 11/12/19 11/12/19 05:10 06:30 06:30 WBC 11.5 H RBC Hgb MCV 100 H MCH 33 H MCHC RDW Plt Count Seg Neuts % (Manual) Lymphocytes % (Manual) Nucleated RBC % Seg Neutrophils # Man Lymphocytes # (Manual) PT INR APTT D-Dimer POC ABG pH ABG pH POC ABG pCO2 POC ABG pO2 ABG pO2 ABG HCO3 ABG O2 Saturation ABG Base Excess -3.5 L ABG Hemoglobin 6.7 L Oxyhemoglobin Sodium Potassium Chloride Carbon Dioxide 20 L D BUN 26 H Glucose 125 H POC Glucose Lactic Acid Calcium 7.9 L Phosphorus Magnesium AST 151 H ALT 526 H Ammonia Troponin T NT-Pro-B Natriuret Pep Total Protein 5.2 L Albumin 2.4 L TSH Urine WBC (Auto) 11/12/19 11/12/19 11/12/19 08:03 09:23 10:33 WBC RBC Hgb MCV MCH MCHC RDW Plt Count Seg Neuts % (Manual) Lymphocytes % (Manual) Nucleated RBC % Seg Neutrophils # Man Lymphocytes # (Manual) PT INR APTT D-Dimer POC ABG pH ABG pH POC ABG pCO2 POC ABG pO2 ABG pO2 ABG HCO3 ABG O2 Saturation ABG Base Excess ABG Hemoglobin Oxyhemoglobin Sodium > 179 H* D Potassium 2.7 L* D Chloride > 139 H Carbon Dioxide 20 L 18 L BUN 26 H 26 H Glucose 123 H 116 H POC Glucose 130 H Lactic Acid Calcium 8.1 L 8.0 L Phosphorus Magnesium AST 143 H 137 H ALT 523 H 518 H Ammonia Troponin T NT-Pro-B Natriuret Pep Total Protein 5.2 L 4.7 L Albumin 2.3 L 2.4 L TSH Urine WBC (Auto) 11/12/19 11/12/19 11/12/19 12:15 16:18 18:12 WBC RBC Hgb MCV MCH MCHC RDW Plt Count Seg Neuts % (Manual) Lymphocytes % (Manual) Nucleated RBC % Seg Neutrophils # Man Lymphocytes # (Manual) PT INR APTT D-Dimer POC ABG pH ABG pH POC ABG pCO2 POC ABG pO2 ABG pO2 ABG HCO3 ABG O2 Saturation ABG Base Excess ABG Hemoglobin Oxyhemoglobin Sodium > 179 H* Potassium 2.9 L* Chloride > 139 H Carbon Dioxide 18 L BUN 24 H Glucose 198 H POC Glucose 122 H 209 H Lactic Acid Calcium Phosphorus 1.30 L Magnesium 2.60 H AST ALT Ammonia Troponin T NT-Pro-B Natriuret Pep Total Protein Albumin TSH Urine WBC (Auto) 11/13/19 11/13/19 11/13/19 04:04 05:30 05:32 WBC RBC Hgb MCV MCH MCHC RDW Plt Count Seg Neuts % (Manual) Lymphocytes % (Manual) Nucleated RBC % Seg Neutrophils # Man Lymphocytes # (Manual) PT INR APTT D-Dimer POC ABG pH ABG pH 7.206 L POC ABG pCO2 POC ABG pO2 ABG pO2 75.0 L ABG HCO3 19.3 L ABG O2 Saturation 94.2 L ABG Base Excess -8.7 L ABG Hemoglobin 12.9 L Oxyhemoglobin 92.6 L Sodium Potassium Chloride Carbon Dioxide BUN Glucose POC Glucose 135 H 168 H Lactic Acid Calcium Phosphorus Magnesium AST ALT Ammonia Troponin T NT-Pro-B Natriuret Pep Total Protein Albumin TSH Urine WBC (Auto) 11/13/19 11/13/19 11/13/19 06:35 06:35 11:53 WBC 12.1 H RBC Hgb MCV 105 H MCH 33 H MCHC 31 L RDW 17.2 H Plt Count Seg Neuts % (Manual) Lymphocytes % (Manual) Nucleated RBC % Seg Neutrophils # Man Lymphocytes # (Manual) PT INR APTT D-Dimer POC ABG pH ABG pH POC ABG pCO2 POC ABG pO2 ABG pO2 ABG HCO3 ABG O2 Saturation ABG Base Excess ABG Hemoglobin Oxyhemoglobin Sodium 172 H* Potassium 5.5 H D Chloride > 139 H Carbon Dioxide 18 L BUN 23 H Glucose 133 H POC Glucose 183 H Lactic Acid Calcium 8.2 L Phosphorus Magnesium AST 61 H ALT 390 H Ammonia Troponin T NT-Pro-B Natriuret Pep Total Protein 5.7 L D Albumin 2.2 L TSH Urine WBC (Auto) 11/13/19 11/13/19 11/14/19 15:17 17:58 00:36 WBC RBC Hgb MCV MCH MCHC RDW Plt Count Seg Neuts % (Manual) Lymphocytes % (Manual) Nucleated RBC % Seg Neutrophils # Man Lymphocytes # (Manual) PT INR APTT D-Dimer POC ABG pH ABG pH POC ABG pCO2 POC ABG pO2 ABG pO2 ABG HCO3 ABG O2 Saturation ABG Base Excess ABG Hemoglobin Oxyhemoglobin Sodium 164 H* Potassium Chloride 140.0 H Carbon Dioxide 14 L BUN 22 H Glucose 157 H POC Glucose 156 H 129 H Lactic Acid Calcium 7.6 L Phosphorus Magnesium AST ALT Ammonia Troponin T NT-Pro-B Natriuret Pep Total Protein Albumin TSH Urine WBC (Auto) 11/14/19 11/14/19 11/14/19 04:40 04:40 04:47 WBC RBC Hgb MCV 105 H MCH 33 H MCHC 31 L RDW 17.2 H Plt Count 132 L Seg Neuts % (Manual) Lymphocytes % (Manual) Nucleated RBC % Seg Neutrophils # Man Lymphocytes # (Manual) PT INR APTT D-Dimer POC ABG pH ABG pH 7.321 L POC ABG pCO2 POC ABG pO2 ABG pO2 194.5 H ABG HCO3 12.7 L ABG O2 Saturation 99.2 H ABG Base Excess -11.6 L ABG Hemoglobin 12.6 L Oxyhemoglobin Sodium 158 H Potassium 5.5 H D Chloride 133.6 H Carbon Dioxide 14 L BUN 22 H Glucose 106 H POC Glucose Lactic Acid Calcium 7.6 L Phosphorus Magnesium AST ALT 242 H Ammonia Troponin T NT-Pro-B Natriuret Pep Total Protein 5.0 L Albumin 1.7 L TSH Urine WBC (Auto) 11/14/19 11/14/19 11/15/19 11:37 16:12 04:10 WBC RBC Hgb MCV MCH MCHC RDW Plt Count Seg Neuts % (Manual) Lymphocytes % (Manual) Nucleated RBC % Seg Neutrophils # Man Lymphocytes # (Manual) PT INR APTT D-Dimer POC ABG pH 7.236 L ABG pH POC ABG pCO2 POC ABG pO2 ABG pO2 ABG HCO3 ABG O2 Saturation ABG Base Excess ABG Hemoglobin Oxyhemoglobin Sodium 153 H Potassium Chloride 130.5 H Carbon Dioxide 15 L BUN 25 H Glucose 166 H POC Glucose 183 H Lactic Acid Calcium 7.6 L Phosphorus Magnesium AST ALT Ammonia Troponin T NT-Pro-B Natriuret Pep Total Protein Albumin TSH Urine WBC (Auto) 11/15/19 11/15/19 11/15/19 04:16 11:41 Unknown WBC RBC 3.45 L Hgb 11.3 L MCV 105 H MCH 33 H MCHC 31 L RDW 17.0 H Plt Count 135 L Seg Neuts % (Manual) Lymphocytes % (Manual) Nucleated RBC % Seg Neutrophils # Man Lymphocytes # (Manual) PT INR APTT D-Dimer POC ABG pH ABG pH POC ABG pCO2 POC ABG pO2 ABG pO2 ABG HCO3 ABG O2 Saturation ABG Base Excess ABG Hemoglobin Oxyhemoglobin Sodium 150 H Potassium Chloride 124.8 H Carbon Dioxide 18 L BUN 25 H Glucose 172 H POC Glucose 145 H Lactic Acid Calcium 8.0 L Phosphorus Magnesium AST ALT 148 H Ammonia Troponin T NT-Pro-B Natriuret Pep Total Protein 5.1 L Albumin 1.6 L TSH Urine WBC (Auto)
--- NOTE | 2019-11-15 14:19 | Progress Note ---
Assessment and Plan Assessment and plan: Cardiac arrest Continue pressors as needed. Fever due to SIRS Started on empiric Cefepime and IV Vancomycin ID consulted, following Anoxic encephalopathy Neurology reported that CT Head does have changes of anoxic encephalopathy MRI brain ordered, but not done yet Dr. Thomas recommended transfer to [facility] for EEG monitoring, [facility] was called but had no bed availability. Dr. Hinojosa discussed with Dr. Miller 11/12, and he states at this point transfer not recommended Dr. Stahl spoke with the father, Darci John, who has been located and requested that the patient be a DNR and this was confirmed by nursing over the phone. [facility] reportedly to arrange for procurement of organs. I discussed the case with Dr. Akbar. Hypernatremia Likely diabetic insipidus Na improved Nephrology following Elevated Ammonia level Resolved UTI (urinary tract infection) resolved Malnutrition Dietitian consulted DVT prophylaxis On Heparin and GI prophylaxis Prognosis very poor. No family available. The high probability of a clinically significant, sudden or life threatening deterioration of the [respiratory and neurological.] system(s) required my full and direct attention, intervention and personal management. The aggregate critical care time was [32] minutes. This time is in addition to time spent performing reported procedures but includes the following: [x] Data Review and interpretation [x] Patient assessment and monitoring of vital signs [x] Documentation [x] Medication orders and management History Interval history: Assessment and plan: 49-year-old male brought in from [facility] for cardiac arrest. Patient is being treated for schizophrenia at [facility]. Patient was found face down in a shower room. EMS was called. Patient was found pulseless and apneic. ACLS protocol was initiated and patient was intubated by EMS prior to arrival. ACLS was continued in the emergency room. Patient was given epinephrine 5. Patient was persistently in asystole and briefly and PEA. In the emergency room patient regained pulse but was hypotensive. Patient was started on pressors in the emergency room, admitted. Hospitalist Physical - Constitutional Vitals: Temp Pulse Resp BP Pulse Ox 97.7 F 85 24 113/57 97 11/15/19 11:00 11/15/19 12:35 11/15/19 11:00 11/15/19 12:35 11/15/19 12:35 General appearance: Present: other (intubated, nonresponsive) - EENT Eyes: Present: PERRL, EOM intact ENT: hearing intact, clear oral mucosa, dentition normal - Neck Neck: Present: supple, normal ROM - Respiratory Respiratory effort: normal Respiratory: bilateral: CTA - Cardiovascular Rhythm: regular Heart Sounds: Present: S1 & S2. Absent: gallop, rub - Extremities Extremities: no ischemia, No edema, Full ROM - Abdominal General gastrointestinal: soft, non-tender, non-distended, normal bowel sounds - Integumentary Integumentary: Present: clear, warm, dry - Neurologic Neurologic: CNII-XII intact, moves all extremities Results - Labs CBC & Chem 7: 11/15/19 04:16 11/15/19 Unknown Labs: Laboratory Last Values WBC 7.7 K/mm3 (4.5-11.0) 11/15/19 04:16 RBC 3.45 M/mm3 (3.65-5.03) L 11/15/19 04:16 Hgb 11.3 gm/dl (11.8-15.2) L 11/15/19 04:16 Hct 36.3 % (35.5-45.6) 11/15/19 04:16 MCV 105 fl (84-94) H 11/15/19 04:16 MCH 33 pg (28-32) H 11/15/19 04:16 MCHC 31 % (32-34) L 11/15/19 04:16 RDW 17.0 % (13.2-15.2) H 11/15/19 04:16 Plt Count 135 K/mm3 (140-440) L 11/15/19 04:16 Add Manual Diff Complete 11/10/19 06:50 Total Counted 100 11/10/19 06:50 Seg Neutrophils % Remote Mortgage Underwriter 11/10/19 06:50 Seg Neuts % (Manual) 88.0 % (40.0-70.0) H 11/10/19 06:50 Band Neutrophils % 10.0 % 11/10/19 06:50 Lymphocytes % (Manual) 1.0 % (13.4-35.0) L 11/10/19 06:50 Reactive Lymphs % (Man) 0 % 11/10/19 06:50 Monocytes % (Manual) 1.0 % (0.0-7.3) 11/10/19 06:50 Eosinophils % (Manual) 0 % (0.0-4.3) 11/10/19 06:50 Basophils % (Manual) 0 % (0.0-1.8) 11/10/19 06:50 Metamyelocytes % 0 % 11/10/19 06:50 Myelocytes % 0 % 11/10/19 06:50 Promyelocytes % 0 % 11/10/19 06:50 Blast Cells % 0 % 11/10/19 06:50 Nucleated RBC % Not Reportable 11/10/19 06:50 Seg Neutrophils # Man 10.6 K/mm3 (1.8-7.7) H 11/10/19 06:50 Band Neutrophils # 1.2 K/mm3 11/10/19 06:50 Lymphocytes # (Manual) 0.1 K/mm3 (1.2-5.4) L 11/10/19 06:50 Abs React Lymphs (Man) 0.0 K/mm3 11/10/19 06:50 Monocytes # (Manual) 0.1 K/mm3 (0.0-0.8) 11/10/19 06:50 Eosinophils # (Manual) 0.0 K/mm3 (0.0-0.4) 11/10/19 06:50 Basophils # (Manual) 0.0 K/mm3 (0.0-0.1) 11/10/19 06:50 Metamyelocytes # 0.0 K/mm3 11/10/19 06:50 Myelocytes # 0.0 K/mm3 11/10/19 06:50 Promyelocytes # 0.0 K/mm3 11/10/19 06:50 Blast Cells # 0.0 K/mm3 11/10/19 06:50 WBC Morphology Not Reportable 11/10/19 06:50 Hypersegmented Neuts Not Reportable 11/10/19 06:50 Hyposegmented Neuts Not Reportable 11/10/19 06:50 Hypogranular Neuts Not Reportable 11/10/19 06:50 Smudge Cells Not Reportable 11/10/19 06:50 Toxic Granulation Not Reportable 11/10/19 06:50 Toxic Vacuolation Not Reportable 11/10/19 06:50 Dohle Bodies Not Reportable 11/10/19 06:50 Pelger-Huet Anomaly Not Reportable 11/10/19 06:50 Emily Rods Not Reportable 11/10/19 06:50 Platelet Estimate Consistent w auto 11/10/19 06:50 Clumped Platelets Not Reportable 11/10/19 06:50 Plt Clumps, EDTA Not Reportable 11/10/19 06:50 Large Platelets Not Reportable 11/10/19 06:50 Giant Platelets Not Reportable 11/10/19 06:50 Platelet Satelliting Not Reportable 11/10/19 06:50 Plt Morphology Comment Not Reportable 11/10/19 06:50 RBC Morphology Normal 11/10/19 06:50 Dimorphic RBCs Not Reportable 11/10/19 06:50 Polychromasia Not Reportable 11/10/19 06:50 Hypochromasia Not Reportable 11/10/19 06:50 Poikilocytosis Not Reportable 11/10/19 06:50 Anisocytosis Not Reportable 11/10/19 06:50 Microcytosis Not Reportable 11/10/19 06:50 Macrocytosis Not Reportable 11/10/19 06:50 Spherocytes Not Reportable 11/10/19 06:50 Pappenheimer Bodies Not Reportable 11/10/19 06:50 Sickle Cells Not Reportable 11/10/19 06:50 Target Cells Not Reportable 11/10/19 06:50 Tear Drop Cells Not Reportable 11/10/19 06:50 Ovalocytes Not Reportable 11/10/19 06:50 Helmet Cells Not Reportable 11/10/19 06:50 [place] Bodies Not Reportable 11/10/19 06:50 [place] Rings Not Reportable 11/10/19 06:50 Alberto Cells Not Reportable 11/10/19 06:50 Bite Cells Not Reportable 11/10/19 06:50 Crenated Cell Not Reportable 11/10/19 06:50 Elliptocytes Not Reportable 11/10/19 06:50 Acanthocytes (Spur) Not Reportable 11/10/19 06:50 Rouleaux Not Reportable 11/10/19 06:50 Hemoglobin C Crystals Not Reportable 11/10/19 06:50 Schistocytes Not Reportable 11/10/19 06:50 Malaria parasites Not Reportable 11/10/19 06:50 Drake Bodies Not Reportable 11/10/19 06:50 Hem Pathologist Commnt No 11/10/19 06:50 PT 16.9 Sec. (12.2-14.9) H 11/09/19 06:24 INR 1.35 (0.87-1.13) H 11/09/19 06:24 APTT 50.7 Sec. (24.2-36.6) H 11/09/19 06:24 D-Dimer 4435.48 ng/mlDDU (0-234) H 11/09/19 06:24 POC ABG pH 7.236 (7.35-7.45) L 11/15/19 04:10 ABG pH 7.321 pH Units (7.350-7.450) L 11/14/19 04:47 POC ABG pCO2 43.2 (35-45) 11/15/19 04:10 ABG pCO2 25.2 mm Hg 11/14/19 04:47 POC ABG pO2 85 (80-105) 11/15/19 04:10 ABG pO2 194.5 mm Hg (80.0-90.0) H 11/14/19 04:47 POC ABG HCO3 18.4 (22-26 mml/L) 11/15/19 04:10 ABG HCO3 12.7 mmol/L (20.0-26.0) L 11/14/19 04:47 POC ABG Total CO2 20 (23-27mmol/L) 11/15/19 04:10 POC ABG O2 Sat 94 11/15/19 04:10 ABG O2 Saturation 99.2 % (95.0-99.0) H 11/14/19 04:47 ABG O2 Content 17.6 (0.0-44) 11/14/19 04:47 POC ABG Base Excess -9 ((-2) - (+3)mmol/L) 11/15/19 04:10 ABG Base Excess -11.6 mmol/L (-2.0-3.0) L 11/14/19 04:47 ABG Hemoglobin 12.6 gm/dl (14.0-18.0) L 11/14/19 04:47 ABG Carboxyhemoglobin 1.0 % (0.0-5.0) 11/14/19 04:47 ABG Methemoglobin 0.6 % (0.0-1.5) 11/14/19 04:47 Oxyhemoglobin 97.6 % (95.0-99.0) 11/14/19 04:47 FiO2 35 % 11/15/19 04:10 Sodium 150 mmol/L (137-145) H 11/15/19 Unknown Potassium 4.6 mmol/L (3.6-5.0) 11/15/19 Unknown Chloride 124.8 mmol/L (98-107) H 11/15/19 Unknown Carbon Dioxide 18 mmol/L (22-30) L 11/15/19 Unknown Anion Gap 12 mmol/L 11/15/19 Unknown BUN 25 mg/dL (9-20) H 11/15/19 Unknown Creatinine 1.2 mg/dL (0.8-1.5) 11/15/19 Unknown Estimated GFR > 60 ml/min 11/15/19 Unknown BUN/Creatinine Ratio 21 % 11/15/19 Unknown Glucose 172 mg/dL (75-100) H 11/15/19 Unknown POC Glucose 145 (70-105) H 11/15/19 11:41 Osmolality 381 Mosm/kg 11/12/19 16:18 Lactic Acid 1.70 mmol/L (0.7-2.0) 11/09/19 20:02 Calcium 8.0 mg/dL (8.4-10.2) L 11/15/19 Unknown Phosphorus 4.00 mg/dL (2.5-4.5) D 11/13/19 06:35 Magnesium 2.60 mg/dL (1.7-2.3) H 11/12/19 16:18 Total Bilirubin 0.20 mg/dL (0.1-1.2) 11/15/19 Unknown AST 36 units/L (5-40) 11/15/19 Unknown ALT 148 units/L (7-56) H 11/15/19 Unknown Alkaline Phosphatase 103 units/L (35-129) 11/15/19 Unknown Ammonia 42.0 umol/L (25-60) 11/10/19 14:56 Total Creatine Kinase 75 units/L (55-170) 11/09/19 06:24 CK-MB (CK-2) 3.0 ng/mL (0.0-4.0) 11/09/19 06:24 CK-MB (CK-2) Rel Index 4.0 (0-4) 11/09/19 06:24 Troponin T < 0.010 ng/mL (0.00-0.029) 11/11/19 03:55 NT-Pro-B Natriuret Pep 5052 pg/mL (0-450) H 11/09/19 06:24 Total Protein 5.1 g/dL (6.3-8.2) L 11/15/19 Unknown Albumin 1.6 g/dL (3.9-5) L 11/15/19 Unknown Albumin/Globulin Ratio 0.5 % 11/15/19 Unknown TSH 5.500 mlU/mL (0.270-4.200) H 11/09/19 06:24 Free T4 0.78 ng/dL (0.76-1.46) 11/09/19 06:24 Urine Color Straw (Yellow) 11/12/19 11:56 Urine Turbidity Clear (Clear) 11/12/19 11:56 Urine pH 6.0 (5.0-7.0) 11/12/19 11:56 Ur Specific [place] 1.003 (1.003-1.030) 11/12/19 11:56 Urine Protein <15 mg/dl mg/dL (Negative) 11/12/19 11:56 Urine Glucose (UA) Neg mg/dL (Negative) 11/12/19 11:56 Urine Ketones Neg mg/dL (Negative) 11/12/19 11:56 Urine Blood Sm (Negative) 11/12/19 11:56 Urine Nitrite Neg (Negative) 11/12/19 11:56 Urine Bilirubin Neg (Negative) 11/12/19 11:56 Urine Urobilinogen < 2.0 mg/dL (<2.0) 11/12/19 11:56 Ur Leukocyte Esterase Neg (Negative) 11/12/19 11:56 Urine WBC (Auto) 1.0 /HPF (0.0-6.0) 11/12/19 11:56 Urine RBC (Auto) < 1.0 /HPF (0.0-6.0) 11/12/19 11:56 U Epithel Cells (Auto) < 1.0 /HPF (0-13.0) 11/12/19 11:56 Urine Bacteria (Auto) 4+ /HPF (Negative) 11/09/19 07:24 Ur Transition Epith Cell 5 /HPF 11/09/19 07:24 Urine Mucus Few /HPF 11/12/19 11:56 Urine Osmolality 135 Mosm/kg 11/12/19 11:56 Urine Creatinine 20.0 mg/dL (0.1-20.0) 11/12/19 11:56 Urine Sodium 10 mmol/L 11/12/19 11:56 Urine Opiates Screen Presumptive negative 11/12/19 14:23 Urine Methadone Screen Presumptive negative 11/12/19 14:23 Ur Barbiturates Screen Presumptive negative 11/12/19 14:23 Valproic Acid 67.4 ug/mL (50-100) 11/09/19 06:39 Ur Phencyclidine Scrn Presumptive negative 11/12/19 14:23 Ur Amphetamines Screen Presumptive negative 11/12/19 14:23 U Benzodiazepines Scrn Presumptive negative 11/12/19 14:23 Urine Cocaine Screen Presumptive negative 11/12/19 14:23 U Marijuana (THC) Screen Presumptive negative 11/12/19 14:23 Drugs of Abuse Note Disclamer 11/12/19 14:23 Plasma/Serum Alcohol < 0.01 % (0-0.07) 11/09/19 06:39 Hepatitis A IgM Ab Non-reactive (NonReactive) 11/10/19 06:50 Hep Bs Antigen Non-reactive (Negative) 11/10/19 06:50 Hep B Core IgM Ab Non-reactive (NonReactive) 11/10/19 06:50 Hepatitis C Antibody Non-reactive (NonReactive) 11/10/19 06:50 Active Medications - Current Medications Current Medications: Generic Name Dose Route Start Last Admin Trade Name Freq PRN Reason Stop Dose Admin Acetaminophen 650 mg 11/11/19 09:13 11/11/19 16:48 Tylenol PO 650 mg Q6H PRN Administration Pain, Mild (1-3)/TEMP > 100.4 Lipase/Protease/Amylase 1 each 11/10/19 13:48 Pancreaze 10,500 Unit FEEDTUBE PRN PRN For Clogged Feeding Tube Desmopressin Acetate 2 mcg 11/13/19 22:00 11/15/19 12:26 Ddavp IV 2 mcg Q12HR HAN Administration Famotidine 20 mg 11/11/19 10:00 11/14/19 21:02 Pepcid PO 20 mg BID HAN Administration Heparin Sodium (Porcine) 5,000 unit 11/10/19 10:00 11/15/19 12:27 Heparin SUB-Q 5,000 unit Q12HR HAN Administration Hydrophilic Ointment 1 applic 11/09/19 07:29 Vaseline Lip Therapy TP Q2HR PRN Dry Lips Norepinephrine 4 mg in 250 mls @ 22.5 mls/hr 11/09/19 07:00 11/15/19 11:17 Levophed Drip 4 Mg/Ns 250 Ml IV 18 mcg/min TITR HAN 67.5 mls/hr Administration Protocol 6 MCG/MIN Levetiracetam 1,000 mg/ 110 mls @ 400 mls/hr 11/10/19 22:00 11/15/19 12:27 Dextrose IV 400 mls/hr Q12HR HAN Administration Dopamine HCl/Dextrose 800 mg in 250 mls @ 3.188 mls/hr 11/11/19 18:00 11/14/19 12:01 Intropin Drip 800 Mg/D5w 250 Ml IV 2.51 mcg/kg/min TITR HAN 4 mls/hr Titration Protocol 2 MCG/KG/MIN Sodium Bicarbonate 100 meq/ 1,100 mls @ 125 mls/hr 11/14/19 20:00 11/15/19 05:16 Dextrose IV 125 mls/hr DIRECT HAN Administration Metoprolol Tartrate 25 mg 11/11/19 22:00 11/14/19 21:01 Metoprolol PO Not Given BID HAN Multi-Ingred Cream/Lotion/Oil/Oint 1 applic 11/09/19 07:29 11/13/19 18:26 Artificial Tears Ophth Oint OU 1 applic Q4HR PRN Administration Dry Eye(s) Simple Syrup 15 ml 11/10/19 13:48 Simple Syrup FEEDTUBE PRN PRN Hypoglycemia Simple Syrup 30 ml 11/10/19 13:48 Simple Syrup FEEDTUBE PRN PRN Hypoglycemia Sodium Bicarbonate 325 mg 11/10/19 13:48 Sodium Bicarbonate FEEDTUBE PRN PRN For Clogged Feeding Tube Nutrition/Malnutrition Assess - Dietary Evaluation Nutrition/Malnutrition Findings: Nutrition Notes Start: 11/10/19 11:42 Freq: Status: Active Protocol: Document 11/15/19 12:45 OSCAR (Rec: 11/15/19 12:50 OSCAR [id number]) Nutrition Notes Initial or Follow up Reassessment Current Diagnosis Heart Failure,Respiratory Failure Other Pertinent Diagnosis Anoxic brain injury, Schizophrenia, UTI, Sepsis, Hepatic Encaphalopathy Current Diet Vital AF 1.2 at 70mL Labs/Tests Na: 150 BUN: 25 Glu: 172 Pertinent Medications Norepinephrine Height 5 ft 8 in Weight 85 kg [place] Body Weight (kg) 70.00 BMI 28.5 Subjective/Other Information F/u for TF tolerance. RD observed Vital AF running at 60ml/hr. RN stated he was tolerating feed, and would bump up TF to correct rate of 70ml/hr. Percent of energy/protein needs met: 85%/100% Burn Absent Trauma Absent Current % PO Negligible Minimum of two criteria No physical signs of malnutrition #1 Nutrition Diagnosis Inadequate oral intake Diagnosis Progress(for reassessment Continues documentation) Is patient on ventilator? Yes Is Patient Ambulatory and/or Out of Bed No REE-([place]-St Jeor-confined to bed) Calculation Used for Recommendations [facility] Additional Notes PRO: 102-170g/day (1.2-2g/kg/ day) Fluid: 1mL/kcal or per MD Nutrition Intervention Change Diet Order: Continue TF Nutrition Support: Vital AF 1.2 at 70mL/hr Flush 100mL q4h Kcal 2,016 Protein (gm) 126 Fluid (mL) 1,362 Goal #1 Tolerate TF Goal #2 Meet 75% of kcal and PRO needs via TF Anticipated Discharge Needs: Unable to determine at this time Follow-Up By: 11/17/19 Additional Comments F/u for TF at correct rtae, TF tolerance
[2019-11-15] MEDS: DOPamine/D5W 800 MG/250 ML 800 MG/250 ML BAG IV SCH (17:01)
[2019-11-15] MEDS: METOPROLOL TARTRATE 25 MG TAB PO SCH ×2 (17:01→22:08)
[2019-11-15] MEDS ORDERED: SODIUM CHLORIDE 0.9% 500 ML 500 ML ONE (17:35)
[2019-11-15] MEDS: FAMOTIDINE 20 MG TAB PO SCH (22:07)
[2019-11-15 23:04] VITALS: BP 93/42
[2019-11-16] MEDS ORDERED: FUROSEMIDE 20 MG/2 ML INJ IV SCH (01:30)
[2019-11-16] MEDS ORDERED: ALBUMIN HUMAN 25% (12.5 GM/50 ML) INJ IV ONE (01:36)
--- NOTE | 2019-11-16 02:20 | XRay Report ---
CHEST 1 VIEW INDICATION: follow up respiratory failure. COMPARISON: 11/15/2019 FINDINGS: SUPPORT DEVICES: Endotracheal tubes in good position. Nasogastric tube has tip below diaphragm. Centr al venous line has tip in superior vena cava HEART / MEDIASTINUM: No significant abnormality. LUNGS / PLEURA: No significant pulmonary or pleural abnormality. No pneumothorax. ADDITIONAL FINDINGS: IMPRESSION: 1. No acute findings. Signer Name: Mike Kelley MD Signed: 11/16/2019 2:16 AM Workstation Name: [email or web address]
[2019-11-16 02:28] LABS: Albumin 1.7 g/dL (3.9-5); Calcium 8.3 mg/dL (8.4-10.2)
[2019-11-16 02:39] LABS: Bilirubin,Urine NEG (Negative); Blood,Urine LG (Negative); Color,Urine Amber (Yellow); Mucus,Urine 2+ /HPF; Urobilinogen,Urine < 2.0 mg/dL (<2.0)
[2019-11-16 03:20] LABS: ABG Base Excess -8.5 mmol/L (-2.0-3.0); ABG HCO3 21.9 mmol/L (20.0-26.0); ABG Methemoglobin 0.9 % (0.0-1.5); ABG Oxygen Saturation 99.5 % (95.0-99.0); ABG PCO2 72.6 mm Hg
[2019-11-16] MEDS: NORepinephrine/NS 4 MG-250 ML 4 MG/250 ML BAG IV SCH (04:01)
[2019-11-16 04:02] LABS: ABG PO2 382.9 mm Hg (80.0-90.0)
[2019-11-16 04:16] LABS: ABG PH 7.098 pH Units (7.350-7.450)
--- NOTE | 2019-11-16 07:27 | Event Note ---
Date: 11/16/19 Called by nurse to pronounce the patient who has been on admission in the ICU. Patient has been on admission in the ICU status post cardiac arrest. Informed that patient has gone into asystole at 6:58 AM. Upon exam, there is no response to verbal or deep sternal rub. Pupils were fixed and dilated. Chest no breath sounds Cardiovascular exam no heart sounds and no peripheral pulses Abdomen slightly distended Extremities cold and clammy Central nervous system no reflexes Patient pronounced on 11/16/2019 at 7:20 AM. No family members were available.
--- NOTE | 2019-11-16 08:57 | Death Summary ---
Summary - Providers Date of service: 11/16/19 Consults: 11/09/19 07:32 Consult to Dietitian/Nutrition [CONS] Routine Physician Instructions: Reason For Exam: Reason for Consult: Evaluate nutritional intake 11/09/19 15:42 Consult to Physician [CONS] Urgent Comment: Consulting Provider: DANIEL STAHL Physician Instructions: Reason For Exam: icu admission 11/09/19 21:46 Consult to Physician [CONS] Routine Comment: Consulting Provider: MASSIMO THOMAS Physician Instructions: Reason For Exam: rule out Anoxic encephalopathy 11/10/19 08:40 Consult to Physician [CONS] Routine Comment: Consulting Provider: ANGIE VANG Physician Instructions: Reason For Exam: Fever 11/10/19 08:48 Consult to Physician [CONS] Routine Comment: Consulting Provider: SIRI ALFARO Physician Instructions: Reason For Exam: s/p cardiac arrest 11/10/19 10:32 Consult to Dietitian/Nutrition [CONS] Routine Physician Instructions: Reason For Exam: Reason for Consult: Write/Manage Tube Feeding 11/12/19 08:34 Consult to Physician [CONS] Routine Comment: Consulting Provider: ILIANA LAURA Physician Instructions: Reason For Exam: anoxic encephalopathy 11/12/19 11:43 Consult to Physician [CONS] Urgent Comment: Consulting Provider: GIANNI DIALLO Physician Instructions: Reason For Exam: Hypernatremia, diabetes insipidus,cardac arrest 11/16/19 19:15 Consult to Wound/ET Nurse [CONS] Urgent Reason For Exam: wound eval- blister/skin tear left A/C post D/cINT Attending: TAMARA LIVE - summary Date of admission: 11/09/19 11:19 Date of : 11/16/19 Reason for admission: cardiac arrest Disposition: 49-year-old male brought in from [facility] for cardiac arrest. Patient is being treated for schizophrenia at [facility]. Patient was found face down in a shower room. EMS was called. Patient was found pulseless and apneic. ACLS protocol was initiated and patient was intubated by EMS prior to arrival. ACLS was continued in the emergency room. Patient was given epinephrine 5. Patient was persistently in asystole and briefly and PEA. In the emergency room patient regained pulse but was hypotensive. Patient was started on pressors in the emergency room, admitted. The patient was noted to have severe hyponatremia which was felt to be likely secondary to neurogenic diabetes insipidus. Patient sodium level improved with desmopressin. Patient received water flushes through NG tube and BMP was monitored closely. Patient remained in shock re quiring pressors of Levophed and dopamine throughout the hospital stay. Patient also remained on mechanical ventilation from acute hypoxic respiratory failure and was not able to be weaned. Essentially, the patient remained unresponsive throughout hospital stay with evidence of anoxic encephalopathy. CT scan of the head showed evidence of the encephalopathy. MRI was not completed. Patient had 2 EEGs which essentially revealed generalized slowing but no seizure or epileptiform activity. Dr. Thomas recommended transfer to [place] for EEG monitoring. However further follow-up with Dr. John back on 11/13 recommended no transfer. 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 Dr. Stahl spoke with the father, Darci John, who has been located and requested that the patient be a DNR and this was confirmed by nursing over the phone. The patient had asystole at 6:58 AM. Patient pronounced on 11/16/2019 at 7:20 AM. Dedicated discharge time 35 minutes.
== END 2019-11-16 08:28 | DRG 207 ==
LOC: ED 06:10 → CC1 11:19
PROVIDERS: ADMIT Internal Medicine; ATTEND Hospitalist
PROC: 5A1955Z Respiratory Ventilation, Greater than 96 Consecutive Hours (ICD-10-PCS; principal; 2019-11-09)
PROC: 0BH17EZ Insertion of Endotracheal Airway into Trachea, Via Natural or Artificial Opening (ICD-10-PCS; 2019-11-09)
PROC: 4A033R1 Measurement of Arterial Saturation, Peripheral, Percutaneous Approach (ICD-10-PCS; 2019-11-09)
PROC: 02HV33Z Insertion of Infusion Device into Superior Vena Cava, Percutaneous Approach (ICD-10-PCS; 2019-11-09)
PROC: B548ZZA Ultrasonography of Superior Vena Cava, Guidance (ICD-10-PCS; 2019-11-09)
PROC: 5A12012 Performance of Cardiac Output, Single, Manual (ICD-10-PCS; 2019-11-10)
DX: J96.01 Acute respiratory failure with hypoxia (principal); K72.00 Acute and subacute hepatic failure without coma; G93.41 Metabolic encephalopathy; R65.10 Systemic inflammatory response syndrome (SIRS) of non-infectious origin without acute organ dysfunction; E87.1 Hypo-osmolality and hyponatremia; E87.2 Acidosis; G93.1 Anoxic brain damage, not elsewhere classified; I42.0 Dilated cardiomyopathy; N30.00 Acute cystitis without hematuria; I50.40 Unspecified combined systolic (congestive) and diastolic (congestive) heart failure; E44.0 Moderate protein-calorie malnutrition; I46.9 Cardiac arrest, cause unspecified; F20.9 Schizophrenia, unspecified; E87.6 Hypokalemia; J44.9 Chronic obstructive pulmonary disease, unspecified; D69.6 Thrombocytopenia, unspecified; R74.0 Nonspecific elevation of levels of transaminase and lactic acid dehydrogenase [LDH]; Z79.899 Other long term (current) drug therapy; Z68.28 Body mass index [BMI] 28.0-28.9, adult; Z71.3 Dietary counseling and surveillance
CPT/HCPCS: 36415; 36600; 70450; 71045; 71275; 74018; 80048; 80053; 80074; 80164; 80307; 80320; 81001; 82040; 82140; 82550; 82553; 82570; 82803; 82962; 83735; 83880; 83930; 83935; 84100; 84300; 84439; 84443; 84484; 85007; 85025; 85027; 85379; 85610; 85730; 87040; 87070; 87086; 87205; 93005; 93010; 93306; 94002; 94003; 94640; 94644; 95819; G0378; G0480; J0692; J1265; J1644; J1940; J1953; J1956; J2060; J2250; J2597; J2930; J3480; J7030; J7040; J7060; J7070; Q9967